=== PATIENT | female | born 1945 | race Caucasian/White ===

== ENCOUNTER 2020-06-30 13:54 | Outpatient (CLI) | payer MEDICARE, BC, SELFPAY | END 2020-06-30 13:55 | disposition home or self-care (01) | LOC: ANHCOVIDVC 13:54 | PROVIDERS: PCP Family Medicine Adolescent Medicine | DX: Z23 Encounter for immunization (principal) | CPT/HCPCS: 0001A; 91300 ==

== ENCOUNTER 2020-07-21 13:56 | Outpatient (CLI) | payer MEDICARE, BC, SELFPAY | END 2020-07-21 13:57 | disposition home or self-care (01) | LOC: ANHCOVIDVC 13:57 | PROVIDERS: PCP Family Medicine Adolescent Medicine | DX: Z23 Encounter for immunization (principal) | CPT/HCPCS: 0002A; 91300 ==

== ENCOUNTER 2022-06-28 19:21 | Emergency (ER) | payer MEDICARE, BC, SELFPAY ==
--- NOTE | ~2022-06-28 | XR_ITS ---
EXAM: XR shoulder LT min 2V DATE: 06/28/2022 20:10 HISTORY: Fall today. Left shoulder pain, ROM intact . COMPARISON: None available. FINDINGS: Severely decreased mineralization. Comminuted fracture of the lateral head and proximal hu meral shaft, with minimal displacement. No lytic or blastic lesion. Joint spaces are maintained. No e rosion or periosteal change. Soft tissues within normal limits. IMPRESSION: Comminuted nondisplaced fracture of the left humeral head and proximal shaft. Reviewed, dictated and finalized at location K. IMPRESSION: Comminuted nondisplaced fracture of the left humeral head and proxi mal shaft.
--- NOTE | ~2022-06-28 | CT_ITS ---
EXAMINATION: CT brain wo con DATE: 06/28/2022 19:56 INDICATION: fall . TECHNIQUE: Computed tomography (CT) of the head was performed without intravenous contrast. The mA wa s adjusted according to patient size. Iterative reconstruction technique was employed. The dose-lengt h product was 529.67 mGy-cm. COMPARISON: 03/03/2018. FINDINGS: No acute intracranial hemorrhage or extra-axial fluid collection. No hydrocephalus, mass, or herniation. No acute ischemic infarct. Unremarkable dural venous sinus attenuation. No acute osseous abnormality. The aerated spaces are clear. Moderate atrophy and chronic white matter change. Atherosclerotic intracranial calcification. 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 IMPRESSION: No acute intracranial process. Reviewed, dictated and finalized at location K.
--- NOTE | 2022-06-28 19:26 | ECG_ITS ---
Measurements Intervals [place] Rate: 110 P: 53 [place]: 210 QRS: -14 QRSD: 73 T: 24 QT: 295 QTc: 399 Interpretive Statements SINUS TACHYCARDIA WITH FIRST DEGREE AV BLOCK MODERATE VOLTAGE CRITERIA FOR LVH, CONSIDER NORMAL VARIANT [MEETS CRITERIA IN ONE OF: R(aVL), S(V1), R(V5), R(V5/V6)+S(V1)] POSSIBLE ANTEROSEPTAL MYOCARDIAL INFARCTION , PROBABLY OLD [30 ms Q WAVE IN V1-V4] NO PREVIOUS ECG AVAILABLE FOR COMPARISON Electronically Signed On 06-29-2022 17:59:37 CDT by Maico Lundy M.D.
[2022-06-28 19:30] VITALS: BP 150/84; PULSE 109; RESP 20; TEMP 36.3; O2SAT 94
--- NOTE | 2022-06-28 20:43 | ED.FALL ---
HPI - Fall General Chief Complaint: Fall Stated Complaint: fall Time Seen by Provider: 06/28/22 19:34 Source: patient Mode of arrival: wheelchair Limitations: no limitations History of Present Illness HPI Narrative: 77-year-old with a history of hypertension was brought in by family with complaints of fall. Patient states that she tripped and fell on her left shoulder she denies any head and neck injuries. No history of loss of consciousness. She denies any chest pain MD complaint: fall Onset (ago): hour(s) (1) Fall from: standing Fall witnessed: yes, by family Place fall occurred: home Loss of consciousness: none Symptoms prior to fall: none Context: tripped/slipped Location of injury - extremities: Left: shoulder Quality: aching Associated symptoms (after fall): denies Related Data Allergies Allergy/AdvReac Type Severity Reaction Status Date / Time Sulfa (Sulfonamide Allergy Mild Verified 03/03/18 19:09 Antibiotics) PCN Allergy Mild Uncoded 08/05/09 16:41 Review of Systems Review of Systems: All systems reviewed & are unremarkable except as noted in HPI and below Constitutional: Constitutional: Reports no additional constitutional complaints Eyes: Eyes: Reports no additional eye complaints ENT: Reports system reviewed and no additional complaints, except as documented Cardiovascular: Cardiovascular: Reports no additional cardiovascular complaints Respiratory: Respiratory: Reports no additional respiratory complaints Gastrointestinal: Gastrointestinal: Reports no additional gastrointestinal complaints Musculoskeletal: Musculoskeletal: Reports as per HPI Neurologic: Reports system reviewed and no additional complaints, except as documented [facility] Surgical History Surgical History (Updated 02/03/22 @ 06:40 by Maxime Jimenes MD) History of cholecystectomy (1988) Exam Narrative: GENERAL: Well-appearing, well-nourished, and in no acute distress. HEAD: Normocephalic, atraumatic. mild bruises on the left side of the face EYES: PERRLA and EOMI. NECK: Supple. CHEST: Clear to auscultation. No respiratory distress. HEART: Regular rate and rhythm. No murmur heard. Normal peripheral pulses. ABDOMEN: Soft, nontender, nondistended, normal active bowel sounds. EXTREMITIES: Tenderness in the left shoulder painful ROM SKIN: Warm, dry, no rash. NEURO: No focal deficits. Alert and oriented x3. PSYCH: Normal mood and affect. Course Course Emergency Course: Notified patient about her x-ray and CT findings. Discussed with Dr. Owen will follow-up in the office. Vital Signs Vital signs: Vital Signs Temperature 36.3 C L 06/28/22 19:30 Pulse Rate 109 H 06/28/22 19:30 Respiratory Rate 20 06/28/22 19:30 Blood Pressure 150/84 H 06/28/22 19:30 Pulse Oximetry 94 06/28/22 19:30 Oxygen Delivery Room Air 06/28/22 19:30 Temperature 36.3 C L 06/28/22 19:30 Pulse Rate 109 H 06/28/22 19:30 Respiratory Rate 20 06/28/22 19:30 Blood Pressure 150/84 H 06/28/22 19:30 Pulse Oximetry 94 06/28/22 19:30 Oxygen Delivery Room Air 06/28/22 19:30 MDM - Fall Imaging Data Radiologist's impression: ITS Impressions Head CT 06/28/22 20:02 IMPRESSION: No acute intracranial process. Shoulder X-Ray 06/28/22 20:29 IMPRESSION: Comminuted nondisplaced fracture of the left humeral head and proximal shaft. ECG Data EKG #1: ECG completion date: 06/28/22 ECG completion time: 19:32 EKG Interpretation: tachycardia (110), no ectopy, normal QRS, normal QT and NL axis Discharge Plan Discharge Clinical Impression: Humerus head fracture Qualifiers: Encounter type: initial encounter Fracture type: closed Laterality: left Qualified Code(s): S42.292A - Other displaced fracture of upper end of left humerus, initial encounter for closed fracture Minor head injury Qualifiers: Encounter type: initial encounter Qualified Code(s): S09.90XA -
[2022-06-28 21:00] VITALS: BP 141/90; PULSE 89; RESP 18; TEMP 36.6; O2SAT 99
== END 2022-06-28 21:01 | disposition home or self-care (01) ==
PROVIDERS: Emergency Provider Family Medicine; PCP Family Medicine Adolescent Medicine
DX: S42.295A Other nondisplaced fracture of upper end of left humerus, initial encounter for closed fracture (principal); S42.355A Nondisplaced comminuted fracture of shaft of humerus, left arm, initial encounter for closed fracture; S09.90XA Unspecified injury of head, initial encounter; W01.0XXA Fall on same level from slipping, tripping and stumbling without subsequent striking against object, initial encounter
CPT/HCPCS: 70450; 73030; 93005; 99284; A4565

== ENCOUNTER 2022-09-20 15:14 | Inpatient (IN) | payer MEDICARE, BC, SELFPAY ==
[2022-09-20] VITALS (10 sets, daily range): BP systolic 123–148; BP diastolic 58–101; PULSE 94–115; RESP 13–20; TEMP 36–36.7; O2SAT 93–100; BMI 36.1
--- NOTE | ~2022-09-20 | CT_ITS ---
EXAMINATION: CTA chest PE protocol DATE: 09/21/2022 20:29 INDICATION: Elevated d-dimer TECHNIQUE: Computed tomography angiography (CTA) of the chest was performed with 100 mL Omnipaque-350 intravenous contrast timed to evaluate the pulmonary arteries. Coronal maximum intensity projection 3D-reconstructions were created by the technologist. Automated exposure control and iterative reconst ruction technique were employed. Exam dose: 660.33 mGy-cm total exam DLP. COMPARISON: 08/05/2009 portable AP chest FINDINGS: The examination is limited by motion artifact and by streak artifact from contrast material particularly in the superior vena cava. No pulmonary embolism is evident. Thoracic aortic and great vessel atherosclerotic calcification. No thoracic aortic aneurysm or dissec tion is detected. Prominent tortuosity of the lower descending thoracic aorta. No hilar or mediastinal mass lesion or lymphadenopathy. Coronary artery calcifications. No pericardial or pleural effusion. There is discoid atelectasis or scarring in the dependent lingula. No pulmonary infiltrate or consol idation or apparent pulmonary mass lesion. Status post cholecystectomy. There is ossification along the anterior thoracic spinal column suggesting ankylosing spondylitis or other spondyloarthropathy. IMPRESSION: Limited examination due to motion; no apparent pulmonary embolus Reviewed, dictated and finalized at Location A. Reviewed, dictated and finalized at location A.
--- NOTE | ~2022-09-20 | US_ITS ---
EXAMINATION: US venous doppler [facility] DATE: 09/21/2022 12:42 INDICATION: Lower limb edema. TECHNIQUE: Grayscale ultrasound images without and with compression and Doppler ultrasound images of the bilateral lower extremity veins were obtained. COMPARISON: Ultrasound 08/12/2009 FINDINGS: The visualized portions of right common femoral vein, profunda (deep) femoral vein, femoral vein, pop liteal vein, posterior tibial veins, and greater saphenous vein outflow are patent. The visualized portions of left common femoral vein, profunda femoral vein, femoral vein, popliteal v ein, posterior tibial veins, and greater saphenous vein outflow are patent. IMPRESSION: 1. No deep venous thrombosis. Reviewed, dictated and finalized at location A.
[2022-09-20 15:49] LABS: Basophils Percent Auto 0.5 % (0.2-1.2); Eosinophils Absolute Auto 0.3 K/mm3 (0-0.3); Hematocrit 43.1 % (37.0-47.0); Hemoglobin 14.1 g/dL (12.0-15.0); Immature Granulocyte Absolute 0.02 K/mm3 (0.00-0.031); Immature Granulocyte Percent A 0.2 % (0-0.5); Lymphocytes Absolute Auto 0.79 K/mm3 (0.9-3.2); Lymphocytes Percent Auto 9.4 % (18.3-44.2); Mean Corpuscular HGB Conc 32.7 g/dl (32-36); Mean Corpuscular Hemoglobin 31.1 pg (26-34); Mean Corpuscular Volume 94.9 fl (80-100); Mean Platelet Volume 11.9 fl (7.4-10.4); Monocytes Absolute Auto 0.5 K/mm3 (0.1-0.6); Monocytes Percent Auto 5.4 % (2.6-8.5); Neutrophils Absolute Auto 6.8 K/mm3 (1.3-6.7); Neutrophils Percent Auto 81.5 % (45.5-73.1); Platelet Count Result 170 k/mm3 (150-375); Red Blood Count 4.54 M/mm3 (4.2-5.4); Red Cell Distribution Width 11.9 % (11.5-14.5); White Blood Count 8.4 K/mm3 (4.5-10.0)
[2022-09-20 15:58] LABS: Alanine Aminotransferase 20 U/L (6-35); Albumin Level 4.3 g/dL (3.5-5.1); Alkaline Phosphatase 82 U/L (38-126); Anion Gap 5 mmol/L (8-16); Aspartate Amino Transferase 32 U/L (14-36); Bilirubin,Total 0.6 mg/dL (0.2-1.3); Blood Urea Nitrogen 25 mg/dL (7-17); Calcium 8.2 mg/dL (8.4-10.2); Carbon Dioxide 37 mmol/L (22-30); Chloride 98 mmol/L (98-107); Estimated CRCL calculation 41 ml/min; Estimated Glomerular Filt Rate 53; Glucose 105 mg/dL (65-110); Potassium 3.4 mmol/L (3.4-5.0); Sodium 140 mmol/L (137-145)
[2022-09-20 16:07] LABS: NT Pro B Type Natriuretic Pept 306 pg/mL (19.9-100)
[2022-09-20] MEDS: MORPHINE SULFATE (*CRX) 2 MG/ML INJ IV PUSH (16:28)
[2022-09-20 16:35] LABS: Prothrombin Time 13.1 Seconds (11.1-14.7)
[2022-09-20 16:36] LABS: Partial Thromboplastin Time 30.7 SECONDS (22.3-36.8)
--- NOTE | 2022-09-20 16:37 | ED.LOWEXIN ---
HPI - Extremity Injury (Lower) General Chief Complaint: Extremity Injury, Lower Stated Complaint: LE pain Time Seen by Provider: 09/20/22 15:23 History of Present Illness HPI Narrative: Patient is a 77-year-old female who presents ER with bilateral lower extremity pain. Worsening over the last week but more so over the last 24 hours. She reports she takes Bumex 0.5 mg chronically and her doctor doubled it yesterday due to her swelling. No chest pain or chest pressure. No shortness of breath. She reports that her legs are more tender and pink and that they are weeping fluid. She denies any history of CHF and reports only history of hypertension. She has no known kidney disease. Related Data Allergies Allergy/AdvReac Type Severity Reaction Status Date / Time Penicillins Allergy Mild Unknown Verified 09/20/22 15:37 Sulfa (Sulfonamide Allergy Mild Unknown Verified 09/19/22 10:07 Antibiotics) Review of Systems Review of Systems: All systems reviewed & are unremarkable except as noted in HPI and below Constitutional: Constitutional: Denies chills, Denies fatigue and Denies fever(s) ENT: Denies nasal congestion and Denies sore throat Cardiovascular: Cardiovascular: Denies chest pain, Denies rapid heart rate and Denies radiating jaw, neck or arm pain Respiratory: Respiratory: Denies cough and Denies dyspnea Musculoskeletal: Musculoskeletal: Denies arthralgias and Denies joint swelling Comments: Bilateral lower extremity swelling. Integumentary/Breasts: Comments: + Leg weeping, leg redness PMFSH Past Medical History Medical History (Updated 09/20/22 @ 18:06 by Francois Restrepo MD) Fracture of humerus, proximal, left, closed (06/2022) Surgical History Surgical History History of cholecystectomy (1988) Social History Social History Smoking status: Never smoker Exam Narrative: GENERAL: Well-appearing, well-nourished, and in no acute distress. HEAD: Normocephalic, atraumatic. ENT: Mucous membranes moist. CHEST: Clear to auscultation. No respiratory distress. HEART: Regular rate and rhythm. Normal peripheral pulses. ABDOMEN: Soft, nontender, nondistended. EXTREMITIES: Normal range of motion. 2+ edema. Weeping edema right greater than left. Legs are erythematous beneath the knee and tender palpation and warm to touch. SKIN: Warm, dry, no rash. See above. NEURO: Alert and oriented x3. PSYCH: Normal mood and affect. Course Course Emergency Course: Patient resting comfortably. Informed results. Will admit to the hospitalist service to rule out DVT. Patient given therapeutic Lovenox x1. Vital Signs Vital signs: Vital Signs Temperature 98.1 F 09/20/22 15:14 Pulse Rate 97 09/20/22 15:14 Respiratory Rate 13 09/20/22 15:14 Pulse Oximetry 100 09/20/22 15:14 Oxygen Delivery Room Air 09/20/22 15:14 Temperature 97.6 F 09/20/22 15:39 Pulse Rate 94 09/20/22 16:47 Respiratory Rate 18 09/20/22 15:39 Blood Pressure 126/64 09/20/22 17:16 Pulse Oximetry 94 09/20/22 17:16 Oxygen Delivery Room Air 09/20/22 15:14 MDM - Extremity Injury (Lower) Lab Data 09/20/22 15:41 09/20/22 15:41 Labs: Lab Results 09/20/22 Range/Units 15:41 WBC 8.4 (4.5-10.0) K/mm3 RBC 4.54 (4.2-5.4) M/mm3 Hgb 14.1 (12.0-15.0) g/dL Hct 43.1 (37.0-47.0) % MCV 94.9 (80-100) fl MCH 31.1 (26-34) pg MCHC 32.7 (32-36) g/dl RDW 11.9 (11.5-14.5) % Plt Count 170 (150-375) k/mm3 MPV 11.9 H (7.4-10.4) fl Immature Gran % (Auto) 0.2 (0-0.5) % Neut % (Auto) 81.5 H (45.5-73.1) % Lymph % (Auto) 9.4 L (18.3-44.2) % [place] % (Auto) 5.4 (2.6-8.5) % Eos % (Auto) 3.0 (0-4.4) % Baso % (Auto) 0.5 (0.2-1.2) % Lymph # (Auto) 0.79 L (0.9-3.2) K/mm3 [place] # (Auto) 0.5 (0.1-0.6) K/mm3 Eos # (Auto)
[2022-09-20] MEDS: BUMETANIDE INJ 1 MG/4 ML VIAL IV PUSH (16:41)
[2022-09-20 16:54] LABS: D Dimer 2.81 ug/mL (<0.48)
[2022-09-20] MEDS: ENOXAPARIN 100 MG/ML SYRINGE 87 MG SUB-Q (17:00)
--- NOTE | 2022-09-20 18:37 | PM.IMHP ---
H&P: HPI History of Present Illness Date/Time: 09/20/22 18:15 Chief Complaint: Leg pain and swelling. Narrative: This is a pleasant 77-year-old female with hypertension who presented to the emergency department via EMS from home for evaluation of leg pain and swelling. The patient provides the following history. She has mild, chronic lower extremity edema and has been on bumetanide 0.5 mg daily. Over the past 7 to 10 days however she has noticed a marked increase in swelling in both of her legs and has noted some fluid leaking from blisters that have developed on the right lower leg. She saw Dr. Nolen in the office yesterday and her bumetanide dose was doubled and she is to see him in follow-up next week. She came to the ER today because her legs are so painful that she cannot even bear weight. She has no known history of congestive heart failure, kidney disease, venous thromboembolism, or blistering disorders. She denies she denies fever, chills, sweats, chest pain, pleuritic pain, shortness a breath, orthopnea, paroxysmal nocturnal dyspnea, nausea, vomiting, and numbness or weakness in the lower extremities. Her vital signs were stable on arrival to the emergency department. Labs were significant for a proBNP of 306 and a D-dimer of 2.81. She received a therapeutic dose of Lovenox for possible DVT (ultrasound not available on a holiday) and she is being admitted in this setting for further workup and monitoring. At the time my evaluation she is resting comfortably and does not have any specific complaints. Review of Systems Review of Systems: Twelve systems were reviewed and are negative except for as per HPI. [facility] Past Medical History Medical History (Updated 09/20/22 @ 22:31 by Janeth Hollis PA-C) Fracture of humerus, proximal, left, closed (06/2022) Hypertension Osteoarthritis Surgical History Surgical History (Updated 09/20/22 @ 22:24 by Janeth Hollis PA-C) History of cholecystectomy (1988) History of total replacement of right shoulder joint History of tubal ligation Family History Family History (Updated 09/20/22 @ 22:28 by Janeth Hollis PA-C) Other Family history unknown Social History Social History (Updated 09/20/22 @ 22:28 by Janeth Hollis PA-C) Social History: Surrogate medical decision maker: Quentin Perez, son. Code status: Full code. Smoking status: Never smoker Alcohol intake: never Substance use: never Lack of Transportation: No Lack of Food: Never True Current Housing: I Have Housing Concerned About Future Housing: No Difficulty Paying Gas/Electric Bills: No Difficulty Paying for Meds: No Currently Unemployed: No Education: High School Diploma/GED Difficulty w/ Childcare or Family Care: No Additional living arrangements comments: Lives in [place]. Spiritual care concerns: No Meds Home Medications and Allergies Home Medications Medication Instructions Recorded Confirmed Type bumetanide 1 mg tablet 1 mg PO DAILY #90 tabs 09/19/22 09/20/22 Rx lisinopril 40 mg tablet 40 mg PO DAILY #90 tabs 09/19/22 09/20/22 Rx Allergies Allergy/AdvReac Type Severity Reaction Status Date / Time Penicillins Allergy Mild Unknown Verified 09/20/22 15:37 Sulfa (Sulfonamide Allergy Mild Unknown Verified 09/19/22 10:07 Antibiotics) Vital Signs Vital Signs - 24 hr 09/20/22 15:14 09/20/22 15:39 09/20/22 16:02 Temperature 98.1 F 97.6 F Pulse Rate 97 95 95 Respiratory Rate 13 18 Blood Pressure 124/101 H 131/72 Pulse Oximetry 100 100 99 Oxygen Delivery Room Air 09/20/22 16:31 09/20/22 16:47 09/20/22 17:16 Temperature Pulse Rate 98 94 Respiratory Rate Blood Pressure 137/72 123/58 L 126/64 Pulse Oximetry 94 93 94 Oxygen Delivery 09/20/22 18:20 Temperature Pulse Rate 96 Respiratory Rate 20 Blood Pressure Pulse Oximetry 96 Oxygen Delivery Exam Narrative: General: A well-developed, non
[2022-09-20] MEDS: HYDROcodone/acetaminophen (*CRX) 5-325 MG TABLET 1 TAB PO (20:18)
--- NOTE | 2022-09-20 21:20 | ADMGEN ---
This patient, Leah Perez, was admitted to [facility] Surg Room 330-02. Patient/family oriented to hospital policies and general routines including ID bracelet, bed and alarms, visiting hours, pain management, procedures, bathroom and other care routines, personal items, smoking policy, room service/diet, and visiting hours. Information on how to activate the Rapid Response Team has been discussed. Patient/Family are encouraged to report perceived risks to care and to ask questions if they do not understand what they are told or what they should do.
[2022-09-21 04:27] LABS: Appearance Urine Slightly Cloudy (Clear); Bilirubin Urine 1+ (Negative); Blood Urine Negative (Negative); Color Urine Yellow (Yellow); Glucose Urine UA Negative (Negative); Ketones Urine Trace mg/dL (Negative); Leukocyte Esterase Ur Negative LEU/UL (Negative); Nitrate Urine Negative (Negative); Protein Urine Negative (Negative); Specific Grav Ur 1.015 (1.001-1.035); pH Urine 5.5 (5.0-9.0)
[2022-09-21 04:29] LABS: Bacteria Urine None Seen /hpf; RBC Urine 0-2 /hpf (0-2); Squamous Epithelial Cell Urine Few /hpf (Few); WBC Urine 0-5 /hpf
[2022-09-21 04:30] LABS: Add Urine Microscopic? YES
[2022-09-21 05:56] LABS: Hematocrit 40.5 % (37.0-47.0); Hemoglobin 13.4 g/dL (12.0-15.0); Mean Corpuscular HGB Conc 33.1 g/dl (32-36); Mean Corpuscular Hemoglobin 31.2 pg (26-34); Mean Corpuscular Volume 94.2 fl (80-100); Mean Platelet Volume 11.8 fl (7.4-10.4); Platelet Count Result 135 k/mm3 (150-375); Red Cell Distribution Width 11.9 % (11.5-14.5); White Blood Count 9.4 K/mm3 (4.5-10.0)
[2022-09-21 06:00] VITALS: BP 130/60; PULSE 97; RESP 20; TEMP 36.6; O2SAT 92
[2022-09-21 06:06] LABS: Anion Gap 5 mmol/L (8-16); Blood Urea Nitrogen 22 mg/dL (7-17); Calcium 7.6 mg/dL (8.4-10.2); Carbon Dioxide 33 mmol/L (22-30); Chloride 101 mmol/L (98-107); Estimated CRCL calculation 46 ml/min; Estimated Glomerular Filt Rate 60; Glucose 106 mg/dL (65-110); Potassium 3.3 mmol/L (3.4-5.0); Sodium 139 mmol/L (137-145)
[2022-09-21] MEDS: MAGNESIUM SULF 4 GM/WATER100ML 4 GM/100 ML BAG IVPB (06:41)
[2022-09-21 06:58] LABS: Thyroid Stimulating Hormone Reflex 0.606 uIU/mL (0.465-4.68)
--- NOTE | 2022-09-21 08:00 | ECHO_ITS ---
Patient Info Name: Leah Perez Age: 77 years : 1945 Gender: Female Ht: 62 in Wt: 197 lbs BSA: 2.02 m2 HR: 98 bpm BP: 131 / 66 mmHg Technical Quality: Fair Exam Date: 09/21/2022 11:31 AM Exam Location: [facility] Pulmonary Exam Room: 330 Patient Status: Inpatient Admit Date: 09/21/2022 Staff Ordering Physician: Janeth Hollis PA-C Dumpster Driver: Alena Chu RDCS Attending Provider: Uriel Iqbal MD Referring Physician: Telma YOUNGER; Exam Type: CA echo dop color flow w con Study Info Indications - hypertension edema Complete two-dimensional, color flow and Doppler transthoracic echocardiogram is performed with contrast to opacify the left ventricle and to improve the deliniation of the left ventricle endocardial borders. Contrast/Agitated Saline Contrast/Ag. Saline: Definity Amount: 2.00 ml Administered By: Alena Chu [facility] Existing IV Access: Yes Summary 1. Left ventricular chamber dimension is normal. 2. Definity contrast administered improved wall motion interpretation. 3. Left ventricular systolic function is normal, estimated at 65-70%. 4. The left ventricular diastolic function is grade I diastolic dysfunction. 5. E/e' 14 is mildly elevated. 6. There is mild aortic valve sclerosis. 7. The mitral valve has moderately calcified leaflets and moderately calcified annulus. 8. There is trace tricuspid valve regurgitation. 9. No pulmonary hypertension, estimated pulmonary arterial systolic pressure is 38 mmHg. Left Ventricle E/e' 14 is mildly elevated. Definity contrast administered improved wall motion interpretation. Left ventricular chamber dimension is normal. Left ventricular systolic function is normal, estimated at 65-70%. The left ventricular diastolic function is grade I diastolic dysfunction. Right Ventricle Right ventricular chamber dimension is normal. Right ventricular systolic function is normal. Left Atria Left atrial chamber dimension is normal. Right Atria Right atrial chamber dimension is normal. Aortic Valve The aortic valve is trileaflet. There is mild aortic valve sclerosis. There is no aortic valve stenosis. There is no aortic valve regurgitation. Pulmonic Valve There is no pulmonic regurgitation. Mitral Valve The mitral valve has moderately calcified leaflets and moderately calcified annulus. There is no mitral valve stenosis. There is no mitral valve regurgitation. Tricuspid Valve There is trace tricuspid valve regurgitation. No pulmonary hypertension, estimated pulmonary arterial systolic pressure is 38 mmHg. Pericardium/Pleural There is no pericardial effusion. Inferior Vena Cava Normal inferior vena cava with >50% collapse upon inspiration consistent with normal right atrial pressure, 5 mmHg. Aorta The aortic root size at the sinus of Valsalva is normal. Left Ventricular Outflow Tract Name Value Normal LVOT 2D LVOT Diameter 2.12 cm LVOT Doppler LVOT Peak Velocity 107.39 cm/s LVOT Peak Gradient 5 mmHg LVOT Mean Gradient 2 mmHg LVOT VTI 19.22 cm L
[2022-09-21] MEDS: POTASSIUM CHLORIDE 20 MEQ ER TABLET 40 MEQ PO ×2 (09:02→16:44)
[2022-09-21] MEDS: BUMETANIDE INJ 1 MG/4 ML VIAL IV PUSH (09:02)
[2022-09-21] MEDS: lisinopriL 20 MG TABLET 40 MG PO (09:02)
[2022-09-21] MEDS: ENOXAPARIN 100 MG/ML SYRINGE 90 MG SUB-Q (10:08)
[2022-09-21 10:52] VITALS: BMI 35.4
--- NOTE | 2022-09-21 11:41 | PC.NURSE ---
Ultrasound to call the floor when patient is sent for. Patient needs to be pre-medicated before venous dopplers due to pain.
[2022-09-21] MEDS: PERFLUTREN LIPID MICROSPHERES 1.5 ML VIAL DILUTED TO 10 ML TOTAL VOLUME IV PUSH (11:50)
[2022-09-21] MEDS: MORPHINE SULFATE (*CRX) 2 MG/ML INJ 1 MG IV PUSH (12:05)
[2022-09-21 12:51] LABS: Magnesium 2.2 mg/dL (1.6-2.3)
[2022-09-21 14:00] VITALS: BP 101/51; PULSE 87; RESP 18; TEMP 37; O2SAT 100
--- NOTE | 2022-09-21 14:33 | PM.IMPN ---
Progress Note: A&P Assessment and Plan (1) Lower extremity edema: Code(s): R60.0 - Localized edema Status: Acute Assessment and Plan: The patient presented to the ED for evaluation of increasing lower extremity edema, pain, redness and now with blisters and weeping of the right leg. Her D-dimer is elevated raising the possibility of DVT. Lower extremity venous Doppler ultrasounds negative for DVT. She received a therapeutic dose of Lovenox in the ED and this was continued until ultrasounds were negative. May be dependent edema, encouraged elevation of the legs. Continue Bumex 1 mg IV q.a.m. Echocardiogram EF of 65-70%, grade 1 diastolic dysfunction, mitral valve moderately calcified leaflets and annulus These do not look infected but and procalcitonin CRP was ordered. White count normal. Consider antibiotics if elevated CRP. (2) Elevated d-dimer: Code(s): R79.89 - Other specified abnormal findings of blood chemistry Status: Acute Assessment and Plan: Bilateral ultrasound of lower extremities negative for DVT CTA chest ordered to rule out PE (3) Hypertension: Code(s): I10 - Essential (primary) hypertension Status: Acute Assessment and Plan: Blood pressures were reviewed and they have been stable Plan Her home medications will be reviewed and resumed as appropriate. Subjective Date/time seen: 09/21/22 14:33 Interval history: Patient is in quite a bit of pain with manipulation of her right lower extremity and has some mild pain to palpation of the left lower extremity. Right lower extremity is red and has to open sores on the mid ornelas that are weeping. Patient states that those wounds opened approximately 1 week ago and the redness is fairly new. Most of her pain is in the right calf. She has 2+ pitting edema below the knee on the right and 1+ pitting edema below the knee on left. She denies any shortness of breath, cough or chest palpitations. Review of Systems Review of Systems: All systems reviewed & are unremarkable except as noted in HPI and below Exam Narrative: GENERAL: Uncomfortable, no acute distress HENMT: moist mucous membranes EYES: EOM intact b/l NECK: no lymphadenopathy RESPIRATORY: clear to auscultation CARDIO: RRR GI: soft, nontender, bowel sounds present SKIN: no rashes EXTREMITIES: Right lower extremity extreme tenderness to palpation and has some mild pain to palpation of the left lower extremity. Right lower extremity is red and has two open sores on the mid ornelas that are weeping. She has 2+ pitting edema below the knee on the right and 1+ pitting edema below the knee on left. Objective Data Vital Signs Vital Signs: Vital Signs - 24 hr 09/20/22 15:14 09/20/22 15:39 09/20/22 16:02 Temperature 98.1 F 97.6 F Pulse Rate 97 95 95 Respiratory Rate 13 18 Blood Pressure 124/101 H 131/72 Pulse Oximetry 100 100 99 Oxygen Delivery Room Air 09/20/22 16:31 09/20/22 16:47 09/20/22 17:16 Temperature Pulse Rate 98 94 Respiratory Rate Blood Pressure 137/72 123/58 L 126/64 Pulse Oximetry 94 93 94 Oxygen Delivery 09/20/22 18:20 09/20/22 18:39 09/20/22 21:56 Temperature 96.8 F L 97.7 F Pulse Rate 96 115 H 106 H Respiratory Rate 20 18 19 Blood Pressure 148/74 H 131/66 Pulse Oximetry 96 95 98 Oxygen Delivery 09/20/22 21:53 09/21/22 06:00 09/21/22 08:00 Temperature 97.8 F Pulse Rate 97 Respiratory Rate 20 Blood Pressure 130/60 Pulse Oximetry 98 92 Oxygen Delivery Room Air Room Air 09/21/22 14:00 Temperature 98.6 F Pulse Rate 87 Respiratory Rate 18 Blood Pressure 101/51 L Pulse Oximetry 100 Oxygen Delivery Intake/Output Intake/Output: Intake & Output 09/18/22 09/19/22 09/20/22 09/21/22 23:59 23:59 23:59 23:59 Intake Total 760 Output Total 100 1100 Balance -100 -340 Meds/Results Medications: Active Medications Generic Name D
--- NOTE | 2022-09-21 15:48 | PCOTNOTE ---
Attempted to see pt. for occupational therapy evaluation. Per nursing, pt. in significant LE pain, recommending delaying evaluation at this time.
[2022-09-21 15:52] LABS: CRP 2.6 mg/dL (<1.0)
[2022-09-21 16:42] LABS: Procalcitonin 0.5 ng/mL
[2022-09-21 21:05] VITALS: BP 130/50; PULSE 100; RESP 20; TEMP 37.1; O2SAT 95
[2022-09-22 06:00] VITALS: BP 128/54; PULSE 92; RESP 20; TEMP 36.3; O2SAT 90
[2022-09-22 06:12] LABS: Hematocrit 38.9 % (37.0-47.0); Hemoglobin 12.9 g/dL (12.0-15.0); Mean Corpuscular HGB Conc 33.2 g/dl (32-36); Mean Corpuscular Hemoglobin 31.2 pg (26-34); Mean Platelet Volume 12.4 fl (7.4-10.4); Platelet Count Result 128 k/mm3 (150-375); Red Blood Count 4.14 M/mm3 (4.2-5.4); Red Cell Distribution Width 11.7 % (11.5-14.5); White Blood Count 7.6 K/mm3 (4.5-10.0)
[2022-09-22 06:30] LABS: Anion Gap 3 mmol/L (8-16); Blood Urea Nitrogen 18 mg/dL (7-17); Carbon Dioxide 32 mmol/L (22-30); Chloride 98 mmol/L (98-107); Estimated CRCL calculation 46 ml/min; Estimated Glomerular Filt Rate 60; Glucose 98 mg/dL (65-110); Magnesium 1.9 mg/dL (1.6-2.3); Potassium 4.2 mmol/L (3.4-5.0); Sodium 133 mmol/L (137-145)
[2022-09-22] MEDS: BUMETANIDE INJ 1 MG/4 ML VIAL IV PUSH ×2 (09:13→16:05)
[2022-09-22] MEDS: ENOXAPARIN 40 MG/0.4 ML SYRINGE SUB-Q (09:13)
[2022-09-22] MEDS: lisinopriL 20 MG TABLET 40 MG PO (09:13)
--- NOTE | 2022-09-22 13:03 | PC.NURSE ---
Pt has been up with therapy today. Pt reported pain with ambulation, but denies pain at rest. Pt has visitor at bedside. Pt had loose bowel movement earlier today. Provider notified and order for stool sample to be placed. Wound consult order to be placed also. Pt has weeping R leg with blister and open areas where blisters were. Leg is warm to touch with redness around blister sites. Pt participated and contributed in plan of care. Will continue to monitor pt.
--- NOTE | 2022-09-22 13:27 | PCPTNOTE ---
On 09/22/22, the student, [Gely Garcia], provided care and completed [facility] documentation on this patient. I have reviewed the student's documentation and agree with the findings.
[2022-09-22 14:00] VITALS: BP 127/63; PULSE 110; RESP 22; TEMP 37.9; O2SAT 94
--- NOTE | 2022-09-22 14:48 | PM.IMPN ---
Progress Note: A&P Assessment and Plan (1) Lower extremity edema: Code(s): R60.0 - Localized edema Status: Acute Assessment and Plan: The patient presented to the ED for evaluation of increasing lower extremity edema, pain, redness and now with blisters and weeping of the right leg. D-dimer 2.8 Lower extremity venous Doppler ultrasounds negative for DVT. She received a therapeutic dose of Lovenox in the ED and this was continued until ultrasounds were negative. May be dependent edema, encouraged elevation of the legs. Bumex increased to 1 mg IV b.i.d. Echocardiogram EF of 65-70%, grade 1 diastolic dysfunction, mitral valve moderately calcified leaflets and annulus White count within normal range, normal procalcitonin and mildly elevated CRP of 2.6 Patient developed fever of 100.3? and dose of vancomycin given. Wound care consult and wound culture ordered (2) Elevated d-dimer: Code(s): R79.89 - Other specified abnormal findings of blood chemistry Status: Acute Assessment and Plan: Bilateral ultrasound of lower extremities negative for DVT CTA of the chest negative for PE (3) Hypertension: Code(s): I10 - Essential (primary) hypertension Status: Acute Assessment and Plan: Blood pressures were reviewed and they have been stable Plan Her home medications will be reviewed and resumed as appropriate. Subjective Date/time seen: 09/22/22 14:48 Interval history: Patient up to chair and continued to have right leg pain. None of patient's labs indicate infection but she does have a very red and swollen legs mimicking his cellulitis. I did discuss the case with attending physician and he believes that this could be stasis dermatitis. Further inspection she had 1 blister that appeared to be oozing pus. Will collect wound sample. Later in the day patient developed a fever of 100.3. Decided to give dose of vancomycin as well as diuresing her. Review of Systems Review of Systems: All systems reviewed & are unremarkable except as noted in HPI and below Exam Narrative: GENERAL: Uncomfortable, no acute distress HENMT: moist mucous membranes EYES: EOM intact b/l NECK: no lymphadenopathy RESPIRATORY: clear to auscultation CARDIO: RRR GI: soft, nontender, bowel sounds present SKIN: no rashes EXTREMITIES: Right lower extremity extreme tenderness to palpation and has some mild pain to palpation of the left lower extremity. Right lower extremity is red and has two open sores on the mid ornelas. One is oozing pus. She has 2+ pitting edema below the knee on the right and 1+ pitting edema below the knee on left. Objective Data Vital Signs Vital Signs: Vital Signs - 24 hr 09/21/22 20:00 09/21/22 21:05 09/22/22 06:00 Temperature 98.7 F 97.4 F L Pulse Rate 100 92 Respiratory Rate 20 20 Blood Pressure 130/50 L 128/54 L Pulse Oximetry 95 90 Oxygen Delivery Room Air 09/22/22 09:13 09/22/22 10:41 09/22/22 14:00 Temperature 100.3 F H Pulse Rate 110 H Respiratory Rate 22 H Blood Pressure 127/63 Pulse Oximetry 94 Oxygen Delivery Room Air Room Air Intake/Output Intake/Output: Intake & Output 09/19/22 09/20/22 09/21/22 09/22/22 23:59 23:59 23:59 23:59 Intake Total 1180 814 Output Total 100 1500 1300 Balance -100 320 486 Meds/Results Medications: Active Medications Generic Name Dose Route Start Last Admin Trade Name Freq PRN Reason Stop Dose Admin Acetaminophen 650 mg 09/20/22 22:33 Acetaminophen 325 Mg Tablet PO Q6H PRN Mild Pain (1-3) or Fever Hydrocodone Bitart/Acetaminophen 1 tab 09/20/22 17:32 09/20/22 20:18 Hydrocodone/Acetaminophen (*Crx) 5-325 Mg Tablet PO 1 tab Q4H PRN Administration Pain Rated 4-6 Bumetanide 1 mg 09/21/22 09:00 09/22/22 09:13 Bumetanide Inj 1 Mg/4 Ml Vial IV PUSH 1 mg QAM VALERIE Administration Enoxaparin Sodium 40 m
[2022-09-22] MEDS: ACETAMINOPHEN 325 MG TABLET 650 MG PO (15:02)
[2022-09-22 16:02] VITALS: TEMP 36.8
[2022-09-22] MEDS: SILVERGEL (ELTA) 45 ML 1 APPLIC TOPICAL (16:04)
[2022-09-22 20:00] VITALS: PULSE 110; RESP 22; O2SAT 94
[2022-09-22 21:24] VITALS: O2SAT 94
[2022-09-22 21:44] VITALS: BP 118/55; PULSE 87; RESP 20; TEMP 36.9; O2SAT 94
[2022-09-23 04:49] VITALS: BP 154/67; PULSE 96; RESP 22; TEMP 36.8; O2SAT 91
[2022-09-23 06:32] LABS: Basophils Percent Auto 0.3 % (0.2-1.2); Eosinophils Absolute Auto 0.3 K/mm3 (0-0.3); Hematocrit 37.1 % (37.0-47.0); Hemoglobin 12.1 g/dL (12.0-15.0); Immature Granulocyte Absolute 0.03 K/mm3 (0.00-0.031); Immature Granulocyte Percent A 0.4 % (0-0.5); Lymphocytes Absolute Auto 0.73 K/mm3 (0.9-3.2); Lymphocytes Percent Auto 10.4 % (18.3-44.2); Mean Corpuscular HGB Conc 32.6 g/dl (32-36); Mean Corpuscular Hemoglobin 30.9 pg (26-34); Mean Corpuscular Volume 94.9 fl (80-100); Monocytes Absolute Auto 0.7 K/mm3 (0.1-0.6); Neutrophils Absolute Auto 5.3 K/mm3 (1.3-6.7); Neutrophils Percent Auto 74.9 % (45.5-73.1); Platelet Count Result 121 k/mm3 (150-375); Red Blood Count 3.91 M/mm3 (4.2-5.4); Red Cell Distribution Width 11.6 % (11.5-14.5)
[2022-09-23 06:45] LABS: Alanine Aminotransferase 15 U/L (6-35); Albumin Level 3.2 g/dL (3.5-5.1); Alkaline Phosphatase 64 U/L (38-126); Anion Gap -3 mmol/L (8-16); Aspartate Amino Transferase 21 U/L (14-36); Bilirubin,Total 0.8 mg/dL (0.2-1.3); Blood Urea Nitrogen 16 mg/dL (7-17); CRP 2.7 mg/dL (<1.0); Calcium 8.1 mg/dL (8.4-10.2); Carbon Dioxide 39 mmol/L (22-30); Chloride 96 mmol/L (98-107); Estimated CRCL calculation 46 ml/min; Estimated Glomerular Filt Rate 60; Glucose 98 mg/dL (65-110); Potassium 3.9 mmol/L (3.4-5.0); Sodium 132 mmol/L (137-145)
[2022-09-23 08:51] VITALS: O2SAT 95
[2022-09-23 08:54] VITALS: O2SAT 95
[2022-09-23] MEDS: lisinopriL 20 MG TABLET 40 MG PO (08:54)
[2022-09-23] MEDS: TOLNAFTATE 1% POWDER 45 GM BTL 1 APPLIC TOPICAL ×2 (08:54→20:19)
[2022-09-23] MEDS: BUMETANIDE INJ 1 MG/4 ML VIAL IV PUSH ×2 (08:54→16:37)
[2022-09-23] MEDS: SILVERGEL (ELTA) 45 ML 1 APPLIC TOPICAL (08:55)
[2022-09-23] MEDS: ENOXAPARIN 40 MG/0.4 ML SYRINGE SUB-Q (08:55)
[2022-09-23] MEDS: HYDROcodone/acetaminophen (*CRX) 5-325 MG TABLET 1 TAB PO (10:42)
[2022-09-23 14:00] VITALS: BP 125/63; PULSE 93; RESP 18; TEMP 36.2; O2SAT 94
--- NOTE | 2022-09-23 15:42 | PM.IMPN ---
Progress Note: A&P Assessment and Plan (1) Lower extremity edema: Code(s): R60.0 - Localized edema Status: Acute Assessment and Plan: The patient presented to the ED for evaluation of increasing lower extremity edema, pain, redness and now with blisters and weeping of the right leg. D-dimer 2.8 Lower extremity venous Doppler ultrasounds negative for DVT. She received a therapeutic dose of Lovenox in the ED and this was continued until ultrasounds were negative. May be dependent edema, encouraged elevation of the legs. Bumex increased to 1 mg IV b.i.d. Echocardiogram EF of 65-70%, grade 1 diastolic dysfunction, mitral valve moderately calcified leaflets and annulus White count within normal range, normal procalcitonin and mildly elevated CRP of 2.6 Patient developed fever of 100.3? and vancomycin started Wound care consult and wound culture ordered (2) Elevated d-dimer: Code(s): R79.89 - Other specified abnormal findings of blood chemistry Status: Acute Assessment and Plan: Bilateral ultrasound of lower extremities negative for DVT CTA of the chest negative for PE (3) Hypertension: Code(s): I10 - Essential (primary) hypertension Status: Acute Assessment and Plan: Blood pressures were reviewed and they have been stable Plan Her home medications will be reviewed and resumed as appropriate. Subjective Date/time seen: 09/23/22 15:42 Interval history: Patient continuing to have pain with ambulation and palpation of her right lower extremity. Her swelling and erythema have improved in mid ornelas/mid calf area. She is still significantly edematous over her foot and ankles. Skin is still warm to touch. She denies any systemic symptoms such as body aches, chills, nausea, vomiting, headache and dizziness. Will continue antibiotic therapy at this time as well as retics. Watch sodium as it is continuing to drop. May have to hold diuretics tomorrow. Review of Systems Review of Systems: All systems reviewed & are unremarkable except as noted in HPI and below Exam Narrative: GENERAL: Uncomfortable, no acute distress HENMT: moist mucous membranes EYES: EOM intact b/l NECK: no lymphadenopathy RESPIRATORY: clear to auscultation CARDIO: RRR GI: soft, nontender, bowel sounds present SKIN: no rashes EXTREMITIES: Right lower extremity extreme tenderness to palpation and has some mild pain to palpation of the left lower extremity. Right lower extremity is red and has two open sores on the mid ornelas. One is oozing pus. She has 2+ pitting edema below the knee on the right and 1+ pitting edema below the knee on left. --erythema and swelling around the calf and ornelas have improved Objective Data Vital Signs Vital Signs: Vital Signs - 24 hr 09/22/22 16:02 09/22/22 20:00 09/22/22 21:44 Temperature 98.2 F 98.4 F Pulse Rate 110 H 87 Respiratory Rate 22 H 20 Blood Pressure 118/55 L Pulse Oximetry 94 94 Oxygen Delivery Room Air 09/22/22 21:24 09/23/22 04:49 09/23/22 08:51 Temperature 98.2 F Pulse Rate 96 Respiratory Rate 22 H Blood Pressure 154/67 H Pulse Oximetry 94 91 95 Oxygen Delivery Room Air Room Air 09/23/22 08:54 09/23/22 14:00 Temperature 97.2 F L Pulse Rate 93 Respiratory Rate 18 Blood Pressure 125/63 Pulse Oximetry 95 94 Oxygen Delivery Room Air Intake/Output Intake/Output: Intake & Output 09/20/22 09/21/22 09/22/22 09/23/22 23:59 23:59 23:59 23:59 Intake Total 1180 1536 500 Output Total 100 1500 1850 1100 Balance -100 -320 -314 -600 Meds/Results Medications: Active Medications Generic Name Dose Route Start Last Admin Trade Name Freq PRN Reason Stop Dose Admin Acetaminophen 650 mg 09/20/22 22:33 09/22/22 15:02 Acetaminophen 325 Mg Tablet PO 650 mg Q6H PRN Administration Mild Pain (1-3) or Fever Hydrocodone Bitart/Acetaminophen 1 tab 09/20/22
--- NOTE | 2022-09-23 16:20 | PC.NURSE ---
Pt has been up in the chair today. Pt has been in pain and was treated with pain medication. Pt wound care done, pt tolerated well. Pt does not report any pain with dressing change. Pt has friend at bedside. Will continue to monitor pt.
[2022-09-23 22:00] VITALS: BP 146/67; PULSE 86; RESP 16; TEMP 36.2; O2SAT 92
[2022-09-24 06:00] VITALS: BP 148/70; PULSE 89; RESP 16; TEMP 36.3; O2SAT 90
[2022-09-24 07:12] LABS: Basophils Percent Auto 0.4 % (0.2-1.2); Eosinophils Absolute Auto 0.4 K/mm3 (0-0.3); Eosinophils Percent Auto 6.2 % (0-4.4); Hematocrit 36.5 % (37.0-47.0); Immature Granulocyte Absolute 0.02 K/mm3 (0.00-0.031); Immature Granulocyte Percent A 0.4 % (0-0.5); Lymphocytes Percent Auto 12.3 % (18.3-44.2); Mean Corpuscular HGB Conc 32.9 g/dl (32-36); Mean Corpuscular Volume 94.3 fl (80-100); Mean Platelet Volume 11.7 fl (7.4-10.4); Monocytes Absolute Auto 0.7 K/mm3 (0.1-0.6); Neutrophils Absolute Auto 3.9 K/mm3 (1.3-6.7); Neutrophils Percent Auto 68.7 % (45.5-73.1); Platelet Count Result 162 k/mm3 (150-375); Red Blood Count 3.87 M/mm3 (4.2-5.4); Red Cell Distribution Width 11.6 % (11.5-14.5); White Blood Count 5.7 K/mm3 (4.5-10.0)
[2022-09-24 07:41] LABS: Alanine Aminotransferase 14 U/L (6-35); Albumin Level 3.2 g/dL (3.5-5.1); Alkaline Phosphatase 59 U/L (38-126); Anion Gap -1 mmol/L (8-16); Aspartate Amino Transferase 19 U/L (14-36); Bilirubin,Total 0.5 mg/dL (0.2-1.3); Blood Urea Nitrogen 17 mg/dL (7-17); Calcium 8.3 mg/dL (8.4-10.2); Carbon Dioxide 36 mmol/L (22-30); Chloride 96 mmol/L (98-107); Estimated CRCL calculation 41 ml/min; Estimated Glomerular Filt Rate 53; Glucose 95 mg/dL (65-110); Potassium 3.7 mmol/L (3.4-5.0); Sodium 131 mmol/L (137-145)
[2022-09-24] MEDS: ENOXAPARIN 40 MG/0.4 ML SYRINGE SUB-Q (08:19)
[2022-09-24] MEDS: BUMETANIDE INJ 1 MG/4 ML VIAL IV PUSH (08:20)
[2022-09-24] MEDS: lisinopriL 20 MG TABLET 40 MG PO (08:20)
[2022-09-24] MEDS: TOLNAFTATE 1% POWDER 45 GM BTL 1 APPLIC TOPICAL ×2 (08:32→20:43)
[2022-09-24] MEDS: SILVERGEL (ELTA) 45 ML 1 APPLIC TOPICAL (08:32)
--- NOTE | 2022-09-24 12:59 | PM.IMPN ---
Progress Note: A&P Assessment and Plan (1) Lower extremity edema: Code(s): R60.0 - Localized edema Status: Acute Assessment and Plan: The patient presented to the ED for evaluation of increasing lower extremity edema, pain, redness and now with blisters and weeping of the right leg. D-dimer 2.8 Lower extremity venous Doppler ultrasounds negative for DVT. She received a therapeutic dose of Lovenox in the ED and this was continued until ultrasounds were negative. May be dependent edema, encouraged elevation of the legs. Bumex 1 mg daily Echocardiogram EF of 65-70%, grade 1 diastolic dysfunction, mitral valve moderately calcified leaflets and annulus Wound care consult and wound culture ordered (2) Cellulitis: Code(s): L03.90 - Cellulitis, unspecified Status: Acute Assessment and Plan: Patient being treated for cellulitis of the right lower extremity. Initially put on vancomycin which seem to improve erythema, pain and edema. Blood cultures came back positive for Serratia marcescens and vancomycin was transition to cefepime Culture sensitivities pending. Wound care consulted Continue dressing changes and topicals per wound care Continue to monitor labs and vital signs and adjust therapy as indicated. (3) Elevated d-dimer: Code(s): R79.89 - Other specified abnormal findings of blood chemistry Status: Acute Assessment and Plan: Bilateral ultrasound of lower extremities negative for DVT CTA of the chest negative for PE (4) Hypertension: Code(s): I10 - Essential (primary) hypertension Status: Acute Assessment and Plan: Blood pressures were reviewed and they have been stable Plan Her home medications will be reviewed and resumed as appropriate. Subjective Date/time seen: 09/24/22 12:59 Interval history: Patient up to the chair doing well today. She has no new complaints at this time. Her wound appears to be improving. She continues to have pain in the right lower extremity although it has improved since admission. She is ambulating better each day. Review of Systems Review of Systems: All systems reviewed & are unremarkable except as noted in HPI and below Exam Narrative: GENERAL: Uncomfortable, no acute distress HENMT: moist mucous membranes EYES: EOM intact b/l NECK: no lymphadenopathy RESPIRATORY: clear to auscultation CARDIO: RRR GI: soft, nontender, bowel sounds present SKIN: no rashes EXTREMITIES: Right lower extremity extreme tenderness to palpation and has some mild pain to palpation of the left lower extremity. Right lower extremity is red and has two open sores on the mid ornelas. One is oozing pus. She has 2+ pitting edema below the knee on the right and 1+ pitting edema below the knee on left. --erythema and swelling around the calf and ornelas have improved Objective Data Vital Signs Vital Signs: Vital Signs - 24 hr 09/23/22 14:00 09/23/22 22:00 09/24/22 06:00 Temperature 97.2 F L 97.2 F L 97.3 F L Pulse Rate 93 86 89 Respiratory Rate 18 16 16 Blood Pressure 125/63 146/67 H 148/70 H Pulse Oximetry 94 92 90 Oxygen Delivery 09/24/22 08:20 Temperature Pulse Rate Respiratory Rate Blood Pressure Pulse Oximetry Oxygen Delivery Room Air Intake/Output Intake/Output: Intake & Output 09/21/22 09/22/22 09/23/22 09/24/22 23:59 23:59 23:59 23:59 Intake Total 1180 2036 500 790 Output Total 1500 1850 1675 120 Balance -320 186 -1175 670 Meds/Results Medications: Active Medications Generic Name Dose Route Start Last Admin Trade Name Freq PRN Reason Stop Dose Admin Acetaminophen 650 mg 09/20/22 22:33 09/22/22 15:02 Acetaminophen 325 Mg Tablet PO 650 mg Q6H PRN Administration Mild Pain (1-3) or Fever Hydrocodone Bitart/Acetaminophen 1 tab 09/20/22 17:32 09/23/22 10:42 Hydrocodone/Acetaminophen (*Crx) 5-325 Mg Tablet PO
[2022-09-24 14:00] VITALS: BP 126/54; PULSE 94; RESP 18; TEMP 36.7; O2SAT 94
[2022-09-24] MEDS: CEFEPIME 2 GM/NS 50 ML 2 GM/50 ML BAG IVPB ×2 (14:56→23:04)
[2022-09-24 21:45] VITALS: BP 123/55; PULSE 86; RESP 18; TEMP 36.6; O2SAT 92
[2022-09-25] MEDS: ACETAMINOPHEN 325 MG TABLET 650 MG PO (00:41)
[2022-09-25 06:00] VITALS: BP 139/115; PULSE 85; RESP 18; TEMP 36.1; O2SAT 87
[2022-09-25 06:22] LABS: Hematocrit 35.6 % (37.0-47.0); Hemoglobin 11.8 g/dL (12.0-15.0); Mean Corpuscular HGB Conc 33.1 g/dl (32-36); Mean Corpuscular Hemoglobin 31.7 pg (26-34); Mean Corpuscular Volume 95.7 fl (80-100); Mean Platelet Volume 11.8 fl (7.4-10.4); Platelet Count Result 171 k/mm3 (150-375); Red Blood Count 3.72 M/mm3 (4.2-5.4); Red Cell Distribution Width 11.5 % (11.5-14.5); White Blood Count 4.5 K/mm3 (4.5-10.0)
[2022-09-25 07:05] LABS: Anion Gap 1 mmol/L (8-16); Blood Urea Nitrogen 23 mg/dL (7-17); Calcium 8.2 mg/dL (8.4-10.2); Carbon Dioxide 36 mmol/L (22-30); Chloride 97 mmol/L (98-107); Estimated CRCL calculation 41 ml/min; Estimated Glomerular Filt Rate 53; Glucose 94 mg/dL (65-110); Potassium 3.8 mmol/L (3.4-5.0); Sodium 134 mmol/L (137-145)
[2022-09-25] MEDS: BUMETANIDE INJ 1 MG/4 ML VIAL IV PUSH (08:30)
[2022-09-25] MEDS: ENOXAPARIN 40 MG/0.4 ML SYRINGE SUB-Q (08:30)
[2022-09-25] MEDS: lisinopriL 20 MG TABLET 40 MG PO (08:31)
[2022-09-25] MEDS: CEFEPIME 2 GM/NS 50 ML 2 GM/50 ML BAG IVPB ×2 (08:31→20:54)
[2022-09-25] MEDS: SILVERGEL (ELTA) 45 ML 1 APPLIC TOPICAL (08:31)
[2022-09-25] MEDS: TOLNAFTATE 1% POWDER 45 GM BTL 1 APPLIC TOPICAL ×2 (08:31→20:55)
--- NOTE | 2022-09-25 12:05 | PM.IMPN ---
Progress Note: A&P Assessment and Plan (1) Lower extremity edema: Code(s): R60.0 - Localized edema Status: Acute Assessment and Plan: The patient presented to the ED for evaluation of increasing lower extremity edema, pain, redness and now with blisters and weeping of the right leg. D-dimer 2.8 Lower extremity venous Doppler ultrasounds negative for DVT. She received a therapeutic dose of Lovenox in the ED and this was continued until ultrasounds were negative. May be dependent edema, encouraged elevation of the legs. Bumex 1 mg daily Echocardiogram EF of 65-70%, grade 1 diastolic dysfunction, mitral valve moderately calcified leaflets and annulus Wound care consult and wound culture ordered (2) Cellulitis: Code(s): L03.90 - Cellulitis, unspecified Status: Acute Assessment and Plan: Patient being treated for cellulitis of the right lower extremity. Initially put on vancomycin which seem to improve erythema, pain and edema. Blood cultures came back positive for Serratia marcescens and vancomycin was transition to cefepime Wound culture positive for Serratia marcescens sensitive to cefepime. Plan to continue treatment with cefepime today and then transition to p.o. Levaquin tomorrow. Total antibiotic therapy for 10 days. Continue antibiotic therapy through 10/03/2022. Wound care consulted Continue dressing changes and topicals per wound care Continue to monitor labs and vital signs and adjust therapy as indicated. (3) Elevated d-dimer: Code(s): R79.89 - Other specified abnormal findings of blood chemistry Status: Acute Assessment and Plan: Bilateral ultrasound of lower extremities negative for DVT CTA of the chest negative for PE (4) Hypertension: Code(s): I10 - Essential (primary) hypertension Status: Acute Assessment and Plan: Blood pressures were reviewed and they have been stable Plan Her home medications will be reviewed and resumed as appropriate. Subjective Date/time seen: 09/25/22 12:05 Interval history: Patient doing well and up to the chair. She states that with ambulation her foot pain has much improved. Her swelling and redness has significantly decreased although still present. She denies any body aches, chills, fever, nausea vomiting. Wound care dressing wounds on the ornelas. Patient hopefully can be discharged tomorrow or Monday to rehab. Review of Systems Review of Systems: All systems reviewed & are unremarkable except as noted in HPI and below Exam Narrative: GENERAL: Uncomfortable, no acute distress HENMT: moist mucous membranes EYES: EOM intact b/l NECK: no lymphadenopathy RESPIRATORY: clear to auscultation CARDIO: RRR GI: soft, nontender, bowel sounds present SKIN: no rashes EXTREMITIES: Right lower tenderness to palpation. Right lower extremity is red and has two open sores on the mid ornelas. She has 2+ pitting edema below the knee on the right. Wounds covered with gauze. Erythema and swelling around the calf and ornelas have improved. Objective Data Vital Signs Vital Signs: Vital Signs - 24 hr 09/24/22 14:00 09/24/22 21:45 09/25/22 06:00 Temperature 98.0 F 97.8 F 97 F L Pulse Rate 94 86 85 Respiratory Rate 18 18 18 Blood Pressure 126/54 L 123/55 L 139/115 H Pulse Oximetry 94 92 87 L Oxygen Delivery 09/25/22 08:30 Temperature Pulse Rate Respiratory Rate Blood Pressure Pulse Oximetry Oxygen Delivery Room Air Intake/Output Intake/Output: Intake & Output 09/22/22 09/23/22 09/24/22 09/25/22 23:59 23:59 23:59 23:59 Intake Total 2036 500 840 458 Output Total 1850 1675 570 500 Balance 186 -6141 270 -42 Meds/Results Medications: Active Medications Generic Name Dose Route Start Last Admin Trade Name Nicolásq PRN Reason Stop Dose Admin Acetaminophen 650 mg 09/20/22 22:33 09/25/22 00:41 Acetaminophen 325 Mg Tablet PO
[2022-09-25 14:00] VITALS: BP 116/56; PULSE 93; RESP 18; TEMP 36.2; O2SAT 95
[2022-09-25 20:45] VITALS: BP 146/64; PULSE 89; RESP 18; TEMP 35.6; O2SAT 94
[2022-09-26 06:00] VITALS: BP 176/74; PULSE 88; RESP 18; TEMP 35.9; O2SAT 94
[2022-09-26 06:18] LABS: Hematocrit 38.9 % (37.0-47.0); Hemoglobin 12.6 g/dL (12.0-15.0); Mean Corpuscular HGB Conc 32.4 g/dl (32-36); Mean Corpuscular Hemoglobin 30.9 pg (26-34); Mean Corpuscular Volume 95.3 fl (80-100); Mean Platelet Volume 11.2 fl (7.4-10.4); Platelet Count Result 219 k/mm3 (150-375); Red Blood Count 4.08 M/mm3 (4.2-5.4); Red Cell Distribution Width 11.4 % (11.5-14.5); White Blood Count 5.5 K/mm3 (4.5-10.0)
[2022-09-26 06:25] LABS: Alanine Aminotransferase 15 U/L (6-35); Albumin Level 3.4 g/dL (3.5-5.1); Alkaline Phosphatase 65 U/L (38-126); Anion Gap -1 mmol/L (8-16); Aspartate Amino Transferase 25 U/L (14-36); Bilirubin,Total 0.4 mg/dL (0.2-1.3); Blood Urea Nitrogen 22 mg/dL (7-17); Calcium 8.6 mg/dL (8.4-10.2); Carbon Dioxide 37 mmol/L (22-30); Chloride 101 mmol/L (98-107); Estimated CRCL calculation 41 ml/min; Estimated Glomerular Filt Rate 53; Glucose 99 mg/dL (65-110); Sodium 137 mmol/L (137-145)
[2022-09-26] MEDS: CEFEPIME 2 GM/NS 50 ML 2 GM/50 ML BAG IVPB (08:34)
[2022-09-26] MEDS: ENOXAPARIN 40 MG/0.4 ML SYRINGE SUB-Q (08:34)
[2022-09-26] MEDS: BUMETANIDE INJ 1 MG/4 ML VIAL IV PUSH (08:34)
[2022-09-26] MEDS: lisinopriL 20 MG TABLET 40 MG PO (08:35)
[2022-09-26] MEDS: TOLNAFTATE 1% POWDER 45 GM BTL 1 APPLIC TOPICAL (08:35)
[2022-09-26] MEDS: SILVERGEL (ELTA) 45 ML 1 APPLIC TOPICAL (08:35)
[2022-09-26] MEDS: levoFLOXacin 750 MG TABLET PO (08:35)
--- NOTE | 2022-09-26 11:38 | PM.DS ---
DS: Admitting Diagnosis Discharge Date 09/26/22 Admitting Diagnosis Right lower extremity cellulitis DS: Discharge Diagnosis Discharge Diagnosis (1) Lower extremity edema: Code(s): R60.0 - Localized edema Status: Acute Assessment and Plan: The patient presented to the ED for evaluation of increasing lower extremity edema, pain, redness and now with blisters and weeping of the right leg. D-dimer 2.8 Lower extremity venous Doppler ultrasounds negative for DVT. She received a therapeutic dose of Lovenox in the ED and this was continued until ultrasounds were negative. May be dependent edema, encouraged elevation of the legs. Bumex 1 mg daily Echocardiogram EF of 65-70%, grade 1 diastolic dysfunction, mitral valve moderately calcified leaflets and annulus Wound care consult and wound culture ordered (2) Cellulitis: Code(s): L03.90 - Cellulitis, unspecified Status: Acute Assessment and Plan: Patient being treated for cellulitis of the right lower extremity. Initially put on vancomycin which seem to improve erythema, pain and edema. Blood cultures came back positive for Serratia marcescens and vancomycin was transition to cefepime Wound culture positive for Serratia marcescens sensitive to cefepime. Cefepime transition to p.o. Levaquin. total antibiotic therapy for 10 days. Continue antibiotic therapy through 10/03/2022. Wound care consulted Dressing changes and topicals per wound care Monitor labs and vital signs and adjust therapy as indicated. (3) Elevated d-dimer: Code(s): R79.89 - Other specified abnormal findings of blood chemistry Status: Acute Assessment and Plan: Bilateral ultrasound of lower extremities negative for DVT CTA of the chest negative for PE (4) Hypertension: Code(s): I10 - Essential (primary) hypertension Status: Acute Assessment and Plan: Blood pressures were reviewed and they have been stable Plan Her home medications will be reviewed and resumed as appropriate. DS: Summary Hospital Course Hospital Course: This is a 77-year-old female with a past medical history of hypertension and chronic lower extremity edema the presented to the ED on 09/20/2022 for evaluation of right lower extremity pain, swelling and redness. Prior to presentation patient had noticed increased swelling in her legs for approximately 1 week. She developed blisters on her right ornelas. Her Bumex had recently been increased from 0.5 mg to 1 mg. She is unable to bear weight on her legs. She has not no history of CHF, CKD, DVT, or blistering disorders. She denied any nausea, vomiting, dyspnea, chest pain, body aches and chills. Her BNP was 306 and D-dimer was 2.8. She was given dose of Lovenox until she was able to get bilateral ultrasound. Bilateral lower extremity ultrasound was negative for DVT. Patient was heavily diuresed. White count within normal range, normal procalcitonin and mildly elevated CRP of 2.6. She did develop a fever of 100.3 as well as right lower extremity wounds appeared to be infected and was using a yellow pus. She was started on vancomycin and wound care consult as well as wound culture were ordered. Will culture came back positive for Serratia marcescens that was sensitive to cefepime. Patient was transition to cefepime and she received 48 hours of treatment and her symptoms markedly improved. She was then transitioned to Levaquin that was renally dose to Q 48 hours. She received a total antibiotic therapy of 10 days. Advised to continue wound care. She will be discharged to SNF. Her labs and vital signs are stable and she is medically clear for discharge. Time Spent with Patient Time attestation: Total time spent providing and/or coordinating discharge services: Exam Narrative: GENERAL: Uncomfortable, no acute distress HENMT: moist mucous membranes EYES: EOM intact b/l
--- NOTE | 2022-09-26 11:46 | PCPTNOTE ---
On 09/26/22, the student, NACHO Mendoza, provided care and completed [facility] documentation on this patient. I have reviewed the student's documentation and agree with the findings.
[2022-09-26 12:02] LABS: SARS-CoV-2 RNA PCR Negative (Negative)
== END 2022-09-26 14:40 | DRG 603 ==
LOC: ANHED 16:21 → ANH3MEDSUR 17:49
PROVIDERS: Internal Medicine; Physician Assistant; Admitting Provider Chiropractor; Emergency Provider Emergency Medicine; PCP Family Medicine Adolescent Medicine; Visit Provider Internal Medicine Critical Care Medicine
DX: R60.0 Localized edema (principal); L03.115 Cellulitis of right lower limb; B96.89 Other specified bacterial agents as the cause of diseases classified elsewhere; R50.9 Fever, unspecified; R79.89 Other specified abnormal findings of blood chemistry; M19.90 Unspecified osteoarthritis, unspecified site; I10 Essential (primary) hypertension; Z96.611 Presence of right artificial shoulder joint; Z88.0 Allergy status to penicillin; Z90.49 Acquired absence of other specified parts of digestive tract; Z20.822 Contact with and (suspected) exposure to COVID-19
CPT/HCPCS: 36415; 71275; 80048; 80053; 81001; 83735; 83880; 84145; 84443; 85025; 85027; 85380; 85610; 85730; 86140; 87040; 87070; 87077; 87186; 87205; 87635; 93970; 96365; 96366; 96372; 96374; 96375; 96376; 97110; 97161; 97165; 97530; 97535; 99285; A9270; C8929; G0378; J0692; J1650; J2270; J3370; J3475; Q9957; Q9967

== ENCOUNTER 2022-10-12 00:34 | Inpatient (IN) | payer MEDICARE, BC, SELFPAY ==
[2022-10-12] VITALS (22 sets, daily range): BP systolic 93–147; BP diastolic 46–75; PULSE 66–97; RESP 15–25; TEMP 36.3–36.9; O2SAT 22–100; BMI 33.1; BMI 36.4
--- NOTE | ~2022-10-12 | CT_ITS ---
Clinical Indication: Hypotension CT Scan of the Chest, Abdomen, and Pelvis without Contrast: Technique: Contiguous sections were acquired throughout the chest, abdomen, and pelvis without IV con trast administration. Dose reduction technique was used on this scan by utilizing automated exposure control and iterative reconstruction technique. The dose-length product (DLP) was 2239.21 mGy-cm. COMPARISON: 09/21/2022 Findings: There is no evidence of any significant mediastinal, hilar or axillary lymphadenopathy. There are ath erosclerotic calcifications of the aorta and coronary arteries. There is no evidence of pleural or pericardial effusion. A 9 mm irregular nodule in the anterior right upper lobe (axial image 22). No other significant pulmo nary abnormality seen. There is a highly comminuted fracture of the surgical neck and head of the proximal left humerus, wit h significant displacement of the major fracture fragments. The liver, spleen, pancreas, adrenals and kidneys are within normal limits. Cholecystectomy clips are present. There are atherosclerotic calcifications of the aorta. No lymphadenopathy. Large amount of stool present the rectum, suggestive of fecal impaction. Suggestion of wall thickenin g of a focal loop of small bowel (coronal image 53), with probable mild upstream small bowel distenti on. Urinary bladder is unremarkable. No adnexal mass seen. No ascites. Impression: Findings suggestive of fecal impaction. Possible wall thickening of a focal loop of small bowel with mild upstream small bowel distention. Fi ndings could reflect infectious/inflammatory enteritis with partial small bowel obstruction. Small gina wel neoplastic lesion is an alternative potential consideration. Highly comminuted fracture of the surgical neck and head of the proximal left humerus with significan t displacement of the major fracture fragments. Correlate clinically with any history of trauma, inju ry, or fall. 9 mm irregular right upper lobe pulmonary nodule, indeterminate, though with appearance suggestive of focal scarring or atelectasis. According to Fleischner Society criteria, 3 month follow-up CT advise d. Reviewed, dictated and finalized at location [facility]. Impression: Findings suggestive of fecal impaction. Possible wall thickening of a focal loop of small bowel with mild upstream smal l bowel distention. Findings could reflect infectious/inflammatory enteritis wi th partial small bowel obstruction. Small bowel neoplastic lesion is an alterna tive potential consideration. Highly comminuted fracture of the surgical neck and head of the proximal left h umerus with significant displacement of the major fracture fragments. Correlate clinically with any history of trauma, injury, or fall. 9 mm irregular right upper lobe pulmonary nodule, indeterminate, though with ap pearance suggestive of focal scarring or atelectasis. According to Fleischner S ociety criteria, 3 month follow-up CT advised.
--- NOTE | ~2022-10-12 | XR_ITS ---
Portable chest x-ray Comparison: 08/05/2009 Clinical History: Hypotension Findings: Possible minimal interstitial edema versus other chronic interstitial disease or COPD. No focal consolidation or pleural effusion. Cardiomediastinal silhouette is stable. Orthopedic plate an d interlocking screws are present at the proximal right humerus. There is a displaced fracture of the left humeral head, age-indeterminate. Impression: Mild interstitial edema versus COPD or other chronic interstitial change. Fracture of the left humeral head, age-indeterminate. Reviewed, dictated and finalized at [facility]. Impression: Mild interstitial edema versus COPD or other chronic interstitial change. Fracture of the left humeral head, age-indeterminate.
--- NOTE | 2022-10-12 01:19 | ECG_ITS ---
Measurements Intervals [place] Rate: 82 P: 72 NV: 210 QRS: 5 QRSD: 76 T: 78 QT: 338 QTc: 396 Interpretive Statements SINUS RHYTHM WITH FIRST DEGREE AV BLOCK LOW QRS VOLTAGE IN PRECORDIAL LEADS BASELINE ARTIFACT- I, II, III, AVR, AVL, AVF, V1-V6 BORDERLINE ECG COMPARED TO ECG 06/28/2022 19:32:08 SINUS RHYTHM NOW PRESENT Electronically Signed On 10-12-2022 7:05:29 CDT by Jordan Lyons D.O.
--- NOTE | 2022-10-12 01:24 | ED.GENADULT ---
HPI - General Adult General Chief complaint: Unspecified Stated complaint: BOWEL OBSTRUCTION Time Seen by Provider: 10/12/22 01:19 History of Present Illness HPI narrative: 77 year old female detention resident brought in by EMS for concern of SBO. Per EMS, staff at detention called to have patient evaluated for SBO. Patient is currently without medical complaints. Reports last BM 2 days ago. Denied headache, chest pain, shortness of breath, abdominal pain, fevers, chills, nausea, vomiting, dysuria, diarrhea, sick contacts. Related Data Allergies Allergy/AdvReac Type Severity Reaction Status Date / Time Penicillins Allergy Mild Unknown Verified 09/20/22 15:37 Sulfa (Sulfonamide Allergy Mild Unknown Verified 09/19/22 10:07 Antibiotics) Review of Systems Review of Systems: See HPI [facility] Past Medical History Medical History Fracture of humerus, proximal, left, closed (06/2022) Hypertension Osteoarthritis Surgical History Surgical History History of cholecystectomy (1988) History of total replacement of right shoulder joint History of tubal ligation Family History Family History Other Family history unknown Social History Social History Social History: Surrogate medical decision maker: Quentin Perez, son. Code status: Full code. Smoking status: Never smoker Alcohol intake: never Substance use: never Lack of Transportation: No Lack of Food: Never True Current Housing: I Have Housing Concerned About Future Housing: No Difficulty Paying Gas/Electric Bills: No Difficulty Paying for Meds: No Currently Unemployed: No Education: High School Diploma/GED Difficulty w/ Childcare or Family Care: No Additional living arrangements comments: Lives in [place]. Spiritual care concerns: No Exam Narrative: General: Alert, calm and cooperative, no acute distress, phonating, sitting comfortably during visit HEENT: Pupils equal round and reactive to light, extra ocular movements intact, no conjunctival injection, head atraumatic, neck supple without meningismus Cardiovascular: Regular rate and rhythm, no visible jugular venous distension Respiratory: Lungs clear to auscultation bilaterally, no wheezing/rales/rhonchi Abdominal: soft, non-tender, non-distended, no guarding, no rebound/peritoneal signs, no costovertebral tenderness to palpation Back: no midline tenderness to palpation, no step offs Extremities: Bilateral 1+ pitting edema, erythema bilaterally, palpable peripheral pulses, warm, well perfused, no tenderness to bilateral calves Neurological: Alert, moving all extremities symmetrically Course Reevaluation(s) Reevaluation #1: Patient reassessed, continuing to have no medical complaints. Denies chest pain, shortness of breath, fevers/chills. Date: 10/12/22 Time: 03:33 Vital Signs Vital signs: Vital Signs Temperature 97.3 F L 10/12/22 00:35 Pulse Rate 90 10/12/22 00:35 Respiratory Rate 25 H 10/12/22 00:35 Oxygen Delivery Room Air 10/12/22 00:35 Temperature 97.3 F L 10/12/22 00:35 Pulse Rate 72 10/12/22 05:06 Respiratory Rate 15 10/12/22 05:06 Blood Pressure 117/49 L 10/12/22 05:06 Pulse Oximetry 100 10/12/22 05:06 Oxygen Delivery Nasal Cannula 10/12/22 01:49 Oxygen Flow Rate 3 10/12/22 01:49 Procedures Other Procedure Procedure 1: Other Procedure: Total critical care time: Approximately?35 minutes Due to a high probability of clinically significant, life threatening deterioration, the patient required my highest level of preparedness to intervene emergently and I personally spent this critical care time directly and personally managing the patient. This critical care time included obtaining a history; exami
[2022-10-12] MEDS: SODIUM CHLORIDE 0.9% IV 1,000 ML 999 ML IV CONT ×2 (01:29→01:47)
[2022-10-12 01:59] LABS: Basophils Absolute Auto 0.1 K/mm3 (0.0-0.1); Basophils Percent Auto 0.5 % (0.2-1.2); Eosinophils Absolute Auto 0.2 K/mm3 (0-0.3); Eosinophils Percent Auto 2.5 % (0-4.4); Hemoglobin 12.7 g/dL (12.0-15.0); Immature Granulocyte Absolute 0.04 K/mm3 (0.00-0.031); Immature Granulocyte Percent A 0.4 % (0-0.5); Lymphocytes Absolute Auto 1.22 K/mm3 (0.9-3.2); Lymphocytes Percent Auto 13.3 % (18.3-44.2); Mean Corpuscular HGB Conc 31.8 g/dl (32-36); Mean Corpuscular Volume 97.6 fl (80-100); Mean Platelet Volume 11.8 fl (7.4-10.4); Monocytes Absolute Auto 0.8 K/mm3 (0.1-0.6); Monocytes Percent Auto 8.5 % (2.6-8.5); Neutrophils Absolute Auto 6.8 K/mm3 (1.3-6.7); Neutrophils Percent Auto 74.8 % (45.5-73.1); Platelet Count Result 195 k/mm3 (150-375); Red Cell Distribution Width 12.2 % (11.5-14.5); White Blood Count 9.2 K/mm3 (4.5-10.0)
[2022-10-12 02:12] LABS: Alanine Aminotransferase 19 U/L (6-35); Alkaline Phosphatase 69 U/L (38-126); Anion Gap 8 mmol/L (8-16); Aspartate Amino Transferase 32 U/L (14-36); Bilirubin,Total 0.7 mg/dL (0.2-1.3); Blood Urea Nitrogen 71 mg/dL (7-17); Calcium 8.7 mg/dL (8.4-10.2); Carbon Dioxide 39 mmol/L (22-30); Chloride 88 mmol/L (98-107); Estimated CRCL calculation 18 ml/min; Estimated Glomerular Filt Rate 19; Glucose 87 mg/dL (65-110); Lipase 222 U/L (23-300); Potassium 4.7 mmol/L (3.4-5.0); Sodium 135 mmol/L (137-145)
[2022-10-12 02:14] LABS: Lactic Acid Reflex 1.2 mmol/L (0.7-2.0)
--- NOTE | 2022-10-12 02:22 | ECG_ITS ---
Measurements Intervals [place] Rate: 77 P: 68 [place]: 225 QRS: -9 QRSD: 63 T: 74 QT: 345 QTc: 391 Interpretive Statements SINUS RHYTHM WITH FIRST DEGREE AV BLOCK LOW QRS VOLTAGE IN PRECORDIAL LEADS BASELINE WANDER- II, III, AVF, V5-V6 BORDERLINE ECG COMPARED TO ECG 10/12/2022 01:44:30 NO SIGNIFICANT CHANGES Electronically Signed On 10-12-2022 7:06:05 CDT by Jordan Lyons D.O.
--- NOTE | 2022-10-12 02:34 | PC.NURSE ---
Patient unable to urinate on her own. Patient ok if nursing staff has to straight urinary catheter her to get a urine sample. Notified EDP Dr. Escobar who VRBO a straight urinary catheter for patient.
[2022-10-12 03:09] LABS: Troponin I 0.229 ng/mL (0.000-0.034)
[2022-10-12 03:12] LABS: Appearance Urine Clear (Clear); Bacteria Urine None Seen /hpf; Bilirubin Urine Negative (Negative); Blood Urine Negative (Negative); Color Urine Yellow (Yellow); Glucose Urine UA Negative (Negative); Hyaline Casts Urine Present /lpf; Ketones Urine Negative (Negative); Leukocyte Esterase Ur Negative LEU/UL (Negative); Mucus Urine Present /lpf; Nitrate Urine Negative (Negative); Non Pathogenic Casts >20; Protein Urine Trace mg/dL (Negative); RBC Urine 0-2 /hpf (0-2); Specific Grav Ur 1.017 (1.001-1.035); Squamous Epithelial Cell Urine None seen /hpf (Few); Urobilinogen Urine 0.2 mg/dL (<2.0); WBC Urine 0-5 /hpf
[2022-10-12 03:14] LABS: Add Urine Microscopic? YES
[2022-10-12 04:26] LABS: Troponin I 0.171 ng/mL (0.000-0.034)
[2022-10-12] MEDS: CLINDAMYCIN 450 MG in DEXTROSE 5% IN WATER 50 ML 106 MG IVPB (04:54)
--- NOTE | 2022-10-12 08:13 | PM.IMHP ---
H&P: HPI History of Present Illness Date/Time: 10/12/22 08:13 Chief Complaint: Constipation Narrative: 77-year-old female from nursing facility with past medical history significant for hypertension, osteoarthritis, chronic lymphedema among other comorbidities is presenting with nausea, vomiting, abdominal pain and complaint of constipation. Of note, she had a fracture of her humerus in June of 2022. No chest pain or shortness of breath. No fevers or chills. She states she has not had a BM in several days. Review of Systems Review of Systems: 12 point review of systems was assessed and was negative except as noted in the HPI [facility] Past Medical History Medical History Fracture of humerus, proximal, left, closed (06/2022) Hypertension Osteoarthritis Surgical History Surgical History History of cholecystectomy (1988) History of total replacement of right shoulder joint History of tubal ligation Family History Family History Other Family history unknown Social History Social History Social History: Surrogate medical decision maker: Quentin Perez, son. Code status: Full code. Smoking status: Never smoker Alcohol intake: never Substance use: never Substance use type: does not use Lack of Transportation: No Lack of Food: Never True Current Housing: I Have Housing Concerned About Future Housing: No Difficulty Paying Gas/Electric Bills: No Difficulty Paying for Meds: No Currently Unemployed: No Education: Grade School Difficulty w/ Childcare or Family Care: No Additional living arrangements comments: Lives in [place]. Spiritual care concerns: No Meds Home Medications and Allergies Home Medications Medication Instructions Recorded Confirmed Type bumetanide 1 mg tablet 1 mg PO DAILY #90 tabs 09/19/22 10/12/22 Rx lisinopril 40 mg tablet 40 mg PO DAILY #90 tabs 09/19/22 10/12/22 Rx Allergies Allergy/AdvReac Type Severity Reaction Status Date / Time Penicillins Allergy Mild Unknown Verified 09/20/22 15:37 Sulfa (Sulfonamide Allergy Mild Unknown Verified 09/19/22 10:07 Antibiotics) Vital Signs Vital Signs - 24 hr 10/12/22 00:35 10/12/22 00:41 10/12/22 00:46 Temperature 97.3 F L Pulse Rate 90 97 84 Respiratory Rate 25 H 23 H Blood Pressure Pulse Oximetry 95 Oxygen Delivery Room Air Oxygen Flow Rate 10/12/22 00:49 10/12/22 01:49 10/12/22 02:41 Temperature Pulse Rate 84 97 Respiratory Rate 21 H 25 H Blood Pressure 98/51 L 97/47 L Pulse Oximetry 22 L 97 99 Oxygen Delivery Nasal Cannula Oxygen Flow Rate 3 10/12/22 03:44 10/12/22 05:06 10/12/22 05:33 Temperature Pulse Rate 82 72 79 Respiratory Rate 17 15 19 Blood Pressure 105/57 L 117/49 L 99/67 L Pulse Oximetry 99 100 98 Oxygen Delivery Oxygen Flow Rate 10/12/22 06:12 10/12/22 06:39 Temperature 97.6 F 97.7 F Pulse Rate 81 80 Respiratory Rate 25 H 22 H Blood Pressure 100/59 L 147/55 H Pulse Oximetry 100 94 Oxygen Delivery Oxygen Flow Rate Exam Narrative: General: No acute distress, alert and oriented per baseline HEENT: Atraumatic, normocephalic, mucous membranes moist CV: Regular rate and rhythm, S1, S2 Lungs: Clear to auscultation bilaterally, no rales or crackles noted, no wheezes, good air entry Abdomen: Soft, nontender, nondistended Extremities: Normal to inspection Skin: No rashes noted, no lesions or wounds seen Psych: Euthymic, normal affect H&P: Results Labs Labs: Short CBC 10/12/22 Range/Units 01:32 WBC 9.2 (4.5-10.0) K/mm3 Hgb 12.7 (12.0-15.0) g/dL Hct 40.0 (37.0-47.0) % Plt Count 195 (150-375) k/mm3 [facility] 10/12/22 01:32 Sodium 135 L Potassium 4.7
[2022-10-12 09:27] LABS: CRP < 0.5 mg/dL (<1.0)
[2022-10-12] MEDS: polyethylene glycoL 3350 17 GM POWD.PACK PO (09:38)
[2022-10-12 09:41] LABS: Procalcitonin 0.2 ng/mL
--- NOTE | 2022-10-12 12:35 | WPDGICN ---
Assessment and Plan Assessment and plan (1) Fecal impaction in rectum: Code(s): K56.41 - Fecal impaction Status: Acute Assessment and Plan: Patient has a history consistent with constipation. Imaging suggests she has a fecal impaction. This appears to be the main reason for admission. Plan for laxatives and enemas as necessary to clear obstruction. Colonoscopy after this is accomplished may be prudent to exclude any predisposing factors. We may hope to do this Monday if she can be cleansed prior to that. (2) Fracture of humerus, proximal, left, closed: Onset Date: 06/2022 Qualifiers: Encounter type: subsequent encounter Fracture alignment: displaced Fracture healing: with routine healing Fracture morphology: other fracture Qualified Code(s): S42.292D - Other displaced fracture of upper end of left humerus, subsequent encounter for fracture with routine healing Code(s): S42.A - Unspecified fracture of upper end of left humerus, initial encounter for closed fracture Status: Acute Assessment and Plan: Fracture of humerus noted. Likely prompted her to be admitted to the hospital and ultimately the custodial. (3) Morbid obesity: Code(s): E66.01 - Morbid (severe) obesity due to excess calories Status: Acute Assessment and Plan: Patient with an obese abdomen but a soft flat with present bowel sounds no indication for a small-bowel obstruction by physical exam nor by imaging studies. (4) JAZZY (acute kidney injury): Code(s): N17.9 - Acute kidney failure, unspecified Status: Acute Assessment and Plan: Patient with significant azotemia. Likely she is dehydrated as she has had poor intake recently. Patient should be rehydrated at this point. Continue to monitor renal function. GI Consult Note Consult date/time: 10/12/22 12:35 Reason for consult: abnormal CT scan HPI: Leah Perez is a 77 year old female I am asked to see at the request of the hospitalist service. Patient recently hospitalized with lower edema stasis. She has poorly healing wound on her right ornelas. Currently a resident of a custodial. Patient is relatively poor historian but appears to have had poor appetite not eating well and no recent bowel movements. She was referred to the emergency room with possible small-bowel obstruction period in the ER a CT scan revealed no significant dilatation to the small bowel. She did have fecal impaction. Patient's abdomen is remains soft and flat. For this reason I have been consulted. Review of Systems Review of Systems: Review of systems noncontributory. [facility] Past Medical History Medical History (Updated 10/12/22 @ 08:50 by Angelica Griffith DO) Fracture of humerus, proximal, left, closed (06/2022) Hypertension Osteoarthritis Surgical History Surgical History History of cholecystectomy (1988) History of total replacement of right shoulder joint History of tubal ligation Family History Family History Other Family history unknown Social History Social History Social History: Surrogate medical decision maker: Quentin Perez, son. Code status: Full code. Smoking status: Never smoker Alcohol intake: never Substance use: never Substance use type: does not use Lack of Transportation: No Lack of Food: Never True Current Housing: I Have Housing Concerned About Future Housing: No Difficulty Paying Gas/Electric Bills: No Difficulty Paying for Meds: No Currently Unemployed: No Education: Grade School Difficulty w/ Childcare or Family Care: No Additional living arrangements comments: Lives in [place]. Spiritual care concerns: No Meds Home Medications and Allergies Home Medications Medication
[2022-10-13] VITALS (11 sets, daily range): BP systolic 119–148; BP diastolic 46–74; PULSE 69–92; RESP 20–24; TEMP 36.1–37.2; O2SAT 94–100
[2022-10-13 05:15] LABS: Basophils Absolute Auto 0.1 K/mm3 (0.0-0.1); Basophils Percent Auto 0.8 % (0.2-1.2); Eosinophils Absolute Auto 0.3 K/mm3 (0-0.3); Eosinophils Percent Auto 5.4 % (0-4.4); Hematocrit 35.1 % (37.0-47.0); Immature Granulocyte Absolute 0.02 K/mm3 (0.00-0.031); Immature Granulocyte Percent A 0.3 % (0-0.5); Lymphocytes Absolute Auto 0.76 K/mm3 (0.9-3.2); Lymphocytes Percent Auto 12.9 % (18.3-44.2); Mean Corpuscular HGB Conc 31.3 g/dl (32-36); Mean Corpuscular Hemoglobin 30.8 pg (26-34); Mean Corpuscular Volume 98.3 fl (80-100); Mean Platelet Volume 11.4 fl (7.4-10.4); Monocytes Absolute Auto 0.5 K/mm3 (0.1-0.6); Monocytes Percent Auto 8.7 % (2.6-8.5); Neutrophils Absolute Auto 4.2 K/mm3 (1.3-6.7); Neutrophils Percent Auto 71.9 % (45.5-73.1); Platelet Count Result 163 k/mm3 (150-375); Red Blood Count 3.57 M/mm3 (4.2-5.4); Red Cell Distribution Width 12.1 % (11.5-14.5); White Blood Count 5.9 K/mm3 (4.5-10.0)
[2022-10-13 05:29] LABS: Alanine Aminotransferase 15 U/L (6-35); Albumin Level 3.1 g/dL (3.5-5.1); Alkaline Phosphatase 55 U/L (38-126); Anion Gap 5 mmol/L (8-16); Aspartate Amino Transferase 25 U/L (14-36); Bilirubin,Total 0.6 mg/dL (0.2-1.3); Blood Urea Nitrogen 54 mg/dL (7-17); Calcium 8.3 mg/dL (8.4-10.2); Carbon Dioxide 34 mmol/L (22-30); Chloride 97 mmol/L (98-107); Estimated CRCL calculation 31 ml/min; Estimated Glomerular Filt Rate 36; Glucose 81 mg/dL (65-110); Potassium 4.5 mmol/L (3.4-5.0); Sodium 136 mmol/L (137-145)
[2022-10-13] MEDS: polyethylene glycoL 3350 17 GM POWD.PACK PO (10:41)
--- NOTE | 2022-10-13 10:51 | WPDGIPROGNO ---
Progress Note: A&P Assessment and Plan (1) Fecal impaction in rectum: Code(s): K56.41 - Fecal impaction Status: Acute Assessment and Plan: Patient admitted with fecal impaction. This appeared to be confirmed by imaging studies. Patient appears to have trouble with constipation. Plan to prepare for colonoscopy tomorrow. She appeared to have a good response to enemas. Anticipate long-term use of MiraLax once daily. Further recommendations will be given after colonoscopy tomorrow. Hopefully she can be discharged at this is unremarkable. (2) Fracture of humerus, proximal, left, closed: Onset Date: 06/2022 Qualifiers: Encounter type: subsequent encounter Fracture morphology: other fracture Fracture alignment: displaced Fracture healing: with routine healing Qualified Code(s): S42.292D - Other displaced fracture of upper end of left humerus, subsequent encounter for fracture with routine healing Code(s): S42.202A - Unspecified fracture of upper end of left humerus, initial encounter for closed fracture Status: Acute Assessment and Plan: Patient to follow-up with primary care service and ortho for humerus fracture. Subjective Date/time seen: 10/13/22 10:51 Interval history: Patient alert comfortable today. She is unaware of whether she had a bowel movement with enemas yesterday. Nursing staff reports large bowel movement with enemas and several additional ones throughout the day yesterday. No bleeding reported. Review of Systems Review of Systems: ROS unobtainable: Yes unobtainable due to mental status Exam Narrative: Physical exam reveals patient to be alert. Vital signs stable. HEENT exam is unremarkable. Patient is anicteric. Lungs are clear. Heart without murmur. Abdomen is obese bowel sounds are present soft nontender with no organomegaly. Objective Data Vital Signs Vital Signs: Vital Signs - 24 hr 10/12/22 11:36 10/12/22 12:00 10/12/22 12:00 Temperature 98.4 F Pulse Rate 93 78 Respiratory Rate 20 Blood Pressure 102/75 Pulse Oximetry 96 96 Oxygen Delivery Nasal Cannula Oxygen Flow Rate 3 10/12/22 14:00 10/12/22 16:00 10/12/22 16:00 Temperature Pulse Rate 72 70 Respiratory Rate Blood Pressure Pulse Oximetry 96 Oxygen Delivery Nasal Cannula Oxygen Flow Rate 3 10/12/22 16:00 10/12/22 18:00 10/12/22 20:00 Temperature 98.4 F 97.9 F Pulse Rate 80 81 82 Respiratory Rate 20 20 Blood Pressure 118/49 L 116/58 L Pulse Oximetry 100 100 Oxygen Delivery Oxygen Flow Rate 10/12/22 20:00 10/12/22 20:00 10/12/22 22:00 Temperature Pulse Rate 79 77 Respiratory Rate Blood Pressure Pulse Oximetry 100 Oxygen Delivery Nasal Cannula Oxygen Flow Rate 3 10/13/22 00:00 10/13/22 00:00 10/13/22 00:00 Temperature 97.7 F Pulse Rate 81 Respiratory Rate 20 Blood Pressure 125/56 L Pulse Oximetry 96 96 96 Oxygen Delivery Nasal Cannula Nasal Cannula Oxygen Flow Rate 3 3 10/13/22 00:00 10/13/22 02:00 10/13/22 04:00 Temperature 97.6 F Pulse Rate 76 69 86 Respiratory Rate 20 Blood Pressure 143/60 H Pulse Oximetry 98 Oxygen Delivery Oxygen Flow Rate 10/13/22 04:00 10/13/22 04:00 10/13/22 06:00 Temperature Pulse Rate 77 76 Respiratory Rate Blood Pressure Pulse Oximetry 98 Oxygen Delivery Nasal Cannula Oxygen Flow Rate 3 10/13/22 08:30 10/13/22 08:39 10/13/22 08:00 Temperature 98.5 F Pulse Rate 87 Respiratory Rate 24 H Blood Pressure 123/46 L Pulse Oximetry 96 95 94 Oxygen Delivery Nasal Cannula Nasal Cannula Oxygen Flow Rate 3 2 10/13/22 08:00 Temperature Pulse Rate Respiratory Rate Blood Pressure Pulse Oximetry 98 Oxygen Delivery Nasal Cannula Oxygen Flow Rate 3 Intake/Output Intake/Output: Intake & Output 10/10/22 10/11/22 10/12/22 10/13/22 23:59 23:59 23:59 23:59 Intake Total 6846
--- NOTE | 2022-10-13 15:11 | PC.NURSE ---
This patient, Leah Perez, was transferred to [3rd med/surg room 323 ] on 10/13/22 at 1515. Personal belongings sent with patient. Report given to [Susanne ]. Appropriate documentation sent with patient.
--- NOTE | 2022-10-13 15:15 | PC.NURSE ---
This patient, Leah Perez, was received from IMU on 10/13/22 at 1515. Patient/family oriented to unit policies and routines.
[2022-10-13] MEDS: PEG (High)/E-LYTE SOLN 4,000 ML BTL 4000 ML PO (15:30)
[2022-10-13 15:54] LABS: Troponin I 0.069 ng/mL (0.000-0.034)
--- NOTE | 2022-10-13 15:59 | PM.IMPN ---
Progress Note: A&P Assessment and Plan (1) SBO (small bowel obstruction): Code(s): K56.609 - Unspecified intestinal obstruction, unspecified as to partial versus complete obstruction Status: Acute Assessment and Plan: Consider surgery consult if does not improve with conservative management, likely 2/2 severe fecal impaction Improving, appreciate GI consult, colonoscopy planned for tomorrow (2) Fecal impaction in rectum: Code(s): K56.41 - Fecal impaction Status: Acute Assessment and Plan: GI consult pending, miralax BID + fleets x 1 See above (3) JAZZY (acute kidney injury): Code(s): N17.9 - Acute kidney failure, unspecified Status: Acute Assessment and Plan: creatinine up to 2.5, down to 1., monitor (4) Essential (primary) hypertension: Code(s): I10 - Essential (primary) hypertension Status: Acute Assessment and Plan: Blood pressures reviewed 10/13 (5) Diastolic dysfunction: Onset Date: 09/2022 Code(s): I51.89 - Other ill-defined heart diseases Status: Acute Assessment and Plan: Grade I dysfunction noted on echo 10/09 Appears euvolemic (6) Restless legs syndrome: Code(s): G25.81 - Restless legs syndrome Status: Acute (7) Pulmonary nodule: Code(s): R91.1 - Solitary pulmonary nodule Status: Acute Assessment and Plan: Follow up outpatient in 3 months (8) Fracture of humerus, proximal, left, closed: Onset Date: 06/2022 Qualifiers: Encounter type: subsequent encounter Fracture morphology: other fracture Fracture alignment: displaced Fracture healing: with routine healing Qualified Code(s): S42.292D - Other displaced fracture of upper end of left humerus, subsequent encounter for fracture with routine healing Code(s): S42.202A - Unspecified fracture of upper end of left humerus, initial encounter for closed fracture Status: Acute Assessment and Plan: Chronic, since June Plan Anxiety and nausea: Ativan as needed DVT prophylaxis with SCDs GI prophylaxis not indicated Code status full code Subjective Date/time seen: 10/13/22 15:59 Interval history: 77-year-old female from nursing facility with past medical history significant for hypertension, osteoarthritis, chronic lymphedema among other comorbidities is presenting with nausea, vomiting, abdominal pain and complaint of constipation and currently being treated for fecal impaction. No overnight events noted. No chest pain or shortness of breath. No fevers or chills. She is complaining of some nausea and diarrhea. However, she is doing a GoLYTELY cleanout for her colonoscopy tomorrow. Review of Systems Review of Systems: 12 point review of systems was assessed and was negative except as noted in the HPI Exam Narrative: General: No acute distress, alert and oriented per baseline HEENT: Atraumatic, normocephalic, mucous membranes moist CV: Regular rate and rhythm, S1, S2 Lungs: Clear to auscultation bilaterally, no rales or crackles noted, no wheezes, good air entry Abdomen: Soft, nontender, nondistended Extremities: Normal to inspection Skin: No rashes noted, no lesions or wounds seen Psych: Euthymic, normal affect Objective Data Vital Signs Vital Signs: Vital Signs - 24 hr 10/12/22 16:00 10/12/22 16:00 10/12/22 16:00 Temperature 98.4 F Pulse Rate 70 80 Respiratory Rate 20 Blood Pressure 118/49 L Pulse Oximetry 96 100 Oxygen Delivery Nasal Cannula Oxygen Flow Rate 3 10/12/22 18:00 10/12/22 20:00 10/12/22 20:00 Temperature 97.9 F Pulse Rate 81 82 Respiratory Rate 20 Blood Pressure 116/58 L Pulse Oximetry 100 100 Oxygen Delivery Nasal Cannula Oxygen Flow Rate 3 10/12/22 20:00 10/12/22 22:00 10/13/22 00:00 Temperature 97.7 F Pulse Rate 79 77 81 Respiratory Rate 20 Blood Pressure
--- NOTE | 2022-10-13 16:25 | PC.NURSE ---
Patient refused NG tube. Patient Alert and oriented x3. Patient will try and drink bowel prep.
[2022-10-14] VITALS (7 sets, daily range): BP systolic 131–157; BP diastolic 52–96; PULSE 87–110; RESP 16–20; TEMP 36.3–37; O2SAT 90–96
[2022-10-14] MEDS: MAG HYDROX/AL HYDROX/SIMETH 30 ML UDC PO (05:49)
[2022-10-14 06:42] LABS: Basophils Percent Auto 0.7 % (0.2-1.2); Eosinophils Absolute Auto 0.4 K/mm3 (0-0.3); Eosinophils Percent Auto 6.2 % (0-4.4); Hematocrit 34.9 % (37.0-47.0); Immature Granulocyte Absolute 0.03 K/mm3 (0.00-0.031); Immature Granulocyte Percent A 0.5 % (0-0.5); Lymphocytes Absolute Auto 0.66 K/mm3 (0.9-3.2); Lymphocytes Percent Auto 11.4 % (18.3-44.2); Mean Corpuscular HGB Conc 31.5 g/dl (32-36); Mean Corpuscular Hemoglobin 30.8 pg (26-34); Mean Corpuscular Volume 97.8 fl (80-100); Mean Platelet Volume 11.5 fl (7.4-10.4); Monocytes Absolute Auto 0.6 K/mm3 (0.1-0.6); Monocytes Percent Auto 9.5 % (2.6-8.5); Neutrophils Absolute Auto 4.1 K/mm3 (1.3-6.7); Neutrophils Percent Auto 71.7 % (45.5-73.1); Platelet Count Result 160 k/mm3 (150-375); Red Blood Count 3.57 M/mm3 (4.2-5.4); Red Cell Distribution Width 11.9 % (11.5-14.5); White Blood Count 5.8 K/mm3 (4.5-10.0)
[2022-10-14 07:09] LABS: Alanine Aminotransferase 17 U/L (6-35); Albumin Level 3.4 g/dL (3.5-5.1); Alkaline Phosphatase 57 U/L (38-126); Anion Gap 6 mmol/L (8-16); Aspartate Amino Transferase 31 U/L (14-36); Bilirubin,Total 0.7 mg/dL (0.2-1.3); Blood Urea Nitrogen 35 mg/dL (7-17); Calcium 8.6 mg/dL (8.4-10.2); Carbon Dioxide 35 mmol/L (22-30); Chloride 96 mmol/L (98-107); Estimated CRCL calculation 42 ml/min; Estimated Glomerular Filt Rate 53; Glucose 73 mg/dL (65-110); Potassium 4.4 mmol/L (3.4-5.0); Sodium 137 mmol/L (137-145)
--- NOTE | 2022-10-14 09:03 | WPDGIPROGNO ---
Progress Note: A&P Assessment and Plan (1) Fecal impaction in rectum: Code(s): K56.41 - Fecal impaction Status: Acute Assessment and Plan: Patient admitted with fecal impaction. She appears to have constipation. This appears resolved currently. patient refusing further investigation at present. Plan to continue MiraLax on a daily basis. Advance diet. Further disposition per primary care service. Should symptoms recur recommend Gastrografin lower GI be considered. (2) Fracture of humerus, proximal, left, closed: Onset Date: 06/2022 Qualifiers: Encounter type: subsequent encounter Fracture morphology: other fracture Fracture alignment: displaced Fracture healing: with routine healing Qualified Code(s): S42.292D - Other displaced fracture of upper end of left humerus, subsequent encounter for fracture with routine healing Code(s): S42.A - Unspecified fracture of upper end of left humerus, initial encounter for closed fracture Status: Acute (3) Morbid obesity: Code(s): E66.01 - Morbid (severe) obesity due to excess calories Status: Acute Subjective Date/time seen: 10/14/22 09:03 Interval history: Patient alert this morning. Refuses preparation for colonoscopy. Currently refuses colonoscopy. Patient still a poor historian. Unable to give any useful history. States her bowel habits are normal. Nursing staff states she had a good response to enemas and laxatives yesterday. No bleeding reported. Patient denies abdominal pain. Review of Systems Review of Systems: ROS unobtainable: Yes unobtainable due to mental status Exam Narrative: Physical exam reveals patient to be alert. Vital signs stable. HEENT exam is unremarkable. Patient anicteric. Lungs are clear. Heart without murmur. Abdomen benign. She is obese. Bowel sounds present soft nontender with no organomegaly. Objective Data Vital Signs Vital Signs: Vital Signs - 24 hr 10/13/22 10:00 10/13/22 12:24 10/13/22 11:20 Temperature 98.9 F Pulse Rate 80 92 Respiratory Rate 22 H Blood Pressure 148/74 H Pulse Oximetry 98 Oxygen Delivery Nasal Cannula Oxygen Flow Rate 2 10/13/22 13:25 10/13/22 15:27 10/13/22 21:05 Temperature 96.9 F L 97.9 F Pulse Rate 80 85 Respiratory Rate 22 H 20 Blood Pressure 131/69 119/54 L Pulse Oximetry 100 98 Oxygen Delivery Nasal Cannula Oxygen Flow Rate 3 10/14/22 05:56 10/14/22 06:39 10/14/22 08:49 Temperature 97.9 F Pulse Rate 87 Respiratory Rate 18 Blood Pressure 154/96 H Pulse Oximetry 94 96 96 Oxygen Delivery Nasal Cannula Oxygen Flow Rate 2 Intake/Output Intake/Output: Intake & Output 10/11/22 10/12/22 10/13/22 10/14/22 23:59 23:59 23:59 23:59 Intake Total 3073 1290 Output Total 900 300 Balance 2173 990 Meds/Results Medications: Active Medications Generic Name Dose Route Start Last Admin Trade Name Freq PRN Reason Stop Dose Admin Lorazepam 1 mg 10/13/22 15:33 Lorazepam Inj (*Crx) 2 Mg/Ml Vial IV PUSH Q4H PRN Anxiety Polyethylene Glycol 17 gm 10/13/22 09:00 10/14/22 08:00 Polyethylene Glycol 3350 17 Gm Powd.Pack PO Not Given QAM [facility] Radiology Results: ITS Impressions Chest X-Ray 10/12/22 05:42 Impression: Mild interstitial edema versus COPD or other chronic interstitial change. Fracture of the left humeral head, age-indeterminate. Chest/Abdomen/Pelvis CT 10/12/22 05:53 Impression: Findings suggestive of fecal impaction. Possible wall thickening of a focal loop of small bowel with mild upstream small bowel distention. Findings could reflect infectious/inflammatory enteritis with partial small bowel obstruction. Small bowel neoplastic lesion is an alternative potential consideration. Highly comminuted fracture of the surgical neck and head of the proximal left humerus with significant displacement of the carl
--- NOTE | 2022-10-14 15:12 | PM.IMPN ---
Progress Note: A&P Assessment and Plan (1) SBO (small bowel obstruction): Code(s): K56.609 - Unspecified intestinal obstruction, unspecified as to partial versus complete obstruction Status: Acute Assessment and Plan: Consider surgery consult if does not improve with conservative management, likely 2/2 severe fecal impaction Improving, appreciate GI consult, colonoscopy cancelled resolved, d/c on miralax daily (2) Fecal impaction in rectum: Code(s): K56.41 - Fecal impaction Status: Acute Assessment and Plan: GI consult pending, miralax BID + fleets x 1 See above (3) JAZZY (acute kidney injury): Code(s): N17.9 - Acute kidney failure, unspecified Status: Acute Assessment and Plan: creatinine up to 2.5, down to 1.47, monitor 10/14: resolved (4) Essential (primary) hypertension: Code(s): I10 - Essential (primary) hypertension Status: Acute Assessment and Plan: Blood pressures reviewed 10/14 (5) Diastolic dysfunction: Onset Date: 09/2022 Code(s): I51.89 - Other ill-defined heart diseases Status: Acute Assessment and Plan: Grade I dysfunction noted on echo 10/09 Appears euvolemic (6) Restless legs syndrome: Code(s): G25.81 - Restless legs syndrome Status: Acute (7) Pulmonary nodule: Code(s): R91.1 - Solitary pulmonary nodule Status: Acute Assessment and Plan: Follow up outpatient in 3 months (8) Fracture of humerus, proximal, left, closed: Onset Date: 06/2022 Qualifiers: Encounter type: subsequent encounter Fracture morphology: other fracture Fracture alignment: displaced Fracture healing: with routine healing Qualified Code(s): S42.292D - Other displaced fracture of upper end of left humerus, subsequent encounter for fracture with routine healing Code(s): S42.A - Unspecified fracture of upper end of left humerus, initial encounter for closed fracture Status: Acute Assessment and Plan: Chronic, since June Plan Anxiety and nausea: Ativan as needed DVT prophylaxis with SCDs GI prophylaxis not indicated Code status full code Subjective Date/time seen: 10/14/22 15:12 Interval history: 77-year-old female from nursing facility with past medical history significant for hypertension, osteoarthritis, chronic lymphedema among other comorbidities is presenting with nausea, vomiting, abdominal pain and complaint of constipation and currently being treated for fecal impaction. No overnight events noted. No chest pain or shortness of breath. No fevers or chills. Denies any complaints. Eager to go home. BM today. Review of Systems Review of Systems: 12 point review of systems was assessed and was negative except as noted in the HPI Exam Narrative: General: No acute distress, alert and oriented per baseline HEENT: Atraumatic, normocephalic, mucous membranes moist CV: Regular rate and rhythm, S1, S2 Lungs: Clear to auscultation bilaterally, no rales or crackles noted, no wheezes, good air entry Abdomen: Soft, nontender, nondistended Extremities: Normal to inspection Skin: No rashes noted, no lesions or wounds seen Psych: Euthymic, normal affect Objective Data Vital Signs Vital Signs: Vital Signs - 24 hr 10/13/22 15:27 10/13/22 21:05 10/14/22 05:56 Temperature 96.9 F L 97.9 F Pulse Rate 80 85 Respiratory Rate 22 H 20 Blood Pressure 131/69 119/54 L Pulse Oximetry 100 98 94 Oxygen Delivery Nasal Cannula Oxygen Flow Rate 2 10/14/22 06:39 10/14/22 08:49 10/14/22 08:00 Temperature 97.9 F Pulse Rate 87 Respiratory Rate 18 Blood Pressure 154/96 H Pulse Oximetry 96 96 95 Oxygen Delivery Room Air Oxygen Flow Rate 10/14/22 13:53 Temperature 98.6 F Pulse Rate 110 H Respiratory Rate 20 Blood Pressure 131/52 L Pulse Oximetry 90 Oxygen Delivery Oxygen Flow R
[2022-10-15 05:08] VITALS: BP 145/54; PULSE 82; RESP 18; TEMP 36.6; O2SAT 97
[2022-10-15 06:26] LABS: Basophils Percent Auto 0.8 % (0.2-1.2); Eosinophils Absolute Auto 0.4 K/mm3 (0-0.3); Eosinophils Percent Auto 8.1 % (0-4.4); Hematocrit 34.9 % (37.0-47.0); Immature Granulocyte Absolute 0.01 K/mm3 (0.00-0.031); Immature Granulocyte Percent A 0.2 % (0-0.5); Lymphocytes Absolute Auto 0.64 K/mm3 (0.9-3.2); Mean Corpuscular HGB Conc 31.5 g/dl (32-36); Mean Corpuscular Hemoglobin 30.6 pg (26-34); Mean Corpuscular Volume 96.9 fl (80-100); Mean Platelet Volume 10.6 fl (7.4-10.4); Monocytes Absolute Auto 0.5 K/mm3 (0.1-0.6); Monocytes Percent Auto 9.7 % (2.6-8.5); Neutrophils Absolute Auto 3.4 K/mm3 (1.3-6.7); Neutrophils Percent Auto 68.2 % (45.5-73.1); Platelet Count Result 140 k/mm3 (150-375); Red Cell Distribution Width 11.9 % (11.5-14.5); White Blood Count 4.9 K/mm3 (4.5-10.0)
[2022-10-15 06:49] LABS: Alanine Aminotransferase 17 U/L (6-35); Albumin Level 3.2 g/dL (3.5-5.1); Alkaline Phosphatase 50 U/L (38-126); Anion Gap 0 mmol/L (8-16); Aspartate Amino Transferase 30 U/L (14-36); Bilirubin,Total 0.6 mg/dL (0.2-1.3); Blood Urea Nitrogen 24 mg/dL (7-17); Calcium 8.5 mg/dL (8.4-10.2); Carbon Dioxide 36 mmol/L (22-30); Chloride 97 mmol/L (98-107); Estimated CRCL calculation 52 ml/min; Estimated Glomerular Filt Rate > 60; Glucose 81 mg/dL (65-110); Sodium 133 mmol/L (137-145)
[2022-10-15] MEDS: polyethylene glycoL 3350 17 GM POWD.PACK PO (08:23)
--- NOTE | 2022-10-15 11:18 | PM.DS ---
DS: Admitting Diagnosis Discharge Date 10/15/2022 Admitting Diagnosis Constipation DS: Discharge Diagnosis Discharge Diagnosis (1) SBO (small bowel obstruction): Code(s): K56.609 - Unspecified intestinal obstruction, unspecified as to partial versus complete obstruction Status: Acute Assessment and Plan: Consider surgery consult if does not improve with conservative management, likely 2/2 severe fecal impaction Improving, appreciate GI consult, colonoscopy cancelled resolved, d/c on miralax daily (2) Fecal impaction in rectum: Code(s): K56.41 - Fecal impaction Status: Acute Assessment and Plan: GI consult pending, miralax BID + fleets x 1 See above (3) JAZZY (acute kidney injury): Code(s): N17.9 - Acute kidney failure, unspecified Status: Acute Assessment and Plan: creatinine up to 2.5, down to 1., monitor 10/14: resolved (4) Essential (primary) hypertension: Code(s): I10 - Essential (primary) hypertension Status: Acute Assessment and Plan: Blood pressures reviewed 10/14 (5) Diastolic dysfunction: Onset Date: 09/2022 Code(s): I51.89 - Other ill-defined heart diseases Status: Acute Assessment and Plan: Grade I dysfunction noted on echo 10/09 Appears euvolemic (6) Restless legs syndrome: Code(s): G25.81 - Restless legs syndrome Status: Acute (7) Pulmonary nodule: Code(s): R91.1 - Solitary pulmonary nodule Status: Acute Assessment and Plan: Follow up outpatient in 3 months (8) Fracture of humerus, proximal, left, closed: Onset Date: 06/2022 Qualifiers: Encounter type: subsequent encounter Fracture morphology: other fracture Fracture alignment: displaced Fracture healing: with routine healing Qualified Code(s): S42.292D - Other displaced fracture of upper end of left humerus, subsequent encounter for fracture with routine healing Code(s): S42.A - Unspecified fracture of upper end of left humerus, initial encounter for closed fracture Status: Acute Assessment and Plan: Chronic, since June Plan Anxiety and nausea: Ativan as needed DVT prophylaxis with SCDs GI prophylaxis not indicated Code status full code DS: Summary Hospital Course Hospital Course: 77-year-old female from nursing facility with past medical history significant for hypertension, osteoarthritis, chronic lymphedema among other comorbidities is presenting with nausea, vomiting, abdominal pain and complaint of constipation.? Of note, she had a fracture of her humerus in June of 2022. GI was consulted and was planning to do a colonoscopy. Patient's symptoms improved with the prep for the colonoscopy in the procedure was canceled. Patient noted to have fecal impaction. This resolved and she was discharged on MiraLax daily. All symptoms resolved and patient was discharged in stable condition with close outpatient follow-up. Please see above and med rec for details. Time Spent with Patient Time attestation: Total time spent providing and/or coordinating discharge services: Exam Narrative: General: No acute distress, alert and oriented per baseline HEENT: Atraumatic, normocephalic, mucous membranes moist CV: Regular rate and rhythm, S1, S2 Lungs: Clear to auscultation bilaterally, no rales or crackles noted, no wheezes, good air entry Abdomen: Soft, nontender, nondistended Extremities: Normal to inspection Skin: No rashes noted, no lesions or wounds seen Psych: Euthymic, normal affect DS: Data Data Completed and Pending Labs on day of discharge: Labs from last 24 hours 10/15/22 06:13 WBC 4.9 RBC 3.60 L Hgb 11.0 L Hct 34.9 L MCV 96.9 MCH 30.6 MCHC 31.5 L RDW 11.9 Plt Count 140 L MPV 10.6 H Immature Gran % (Auto) 0.2 Neut % (Auto) 68.2 Lymph % (Auto) 13.0 L Hood % (Auto) 9.7 H Eos % (Auto
[2022-10-15 12:13] LABS: SARS-CoV-2 RNA PCR Negative (Negative)
[2022-10-15 14:55] VITALS: BP 119/67; PULSE 75; RESP 16; TEMP 36.4; O2SAT 99
[2022-10-15 16:39] VITALS: O2SAT 91
== END 2022-10-15 17:19 | DRG 389 ==
LOC: ANHED 05:32 → ANHIMU 05:56 → ANH3MEDSUR 10-14 10:40 → ANHIMU 10-17 14:31
PROVIDERS: Admitting Provider Internal Medicine; Emergency Provider Emergency Medicine; PCP Family Medicine Adolescent Medicine; Visit Provider Student in an Organized Health Care Education/Training Program
DX: K56.41 Fecal impaction (principal); N17.9 Acute kidney failure, unspecified; I10 Essential (primary) hypertension; I51.89 Other ill-defined heart diseases; G25.81 Restless legs syndrome; R91.1 Solitary pulmonary nodule; M19.90 Unspecified osteoarthritis, unspecified site; I89.0 Lymphedema, not elsewhere classified; E66.01 Morbid (severe) obesity due to excess calories; Z96.611 Presence of right artificial shoulder joint; F41.9 Anxiety disorder, unspecified; S42.292D Other displaced fracture of upper end of left humerus, subsequent encounter for fracture with routine healing; Z90.49 Acquired absence of other specified parts of digestive tract; Z68.33 Body mass index [BMI] 33.0-33.9, adult; Z20.822 Contact with and (suspected) exposure to COVID-19
CPT/HCPCS: 36415; 71045; 71250; 74176; 80048; 80053; 80076; 81001; 83605; 83690; 84145; 84484; 85025; 86140; 87040; 87635; 93005; 96361; 96365; 96366; 96367; 96375; 97110; 97116; 97161; 97165; 97530; 97535; 99285; A9270; G0378; J3370; J7030

== ENCOUNTER 2023-02-15 08:34 | Inpatient (IN) | payer MEDICARE, BC, SELFPAY ==
[2023-02-15] VITALS (31 sets, daily range): BP systolic 80–131; BP diastolic 40–76; PULSE 71–93; RESP 14–23; TEMP 36.3–36.6; O2SAT 89–100; BMI 24.2
--- NOTE | ~2023-02-15 | CT_ITS ---
EXAMINATION: CT abdomen pelvis wo con DATE: 02/15/2023 09:29 INDICATION: Low abdominal pain. TECHNIQUE: Computed tomography (CT) of the abdomen and pelvis was performed without intravenous contr ast. Automated exposure control and iterative reconstruction technique were employed. The dose-length product was 599.21 mGy-cm. COMPARISON: CT 10/12/2022 FINDINGS: The visualized portions of the lung bases demonstrate mild atelectasis. There is mild bronc hiectasis in right middle lobe and lingula. No pleural effusion. The heart size is normal. There are coronary artery calcifications. No pericardial effusion. The liver and spleen are normal. There are c hanges of cholecystectomy. The pancreas, adrenal glands, and kidneys are normal. There is no urolithi asis. There is diverticulosis of the colon without evidence of diverticulitis. The appendix is normal . There are no dilated loops of bowel. There is calcified atherosclerosis of the aorta and many of th e other arteries. There are no pathologically enlarged lymph nodes. There is no free intraperitoneal fluid. There are bridging endplate osteophytes at multiple levels in the spine, consistent with diffu se idiopathic skeletal hyperostosis (DISH). There is moderate lumbar spondylosis. IMPRESSION: 1. No specific etiology for the patient's symptoms. Reviewed, dictated and finalized at location A. T END DEVELOPER DESIGNER
[2023-02-15 08:53] LABS: Basophils Percent Auto 0.6 % (0.2-1.2); Eosinophils Absolute Auto 0.1 K/mm3 (0-0.3); Eosinophils Percent Auto 2.7 % (0-4.4); Hematocrit 41.9 % (37.0-47.0); Hemoglobin 13.9 g/dL (12.0-15.0); Immature Granulocyte Absolute 0.01 K/mm3 (0.00-0.031); Immature Granulocyte Percent A 0.2 % (0-0.5); Lymphocytes Absolute Auto 1.06 K/mm3 (0.9-3.2); Lymphocytes Percent Auto 20.7 % (18.3-44.2); Mean Corpuscular HGB Conc 33.2 g/dl (32-36); Mean Corpuscular Hemoglobin 30.4 pg (26-34); Mean Corpuscular Volume 91.7 fl (80-100); Mean Platelet Volume 12.5 fl (7.4-10.4); Monocytes Absolute Auto 0.5 K/mm3 (0.1-0.6); Neutrophils Absolute Auto 3.4 K/mm3 (1.3-6.7); Neutrophils Percent Auto 66.8 % (45.5-73.1); Platelet Count Result 121 k/mm3 (150-375); Red Blood Count 4.57 M/mm3 (4.2-5.4); Red Cell Distribution Width 13.3 % (11.5-14.5); White Blood Count 5.1 K/mm3 (4.5-10.0)
[2023-02-15 09:02] LABS: Alanine Aminotransferase 11 U/L (6-35); Albumin Level 4.2 g/dL (3.5-5.1); Alkaline Phosphatase 45 U/L (38-126); Anion Gap 11 mmol/L (8-16); Aspartate Amino Transferase 20 U/L (14-36); Bilirubin,Total 0.7 mg/dL (0.2-1.3); Blood Urea Nitrogen 112 mg/dL (7-17); Carbon Dioxide 18 mmol/L (22-30); Chloride 108 mmol/L (98-107); Estimated CRCL calculation 10 ml/min; Estimated Glomerular Filt Rate 11; Glucose 108 mg/dL (65-110); Lipase 810 U/L (23-300); Potassium 5.6 mmol/L (3.4-5.0); Sodium 137 mmol/L (137-145)
--- NOTE | 2023-02-15 09:24 | ECG_ITS ---
Measurements Intervals [place] Rate: 105 P: 57 VA: 221 QRS: -23 QRSD: 70 T: 55 QT: 315 QTc: 416 Interpretive Statements SINUS TACHYCARDIA WITH FIRST DEGREE AV BLOCK LOW QRS VOLTAGE IN PRECORDIAL LEADS CONSIDER INFERIOR INFARCT, AGE INDETERMINATE BASELINE ARTIFACT- I, II, III, AVR, AVL, AVF, V1-V6 ABNORMAL ECG COMPARED TO ECG 10/12/2022 02:43:14 SINUS TACHYCARDIA NOW PRESENT Electronically Signed On 02-15-2023 9:56:26 ACETALDEHYDE CONVERTER OPERATOR by Jordan Lyons D.O.
--- NOTE | 2023-02-15 09:24 | ED.ABDPAIN ---
HPI - Abdominal Pain General Chief Complaint: Abdominal Pain Stated Complaint: Abd Pain Time Seen by Provider: 02/15/23 08:41 History of Present Illness HPI narrative: 77-year-old female presents to the emergency department for evaluation of decreased p.o. intake over the last 2 days and abdominal pain that started last night. Upon arrival to the emergency department patient states she is still having some nausea but denies any current abdominal pain. Related Data Allergies Allergy/AdvReac Type Severity Reaction Status Date / Time Penicillins Allergy Mild Unknown Verified 02/15/23 08:47 Sulfa (Sulfonamide Allergy Mild Unknown Verified 02/15/23 08:47 Antibiotics) Review of Systems Review of Systems: All systems reviewed & are unremarkable except as noted in HPI and below PMFSH Past Medical History Medical History Fracture of humerus, proximal, left, closed (06/2022) Hypertension Osteoarthritis Surgical History Surgical History History of cholecystectomy (1988) History of total replacement of right shoulder joint History of tubal ligation Family History Family History Other Family history unknown Social History Social History Social History: Surrogate medical decision maker: Quentin Perez, son. Code status: Full code. Smoking status: Never smoker Alcohol intake: never Substance use: never Substance use type: does not use Lack of Transportation: No Lack of Food: Never True Current Housing: I Have Housing Concerned About Future Housing: No Difficulty Paying Gas/Electric Bills: No Difficulty Paying for Meds: No Currently Unemployed: No Education: Grade School Difficulty w/ Childcare or Family Care: No Additional living arrangements comments: Lives in [place]. Spiritual care concerns: No Exam Narrative: APPEARANCE: Well appearing, no pain, no distress, well-nourished. HEAD: normocephalic, atraumatic. EYES: PERRLA/EOMI, conjunctivae clear. NOSE: Normal no drainage EARS:TMS clear with good light reflex. THROAT: Pharynx clear, no exudate. NECK: Supple. No adenopathy, no masses. RESPIRATORY: Airway patent, respirations nonlabored. Clear to auscultation bilaterally, no rales, rhonchi, wheezing. CARDIOVASCULAR: Regular rate and rhythm without murmurs rubs or gallops. ABDOMINAL: Soft, nontender, nondistended, normal bowel sounds MUSCULOSKELETAL: Moves all extremities. Strength/ROM intact, No edema, No calf tenderness. NEURO: Alert. Cranial nerves II through XII intact. Grossly intact SKIN: Warm, dry. Normal Color Course Course Emergency Course: 77-year-old female presents emergency department for evaluation of decreased p.o. intake. Patient is afebrile with no leukocytosis and a stable hemoglobin. Patient does have a significant JAZZY with creatinine of 4.0 with a typical baseline around 1. CT scan showed no acute abnormalities to explain the patient's symptoms. Patient's UA was negative for infection. patient did have some hypotension upon arrival but her blood pressure did improve with IV fluids. I discussed the case with the hospitalist and patient was accepted for admission. Patient was updated on the plan for admission. All questions and concerns were addressed. Vital Signs Vital signs: Vital Signs Temperature 97.3 F L 02/15/23 08:37 Pulse Rate 91 02/15/23 08:37 Respiratory Rate 16 02/15/23 08:37 Blood Pressure 102/58 L 02/15/23 08:37 Pulse Oximetry 100 02/15/23 08:37 Oxygen Delivery Room Air 02/15/23 08:37 Temperature 97.3 F L 02/15/23 08:37 Pulse Rate 76 02/15/23 13:31 Respiratory Rate 21 H 02/15/23 13:31 Blood Pressure 114/51 L 02/15/23 13:31 Pulse Oximetry 98 02/15/23 13:31 Oxygen Delivery
[2023-02-15] MEDS: SODIUM CHLORIDE 0.9% IV 500 ML 999 ML IV CONT (09:49)
[2023-02-15] MEDS: SODIUM CHLORIDE 0.9% IV 1,000 ML 500 ML IV CONT (10:26)
--- NOTE | 2023-02-15 10:31 | PC.NURSE ---
MD made aware of pt BP.
[2023-02-15 12:16] LABS: Appearance Urine Cloudy (Clear); Bacteria Urine None Seen /hpf; Bilirubin Urine Negative (Negative); Blood Urine Negative (Negative); Color Urine Yellow (Yellow); Glucose Urine UA Negative (Negative); Ketones Urine Negative (Negative); Leukocyte Esterase Ur Negative LEU/UL (Negative); Need Manual Microscopic Reviewed; Nitrate Urine Negative (Negative); Protein Urine Negative (Negative); RBC Urine 0-2 /hpf (0-2); Specific Grav Ur 1.014 (1.001-1.035); Squamous Epithelial Cell Urine None seen /hpf (Few); Urobilinogen Urine 0.2 mg/dL (<2.0); WBC Urine 0-5 /hpf
[2023-02-15 12:19] LABS: Add Urine Microscopic? YES
[2023-02-15] MEDS: SODIUM CHLORIDE 0.9% IV 1,000 ML 100 ML IV CONT (13:59)
--- NOTE | 2023-02-15 18:50 | PC.NURSE ---
Patient arrived via stretcher from ED without issue. Vital signs done. Patient oriented to room.
--- NOTE | 2023-02-15 19:56 | ADMGEN ---
This patient, Leah Perez, was admitted to IMU Room 202-. Patient/family oriented to hospital policies and general routines including ID bracelet, bed and alarms, visiting hours, pain management, procedures, bathroom and other care routines, personal items, smoking policy, room service/diet, and visiting hours. Information on how to activate the Rapid Response Team has been discussed. Patient/Family are encouraged to report perceived risks to care and to ask questions if they do not understand what they are told or what they should do.
--- NOTE | 2023-02-15 20:50 | PM.IMHP ---
H&P: HPI History of Present Illness Date/Time: 02/15/23 20:50 Chief Complaint: Nausea and Vomiting Narrative: 77 y/o F presents here with N/V and upper abdominal pain with PMH of hypertension and osteoarthritis. Patient reports that she developed nausea, vomiting and upper abdominal pain over the last 2 days. Due to nausea, she reports she has had poor p.o. intake. Nonbilious and nonbloody emesis. No known sick contacts. No history of diabetes or alcohol use. Denies diarrhea, palpitations, CP, or SOB. Endorses mild fever and chills. History of cholecystectomy many years ago, unclear exact year. ED workup revealed mild hyperkalemia 5.6, lipase of 810, unremarkable UA, and a new JAZZY (0.8 -> 4.0). CT of abdomen pelvis showed no specific etiology for patient's symptoms. Review of Systems Review of Systems: All systems reviewed & are unremarkable except as noted in HPI and below PMFSH Past Medical History Medical History Fracture of humerus, proximal, left, closed (06/2022) Hypertension Osteoarthritis Surgical History Surgical History History of cholecystectomy (1988) History of total replacement of right shoulder joint History of tubal ligation Family History Family History Other Family history unknown Social History Social History Social History: Surrogate medical decision maker: Quentin Perez, son. Code status: Full code. Smoking status: Never smoker Alcohol intake: never Substance use: never Substance use type: does not use Lack of Transportation: No Lack of Food: Never True Current Housing: I Have Housing Concerned About Future Housing: No Difficulty Paying Gas/Electric Bills: No Difficulty Paying for Meds: No Currently Unemployed: No Education: Bachelor's Degree Difficulty w/ Childcare or Family Care: No Additional living arrangements comments: Lives in [place]. Spiritual care concerns: No Meds Home Medications and Allergies Home Medications Medication Instructions Recorded Confirmed Type bumetanide 1 mg tablet 1 mg PO DAILY #90 tabs 09/19/22 02/15/23 Rx lisinopril 40 mg tablet 40 mg PO DAILY #90 tabs 09/19/22 02/15/23 Rx Allergies Allergy/AdvReac Type Severity Reaction Status Date / Time Penicillins Allergy Mild Unknown Verified 02/15/23 08:47 Sulfa (Sulfonamide Allergy Mild Unknown Verified 02/15/23 08:47 Antibiotics) Vital Signs Vital Signs - 24 hr 02/15/23 08:37 02/15/23 08:46 02/15/23 08:46 Temperature 97.3 F L Pulse Rate 91 89 88 Respiratory Rate 16 16 18 Blood Pressure 102/58 L 100/56 L 100/56 L Pulse Oximetry 100 99 99 Oxygen Delivery Room Air 02/15/23 09:01 02/15/23 09:16 02/15/23 09:48 Temperature Pulse Rate 93 85 83 Respiratory Rate 23 H 17 15 Blood Pressure 116/63 98/49 L 90/51 L Pulse Oximetry 99 98 Oxygen Delivery 02/15/23 10:01 02/15/23 10:16 02/15/23 10:19 Temperature Pulse Rate 88 79 80 Respiratory Rate 18 17 18 Blood Pressure 96/63 L 82/53 L 83/55 L Pulse Oximetry 99 99 Oxygen Delivery 02/15/23 10:21 02/15/23 10:31 02/15/23 10:43 Temperature Pulse Rate 80 81 83 Respiratory Rate 14 17 18 Blood Pressure 88/52 L 89/44 L 102/54 L Pulse Oximetry 100 100 98 Oxygen Delivery 02/15/23 10:46 02/15/23 11:16 02/15/23 11:31 Temperature Pulse Rate 80 80 76 Respiratory Rate 18 17 14 Blood Pressure 99/45 L 90/45 L 80/44 L Pulse Oximetry 95 97 89 L Oxygen Delivery 02/15/23 12:16 02/15/23 12:45 02/15/23 12:46 Temperature Pulse Rate 71 78 79 Respiratory Rate 15 16 17 Blood Pressure 90/45 L 86/53 L Pulse Oximetry 100 100 94 Oxygen Delivery 02/15/23 13:01 02/15/23 13:31 02/15/23 14:46 Temperature Pulse Rate 75 76 77 Re
[2023-02-15] MEDS: ONDANSETRON INJ 4 MG/2 ML VIAL IV PUSH (22:40)
[2023-02-16] VITALS (15 sets, daily range): BP systolic 94–123; BP diastolic 46–57; PULSE 61–80; RESP 18–20; TEMP 36.4–36.7; O2SAT 96–100
[2023-02-16] MEDS: SODIUM CHLORIDE 0.9% IV 1,000 ML 100 ML IV CONT ×2 (00:40→11:09)
[2023-02-16 05:03] LABS: Basophils Percent Auto 0.7 % (0.2-1.2); Eosinophils Absolute Auto 0.2 K/mm3 (0-0.3); Eosinophils Percent Auto 4.5 % (0-4.4); Hematocrit 39.1 % (37.0-47.0); Hemoglobin 12.4 g/dL (12.0-15.0); Immature Granulocyte Absolute 0.02 K/mm3 (0.00-0.031); Immature Granulocyte Percent A 0.5 % (0-0.5); Immature Platelet Fraction Pct 11.5 % (0.9-11.2); Lymphocytes Absolute Auto 0.89 K/mm3 (0.9-3.2); Mean Corpuscular HGB Conc 31.7 g/dl (32-36); Mean Corpuscular Volume 94.7 fl (80-100); Mean Platelet Volume 13.2 fl (7.4-10.4); Monocytes Absolute Auto 0.3 K/mm3 (0.1-0.6); Monocytes Percent Auto 7.7 % (2.6-8.5); Neutrophils Percent Auto 66.6 % (45.5-73.1); Platelet Count Result 107 k/mm3 (150-375); Red Blood Count 4.13 M/mm3 (4.2-5.4); Red Cell Distribution Width 13.3 % (11.5-14.5); White Blood Count 4.4 K/mm3 (4.5-10.0)
[2023-02-16 05:29] LABS: Alanine Aminotransferase 10 U/L (6-35); Albumin Level 3.5 g/dL (3.5-5.1); Alkaline Phosphatase 46 U/L (38-126); Anion Gap 10 mmol/L (8-16); Aspartate Amino Transferase 20 U/L (14-36); Bilirubin,Total 0.7 mg/dL (0.2-1.3); Blood Urea Nitrogen 79 mg/dL (7-17); Calcium 8.4 mg/dL (8.4-10.2); Carbon Dioxide 16 mmol/L (22-30); Chloride 114 mmol/L (98-107); Creatine Kinase 21 U/L (30-135); Estimated CRCL calculation 16 ml/min; Estimated Glomerular Filt Rate 19; Glucose 81 mg/dL (65-110); Lipase 602 U/L (23-300); Magnesium 1.3 mg/dL (1.6-2.3); Potassium 5.4 mmol/L (3.4-5.0); Sodium 140 mmol/L (137-145)
[2023-02-16 07:30] LABS: Hepatitis B Core IgM Result Negative (Negative)
[2023-02-16 07:41] LABS: Hepatitis B Surface Antigen Negative (Negative)
[2023-02-16 07:45] LABS: Hepatitis C Virus Antibody Negative (Negative)
[2023-02-16] MEDS: ENOXAPARIN 30 MG/0.3 ML SYRINGE SUB-Q (09:31)
[2023-02-16] MEDS: MAGNESIUM SULF 2 GM/WATER 50ML 2 GM/50 ML BAG IVPB (11:09)
--- NOTE | 2023-02-16 12:41 | PM.IMPN ---
Progress Note: A&P Assessment and Plan (1) Elevated lipase: Code(s): R74.8 - Abnormal levels of other serum enzymes Status: Acute (2) Nausea & vomiting: Qualifiers: Vomiting type: unspecified Qualified Code(s): R11.2 - Nausea with vomiting, unspecified Code(s): R11.2 - Nausea with vomiting, unspecified Status: Acute (3) JAZZY (acute kidney injury): Code(s): N17.9 - Acute kidney failure, unspecified Status: Acute (4) Abdominal pain: Code(s): R10.9 - Unspecified abdominal pain Status: Acute (5) Pancreatitis: Code(s): K85.90 - Acute pancreatitis without necrosis or infection, unspecified Status: Acute Plan 77F w/ PMH HTN presented with nausea and abdominal pain, inabilty to eat for 3-4 days. admitted on 02/15 # nausea/abdominal pain - CT abv pelv unrevealing. gastroenteritis versus pancreatitis - improved, advancing diet. d'c IVF # acute renal failure - BUN 112 to 79. sCR 4 to 2.50 - nephrology consulted. continue to monitor FEN: saline lock IV, cardiac diet GI prophylaxis: not indicated DVT prophylaxis: lovenox Lines: PIV Code Status: Full Code Dispo: stable More than 35 minutes spent on chart review, patient interaction and assessment and plan. Subjective Date/time seen: 02/16/23 12:41 Interval history: NAOE. pt is requesting full diet. her nausea and stomach upset have subsided Review of Systems Review of Systems: All systems reviewed & are unremarkable except as noted in HPI and below Exam Const: General: comfortable and no acute distress Eyes: Pupils: Equal, round and reactive pupils present Neck: Neck: supple Resp: Effort & Inspection: normal respiratory effort Auscultation: diminished lung sounds Cardio: Rate: regular rate Rhythm: regular rhythm Heart sounds: no gallops, no murmurs and no rubs GI: GI Palp: Yes Soft to palpation and No Tenderness to palpation present (GI) Extrem: General: no edema Objective Data Vital Signs Vital Signs: Vital Signs - 24 hr 02/15/23 12:45 02/15/23 12:46 02/15/23 13:01 Temperature Pulse Rate 78 79 75 Respiratory Rate 16 17 16 Blood Pressure 86/53 L 100/50 L Pulse Oximetry 100 94 90 Oxygen Delivery 02/15/23 13:31 02/15/23 14:46 02/15/23 15:32 Temperature Pulse Rate 76 77 84 Respiratory Rate 21 H 18 20 Blood Pressure 114/51 L 105/52 L 129/60 Pulse Oximetry 98 100 99 Oxygen Delivery 02/15/23 15:48 02/15/23 16:16 02/15/23 16:31 Temperature Pulse Rate 79 73 72 Respiratory Rate 17 17 15 Blood Pressure 90/49 L 91/76 L 90/47 L Pulse Oximetry 100 98 Oxygen Delivery 02/15/23 16:46 02/15/23 17:31 02/15/23 18:01 Temperature Pulse Rate 75 74 75 Respiratory Rate 17 16 16 Blood Pressure 93/47 L 97/49 L 99/40 L Pulse Oximetry Oxygen Delivery 02/15/23 19:02 02/15/23 20:00 02/15/23 20:00 Temperature 97.3 F L 97.3 F L Pulse Rate 79 78 79 Respiratory Rate 14 16 Blood Pressure 131/56 L 90/58 L Pulse Oximetry 98 98 Oxygen Delivery 02/15/23 23:27 02/15/23 22:00 02/16/23 00:00 Temperature 98 F Pulse Rate 76 76 70 Respiratory Rate 18 Blood Pressure 105/51 L Pulse Oximetry 96 Oxygen Delivery 02/16/23 00:00 02/16/23 02:00 02/16/23 04:00 Temperature 98.1 F Pulse Rate 70 68 75 Respiratory Rate 18 18 Blood Pressure 108/57 L Pulse Oximetry 96 96 Oxygen Delivery Room Air 02/16/23 04:00 02/16/23 04:00 02/16/23 05:47 Temperature Pulse Rate 67 67 70 Respiratory Rate 18 Blood Pressure Pulse Oximetry 96 Oxygen Delivery Room Air 02/16/23 07:09 02/16/23 12:00 Temperature 98.0 F 97.5 F L Pulse Rate 77 73 Respiratory Rate 18 18 Blood Pressure 123/56 L 116/50 L Pulse Oximetry 98 100 Oxygen Delivery Intake/Output Intake/Output: Intake & Output 02/13/23 02/14/23 02/15/23 02/16/23 23:59 23:59 23:59 23:59 Intake Total 1600 2000 Output Total 400 550 Balance 1
[2023-02-16] MEDS: DEXTROSE 50% 25 GM/50 ML SYRINGE IV PUSH (13:44)
[2023-02-16] MEDS: INSULIN HUMAN REGULAR (*BKC) 100 UNITS/ML 10 UNITS IV PUSH (13:44)
[2023-02-16] MEDS: CALCIUM GLUC 1,000 MG/NS 50 ML 1,000 MG/50 ML BAG 100 MG IVPB (13:45)
[2023-02-16 13:53] LABS: Hepatitis B Surface Anti Res Negative
[2023-02-16 15:28] LABS: Anion Gap 11 mmol/L (8-16); Blood Urea Nitrogen 70 mg/dL (7-17); Calcium 8.3 mg/dL (8.4-10.2); Carbon Dioxide 16 mmol/L (22-30); Chloride 111 mmol/L (98-107); Estimated CRCL calculation 19 ml/min; Estimated Glomerular Filt Rate 24; Glucose 109 mg/dL (65-110); Magnesium 2.1 mg/dL (1.6-2.3); Potassium 5.5 mmol/L (3.4-5.0); Sodium 138 mmol/L (137-145)
[2023-02-16 15:42] LABS: Glucose Point of Care 115 mg/dl (65-105)
[2023-02-16 16:40] LABS: Glucose Point of Care 92 mg/dl (65-105)
[2023-02-16 19:35] LABS: Anion Gap 8 mmol/L (8-16); Blood Urea Nitrogen 65 mg/dL (7-17); Calcium 8.6 mg/dL (8.4-10.2); Carbon Dioxide 17 mmol/L (22-30); Chloride 112 mmol/L (98-107); Estimated CRCL calculation 20 ml/min; Estimated Glomerular Filt Rate 26; Glucose 77 mg/dL (65-110); Potassium 5.2 mmol/L (3.4-5.0); Sodium 137 mmol/L (137-145)
[2023-02-17] VITALS (14 sets, daily range): BP systolic 107–143; BP diastolic 43–64; PULSE 66–85; RESP 16–20; TEMP 36.2–36.4; O2SAT 95–100
[2023-02-17 05:26] LABS: Hematocrit 36.8 % (37.0-47.0); Hemoglobin 11.8 g/dL (12.0-15.0); Immature Platelet Fraction Pct 11.8 % (0.9-11.2); Mean Corpuscular HGB Conc 32.1 g/dl (32-36); Mean Corpuscular Hemoglobin 30.3 pg (26-34); Mean Corpuscular Volume 94.6 fl (80-100); Mean Platelet Volume 13.3 fl (7.4-10.4); Platelet Count Result 106 k/mm3 (150-375); Red Blood Count 3.89 M/mm3 (4.2-5.4); Red Cell Distribution Width 13.5 % (11.5-14.5); White Blood Count 4.3 K/mm3 (4.5-10.0)
[2023-02-17 05:43] LABS: Anion Gap 6 mmol/L (8-16); Blood Urea Nitrogen 55 mg/dL (7-17); Calcium 8.4 mg/dL (8.4-10.2); Carbon Dioxide 16 mmol/L (22-30); Chloride 115 mmol/L (98-107); Estimated CRCL calculation 22 ml/min; Estimated Glomerular Filt Rate 27; Glucose 79 mg/dL (65-110); Magnesium 1.8 mg/dL (1.6-2.3); Potassium 5.3 mmol/L (3.4-5.0); Sodium 137 mmol/L (137-145)
[2023-02-17] MEDS: ENOXAPARIN 30 MG/0.3 ML SYRINGE SUB-Q (08:35)
--- NOTE | 2023-02-17 09:55 | PM.IMPN ---
Progress Note: A&P Assessment and Plan (1) Elevated lipase: Code(s): R74.8 - Abnormal levels of other serum enzymes Status: Acute (2) Nausea & vomiting: Qualifiers: Vomiting type: unspecified Qualified Code(s): R11.2 - Nausea with vomiting, unspecified Code(s): R11.2 - Nausea with vomiting, unspecified Status: Acute (3) JAZZY (acute kidney injury): Code(s): N17.9 - Acute kidney failure, unspecified Status: Acute (4) Abdominal pain: Code(s): R10.9 - Unspecified abdominal pain Status: Acute (5) Pancreatitis: Code(s): K85.90 - Acute pancreatitis without necrosis or infection, unspecified Status: Acute Plan 77F w/ PMH HTN presented with nausea and abdominal pain, inabilty to eat for 3-4 days. admitted on 02/15 # nausea/abdominal pain - CT abv pelv unrevealing. gastroenteritis versus pancreatitis - improved, advancing diet. Patient is dehydrated, continue normal saline IV 100 mL/hour Add Reglan 10 mg po before each meal # acute renal failure - BUN 112 to 79. sCR 4 to 2.50 - nephrology consulted. continue to monitor Chronic is trending down, creatinine 1.8 today, baseline creatinine 0.8 October [id number] Continue normal saline 100 mL/hour FEN: saline lock IV, cardiac diet GI prophylaxis: not indicated DVT prophylaxis: lovenox Lines: PIV Code Status: Full Code Subjective Date/time seen: 02/17/23 09:55 Interval history: Patient has a general weakness, patient has nausea, poor appetite, denies abdomen pain, diarrhea, chest pain, shortness breast Exam Narrative: GENERAL: Pleasant, in no acute distress. Well-nourished. - EYES: EOMI. Anicteric. - HENT: Moist mucous membranes. - LUNGS: Clear to auscultation bilaterally, no wheezing, rhonchi, or rales. - CARDIOVASCULAR: Regular rate and rhythm. No murmur. No JVD. - ABDOMEN: Soft, non-tender and non-distended. No palpable masses. - EXTREMITIES: No edema. Peripheral pulses 2+. Non-tender. - NEUROLOGIC: No focal neurological deficits. CN II-XII grossly intact. - PSYCHIATRIC: Awake, Alert and oriented x 3. Appropriate mood and affect. - SKIN: No rashes or lesions. Warm. - LYMPH: No cervical lymphadenopathy. Objective Data Vital Signs Vital Signs: Vital Signs - 24 hr 02/16/23 12:00 02/16/23 16:00 02/16/23 10:00 Temperature 97.5 F L 97.6 F Pulse Rate 73 63 64 Respiratory Rate 18 20 Blood Pressure 116/50 L 94/46 L Pulse Oximetry 100 99 Oxygen Delivery 02/16/23 12:00 02/16/23 14:00 02/16/23 16:00 Temperature Pulse Rate 79 65 61 Respiratory Rate Blood Pressure Pulse Oximetry Oxygen Delivery 02/16/23 18:00 02/16/23 19:45 02/16/23 20:00 Temperature 97.7 F Pulse Rate 70 73 73 Respiratory Rate 20 20 Blood Pressure 117/51 L Pulse Oximetry 99 99 Oxygen Delivery Room Air 02/16/23 20:00 02/16/23 22:00 02/16/23 23:35 Temperature 97.8 F Pulse Rate 75 74 80 Respiratory Rate 18 Blood Pressure 108/47 L Pulse Oximetry 98 Oxygen Delivery 02/17/23 00:00 02/17/23 00:00 02/17/23 02:00 Temperature Pulse Rate 80 72 71 Respiratory Rate 18 Blood Pressure Pulse Oximetry 98 Oxygen Delivery Room Air 02/17/23 04:00 02/17/23 04:00 02/17/23 04:00 Temperature 97.6 F Pulse Rate 74 74 66 Respiratory Rate 16 16 Blood Pressure 107/48 L Pulse Oximetry 96 96 Oxygen Delivery Room Air 02/17/23 06:00 02/17/23 08:00 Temperature 97.3 F L Pulse Rate 69 80 Respiratory Rate 20 Blood Pressure 109/58 L Pulse Oximetry 97 Oxygen Delivery Intake/Output Intake/Output: Intake & Output 02/14/23 02/15/23 02/16/23 02/17/23 23:59 23:59 23:59 23:59 Intake Total 1600 2990 440 Output Total 400 550 200 Balance 1200 2440 240 Meds/Results Medications: Active Medications Generic Name Dose Route Start Last Admin Trade Name Freq PRN Reason Stop Dose Admin Acetaminophen 500 mg 02/15/23 23:32 Acetamin
[2023-02-17] MEDS: ONDANSETRON INJ 4 MG/2 ML VIAL IV PUSH (11:02)
[2023-02-17] MEDS: SODIUM CHLORIDE 0.9% IV 1,000 ML 100 ML IV CONT ×2 (11:03→20:29)
[2023-02-17] MEDS: METOCLOPRAMIDE HCL 10 MG/10 ML SOLN UDC PO ×2 (17:25→20:26)
[2023-02-18] VITALS (19 sets, daily range): BP systolic 103–128; BP diastolic 41–59; PULSE 68–97; RESP 16–22; TEMP 36.4–36.9; O2SAT 96–99
[2023-02-18] MEDS: ACETAMINOPHEN 500 MG TABLET PO (00:02)
[2023-02-18 05:17] LABS: Creatinine Urine 65.9 mg/dL
[2023-02-18] MEDS: METOCLOPRAMIDE HCL 10 MG/10 ML SOLN UDC PO ×4 (05:47→20:09)
[2023-02-18] MEDS: SODIUM CHLORIDE 0.9% IV 1,000 ML 100 ML IV CONT (05:48)
[2023-02-18] MEDS: ENOXAPARIN 30 MG/0.3 ML SYRINGE SUB-Q (08:58)
--- NOTE | 2023-02-18 10:20 | PM.IMPN ---
Progress Note: A&P Assessment and Plan (1) Elevated lipase: Code(s): R74.8 - Abnormal levels of other serum enzymes Status: Acute (2) Nausea & vomiting: Qualifiers: Vomiting type: unspecified Qualified Code(s): R11.2 - Nausea with vomiting, unspecified Code(s): R11.2 - Nausea with vomiting, unspecified Status: Acute (3) JAZZY (acute kidney injury): Code(s): N17.9 - Acute kidney failure, unspecified Status: Acute (4) Abdominal pain: Code(s): R10.9 - Unspecified abdominal pain Status: Acute (5) Pancreatitis: Code(s): K85.90 - Acute pancreatitis without necrosis or infection, unspecified Status: Acute Plan 77F w/ PMH HTN presented with nausea and abdominal pain, inabilty to eat for 3-4 days. admitted on 02/15 # nausea/abdominal pain - CT abv pelv unrevealing. gastroenteritis versus pancreatitis marginal high lipase - improved, advancing diet. Patient is dehydrated, continue normal saline IV 100 mL/hour Add Reglan 10 mg po before each meal Nausea is controlled, tolerate diet better # acute renal failure - BUN 112 to 79. sCR 4 to 2.50 - nephrology consulted. continue to monitor Chronic is trending down, creatinine 1.8 02/17, baseline creatinine 0.8 October 06 is 2022 on normal saline 100 mL/hour, cr 1.2 02/18. dc NS, s/w D51/2 NS 100ml/h Hyperkalemia Potassium 5.5 Start Lokelma 10 g once s/w D51/2 NS 100ml/h f/u BMP am FEN: saline lock IV, cardiac diet GI prophylaxis: not indicated DVT prophylaxis: lovenox Lines: PIV Code Status: Full Code Consult PT OT, senior care specialist for evaluation treatment, Patient can be discharged in 1-2 days Subjective Date/time seen: 02/18/23 10:20 Interval history: Patient has a general weakness, patient has nausea, poor appetite, denies abdomen pain, diarrhea, chest pain, shortness breast Exam Narrative: GENERAL: Pleasant, in no acute distress. Well-nourished. - EYES: EOMI. Anicteric. - HENT: Moist mucous membranes. - LUNGS: Clear to auscultation bilaterally, no wheezing, rhonchi, or rales. - CARDIOVASCULAR: Regular rate and rhythm. No murmur. No JVD. - ABDOMEN: Soft, non-tender and non-distended. No palpable masses. - EXTREMITIES: No edema. Peripheral pulses 2+. Non-tender. - NEUROLOGIC: No focal neurological deficits. CN II-XII grossly intact. - PSYCHIATRIC: Awake, Alert and oriented x 3. Appropriate mood and affect. - SKIN: No rashes or lesions. Warm. - LYMPH: No cervical lymphadenopathy. Const: General: comfortable and no acute distress Eyes: General: appearance normal, both eyes and all related structures Sclera: sclerae normal Pupils: Equal, round and reactive pupils present Neck: Neck: supple Resp: Effort & Inspection: normal respiratory effort Auscultation: clear to auscultation bilaterally and diminished lung sounds Cardio: Rate: regular rate Rhythm: regular rhythm Heart sounds: no gallops, no murmurs and no rubs Other: S1-S2 present without murmur, rub, ectopy GI: Auscultation: normal bowel sounds Other: Tender epigastric region and RUQ w/o guarding. Skin: General skin exam: normal color and no rashes or lesions noted Wounds: no wounds Neuro: Cranial nerves: Yes Equal, round and reactive pupils present Speech: normal speech Motor exam (neuro): 5/5 motor strength present throughout Sensory Exam: normal sensation Extrem: General: normal to inspection and no edema Psych: Mental Status: mental status grossly normal Affect: normal affect Other: Good insight and judgment. Objective Data Vital Signs Vital Signs: Vital Signs - 24 hr 02/17/23 11:14 02/17/23 12:00 02/17/23 12:00 Temperature 97.4 F L Pulse Rate 74 78 Respiratory Rate 18 Blood Pressure 143/64 H Pulse Oximetry 99 Oxygen Delivery Room Air 02/17/23 14:00 02/17/23 15:53 02/17/23 16:00 Temperature Pulse Rate 73 73 Respiratory Rate Blood Pressure Pul
[2023-02-18 11:44] LABS: Basophils Percent Auto 0.8 % (0.2-1.2); Eosinophils Absolute Auto 0.1 K/mm3 (0-0.3); Eosinophils Percent Auto 1.8 % (0-4.4); Hematocrit 37.8 % (37.0-47.0); Hemoglobin 12.1 g/dL (12.0-15.0); Immature Granulocyte Absolute 0.01 K/mm3 (0.00-0.031); Immature Granulocyte Percent A 0.2 % (0-0.5); Lymphocytes Absolute Auto 0.72 K/mm3 (0.9-3.2); Mean Corpuscular Hemoglobin 30.1 pg (26-34); Mean Platelet Volume 12.1 fl (7.4-10.4); Monocytes Absolute Auto 0.3 K/mm3 (0.1-0.6); Monocytes Percent Auto 6.4 % (2.6-8.5); Neutrophils Percent Auto 76.8 % (45.5-73.1); Platelet Count Result 118 k/mm3 (150-375); Red Blood Count 4.02 M/mm3 (4.2-5.4); Red Cell Distribution Width 13.5 % (11.5-14.5); White Blood Count 5.1 K/mm3 (4.5-10.0)
[2023-02-18 11:57] LABS: Anion Gap 6 mmol/L (8-16); Blood Urea Nitrogen 31 mg/dL (7-17); Calcium 8.3 mg/dL (8.4-10.2); Carbon Dioxide 16 mmol/L (22-30); Chloride 115 mmol/L (98-107); Estimated CRCL calculation 32 ml/min; Estimated Glomerular Filt Rate 43; Glucose 95 mg/dL (65-110); Potassium 5.5 mmol/L (3.4-5.0); Sodium 137 mmol/L (137-145)
[2023-02-18] MEDS: SODIUM ZIRCONIUM CYCLOSILICATE 10 GM POWD.PACK PO (15:53)
[2023-02-18] MEDS: DEXTROSE 5%/0.45% SOD CHL 1,000 ML 100 ML IV CONT (15:58)
[2023-02-19] VITALS (18 sets, daily range): BP systolic 119–146; BP diastolic 55–97; PULSE 70–89; RESP 16–20; TEMP 36–36.5; O2SAT 96–99
[2023-02-19] MEDS: DEXTROSE 5%/0.45% SOD CHL 1,000 ML 100 ML IV CONT ×2 (02:03→11:39)
[2023-02-19] MEDS: METOCLOPRAMIDE HCL 10 MG/10 ML SOLN UDC PO ×3 (06:09→17:11)
[2023-02-19] MEDS: ENOXAPARIN 30 MG/0.3 ML SYRINGE SUB-Q (09:12)
[2023-02-19 09:25] LABS: Basophils Percent Auto 0.6 % (0.2-1.2); Eosinophils Absolute Auto 0.2 K/mm3 (0-0.3); Eosinophils Percent Auto 3.4 % (0-4.4); Hematocrit 34.9 % (37.0-47.0); Immature Granulocyte Absolute 0.01 K/mm3 (0.00-0.031); Immature Granulocyte Percent A 0.2 % (0-0.5); Lymphocytes Absolute Auto 0.72 K/mm3 (0.9-3.2); Lymphocytes Percent Auto 15.2 % (18.3-44.2); Mean Corpuscular HGB Conc 34.4 g/dl (32-36); Mean Corpuscular Hemoglobin 31.3 pg (26-34); Mean Corpuscular Volume 90.9 fl (80-100); Mean Platelet Volume 12.9 fl (7.4-10.4); Monocytes Absolute Auto 0.4 K/mm3 (0.1-0.6); Monocytes Percent Auto 8.9 % (2.6-8.5); Neutrophils Absolute Auto 3.4 K/mm3 (1.3-6.7); Neutrophils Percent Auto 71.7 % (45.5-73.1); Platelet Count Result 127 k/mm3 (150-375); Red Blood Count 3.84 M/mm3 (4.2-5.4); Red Cell Distribution Width 13.4 % (11.5-14.5); White Blood Count 4.7 K/mm3 (4.5-10.0)
[2023-02-19 09:46] LABS: Anion Gap 5 mmol/L (8-16); Blood Urea Nitrogen 19 mg/dL (7-17); Calcium 7.8 mg/dL (8.4-10.2); Carbon Dioxide 17 mmol/L (22-30); Chloride 113 mmol/L (98-107); Estimated CRCL calculation 38 ml/min; Estimated Glomerular Filt Rate 53; Glucose 120 mg/dL (65-110); Potassium 4.4 mmol/L (3.4-5.0); Sodium 135 mmol/L (137-145)
[2023-02-19] MEDS: ACETAMINOPHEN 500 MG TABLET PO (17:10)
--- NOTE | 2023-02-19 18:33 | PM.IMPN ---
Progress Note: A&P Assessment and Plan (1) Nausea & vomiting: Qualifiers: Vomiting type: unspecified Qualified Code(s): R11.2 - Nausea with vomiting, unspecified Code(s): R11.2 - Nausea with vomiting, unspecified Status: Acute (2) JAZZY (acute kidney injury): Code(s): N17.9 - Acute kidney failure, unspecified Status: Acute (3) Debility: Code(s): R53.81 - Other malaise Status: Acute (4) Chronic diastolic (congestive) heart failure: Code(s): I50.32 - Chronic diastolic (congestive) heart failure Status: Acute (5) JAZZY (acute kidney injury): Code(s): N17.9 - Acute kidney failure, unspecified Status: Acute (6) Other abnormalities of gait and mobility: Code(s): R26.89 - Other abnormalities of gait and mobility Status: Acute (7) Chronic anemia: Code(s): D64.9 - Anemia, unspecified Status: Acute (8) Restless legs syndrome: Code(s): G25.81 - Restless legs syndrome Status: Acute (9) Hypertension: Qualifiers: Hypertension type: primary hypertension Qualified Code(s): I10 - Essential (primary) hypertension Code(s): I10 - Essential (primary) hypertension Status: Acute (10) Bilateral primary osteoarthritis of knee: Code(s): M17.0 - Bilateral primary osteoarthritis of knee Status: Acute (11) Essential (primary) hypertension: Code(s): I10 - Essential (primary) hypertension Status: Acute Plan 77F w/ PMH HTN presented with nausea and abdominal pain, inabilty to eat for 3-4 days. admitted on 02/15 # nausea/abdominal pain - CT abv pelv unrevealing. gastroenteritis versus pancreatitis marginal high lipase - improved, advancing diet. Patient is dehydrated, continue normal saline IV 100 mL/hour Add Reglan 10 mg po before each meal Nausea is controlled, tolerate diet better Patient had been started on heart healthy diet which she is tolerating well # acute renal failure - nephrology consulted. continue to monitor - BUN 112 to 38. sCR 4 to 1 today ... approaching baseline creatinine 0.8 October 06 2022 - DC IV fluids Hyperkalemia - resolved with aggressive management with IV fluids and local - monitor BMP closely FEN: saline lock IV, cardiac diet GI prophylaxis: not indicated DVT prophylaxis: lovenox Lines: PIV Code Status: Full Code Consult PT OT, hospice patient care secretary for evaluation treatment, Patient can be discharged tomorrow if she remains stable ? Patient seen and examined at bedside during my morning rounds ? Collaborated with patient's nurse at the bedside in detail and addressed all concerns ? Labs, electrolytes, radiology, investigations and test results reviewed ? Consult/Nursing/Ancilliary notes on the chart reviewed and appreciated ? Spoke with patient/family at the bedside and answered all the questions that they had Repeat labs in a.m. Electrolyte replacement as per protocol. Patient will be monitored very closely on the floor. Further recommendations as per the hospital course. Time Spent With Patient Time with patient: 25 - 35 minutes Subjective Date/time seen: 02/19/23 18:33 Interval history: Patient feeling better today. Currently on heart healthy diet. Feels a little weak and tired Review of Systems Review of Systems: 14 systems were reviewed with pertinent positives and negatives per HPI. Except as documented in the HPI/progress notes, all other systems were reviewed and are negative. All systems reviewed & are unremarkable except as noted in HPI and below Exam Narrative: GENERAL: Pleasant, in no acute distress. Well-nourished. - EYES: EOMI. Anicteric. - HENT: Moist mucous membranes. - LUNGS: Clear to auscultation bilaterally, no wheezing, rhonchi, or rales. - CARDIOVASCULAR: Regular rate and rhythm. No murmur. No JVD. - ABDOMEN: Soft, non-tender and non-distended. No palpable masses. - EXTREMITIES: No edema. Peripheral pu
[2023-02-19] MEDS: METOCLOPRAMIDE HCL 5 MG TABLET 10 MG PO (20:30)
[2023-02-20] VITALS (12 sets, daily range): BP systolic 111–142; BP diastolic 53–65; PULSE 73–100; RESP 16–21; TEMP 36.4–36.5; O2SAT 95–98
[2023-02-20] MEDS: ACETAMINOPHEN 500 MG TABLET PO (03:42)
[2023-02-20] MEDS: ONDANSETRON INJ 4 MG/2 ML VIAL IV PUSH ×2 (03:51→12:59)
[2023-02-20 05:41] LABS: Basophils Percent Auto 0.4 % (0.2-1.2); Eosinophils Absolute Auto 0.1 K/mm3 (0-0.3); Eosinophils Percent Auto 2.6 % (0-4.4); Hematocrit 37.5 % (37.0-47.0); Hemoglobin 12.3 g/dL (12.0-15.0); Immature Granulocyte Absolute 0.02 K/mm3 (0.00-0.031); Immature Granulocyte Percent A 0.4 % (0-0.5); Lymphocytes Absolute Auto 0.74 K/mm3 (0.9-3.2); Lymphocytes Percent Auto 13.5 % (18.3-44.2); Mean Corpuscular HGB Conc 32.8 g/dl (32-36); Mean Corpuscular Volume 91.5 fl (80-100); Mean Platelet Volume 12.9 fl (7.4-10.4); Monocytes Absolute Auto 0.4 K/mm3 (0.1-0.6); Monocytes Percent Auto 6.6 % (2.6-8.5); Neutrophils Absolute Auto 4.2 K/mm3 (1.3-6.7); Neutrophils Percent Auto 76.5 % (45.5-73.1); Platelet Count Result 115 k/mm3 (150-375); Red Cell Distribution Width 13.2 % (11.5-14.5); White Blood Count 5.5 K/mm3 (4.5-10.0)
[2023-02-20] MEDS: METOCLOPRAMIDE HCL 5 MG TABLET 10 MG PO ×3 (06:13→17:12)
[2023-02-20 06:19] LABS: Anion Gap 5 mmol/L (8-16); Blood Urea Nitrogen 14 mg/dL (7-17); Calcium 8.2 mg/dL (8.4-10.2); Carbon Dioxide 16 mmol/L (22-30); Chloride 112 mmol/L (98-107); Estimated CRCL calculation 42 ml/min; Estimated Glomerular Filt Rate 60; Glucose 100 mg/dL (65-110); Phosphorus 2.4 mg/dL (2.5-4.5); Potassium 4.6 mmol/L (3.4-5.0); Sodium 133 mmol/L (137-145)
--- NOTE | 2023-02-20 08:28 | PC.NURSE ---
0820-Called to room by tech, patients nose started bleeding when therapy was ambulating patient back to bed from the bathroom. Patient denied headache or picking her nose. Blood pressure 118/59 HR99.
--- NOTE | 2023-02-20 09:43 | PC.NURSE ---
0930-Patient's nose started bleeding again, stopped with slight pressure. Still denies any symptoms of H/A, Nausea, or Vomiting. Called Dr. Shaikh he was already on his way to the floor. Orders to discontinue lovenox given at bedside.
--- NOTE | 2023-02-20 15:52 | PC.NURSE ---
Report called to Nita MARX at [phone]
--- NOTE | 2023-02-20 16:19 | PM.DS ---
DS: Admitting Diagnosis Discharge Date 02/20/2023: Admitting Diagnosis Acute kidney injury Dehydration Nausea DS: Discharge Diagnosis Discharge Diagnosis (1) JAZZY (acute kidney injury): Code(s): N17.9 - Acute kidney failure, unspecified Status: Acute (2) Chronic diastolic (congestive) heart failure: Code(s): I50.32 - Chronic diastolic (congestive) heart failure Status: Acute (3) Restless legs syndrome: Code(s): G25.81 - Restless legs syndrome Status: Acute (4) Essential (primary) hypertension: Code(s): I10 - Essential (primary) hypertension Status: Acute (5) Bilateral primary osteoarthritis of knee: Code(s): M17.0 - Bilateral primary osteoarthritis of knee Status: Acute (6) Nausea & vomiting: Qualifiers: Vomiting type: unspecified Qualified Code(s): R11.2 - Nausea with vomiting, unspecified Code(s): R11.2 - Nausea with vomiting, unspecified Status: Acute (7) Debility: Code(s): R53.81 - Other malaise Status: Acute (8) Other abnormalities of gait and mobility: Code(s): R26.89 - Other abnormalities of gait and mobility Status: Acute (9) Chronic anemia: Code(s): D64.9 - Anemia, unspecified Status: Acute DS: Summary Hospital Course Reason for hospitalization: Patient admitted with constipation, impacted fecal stools and small-bowel obstruction Hospital Course: H&P: HPI History of Present Illness Date/Time: 02/15/23? 20:50 Chief Complaint: Nausea and Vomiting Narrative: 77 y/o F presents here with N/V and upper abdominal pain with PMH of hypertension and osteoarthritis. Patient reports that she developed nausea, vomiting and upper abdominal pain over the last 2 days.? Due to nausea, she reports she has had poor p.o. intake. Nonbilious and nonbloody emesis. No known sick contacts.? No history of diabetes or alcohol use. ? Denies diarrhea, palpitations, CP, or SOB.? Endorses mild fever and chills.? History of cholecystectomy many years ago, unclear exact year.? ED workup revealed mild hyperkalemia 5.6,? lipase of 810, unremarkable UA, and a new JAZZY (0.8 -> 4.0).? CT of abdomen pelvis showed no specific etiology for patient's symptoms. Hospital course ... 02/15/2023 to 02/20/2023: 77F w/ PMH HTN presented with nausea and abdominal pain, inabilty to eat for 3-4 days. admitted on 02/15 # nausea/abdominal pain - CT abv pelv unrevealing. gastroenteritis versus pancreatitis marginal high lipase - improved, advancing diet. Patient is dehydrated, continue normal saline IV 100 mL/hour Add Reglan 10 mg po before each meal Nausea is controlled, tolerate diet better Patient had been started on heart healthy diet which she is tolerating well # acute renal failure - nephrology consulted. continue to monitor - BUN 112 to 38. sCR 4 on admission, down to 0.9 today which is within normal range -? DC IV fluids - We will resume patient's Bumex and cut down on her dose from 1 mg p.o. daily to 0.5 mg p.o. daily to avoid JAZZY episodes # CHF - Continue with the Lisinopril - We will resume patient's Bumex and cut down on her dose from 1 mg p.o. daily to 0.5 mg p.o. daily to avoid JAZZY episodes # Hyperkalemia - resolved with aggressive management with IV fluids and local - monitor BMP closely # Nasal bleeding - Patient was on Lovenox for DVT prophylaxis when she blew her nose and started having some bleeding from her left nares - Her bleeding stopped with application of ice pack and local pressure - Strictly advised patient not to blow her nose for the next few days - May insert a rhino rocket in left nares if patient has a recurrent episode of nasal bleeding - DC Lovenox and hold off on any aspirin/ NSAIDs/anti coagulations # DC planning - Patient is a high fall risk with generalized weakness and impaired ambulation - PT OT recommendations appreciated who recommended shelter f
[2023-02-20 21:03] LABS: Osmolality, Urine 500 mOsm/kg (50-1200)
== END 2023-02-20 18:30 | DRG 683 ==
LOC: ANHED 12:55 → ANHIMU 13:34
PROVIDERS: Hospitalist; Student in an Organized Health Care Education/Training Program; Admitting Provider General Practice; Emergency Provider Emergency Medicine; PCP Family Medicine Adolescent Medicine; Visit Provider Family Medicine
DX: N17.9 Acute kidney failure, unspecified (principal); I50.32 Chronic diastolic (congestive) heart failure; K52.9 Noninfective gastroenteritis and colitis, unspecified; G25.81 Restless legs syndrome; I11.0 Hypertensive heart disease with heart failure; M17.0 Bilateral primary osteoarthritis of knee; R11.2 Nausea with vomiting, unspecified; D64.9 Anemia, unspecified; E87.5 Hyperkalemia; R04.0 Epistaxis; E86.0 Dehydration; R26.89 Other abnormalities of gait and mobility; E86.1 Hypovolemia; Z96.611 Presence of right artificial shoulder joint; Z90.49 Acquired absence of other specified parts of digestive tract; Z91.81 History of falling
CPT/HCPCS: 36415; 74176; 80048; 80053; 81001; 82248; 82550; 82570; 82948; 83690; 83735; 83930; 83935; 84100; 85025; 85027; 85055; 86705; 86706; 86803; 87340; 93005; 96360; 96361; 97161; 97165; 97530; 97535; 99285; A9270; G0378; J0612; J1650; J1815; J2405; J3475; J7030; J7040

== ENCOUNTER 2023-03-06 02:38 | Observation (INO) | payer MEDICARE, BC, SELFPAY ==
[2023-03-06] VITALS (12 sets, daily range): BP systolic 100–123; BP diastolic 52–91; PULSE 59–108; RESP 15–20; TEMP 36.1–37.2; O2SAT 93–99; BMI 26.8
--- NOTE | ~2023-03-06 | CT_ITS ---
CT of the Abdomen and Pelvis: Indication: Abdominal pain Technique: 2.5 mm axial scans were obtained through the abdomen and pelvis following intravenous adm inistration of 100 cc of Omnipaque 350. Dose reduction technique was used on this scan by utilizing a utomated exposure control and iterative reconstruction technique. The dose-length product (DLP) was 5 17.79 mGy-cm. COMPARISON: 02/15/2030 Findings: Scans through the lung bases there is a stable irregular right basilar pulmonary nodule me asuring 13 mm in diameter. The liver, spleen, pancreas, gallbladder, adrenals and kidneys are within normal limits. There are at herosclerotic calcifications of the aorta. No lymphadenopathy. There is probable wall thickening of the gastric antrum and duodenum. No free air or abscess evident. No bowel obstruction. Images through the pelvis were performed. Urinary bladder unremarkable. No pelvic mass seen. No ascit es. Impression: Wall thickening of the gastric antrum and duodenum. Correlate for gastritis/duodenitis and/or peptic ulcer disease. No evidence for perforation/abscess. Stable 13 mm irregular right basilar pulmonary nodule. Follow-up exam in 3 months recommended. Reviewed, dictated and finalized at location . [employer] Impression: Wall thickening of the gastric antrum and duodenum. Correlate for gastritis/duo denitis and/or peptic ulcer disease. No evidence for perforation/abscess. Stable 13 mm irregular right basilar pulmonary nodule. Follow-up exam in 3 romero hs recommended.
--- NOTE | 2023-03-06 02:50 | ECG_ITS ---
Measurements Intervals [place] Rate: 89 P: 61 NC: 227 QRS: -11 QRSD: 65 T: 55 QT: 329 QTc: 402 Interpretive Statements SINUS RHYTHM WITH FIRST DEGREE AV BLOCK BASELINE ARTIFACT LOW QRS VOLTAGE IN PRECORDIAL LEADS [QRS DEFLECTION < 1.0 mV IN CHEST LEADS] CANNOT RULE OUT INFERIOR MYOCARDIAL INFARCTION , PROBABLY OLD WITH POSTERIOR EXTENSION [35 ms Q WAVE IN II/aVFPROMINENT R WAVE IN V1/ ABNORMAL ECG COMPARED TO ECG 02/15/2023 09:42:24 SINUS RHYTHM NOW PRESENT Electronically Signed On 03-06-2023 17:11:21 [employer] by William Montoya M.D.
[2023-03-06] MEDS: MORPHINE SULFATE (*CRX) 4 MG/ML INJ IV PUSH (03:15)
[2023-03-06] MEDS: SODIUM CHLORIDE 0.9% IV 1,000 ML 999 ML IV CONT (03:15)
[2023-03-06] MEDS: ONDANSETRON INJ 4 MG/2 ML VIAL IV PUSH (03:15)
[2023-03-06 03:17] LABS: Basophils Absolute Auto 0.1 K/mm3 (0.0-0.1); Eosinophils Absolute Auto 0.2 K/mm3 (0-0.3); Eosinophils Percent Auto 3.1 % (0-4.4); Hematocrit 39.1 % (37.0-47.0); Hemoglobin 12.6 g/dL (12.0-15.0); Immature Granulocyte Absolute 0.02 K/mm3 (0.00-0.031); Immature Granulocyte Percent A 0.4 % (0-0.5); Lymphocytes Absolute Auto 0.89 K/mm3 (0.9-3.2); Lymphocytes Percent Auto 17.1 % (18.3-44.2); Mean Corpuscular HGB Conc 32.2 g/dl (32-36); Mean Corpuscular Hemoglobin 30.6 pg (26-34); Mean Corpuscular Volume 94.9 fl (80-100); Mean Platelet Volume 11.9 fl (7.4-10.4); Monocytes Absolute Auto 0.5 K/mm3 (0.1-0.6); Monocytes Percent Auto 9.6 % (2.6-8.5); Neutrophils Absolute Auto 3.6 K/mm3 (1.3-6.7); Neutrophils Percent Auto 68.8 % (45.5-73.1); Platelet Count Result 188 k/mm3 (150-375); Red Blood Count 4.12 M/mm3 (4.2-5.4); Red Cell Distribution Width 13.5 % (11.5-14.5); White Blood Count 5.2 K/mm3 (4.5-10.0)
--- NOTE | 2023-03-06 03:26 | PC.NURSE ---
Pt O2 found to be 74% after morphine administration. Placed on 4L/NC at this time.
--- NOTE | 2023-03-06 03:37 | ED.GENADULT ---
HPI - General Adult General Chief complaint: Abdominal Pain Stated complaint: abd pain Time Seen by Provider: 03/06/23 02:48 History of Present Illness HPI narrative: patient is a 77-year-old female who presents emergency department with chief complaint of epigastric pain. Patient reports that she has history of pancreatitis and reports that she was in the hospital and then in rehab afterwards the patient states that she started having pain in the epigastric region approximately 24 hours ago the patient reports it feels similar to when she had pancreatitis but denies vomiting reports that she has had a little bit of nausea with this Related Data Allergies Allergy/AdvReac Type Severity Reaction Status Date / Time Penicillins Allergy Mild Unknown Verified 02/15/23 08:47 Sulfa (Sulfonamide Allergy Mild Unknown Verified 02/15/23 08:47 Antibiotics) Review of Systems Review of Systems: A 10 system review of systems was completed on the patient and is negative except for what is stated in the HPI. Nursing and ancillary documentation was reviewed. PMFSH Past Medical History Medical History Fracture of humerus, proximal, left, closed (06/2022) Hypertension Osteoarthritis Surgical History Surgical History History of cholecystectomy (1988) History of total replacement of right shoulder joint History of tubal ligation Family History Family History Other Family history unknown Social History Social History Social History: Surrogate medical decision maker: Quentin Perez, son. Code status: Full code. Smoking status: Unknown if ever smoked Alcohol intake: never Substance use: never Substance use type: does not use Lack of Transportation: No Lack of Food: Never True Current Housing: I Have Housing Concerned About Future Housing: No Difficulty Paying Gas/Electric Bills: No Difficulty Paying for Meds: No Currently Unemployed: No Education: Bachelor's Degree Difficulty w/ Childcare or Family Care: No Additional living arrangements comments: Lives in [place]. Spiritual care concerns: No Exam Narrative: GENERAL: Well-appearing, well-nourished, and in no acute distress. HEAD: Normocephalic, atraumatic. EYES: PERRLA and EOMI. ENT: Nares clear, no rhinorrhea or epistaxis. Mucous membranes moist. NECK: Supple. CHEST: Clear to auscultation. No respiratory distress. HEART: Regular rate and rhythm. No murmur heard. Normal peripheral pulses. ABDOMEN: Soft, tenderness to palpation in the epigastric region, nondistended, normal active bowel sounds. EXTREMITIES: Normal range of motion. No edema. SKIN: Warm, dry, no rash. NEURO: No focal deficits. Alert and oriented x3. PSYCH: Normal mood and affect. Course Vital Signs Vital signs: Vital Signs Temperature 37.2 C 03/06/23 02:40 Pulse Rate 108 H 03/06/23 02:40 Respiratory Rate 15 03/06/23 02:40 Blood Pressure 113/89 03/06/23 02:40 Pulse Oximetry 99 03/06/23 02:40 Oxygen Delivery Room Air 03/06/23 02:40 Temperature 37.2 C 03/06/23 02:40 Pulse Rate 87 03/06/23 04:58 Respiratory Rate 15 03/06/23 04:58 Blood Pressure 111/91 H 03/06/23 04:58 Pulse Oximetry 97 03/06/23 04:58 Oxygen Delivery Nasal Cannula 03/06/23 03:26 Oxygen Flow Rate 4 03/06/23 03:26 Medical Decision Making MDM Narrative Medical decision making narrative: differential diagnosis includes pancreatitis, diverticulitis, colitis, gastritis laboratory studies were obtained which showed a elevated lipase at 958. Troponin was negative CT scan of the abdomen pelvis showed evidence of gastritis. Patient received IV fluids antiemetics and pain control in the emerge
[2023-03-06 04:38] LABS: Lactic Acid Reflex 1.2 mmol/L (0.7-2.0)
[2023-03-06 04:39] LABS: Alanine Aminotransferase 16 U/L (6-35); Albumin Level 3.5 g/dL (3.5-5.1); Alkaline Phosphatase 56 U/L (38-126); Anion Gap 4 mmol/L (8-16); Aspartate Amino Transferase 35 U/L (14-36); Bilirubin,Total 0.9 mg/dL (0.2-1.3); Blood Urea Nitrogen 14 mg/dL (7-17); Calcium 8.5 mg/dL (8.4-10.2); Carbon Dioxide 26 mmol/L (22-30); Chloride 104 mmol/L (98-107); Estimated CRCL calculation 32 ml/min; Estimated Glomerular Filt Rate 43; Glucose 89 mg/dL (65-110); Lipase 958 U/L (23-300); Magnesium 1.6 mg/dL (1.6-2.3); Potassium 4.1 mmol/L (3.4-5.0); Sodium 134 mmol/L (137-145)
[2023-03-06 04:43] LABS: Prothrombin Time 13.7 Seconds (11.1-14.7)
[2023-03-06 04:44] LABS: Partial Thromboplastin Time 31.5 SECONDS (22.3-36.8)
[2023-03-06 04:49] LABS: Troponin I < 0.012 ng/mL (0.000-0.034)
[2023-03-06] MEDS: PANTOPRAZOLE SODIUM IV 40 MG VIAL IV PUSH ×2 (07:08→08:51)
[2023-03-06 07:30] LABS: Appearance Urine Cloudy (Clear); Bacteria Urine 4+ /hpf; Bilirubin Urine Negative (Negative); Blood Urine Trace (Negative); Color Urine Yellow (Yellow); Glucose Urine UA Negative (Negative); Ketones Urine 1+ mg/dL (Negative); Leukocyte Esterase Ur 2+ LEU/UL (Negative); Need Manual Microscopic Reviewed; Nitrate Urine Positive (Negative); Protein Urine 1+ mg/dL (Negative); RBC Urine 0-2 /hpf (0-2); Specific Grav Ur 1.016 (1.001-1.035); Squamous Epithelial Cell Urine Occasional /hpf (Few); WBC Urine >100 /hpf; pH Urine 5.5 (5.0-9.0)
--- NOTE | 2023-03-06 07:45 | PM.IMHP ---
H&P: HPI History of Present Illness Date/Time: 03/06/23 07:45 Chief Complaint: Abdominal pain Nausea Narrative: This is a 77 year old female with a significant past medical history of pancreatitis, hypertension, osteoarthritis, hx of cholecystectomy who presents to the hospital with chief complaint of epigastric pain and nausea which started 24 hours prior to arrival to the hospital. Work up while in the ER included a CT of the abdomen/pelvis which revealed wall thickening of the gastric antrum and duodenum, normal pancreas, and a stable 13 mm irregular right basilar pulmonary nodule. EKG showing NSR with first degree AV Block, with a rate of 89. UA shown 1+ protein, 1+ ketones, positive nitrates, 2+ leukocytes, >100 urine WBC's, 4+ bacteria. Urine culture was obtained and is pending. Labs revealed WBC 5.2, RBC 4.12, Na+ 134, K+ 4.1, BUN 14, Creatinine 1.20, eGFR 43, creatinine clearance 32, Lactate 1.2, Magnesium 1.6, Troponin negative, Lipase 958, Liver enzymes were normal. Heart rate on arrival to the ER was noted to be 108 otherwise VSS, she is afebrile, and currently on room air. Patient was given 1L NS, 4mg of Morphine, and a dose of Zofran while in the ED. On examination today patient is alert and oriented x3, lying in the bed. She denies any nausea, vomiting, diarrhea, fever, chills, shortness of breath, or chest pain. She does report pain with urination. Plan to advance diet as tolerated to clears and to start Rocephin for UTI. Review of Systems Review of Systems: All systems reviewed & are unremarkable except as noted in HPI and below Constitutional: Constitutional: Reports as per HPI and Reports no additional constitutional complaints Eyes: Eyes: Reports as per HPI and Reports no additional eye complaints ENT: Reports system reviewed and no additional complaints, except as documented and Reports as per HPI Cardiovascular: Cardiovascular: Reports as per HPI and Reports no additional cardiovascular complaints Respiratory: Respiratory: Reports as per HPI and Reports no additional respiratory complaints Gastrointestinal: Gastrointestinal: Reports as per HPI and Reports no additional gastrointestinal complaints Genitourinary: Genitourinary: Reports no additional female genitourinary complaints and Reports as per HPI Musculoskeletal: Musculoskeletal: Reports no additional musculoskeletal complaints and Reports as per HPI Integumentary/Breasts: Skin/Breast: Reports system reviewed and no additional complaints, except as docu and Reports as per HPI Neurologic: Reports system reviewed and no additional complaints, except as documented and Reports as per HPI Psychiatric: Psychiatric: Reports no additional psychiatric complaints and Reports as per HPI [facility] Past Medical History Medical History Fracture of humerus, proximal, left, closed (06/2022) Hypertension Osteoarthritis Surgical History Surgical History History of cholecystectomy (1988) History of total replacement of right shoulder joint History of tubal ligation Family History Family History Other Family history unknown Social History Social History Social History: Surrogate medical decision maker: Quentin Perez, son. Code status: Full code. Smoking status: Never smoker Alcohol intake: never Substance use: never Substance use type: does not use Do You Feel Safe in your Home?: Yes Lack of Transportation: No Lack of Food: Never True Current Housing: I Have Housing Concerned About Future Housing: No Difficulty Paying Gas/Electric Bills: No Difficulty Paying for Meds: No Currently Unemployed: No Education: Don't Know Difficulty w/ Childcare or Family Care: No Additional living arrangements comments: Lives in [place]
--- NOTE | 2023-03-06 08:04 | ADMGEN ---
This patient, Leah Perez, was admitted to [facility] Surg Room 329-01. Patient/family oriented to hospital policies and general routines including ID bracelet, bed and alarms, visiting hours, pain management, procedures, bathroom and other care routines, personal items, smoking policy, room service/diet, and visiting hours. Information on how to activate the Rapid Response Team has been discussed. Patient/Family are encouraged to report perceived risks to care and to ask questions if they do not understand what they are told or what they should do.
[2023-03-06 08:21] LABS: Add Urine Microscopic? YES
[2023-03-06] MEDS: SODIUM CHLORIDE 0.9% IV 1,000 ML 125 ML IV CONT ×2 (08:45→17:39)
[2023-03-06] MEDS: DOCUSATE SODIUM 100 MG CAPSULE PO ×2 (08:50→17:42)
[2023-03-06] MEDS: ENOXAPARIN 40 MG/0.4 ML SYRINGE SUB-Q (08:51)
[2023-03-06 09:33] LABS: Procalcitonin 0.1 ng/mL
--- NOTE | 2023-03-06 14:03 | WPDGICN ---
Assessment and Plan Assessment and plan (1) Abnormal CT scan: Code(s): R93.89 - Abnormal findings on diagnostic imaging of other specified body structures Status: Acute Assessment and Plan: CT scan reveals thickening of the stomach and duodenum raising the question of gastritis and duodenitis. Likely this contributes to her epigastric discomfort. Plan to treat with pantoprazole for presumed gastritis or ulceration. An EGD will be performed. (2) Elevated lipase: Code(s): R74.8 - Abnormal levels of other serum enzymes Status: Acute Assessment and Plan: Patient's lipase is elevated. However CT scan imaging reveals no indication for pancreatitis. I suspect elevated lipases on the basis of decreased renal function. She has been recently admitted with renal insufficiency. Slowly this has been improving. Currently has urinary tract infection. (3) Urinary tract infection: Code(s): N39.0 - Urinary tract infection, site not specified Status: Acute Assessment and Plan: Patient found to have a UTI on urinalysis. Supportive care treatment under the direction primary care service. (4) JAZZY (acute kidney injury): Code(s): N17.9 - Acute kidney failure, unspecified Status: Acute GI Consult Note Consult date/time: 03/06/23 14:03 Reason for consult: Elevated lipase and epigastric pain. HPI: Leah Perez is a 77 year old female I am asked to see at the request of the hospitalist. Patient presented to the hospital with epigastric discomfort. I am seeing her this afternoon she denies any abdominal pain. She states the epigastric pain she had earlier lasted for brief time and is no longer present. She states she has not lost her appetite. She denies any nausea or vomiting. Patient underwent a CT scan because of this finding. Revealed thickening of the stomach and duodenum raising the question of gastritis and duodenitis. The pancreas appeared normal. Patient's lipase is 958 this morning. It has been elevated since the end of January. Patient also reports that she has underlying kidney issues. Patient hospitalized several weeks ago with kidney issues and congestive heart failure. She only recently was discharged from rehab several days ago. Her lipase is noted to be elevated for the last several weeks. Review of Systems Review of Systems: Review of systems noncontributory. [facility] Past Medical History Medical History Fracture of humerus, proximal, left, closed (06/2022) Hypertension Osteoarthritis Surgical History Surgical History History of cholecystectomy (1988) History of total replacement of right shoulder joint History of tubal ligation Family History Family History Other Family history unknown Social History Social History Social History: Surrogate medical decision maker: Quentin Perez, son. Code status: Full code. Smoking status: Never smoker Alcohol intake: never Substance use: never Substance use type: does not use Do You Feel Safe in your Home?: Yes Lack of Transportation: No Lack of Food: Never True Current Housing: I Have Housing Concerned About Future Housing: No Difficulty Paying Gas/Electric Bills: No Difficulty Paying for Meds: No Currently Unemployed: No Education: Don't Know Difficulty w/ Childcare or Family Care: No Additional living arrangements comments: Lives in [place]. Spiritual care concerns: No Meds Home Medications and Allergies Home Medications Medication Instructions Recorded Confirmed Type bumetanide 0.5 mg tablet 0.5 mg PO DAILY #30 tabs 02/28/23 03/06/23 Rx lisinopril 40 mg tablet 40 mg PO DAILY #90 tabs 02/28/23 03/06/23 Rx poly
[2023-03-07] VITALS: PULSE 63
[2023-03-07] MEDS: SODIUM CHLORIDE 0.9% IV 1,000 ML 125 ML IV CONT (03:30)
[2023-03-07 04:00] VITALS: PULSE 59
[2023-03-07 06:00] VITALS: BP 117/56; PULSE 70; RESP 16; TEMP 35.8; O2SAT 92
[2023-03-07 06:37] LABS: Basophils Percent Auto 0.9 % (0.2-1.2); Eosinophils Absolute Auto 0.2 K/mm3 (0-0.3); Eosinophils Percent Auto 4.7 % (0-4.4); Hematocrit 33.2 % (37.0-47.0); Hemoglobin 10.6 g/dL (12.0-15.0); Immature Granulocyte Absolute 0.01 K/mm3 (0.00-0.031); Immature Granulocyte Percent A 0.3 % (0-0.5); Lymphocytes Absolute Auto 0.76 K/mm3 (0.9-3.2); Mean Corpuscular HGB Conc 31.9 g/dl (32-36); Mean Corpuscular Hemoglobin 30.6 pg (26-34); Mean Platelet Volume 11.5 fl (7.4-10.4); Monocytes Absolute Auto 0.3 K/mm3 (0.1-0.6); Monocytes Percent Auto 8.2 % (2.6-8.5); Neutrophils Percent Auto 61.9 % (45.5-73.1); Platelet Count Result 150 k/mm3 (150-375); Red Blood Count 3.46 M/mm3 (4.2-5.4); Red Cell Distribution Width 13.7 % (11.5-14.5); White Blood Count 3.2 K/mm3 (4.5-10.0)
[2023-03-07 06:54] LABS: Alanine Aminotransferase 13 U/L (6-35); Albumin Level 2.9 g/dL (3.5-5.1); Alkaline Phosphatase 53 U/L (38-126); Anion Gap 3 mmol/L (8-16); Aspartate Amino Transferase 25 U/L (14-36); Bilirubin,Total 0.5 mg/dL (0.2-1.3); Blood Urea Nitrogen 11 mg/dL (7-17); Carbon Dioxide 26 mmol/L (22-30); Chloride 105 mmol/L (98-107); Estimated CRCL calculation 34 ml/min; Estimated Glomerular Filt Rate 48; Glucose 79 mg/dL (65-110); Potassium 4.1 mmol/L (3.4-5.0); Sodium 134 mmol/L (137-145)
[2023-03-07 07:22] LABS: Lipase 198 U/L (23-300)
--- NOTE | 2023-03-07 07:30 | WPDGIPROGNO ---
Progress Note: A&P Assessment and Plan (1) Abnormal CT scan: Code(s): R93.89 - Abnormal findings on diagnostic imaging of other specified body structures Status: Acute Assessment and Plan: CT scan suggested gastritis and duodenitis on imaging studies. Patient refuses EGD to confirm this. Plan to advance to a bland low-fat diet. Continue Protonix. Change to oral medications if diet tolerated. Patient currently pain free. Disposition per primary care service she can be discharged from our perspective. (2) Gastritis: Code(s): K29.70 - Gastritis, unspecified, without bleeding Status: Acute Assessment and Plan: Gastritis suggested by endoscopy. Will treat patient with Protonix. Avoid NSAIDs. Patient currently refusing endoscopy to confirm this finding. But this does correlate with her symptoms which have now improved. (3) Elevated lipase: Code(s): R74.8 - Abnormal levels of other serum enzymes Status: Acute Assessment and Plan: Elevated lipase identified. This is now returned to normal today. No evidence for pancreatitis on imaging studies this is a nonspecific finding. (4) Urinary tract infection: Code(s): N39.0 - Urinary tract infection, site not specified Status: Acute Assessment and Plan: Urinary tract infection identified may contribute to many of her symptoms. Plan for treatment according to primary care service. Subjective Date/time seen: 03/07/23 07:30 Interval history: Patient alert comfortable this morning. She denies any abdominal pain. No changes overnight. Refuses endoscopy. Review of Systems Review of Systems: Review of systems is noncontributory. Exam Narrative: Physical exam reveals patient be alert. Vital signs stable. HEENT exam unremarkable. Lungs are clear. Heart without murmur. Abdomen bowel sounds are present soft nontender with no organomegaly. Objective Data Vital Signs Vital Signs: Vital Signs - 24 hr 03/06/23 08:30 03/06/23 11:48 03/06/23 12:00 Temperature 97.9 F 97.7 F Pulse Rate 76 71 67 Respiratory Rate 20 20 Blood Pressure 104/55 L 123/60 Pulse Oximetry 96 96 03/06/23 16:00 03/06/23 14:00 03/06/23 16:00 Temperature 97.8 F 97.7 F Pulse Rate 66 65 71 Respiratory Rate 20 20 Blood Pressure 100/52 L 123/60 Pulse Oximetry 93 96 03/06/23 20:00 03/06/23 22:00 03/07/23 00:00 Temperature 96.9 F L Pulse Rate 59 L 73 63 Respiratory Rate 16 Blood Pressure 108/67 Pulse Oximetry 93 03/07/23 04:00 03/07/23 06:00 Temperature 96.5 F L Pulse Rate 59 L 70 Respiratory Rate 16 Blood Pressure 117/56 L Pulse Oximetry 92 Intake/Output Intake/Output: Intake & Output 03/04/23 03/05/23 03/06/23 03/07/23 23:59 23:59 23:59 23:59 Intake Total 2406 1000 Balance 2406 1000 Meds/Results Medications: Active Medications Generic Name Dose Route Start Last Admin Trade Name Freq PRN Reason Stop Dose Admin Acetaminophen 650 mg 03/06/23 08:01 Acetaminophen 325 Mg Tablet PO Q4H PRN Mild Pain (1-3) or Fever Bumetanide 0.5 mg 03/07/23 09:00 Bumetanide 0.5 Mg Tablet PO DAILY VALERIE Docusate Sodium 100 mg 03/06/23 09:00 03/06/23 17:42 Docusate Sodium 100 Mg Capsule PO 100 mg BID VALERIE Administration Enoxaparin Sodium 40 mg 03/06/23 09:00 03/06/23 08:51 Enoxaparin 40 Mg/0.4 Ml Syringe SUB-Q 40 mg DAILY VALERIE Administration Hydromorphone HCl 0.5 mg 03/06/23 06:30 Hydromorphone Hcl Inj (*Crx) 1 Mg/Ml Syr IV PUSH Q4H PRN Pain Rated 7-10 Sodium Chloride 1,000 mls @ 125 mls/hr 03/06/23 06:30 03/07/23 03:30 Normal Saline Iv IV CONT 125 mls/hr .Q8H VALERIE Administration Ceftriaxone Sodium 1 gm in 50 mls @ 100 mls/hr 03/06/23 09:00 03/06/23 17:07 Rocephin 1 Gm/Ns 50 Ml IVPB Infused Q24H VALERIE Infusion Lisinopril 40 mg 03/07/23 09:00 Lisinopril 20 Mg Tablet PO SALVADOR
[2023-03-07 08:00] VITALS: PULSE 65
[2023-03-07] MEDS: lisinopriL 20 MG TABLET 40 MG PO (09:08)
[2023-03-07] MEDS: DOCUSATE SODIUM 100 MG CAPSULE PO ×2 (09:08→17:05)
[2023-03-07] MEDS: PANTOPRAZOLE SODIUM IV 40 MG VIAL IV PUSH (09:09)
[2023-03-07] MEDS: ENOXAPARIN 40 MG/0.4 ML SYRINGE SUB-Q (09:09)
[2023-03-07] MEDS: BUMETANIDE 0.5 MG TABLET PO (09:10)
--- NOTE | 2023-03-07 09:47 | P.PNIM_ITS ---
Progress Note: A&P Assessment and Plan (1) Acute pancreatitis: Code(s): K85.90 - Acute pancreatitis without necrosis or infection, unspecified Status: Acute Assessment and Plan: 03/06/23: * Patient reporting epigastric pain and nausea x24 hours * Hx of pancreatitis in the past, states pain is similar * Lipase today was elevated at 958 * Liver enzymes are normal * WBC 5.2, lactate 1.2, troponin negative * She had a cholecystectomy * CT of the abdomen/pelvis revealed a normal appearing pancreas and wall thickening of the gastric antrum and duodenum * Patient received 1L NS while in the ED and placed on maintenance IVF. * Continue Zofran for nausea * Continue pain control with IV Dilaudid * Start clear liquid diet as tolerated * Continue to trend labs : * Lipase 198 today * GI consulted * EGD offered, patient refused * Continue to trend labs (2) Urinary tract infection: Code(s): N39.0 - Urinary tract infection, site not specified Status: Acute Assessment and Plan: 03/06/23: * UA revealing 1+ protein, 1+ ketones, positive nitrates, 2+ leukocytes, >100 urine WBC's, 4+ bacteria * UC was obtained and is pending * Patient reports dysuria * Creatinine slightly above baseline at 1.20 * Patient was started on Rocephin IV 03/07/23: * UC showing gram negative bacilli on preliminary * Continue Rocephin while awaiting final culture and sensitivities. * BUN 11, Creatinine 1.10 (3) Hypertension: Qualifiers: Hypertension type: primary hypertension Qualified Code(s): I10 - Essential (primary) hypertension Code(s): I10 - Essential (primary) hypertension Status: Chronic Assessment and Plan: 03/06/23: * B/P ranging 108/59-111/91 * Patient takes Lisinopril and Bumetanide, we will restart these 03/07/23: * No change to current treatment plan (4) Pulmonary nodule: Code(s): R91.1 - Solitary pulmonary nodule Status: Chronic Assessment and Plan: 03/06/23: * CT of the abdomen and pelvis showing stable 13mm, irregular right basilar pulmonary nodule * Will need outpatient CT scan in 3 months for re-evaluation Time Spent With Patient Time with patient: 25 - 35 minutes Subjective Date/time seen: 03/07/23 09:47 Interval history: 03/07/23: This is a 77 year old female with a significant past medical history of pancreatitis, hypertension, osteoarthritis, hx of cholecystectomy who presents to the hospital with chief complaint of epigastric pain and nausea which started 24 hours prior to arrival to the hospital. Work up while in the ER included a CT of the abdomen/pelvis which revealed wall thickening of the gastric antrum and duodenum, normal pancreas, and a stable 13 mm irregular right basilar pulmonary nodule. EKG showing NSR with first degree AV Block, with a rate of 89. UA shown 1+ protein, 1+ ketones, positive nitrates, 2+ leukocytes, >100 urine WBC's, 4+ bacteria. Urine culture was obtained and is pending. Labs revealed WBC 5.2, RBC 4.12, Na+ 134, K+ 4.1, BUN 14, Creatinine 1.20, eGFR 43, creatinine clearance 32, Lactate 1.2, Magnesium 1.6, Troponin negative, Lipase 958, Liver enzymes were normal. Heart rate on arrival to the ER was noted to be 108 otherwise VSS, she is afebrile, and currently on room air. Patient was given 1L NS, 4mg of Morphine, and a dose of Zofran while in the ED. On examination today patient is alert and oriented x3, lying in the bed. She denies any nausea, vomiting, diarrhea, fever, chills, shortness of breath, or chest pain. She does report pain with urination. Plan to
--- NOTE | 2023-03-07 09:47 | PM.IMPN ---
Progress Note: A&P Assessment and Plan (1) Acute pancreatitis: Code(s): K85.90 - Acute pancreatitis without necrosis or infection, unspecified Status: Acute Assessment and Plan: 03/06/23: Patient reporting epigastric pain and nausea x24 hours Hx of pancreatitis in the past, states pain is similar Lipase today was elevated at 958 Liver enzymes are normal WBC 5.2, lactate 1.2, troponin negative She had a cholecystectomy CT of the abdomen/pelvis revealed a normal appearing pancreas and wall thickening of the gastric antrum and duodenum Patient received 1L NS while in the ED and placed on maintenance IVF. Continue Zofran for nausea Continue pain control with IV Dilaudid Start clear liquid diet as tolerated Continue to trend labs : Lipase 198 today GI consulted EGD offered, patient refused Continue to trend labs (2) Urinary tract infection: Code(s): N39.0 - Urinary tract infection, site not specified Status: Acute Assessment and Plan: 03/06/23: UA revealing 1+ protein, 1+ ketones, positive nitrates, 2+ leukocytes, >100 urine WBC's, 4+ bacteria UC was obtained and is pending Patient reports dysuria Creatinine slightly above baseline at 1.20 Patient was started on Rocephin IV 03/07/23: UC showing gram negative bacilli on preliminary Continue Rocephin while awaiting final culture and sensitivities. BUN 11, Creatinine 1.10 (3) Hypertension: Qualifiers: Hypertension type: primary hypertension Qualified Code(s): I10 - Essential (primary) hypertension Code(s): I10 - Essential (primary) hypertension Status: Chronic Assessment and Plan: 03/06/23: B/P ranging 108/59-111/91 Patient takes Lisinopril and Bumetanide, we will restart these 03/07/23: No change to current treatment plan (4) Pulmonary nodule: Code(s): R91.1 - Solitary pulmonary nodule Status: Chronic Assessment and Plan: 03/06/23: CT of the abdomen and pelvis showing stable 13mm, irregular right basilar pulmonary nodule Will need outpatient CT scan in 3 months for re-evaluation Time Spent With Patient Time with patient: 25 - 35 minutes Subjective Date/time seen: 03/07/23 09:47 Interval history: 03/07/23: This is a 77 year old female with a significant past medical history of pancreatitis, hypertension, osteoarthritis, hx of cholecystectomy who presents to the hospital with chief complaint of epigastric pain and nausea which started 24 hours prior to arrival to the hospital. Work up while in the ER included a CT of the abdomen/pelvis which revealed wall thickening of the gastric antrum and duodenum, normal pancreas, and a stable 13 mm irregular right basilar pulmonary nodule. EKG showing NSR with first degree AV Block, with a rate of 89. UA shown 1+ protein, 1+ ketones, positive nitrates, 2+ leukocytes, >100 urine WBC's, 4+ bacteria. Urine culture was obtained and is pending. Labs revealed WBC 5.2, RBC 4.12, Na+ 134, K+ 4.1, BUN 14, Creatinine 1.20, eGFR 43, creatinine clearance 32, Lactate 1.2, Magnesium 1.6, Troponin negative, Lipase 958, Liver enzymes were normal. Heart rate on arrival to the ER was noted to be 108 otherwise VSS, she is afebrile, and currently on room air. Patient was given 1L NS, 4mg of Morphine, and a dose of Zofran while in the ED. On examination today patient is alert and oriented x3, lying in the bed. She denies any nausea, vomiting, diarrhea, fever, chills, shortness of breath, or chest pain. She does report pain with urination. Plan to advance diet as tolerated to clears and to start Rocephin for UTI. 03/08/23: On examination today patient is alert and oriented x3, lying in the bed. She denies any new complaints. Labs today reveal WBC 3.2, Hgb 10.6, Hct 33.2, Na+ 134, BUN 11, Creatinine 1.10, BG ranging 79-89, liver enzymes are normal. Urine culture showing gram negative bacilli. Patient continues on Rocephin while awaiting f
[2023-03-07 14:00] VITALS: BP 106/53; PULSE 73; RESP 18; TEMP 36.1; O2SAT 96
[2023-03-07 21:05] VITALS: BP 130/58; PULSE 68; RESP 20; TEMP 36.2; O2SAT 93
[2023-03-08] MEDS: SODIUM CHLORIDE 0.9% IV 1,000 ML 125 ML IV CONT ×2 (00:32→08:20)
[2023-03-08 05:00] VITALS: BP 156/74; PULSE 73; RESP 24; TEMP 36.3; O2SAT 100
[2023-03-08 05:50] LABS: Basophils Percent Auto 1.2 % (0.2-1.2); Eosinophils Absolute Auto 0.2 K/mm3 (0-0.3); Eosinophils Percent Auto 6.8 % (0-4.4); Hematocrit 33.4 % (37.0-47.0); Hemoglobin 10.6 g/dL (12.0-15.0); Immature Granulocyte Absolute 0.01 K/mm3 (0.00-0.031); Immature Granulocyte Percent A 0.3 % (0-0.5); Lymphocytes Absolute Auto 0.82 K/mm3 (0.9-3.2); Lymphocytes Percent Auto 24.1 % (18.3-44.2); Mean Corpuscular HGB Conc 31.7 g/dl (32-36); Mean Corpuscular Hemoglobin 30.5 pg (26-34); Mean Corpuscular Volume 96.3 fl (80-100); Mean Platelet Volume 11.5 fl (7.4-10.4); Monocytes Absolute Auto 0.3 K/mm3 (0.1-0.6); Monocytes Percent Auto 9.7 % (2.6-8.5); Neutrophils Percent Auto 57.9 % (45.5-73.1); Platelet Count Result 154 k/mm3 (150-375); Red Blood Count 3.47 M/mm3 (4.2-5.4); Red Cell Distribution Width 13.6 % (11.5-14.5); White Blood Count 3.4 K/mm3 (4.5-10.0)
[2023-03-08 06:05] LABS: Alanine Aminotransferase 11 U/L (6-35); Albumin Level 2.7 g/dL (3.5-5.1); Alkaline Phosphatase 48 U/L (38-126); Anion Gap 5 mmol/L (8-16); Aspartate Amino Transferase 22 U/L (14-36); Bilirubin,Total 0.4 mg/dL (0.2-1.3); Blood Urea Nitrogen 12 mg/dL (7-17); Calcium 7.7 mg/dL (8.4-10.2); Carbon Dioxide 24 mmol/L (22-30); Chloride 108 mmol/L (98-107); Estimated CRCL calculation 32 ml/min; Estimated Glomerular Filt Rate 43; Glucose 77 mg/dL (65-110); Potassium 3.6 mmol/L (3.4-5.0); Sodium 137 mmol/L (137-145)
--- NOTE | 2023-03-08 07:42 | WPDGIPROGNO ---
Progress Note: A&P Assessment and Plan (1) Abnormal CT scan: Code(s): R93.89 - Abnormal findings on diagnostic imaging of other specified body structures Status: Acute Assessment and Plan: CT scan imaging suggesting gastritis and duodenitis. Patient improving with implementation of Protonix. Patient refused EGD evaluation of this. Recommend avoiding NSAIDs. Advancing diet as tolerated. Continue pantoprazole after discharge. No need to pursue EGD at this time as she refuses. Likely this was the etiology for her pain. Pancreatitis unlikely. Pancreas appeared normal on imaging. (2) Urinary tract infection: Code(s): N39.0 - Urinary tract infection, site not specified Status: Acute Assessment and Plan: UTI on admission patient received antibiotics. Potentially this contributed to some of her admission symptoms. (3) Elevated lipase: Code(s): R74.8 - Abnormal levels of other serum enzymes Status: Acute Assessment and Plan: Lipase has been modestly elevated. Not to the degree we can call at pancreatitis. CT scan imaging failed identified pancreatitis. This was likely a spurious finding. Could be elevated because of renal function. Subjective Date/time seen: 03/08/23 07:42 Interval history: Patient alert comfortable this morning. Tolerating diet. Anxious to go home. Review of Systems Review of Systems: Review of systems noncontributory. Exam Narrative: Physical exam reveals patient be alert. She is afebrile and anicteric. Lungs are clear. Heart without murmur. Abdomen bowel sounds present soft nontender. Objective Data Vital Signs Vital Signs: Vital Signs - 24 hr 03/07/23 08:00 03/07/23 08:00 03/07/23 14:00 Temperature 97 F L Pulse Rate 65 73 Respiratory Rate 18 Blood Pressure 106/53 L Pulse Oximetry 96 Oxygen Delivery Room Air 03/07/23 21:05 03/08/23 05:00 Temperature 97.2 F L 97.3 F L Pulse Rate 68 73 Respiratory Rate 20 24 H Blood Pressure 130/58 L 156/74 H Pulse Oximetry 93 100 Oxygen Delivery Intake/Output Intake/Output: Intake & Output 03/05/23 03/06/23 03/07/23 03/08/23 23:59 23:59 23:59 23:59 Intake Total 2406 3010 50 Balance 2406 3010 50 Meds/Results Medications: Active Medications Generic Name Dose Route Start Last Admin Trade Name Freq PRN Reason Stop Dose Admin Acetaminophen 650 mg 03/06/23 08:01 Acetaminophen 325 Mg Tablet PO Q4H PRN Mild Pain (1-3) or Fever Bumetanide 0.5 mg 03/07/23 09:00 03/07/23 09:10 Bumetanide 0.5 Mg Tablet PO 0.5 mg DAILY VALERIE Administration Docusate Sodium 100 mg 03/06/23 09:00 03/07/23 17:05 Docusate Sodium 100 Mg Capsule PO 100 mg BID VALERIE Administration Enoxaparin Sodium 40 mg 03/06/23 09:00 03/07/23 09:09 Enoxaparin 40 Mg/0.4 Ml Syringe SUB-Q 40 mg DAILY VALERIE Administration Hydromorphone HCl 0.5 mg 03/06/23 06:30 Hydromorphone Hcl Inj (*Crx) 1 Mg/Ml Syr IV PUSH Q4H PRN Pain Rated 7-10 Sodium Chloride 1,000 mls @ 125 mls/hr 03/06/23 06:30 03/08/23 00:32 Normal Saline Iv IV CONT 125 mls/hr .Q8H VALERIE Administration Ceftriaxone Sodium 1 gm in 50 mls @ 100 mls/hr 03/06/23 09:00 03/07/23 17:06 Rocephin 1 Gm/Ns 50 Ml IVPB Infused Q24H VALERIE Infusion Lisinopril 40 mg 03/07/23 09:00 03/07/23 09:08 Lisinopril 20 Mg Tablet PO 40 mg DAILY VALERIE Administration Ondansetron HCl 4 mg 03/06/23 06:30 Ondansetron Inj 4 Mg/2 Ml Vial IV PUSH Q4H PRN Nausea Pantoprazole Sodium 40 mg 03/06/23 09:00 03/07/23 09:09 Pantoprazole Sodium Iv 40 Mg Vial IV PUSH 40 mg QAM VALERIE Administration Polyethylene Glycol 17 gm 03/06/23 13:22 Polyethylene Glycol 3350 17 Gm Powd.Pack PO QAM PRN constipation Senna/Docusate Sodium 1 tab 03/06/23 13:22 Senna/Docusate Sodium Tablet PO HS PRN constipation Radiology Result
[2023-03-08] MEDS: ENOXAPARIN 40 MG/0.4 ML SYRINGE SUB-Q (08:23)
[2023-03-08] MEDS: BUMETANIDE 0.5 MG TABLET PO (08:24)
[2023-03-08] MEDS: DOCUSATE SODIUM 100 MG CAPSULE PO ×2 (08:24→16:12)
[2023-03-08] MEDS: lisinopriL 20 MG TABLET 40 MG PO (08:25)
[2023-03-08] MEDS: PANTOPRAZOLE SODIUM IV 40 MG VIAL IV PUSH (08:26)
--- NOTE | 2023-03-08 13:48 | PM.DS ---
DS: Admitting Diagnosis Discharge Date 03/08/23 Admitting Diagnosis UTI DS: Discharge Diagnosis Discharge Diagnosis (1) Acute pancreatitis: Code(s): K85.90 - Acute pancreatitis without necrosis or infection, unspecified Status: Acute (2) Urinary tract infection: Code(s): N39.0 - Urinary tract infection, site not specified Status: Acute (3) Hypertension: Qualifiers: Hypertension type: primary hypertension Qualified Code(s): I10 - Essential (primary) hypertension Code(s): I10 - Essential (primary) hypertension Status: Chronic (4) Pulmonary nodule: Code(s): R91.1 - Solitary pulmonary nodule Status: Chronic DS: Summary Hospital Course Hospital Course: this is a 77-year-old female with past medical history of pancreatitis, hypertension, arthritis that presented to the ED on 03/06/2023 due to epigastric pain and nausea. CT abdomen pelvis showed wall thickening of gastric antrum and duodenum normal pancreas and stable 3 mm irregular right basilar pulmonary nodule. Urine suspicious for UTI and patient was started on Rocephin. Urine culture ordered Labs revealed BUN and creatinine of 14/1.2, lipase of 958, normal liver enzymes common negative troponin, normal white blood cell count. She was started on IV fluids. Urine culture came back positive for. Serratia marcescens and she was transition to p.o. antibiotics. GI consulted due to gastritis and duodenitis on imaging. Patient refused EGD. She was started on Protonix. Diet advanced as tolerated. Possible signs stable and she is medically clear for discharge at this time. Time Spent with Patient Time attestation: Total time spent providing and/or coordinating discharge services: Exam Narrative: GENERAL: Comfortable, no acute distress HENMT: moist mucous membranes EYES: EOM intact b/l NECK: no lymphadenopathy RESPIRATORY: clear to auscultation CARDIO: RRR GI: soft, nontender, bowel sounds present SKIN: no rashes EXTREMITIES: no edema, redness or tenderness DS: Data Data Completed and Pending Labs on day of discharge: Labs from last 24 hours 03/08/23 05:35 WBC 3.4 L RBC 3.47 L Hgb 10.6 L Hct 33.4 L MCV 96.3 MCH 30.5 MCHC 31.7 L RDW 13.6 Plt Count 154 MPV 11.5 H Immature Gran % (Auto) 0.3 Neut % (Auto) 57.9 Lymph % (Auto) 24.1 [place] % (Auto) 9.7 H Eos % (Auto) 6.8 H Baso % (Auto) 1.2 Lymph # (Auto) 0.82 L [place] # (Auto) 0.3 Eos # (Auto) 0.2 Baso # (Auto) 0.0 Abs Immat Gran (auto) 0.01 Absolute Neuts (auto) 2.0 Absolute Nucleated RBC 0.0 Nucleated RBC % 0.0 Sodium 137 Potassium 3.6 Chloride 108 H Carbon Dioxide 24 Anion Gap 5 L BUN 12 Creatinine 1.20 H Estim Creat Clear Calc 32 Estimated GFR 43 L Glucose 77 Calcium 7.7 L Total Bilirubin 0.4 AST 22 ALT 11 Alkaline Phosphatase 48 Total Protein 5.0 L Albumin 2.7 L Discharge Plan Discharge Attending physician on discharge: Peter Bush Consulting providers: Mason Cabrera Discharging Clinician: Savannah Valerio Patient Disposition: Home, Self-Care Activity: as tolerated Diet: regular Discharge Instructions: Medications: Levaquin 750 mg daily for 4 more days Take all medications as prescribed even if feeling better Eat well balanced meals and stay hydrated Keep active to remain strong Avoid use of diapers or pads Good shruthi Care every 2 hours Frequent toileting every 2 hours Trend urine output If you should experience any chest pain, shortness of breath, temps >100.4 or any other worrisome symptoms please follow up with your PCP come back to the hospital Follow up with your primary in 2-3 weeks It has been a pleasure taking care of you thank you for using our services Patient Instructions: Antibiotic Form Stand Alone Forms: General Discharge Information Follow-up/Referrals: Maxime Jimenes MD [Primary Care Provider] - Discharg
[2023-03-08 14:00] VITALS: BP 114/53; PULSE 81; RESP 20; TEMP 36.7; O2SAT 96
--- NOTE | 2023-03-08 14:11 | PC.NURSE ---
This nurse talked to Savannah in person about IV going bad around 0930 and she told this nurse to keep it out. Pt is discharging
== END 2023-03-08 18:50 | disposition home or self-care (01) ==
LOC: ANHED 06:34 → ANH3MEDSUR 07:24
PROVIDERS: Internal Medicine Gastroenterology; Nurse Practitioner Acute Care; Admitting Provider Internal Medicine; Emergency Provider Emergency Medicine; PCP Family Medicine Adolescent Medicine; Visit Provider Internal Medicine
DX: K85.90 Acute pancreatitis without necrosis or infection, unspecified (principal); N39.0 Urinary tract infection, site not specified; B96.89 Other specified bacterial agents as the cause of diseases classified elsewhere; I10 Essential (primary) hypertension; R91.1 Solitary pulmonary nodule; R74.8 Abnormal levels of other serum enzymes; K29.70 Gastritis, unspecified, without bleeding; Z90.49 Acquired absence of other specified parts of digestive tract; I44.0 Atrioventricular block, first degree; R94.31 Abnormal electrocardiogram [ECG] [EKG]; N17.9 Acute kidney failure, unspecified; K59.00 Constipation, unspecified; M19.90 Unspecified osteoarthritis, unspecified site; Z79.899 Other long term (current) drug therapy
CPT/HCPCS: 36415; 74177; 80053; 81001; 83605; 83690; 83735; 84145; 84484; 85025; 85610; 85730; 87077; 87086; 87186; 93005; 96361; 96365; 96366; 96372; 96375; 96376; 99285; A9270; C9113; G0378; J0696; J1650; J2270; J2405; J7030; Q9967

== ENCOUNTER 2023-11-25 21:14 | Inpatient (IN) | payer MEDICARE, BC, SELFPAY ==
--- NOTE | ~2023-11-25 | XR_ITS ---
XR hip LT 2V w AP pelvis DATE: 11/25/2023 21:47 INDICATION: Fall. Left hip deformity. TECHNIQUE: AP and crosstable lateral views of left hip COMPARISON: None FINDINGS: There is a minimally displaced intertrochanteric left hip fracture with mild varus deformit y. Diffuse osteopenia. Normal alignment at the pubic symphysis and sacroiliac joints. Hip joint spaces appear symmetric and relatively well preserved. IMPRESSION: Left intertrochanteric hip fracture Osteopenia Reviewed, dictated and finalized at location A.
--- NOTE | ~2023-11-25 | XR_ITS ---
EXAMINATION: XR surgery orthopedic DATE: 11/27/2023 11:27 INDICATION: Internal fixation of the left hip TECHNIQUE: 5 fluoroscopic images of the left hip and proximal femur were obtained during procedure pe rformed by Dr. Stanford. Radiologist was not present for the imaging or procedure. The amount of fl uoroscopy time used during this procedure was 0.9 minutes. COMPARISON: 11/25/2023 FINDINGS: Interval open reduction internal fixation of the previously seen intertrochanteric fracture of the pr oximal left femur which is now in near-anatomic alignment. The fracture is fixed with an antegrade in tramedullary ramón with femoral neck dynamic compression screw and distal interlocking screw. No new fr actures identified. Mild osteoarthritis at the left hip. IMPRESSION: 1. Near-anatomic alignment post internal fixation of an intratrochanteric fracture of the proximal le ft femur. See procedure note for further detail. Reviewed, dictated and finalized at location B. IMPRESSION: 1. Near-anatomic alignment post internal fixation of an intratrochanteric fract ure of the proximal left femur. See procedure note for further detail.
--- NOTE | ~2023-11-25 | XR_ITS ---
XR chest 1V portable DATE: 11/25/2023 21:47 INDICATION: Left hip fracture TECHNIQUE: Portable supine AP view COMPARISON: 10/12/2022 portable AP chest FINDINGS: Cardiomegaly. Aortic calcification, ectasia. No hilar or mediastinal enlargement. No pulmonary infiltrate or consolidation, pleural effusion or pulmonary vascular congestion or pneumo thorax. Old healed prominent fracture deformity of the left surgical humeral neck. Old healed right rib fractures. Osteopenia. Degenerative changes of the thoracic and lumbar spine. IMPRESSION: Cardiomegaly, aortic atherosclerosis No active pulmonary disease Old healed fracture deformity of the left humeral surgical neck interval healed right rib fractures Reviewed, dictated and finalized at location A.
[2023-11-25 21:15] VITALS: PULSE 104; RESP 15; TEMP 36.6; O2SAT 95
--- NOTE | 2023-11-25 22:54 | ED.FALL ---
HPI - Fall General Chief Complaint: Fall Stated Complaint: fall, hip pain Time Seen by Provider: 11/25/23 22:48 History of Present Illness HPI Narrative: 78-year-old female presenting with left hip pain. States that she tripped on her walker and fell to her left side. She did not strike her head or lose consciousness. Had immediate left hip pain. States that the pain is not bad if she does not try to move. No numbness or weakness. No further injuries or complaints. Related Data Home Medications Medication Instructions Recorded Confirmed omeprazole 40 mg capsule,delayed 40 mg PO DAILY PRN Acid Reflux 11/26/23 11/27/23 release sennosides 8.6 mg-docusate sodium 1 tab-cap PO HS constipation 11/26/23 11/27/23 50 mg tablet (Senokot-S) Allergies Allergy/AdvReac Type Severity Reaction Status Date / Time Penicillins Allergy Mild Unknown Verified 11/27/23 09:16 Sulfa (Sulfonamide Allergy Mild Unknown Verified 11/27/23 09:16 Antibiotics) Review of Systems Review of Systems: All systems reviewed & are unremarkable except as noted in HPI and below PMFSH Past Medical History Medical History (Updated 11/30/23 @ 18:37 by Iris Juárez MD) Acute pancreatitis (02/2023) JAZZY (acute kidney injury) (09/2022) Fracture of humerus, proximal, left, closed (06/2022) Osteoarthritis SBO (small bowel obstruction) (09/2022) Surgical History Surgical History (Updated 11/27/23 @ 12:32 by Maxime Jimenes MD) History of cholecystectomy (1988) History of hip surgery (11/2023) ORIF of left hip IT Fx History of total replacement of right shoulder joint History of tubal ligation Family History Family History Other Family history unknown Social History Social History Social History: Surrogate medical decision maker: Quentin Perez, son. Code status: Full code. Smoking status: Never smoker Alcohol intake: never Substance use: never Substance use type: does not use Do You Feel Safe in your Home?: Yes Lack of Transportation: No Lack of Food: Never True Current Housing: I Have Housing Concerned About Future Housing: No Difficulty Paying Gas/Electric Bills: No Difficulty Paying for Meds: No Currently Unemployed: No Education: Don't Know Difficulty w/ Childcare or Family Care: No Additional living arrangements comments: Lives in [place]. Spiritual care concerns: No Exam Narrative: GENERAL: Nontoxic, no acute distress, pleasant cooperative HEAD: Normocephalic, atraumatic. EYES: PERRLA and EOMI. ENT: Mucous membranes dry NECK: Supple. CHEST: Clear to auscultation. No respiratory distress. HEART: Regular rate and rhythm ABDOMEN: Soft, nontender, nondistended EXTREMITIES: left leg externally rotated and shortened; neurovascularly intact SKIN: Warm, dry, no rash. NEURO: Alert and oriented x3. PSYCH: Normal mood and affect. Course Vital Signs Vital signs: Vital Signs Temperature 97.9 F 11/25/23 21:15 Pulse Rate 104 H 11/25/23 21:15 Respiratory Rate 15 11/25/23 21:15 Pulse Oximetry 95 11/25/23 21:15 Oxygen Delivery Room Air 11/25/23 21:15 Temperature 97.4 F L 11/30/23 14:00 Pulse Rate 99 11/30/23 14:00 Respiratory Rate 14 11/30/23 14:00 Blood Pressure 123/69 11/30/23 14:00 Pulse Oximetry 93 11/30/23 14:00 Oxygen Delivery Room Air 11/30/23 09:23 Oxygen Flow Rate 8 11/27/23 11:50 Fraction of Inspired Oxygen 21 11/27/23 08:34 MDM - Fall MDM Narrative Medical decision making narrative: 78-year-old female presenting with left hip pain after a fall. Vitals are stable. Exam remarkable for the above. X-ray shows left intertrochanteric fracture. Preop labs have been ordered. Pain meds have been ordered. Spoke with orthopedic surgery was happy to see her in the morning. Spoke medicine is acce
--- NOTE | 2023-11-25 22:57 | ECG_ITS ---
Test Date: 2023-11-25 23:20:11 Measurements Intervals [place] Rate: 68 P: 62 [place]: 280 QRS: -22 QRSD: 76 T: 58 QT: 364 QTc: 388 Interpretive Statements SINUS RHYTHM WITH FIRST DEGREE AV BLOCK LOW QRS VOLTAGE IN PRECORDIAL LEADS CONSIDER INFERIOR INFARCT, AGE INDETERMINATE BASELINE ARTIFACT- I, II, AVR, V1, V3-V6 ABNORMAL ECG No previous ECG available for comparison Electronically Signed On 11-26-2023 08:40:25 CDT by Jordan Lyons D.O.
[2023-11-25 23:19] LABS: Basophils Absolute Auto 0.1 K/mm3 (0.0-0.1); Basophils Percent Auto 0.5 % (0.2-1.2); Eosinophils Absolute Auto 0.1 K/mm3 (0-0.3); Eosinophils Percent Auto 0.5 % (0-4.4); Hematocrit 36.9 % (37.0-47.0); Hemoglobin 12.1 g/dL (12.0-15.0); Immature Granulocyte Absolute 0.05 K/mm3 (0.00-0.031); Immature Granulocyte Percent A 0.5 % (0-0.5); Lymphocytes Absolute Auto 0.67 K/mm3 (0.9-3.2); Lymphocytes Percent Auto 6.1 % (18.3-44.2); Mean Corpuscular HGB Conc 32.8 g/dl (32-36); Mean Corpuscular Volume 94.6 fl (80-100); Mean Platelet Volume 11.4 fl (7.4-10.4); Monocytes Absolute Auto 0.4 K/mm3 (0.1-0.6); Monocytes Percent Auto 3.6 % (2.6-8.5); Neutrophils Absolute Auto 9.7 K/mm3 (1.3-6.7); Neutrophils Percent Auto 88.8 % (45.5-73.1); Platelet Count Result 179 k/mm3 (150-375); Red Cell Distribution Width 12.6 % (11.5-14.5); White Blood Count 10.9 K/mm3 (4.5-10.0)
--- NOTE | 2023-11-25 23:24 | PM.IMHP ---
H&P: HPI History of Present Illness Date/Time: 11/25/23 23:24 Chief Complaint: fall Narrative: This is an 78-year-old female with past medical history significant for hypertension, osteoarthritis. Patient uses a walker as a walking aid was brought to the emergency room after she fell while ambulating using her walker there was no loss of consciousness. Patient found to have left hip fracture. Admitted for further evaluation, management and treatment. XR hip LT 2V w AP pelvis DATE: 11/25/2023 21:47 INDICATION: Fall. Left hip deformity. TECHNIQUE: AP and crosstable lateral views of left hip COMPARISON: None FINDINGS: There is a minimally displaced intertrochanteric left hip fracture with mild varus deformity. Diffuse osteopenia. Normal alignment at the pubic symphysis and sacroiliac joints. Hip joint spaces appear symmetric and relatively well preserved. IMPRESSION: Left intertrochanteric hip fracture Osteopenia Review of Systems Review of Systems: fall, unable to bear weight on the left leg, limited range of motion of left hip, left hip pain PMFSH Past Medical History Medical History Acute pancreatitis (02/2023) JAZZY (acute kidney injury) (09/2022) Fracture of humerus, proximal, left, closed (06/2022) Osteoarthritis SBO (small bowel obstruction) (09/2022) Surgical History Surgical History History of cholecystectomy (1988) History of total replacement of right shoulder joint History of tubal ligation Family History Family History Other Family history unknown Social History Social History Social History: Surrogate medical decision maker: Quentin Perez, son. Code status: Full code. Smoking status: Never smoker Alcohol intake: never Substance use: never Substance use type: does not use Do You Feel Safe in your Home?: Yes Lack of Transportation: No Lack of Food: Never True Current Housing: I Have Housing Concerned About Future Housing: No Difficulty Paying Gas/Electric Bills: No Difficulty Paying for Meds: No Currently Unemployed: No Education: Don't Know Difficulty w/ Childcare or Family Care: No Additional living arrangements comments: Lives in [place]. Spiritual care concerns: No Meds Home Medications and Allergies Home Medications Medication Instructions Recorded Confirmed Type polyethylene glycol 3350 17 gram 17 g PO QAM PRN constipation #30 ea 02/28/23 11/26/23 Rx oral powder packet (Miralax) lisinopril 40 mg tablet 40 mg PO DAILY #90 tabs 07/27/23 11/26/23 Rx bumetanide 0.5 mg tablet 0.5 mg PO DAILY #30 tabs 10/24/23 11/26/23 Rx omeprazole 40 mg capsule,delayed 40 mg PO DAILY PRN Acid Reflux 11/26/23 11/26/23 History release sennosides 8.6 mg-docusate sodium 1 tab-cap PO HS constipation 11/26/23 11/26/23 History 50 mg tablet (Senokot-S) Allergies Allergy/AdvReac Type Severity Reaction Status Date / Time Penicillins Allergy Mild Unknown Verified 11/25/23 21:22 Sulfa (Sulfonamide Allergy Mild Unknown Verified 11/25/23 21:22 Antibiotics) Vital Signs Vital Signs - 24 hr 11/25/23 21:15 Temperature 97.9 F Pulse Rate 104 H Respiratory Rate 15 Pulse Oximetry 95 Oxygen Delivery Room Air H&P: Results Labs Labs: Short CBC 11/25/23 Range/Units 23:14 WBC 10.9 H (4.5-10.0) K/mm3 Hgb 12.1 (12.0-15.0) g/dL Hct 36.9 L (37.0-47.0) % Plt Count 179 (150-375) k/mm3 Assessment and Plan Assessment and plan (1) Closed left hip fracture: Code(s): S72.002A - Fracture of unspecified part of neck of left femur, initial encounter for closed fracture Status: Ruled-out Assessment and Plan: Admit to [facility] supportive care Ortho consult
[2023-11-25 23:30] LABS: Prothrombin Time 13.7 Seconds (11.1-14.7)
[2023-11-25 23:33] LABS: Sodium 135 mmol/L (137-145)
[2023-11-25 23:41] LABS: Alanine Aminotransferase 21 U/L (6-35); Albumin Level 3.8 g/dL (3.5-5.1); Alkaline Phosphatase 67 U/L (38-126); Anion Gap 7 mmol/L (4-12); Aspartate Amino Transferase 49 U/L (14-36); Bilirubin,Total 0.3 mg/dL (0.2-1.3); Blood Urea Nitrogen 42 mg/dL (7-17); Calcium 8.5 mg/dL (8.4-10.2); Carbon Dioxide 27 mmol/L (22-30); Chloride 101 mmol/L (98-107); Estimated CRCL calculation 27 ml/min; Estimated Glomerular Filt Rate 36; Glucose 191 mg/dL (65-110); Potassium 4.9 mmol/L (3.4-5.0)
[2023-11-26] MEDS: MORPHINE SULFATE (*CRX) 2 MG/ML INJ IV PUSH (00:37)
[2023-11-26 00:39] VITALS: BMI 25.3
[2023-11-26 00:41] VITALS: BP 163/74; PULSE 74; RESP 24; TEMP 36.5; O2SAT 97
[2023-11-26 00:43] VITALS: BP 163/74; PULSE 74; RESP 24; TEMP 36.5; O2SAT 97
[2023-11-26 06:00] VITALS: BP 127/64; PULSE 76; RESP 16; TEMP 37.1; O2SAT 96
--- NOTE | 2023-11-26 08:02 | PCPTNOTE ---
Patient has a hip fx and waiting on an ortho consult, will check on after being seen by ortho as time allows.
--- NOTE | 2023-11-26 08:04 | PM.CNOR ---
Assessment and Plan Assessment and plan (1) Closed intertrochanteric fracture of left hip: Qualifiers: Encounter type: initial encounter Fracture alignment: displaced Qualified Code(s): S72.142A - Displaced intertrochanteric fracture of left femur, initial encounter for closed fracture Code(s): S72.142A - Displaced intertrochanteric fracture of left femur, initial encounter for closed fracture Status: Acute Plan Displaced intertrochanteric hip fracture, left hip. Will benefit from ORIF with cephalomedullary nail. We discussed the risks, benefits, and alternatives to surgery. Proceed with ORIF left hip with cephalomedullary nail (gamma nail). May eat today. Surgery tomorrow late morning. History of Present Illness HPI Consult date: 11/26/23 Chief complaint: left hip fx Narrative: Patient complains of acute hip pain. Fell from standing height. Uses a walker. No previous hip pain. Denies loss of consciousness. Lives at home with her son. Review of Systems Review of Systems: Denies loss of consciousness. All systems reviewed & are unremarkable except as noted in HPI and below PMFSH Past Medical History Medical History Acute pancreatitis (02/2023) JAZZY (acute kidney injury) (09/2022) Fracture of humerus, proximal, left, closed (06/2022) Osteoarthritis SBO (small bowel obstruction) (09/2022) Surgical History Surgical History History of cholecystectomy (1988) History of total replacement of right shoulder joint History of tubal ligation Family History Family History Other Family history unknown Social History Social History Social History: Surrogate medical decision maker: Quentin Perez, ramonita. Code status: Full code. Smoking status: Never smoker Alcohol intake: never Substance use: never Substance use type: does not use Do You Feel Safe in your Home?: Yes Lack of Transportation: No Lack of Food: Never True Current Housing: I Have Housing Concerned About Future Housing: No Difficulty Paying Gas/Electric Bills: No Difficulty Paying for Meds: No Currently Unemployed: No Education: Don't Know Difficulty w/ Childcare or Family Care: No Additional living arrangements comments: Lives in [place]. Spiritual care concerns: No Meds Home Medications and Allergies Home Medications Medication Instructions Recorded Confirmed Type polyethylene glycol 3350 17 gram 17 g PO QAM PRN constipation #30 ea 02/28/23 11/26/23 Rx oral powder packet (Miralax) lisinopril 40 mg tablet 40 mg PO DAILY #90 tabs 07/27/23 11/26/23 Rx bumetanide 0.5 mg tablet 0.5 mg PO DAILY #30 tabs 10/24/23 11/26/23 Rx omeprazole 40 mg capsule,delayed 40 mg PO DAILY PRN Acid Reflux 11/26/23 11/26/23 History release sennosides 8.6 mg-docusate sodium 1 tab-cap PO HS constipation 11/26/23 11/26/23 History 50 mg tablet (Senokot-S) Allergies Allergy/AdvReac Type Severity Reaction Status Date / Time Penicillins Allergy Mild Unknown Verified 11/25/23 21:22 Sulfa (Sulfonamide Allergy Mild Unknown Verified 11/25/23 21:22 Antibiotics) Vital Signs Vital Signs - 24 hr 11/25/23 21:15 11/26/23 00:41 11/26/23 00:50 Temperature 36.6 C 36.5 C Pulse Rate 104 H 74 Respiratory Rate 15 24 H Blood Pressure 163/74 H Pulse Oximetry 95 97 Oxygen Delivery Room Air Room Air 11/26/23 06:00 11/26/23 00:43 Temperature 37.1 C 36.5 C Pulse Rate 76 74 Respiratory Rate 16 24 H Blood Pressure 127/64 163/74 H Pulse Oximetry 96 97 Oxygen Delivery Exam Narrative: Lower extremity shortened and externally rotated. Const: General: no acute distress Eyes: General: appearance normal, both eyes and all related structures R
[2023-11-26] MEDS: BUMETANIDE 0.5 MG TABLET PO (08:44)
[2023-11-26] MEDS: lisinopriL 20 MG TABLET 40 MG PO (08:44)
--- NOTE | 2023-11-26 08:57 | PM.IMPN ---
Progress Note: A&P Assessment and Plan (1) Closed intertrochanteric fracture of left hip: Qualifiers: Encounter type: initial encounter Fracture alignment: displaced Qualified Code(s): S72.142A - Displaced intertrochanteric fracture of left femur, initial encounter for closed fracture Code(s): S72.142A - Displaced intertrochanteric fracture of left femur, initial encounter for closed fracture Status: Acute Assessment and Plan: Patient had a ground level mechanical fall after tripping over her walker causing her to strike her left side. She denies head strike or LOC. Patient not on any anticoagulation. - Hip/pelvis XR: Left intertrochanteric hip fracture - Analgesics - DVT ppx with lovenox x1 today, post op dvt ppx per ortho Ortho consulted Proceed with ORIF left hip with cephalomedullary nail (gamma nail) with DR. Stanford May eat today. Surgery tomorrow late morning. NPO at midnight. (2) Fall: Code(s): W19.XXXA - Unspecified fall, initial encounter Status: Acute Assessment and Plan: Patient had a ground level mechanical fall after tripping over her walker causing her to strike her left side. She denies head strike or LOC. Patient not on any anticoagulation. - Hip/pelvis XR: Left intertrochanteric hip fracture Osteopenia - Chest XR: Cardiomegaly, aortic atherosclerosis No active pulmonary disease Old healed fracture deformity of the left humeral surgical neck interval healed right rib fractures - PT/OT to be ordered following surgery tomorrow per ortho (3) Essential (primary) hypertension: Code(s): I10 - Essential (primary) hypertension Status: Acute Assessment and Plan: Chronic, well controlled on home medications - Lisinopril 40 mg daily - Bumex 0.5 mg daily - Monitor Time Spent With Patient Time with patient: 25 - 35 minutes Subjective Date/time seen: 11/26/23 08:57 Interval history: 78 year old female with past medical history of hypertension and GERD presents to the hospital with left hip pain following a mechanical fall. Patient is pleasant lying comfortably in bed. She states that her pain is well controlled on the current regimen. She denies tingling, numbness and burning sensation to the left leg. She is still able to move her toes. She was evaluated by ortho and plan is for ORIF and gamma nail tomorrow. She denies chest pain, shortness of breath, nausea/vomiting and changes in bowel/bladder. Review of Systems Review of Systems: All systems reviewed & are unremarkable except as noted in HPI and below Exam Narrative: AF HR 76 RR 16 SpO2 96 BP 127/64 General: female in no acute respiratory distress who is nontoxic appearing, lying semi recumbent in bed. HEENT: Normocephalic. Atraumatic. Extraocular movement intact. Sclera clear and anicteric. No facial asymmetry. Chest: Lungs are clear to auscultation bilaterally. No wheezes or crackles. CV: Heart was regular rate and rhythm. S1-S2. No murmurs, gallops, or rubs. Abd: Abdomen was soft. Nontender. Nondistended. Positive bowel sounds. No organomegaly or masses. Ext: No clubbing, cyanosis, or edema. 2+ DP pulses bilaterally. Left leg externally rotated and shortened. Sensation and movement intact. Neuro: Patient is alert and oriented x4. Cranial nerves 2-12 are intact. Speech is clear. Objective Data Vital Signs Vital Signs: Vital Signs - 24 hr 11/25/23 21:15 11/26/23 00:41 11/26/23 00:50 Temperature 97.9 F 97.7 F Pulse Rate 104 H 74 Respiratory Rate 15 24 H Blood Pressure 163/74 H Pulse Oximetry 95 97 Oxygen Delivery Room Air Room Air 11/26/23 06:00 11/26/23 00:43 Temperature 98.7 F 97.7 F Pulse Rate 76 74 Respiratory Rate 16 24 H Blood Pressure 127/64 163/74 H Pulse Oximetry 96 97 Oxygen Delivery Intake/Output Intake/Output: Intake & Output 11/23/23 11/24/23 11/25/23 11/26/23 23:59 23:59 23:59 23:59 Output Total 200 [place]
[2023-11-26 09:26] LABS: Basophils Percent Auto 0.4 % (0.2-1.2); Eosinophils Percent Auto 0.4 % (0-4.4); Hematocrit 36.2 % (37.0-47.0); Hemoglobin 12.1 g/dL (12.0-15.0); Immature Granulocyte Absolute 0.03 K/mm3 (0.00-0.031); Immature Granulocyte Percent A 0.3 % (0-0.5); Lymphocytes Absolute Auto 0.91 K/mm3 (0.9-3.2); Lymphocytes Percent Auto 8.1 % (18.3-44.2); Mean Corpuscular HGB Conc 33.4 g/dl (32-36); Mean Corpuscular Hemoglobin 31.5 pg (26-34); Mean Corpuscular Volume 94.3 fl (80-100); Mean Platelet Volume 11.6 fl (7.4-10.4); Monocytes Absolute Auto 0.7 K/mm3 (0.1-0.6); Monocytes Percent Auto 6.3 % (2.6-8.5); Neutrophils Absolute Auto 9.5 K/mm3 (1.3-6.7); Neutrophils Percent Auto 84.5 % (45.5-73.1); Platelet Count Result 167 k/mm3 (150-375); Red Blood Count 3.84 M/mm3 (4.2-5.4); Red Cell Distribution Width 12.5 % (11.5-14.5); White Blood Count 11.2 K/mm3 (4.5-10.0)
[2023-11-26 09:36] LABS: Alanine Aminotransferase 110 U/L (6-35); Albumin Level 3.9 g/dL (3.5-5.1); Alkaline Phosphatase 82 U/L (38-126); Anion Gap 7 mmol/L (4-12); Aspartate Amino Transferase 140 U/L (14-36); Bilirubin,Total 0.4 mg/dL (0.2-1.3); Blood Urea Nitrogen 39 mg/dL (7-17); Calcium 8.5 mg/dL (8.4-10.2); Carbon Dioxide 26 mmol/L (22-30); Chloride 102 mmol/L (98-107); Estimated CRCL calculation 29 ml/min; Estimated Glomerular Filt Rate 39; Glucose 118 mg/dL (65-110); Potassium 4.8 mmol/L (3.4-5.0); Sodium 135 mmol/L (137-145)
--- NOTE | 2023-11-26 10:56 | PCOTNOTE ---
Pt. scheduled for ORIF of left hip tomorrow morning. Will evaluate for OT after surgery tomorrow.
[2023-11-26 14:00] VITALS: BP 127/74; PULSE 92; RESP 18; TEMP 36.5; O2SAT 94
[2023-11-26] MEDS: SENNA/DOCUSATE SODIUM TABLET 1 TAB PO (21:32)
[2023-11-26] MEDS: traMADol HCL (*CRX) 50 MG TABLET PO (21:32)
[2023-11-26 21:46] VITALS: BP 145/71; PULSE 95; RESP 14; TEMP 36.5; O2SAT 92
[2023-11-27] VITALS (13 sets, daily range): BP systolic 118–162; BP diastolic 57–85; PULSE 67–84; RESP 15–20; TEMP 35.7–37.1; O2SAT 90–100
--- NOTE | 2023-11-27 06:45 | PM.IMPN ---
Progress Note: A&P Assessment and Plan (1) Closed left hip fracture: Qualifiers: Encounter type: initial encounter Qualified Code(s): S72.002A - Fracture of unspecified part of neck of left femur, initial encounter for closed fracture Code(s): S72.002A - Fracture of unspecified part of neck of left femur, initial encounter for closed fracture Status: Ruled-out Assessment and Plan: Patient had a ground level mechanical fall after tripping over her walker causing her to strike her left side. She denies head strike or LOC. Patient not on any anticoagulation. - Hip/pelvis XR: Left intertrochanteric hip fracture - Analgesics - DVT ppx with lovenox x1 today, post op dvt ppx per ortho Ortho consulted s/p ORIF left femur intertrochanteric fracture with cephalomedullary nail on 11/[address] Stanford (2) Fall: Code(s): W19.XXXA - Unspecified fall, initial encounter Status: Acute Assessment and Plan: Patient had a ground level mechanical fall after tripping over her walker causing her to strike her left side. She denies head strike or LOC. Patient not on any anticoagulation. - Hip/pelvis XR: Left intertrochanteric hip fracture Osteopenia - Chest XR: Cardiomegaly, aortic atherosclerosis No active pulmonary disease Old healed fracture deformity of the left humeral surgical neck interval healed right rib fractures - Fall precautions - PT/OT to be ordered following surgery tomorrow per ortho (3) Chronic diastolic (congestive) heart failure: Code(s): I50.32 - Chronic diastolic (congestive) heart failure Status: Acute Assessment and Plan: Chronic, does not appear to be in acute exacerbation. Daily intake/output Monitor (4) Essential (primary) hypertension: Code(s): I10 - Essential (primary) hypertension Status: Acute Assessment and Plan: Chronic, well controlled on home medications - Lisinopril 40 mg daily - Bumex 0.5 mg daily - Monitor Time Spent With Patient Time with patient: 25 - 35 minutes Subjective Date/time seen: 11/27/23 06:45 Interval history: 78 year old female with past medical history of hypertension and GERD presents to the hospital with left hip pain following a mechanical fall. Patient is pleasant lying in bed. She is to undergo an ORIF left femur intertrochanteric fracture with cephalomedullary nail with Dr. Stanford today. She has no complaints at this time stating pain is currently well controlled on the regimen. She denies tingling, numbness or loss of movement to the left lower extremity. She denies chest pain, shortness of breath, nausea/vomiting and abdominal pain. Review of Systems Review of Systems: All systems reviewed & are unremarkable except as noted in HPI and below Exam Narrative: AF HR 80 RR 18 SPO2 93 BP 162/81 General: female in no acute respiratory distress who is nontoxic appearing, lying semi recumbent in bed. HEENT: Normocephalic. Atraumatic. Extraocular movement intact. Sclera clear and anicteric. No facial asymmetry. Chest: Lungs are clear to auscultation bilaterally. No wheezes or crackles. CV: Heart was regular rate and rhythm. S1-S2. No murmurs, gallops, or rubs. Abd: Abdomen was soft. Nontender. Nondistended. Positive bowel sounds. No organomegaly or masses. Ext: No clubbing, cyanosis, or edema. 2+ DP pulses bilaterally. Left leg externally rotated and shortened. Sensation and movement intact. Objective Data Vital Signs Vital Signs: Vital Signs - 24 hr 11/26/23 08:00 11/26/23 14:00 11/26/23 21:46 Temperature 97.7 F 97.7 F Pulse Rate 92 95 Respiratory Rate 18 14 Blood Pressure 127/74 145/71 H Pulse Oximetry 94 92 Oxygen Delivery Room Air 11/26/23 21:30 11/27/23 04:50 Temperature 98.1 F Pulse Rate 80 Respiratory Rate 18 Blood Pressure 162/81 H Pulse Oximetry 92 Oxygen Delivery Room Air Intake/Output Intake/Output: Intake & Output
[2023-11-27] MEDS: HYDROmorphone HCL INJ (*CRX) 1 MG/ML SYR 0.5 MG IV PUSH ×2 (07:31→13:30)
[2023-11-27 07:42] LABS: Basophils Absolute Auto 0.1 K/mm3 (0.0-0.1); Basophils Percent Auto 0.8 % (0.2-1.2); Eosinophils Absolute Auto 0.2 K/mm3 (0-0.3); Eosinophils Percent Auto 3.2 % (0-4.4); Hematocrit 37.2 % (37.0-47.0); Hemoglobin 12.1 g/dL (12.0-15.0); Immature Granulocyte Absolute 0.02 K/mm3 (0.00-0.031); Immature Granulocyte Percent A 0.3 % (0-0.5); Lymphocytes Absolute Auto 1.13 K/mm3 (0.9-3.2); Lymphocytes Percent Auto 17.4 % (18.3-44.2); Mean Corpuscular HGB Conc 32.5 g/dl (32-36); Mean Corpuscular Hemoglobin 30.8 pg (26-34); Mean Corpuscular Volume 94.7 fl (80-100); Mean Platelet Volume 11.6 fl (7.4-10.4); Monocytes Absolute Auto 0.6 K/mm3 (0.1-0.6); Monocytes Percent Auto 8.8 % (2.6-8.5); Neutrophils Absolute Auto 4.5 K/mm3 (1.3-6.7); Neutrophils Percent Auto 69.5 % (45.5-73.1); Platelet Count Result 162 k/mm3 (150-375); Red Blood Count 3.93 M/mm3 (4.2-5.4); Red Cell Distribution Width 12.5 % (11.5-14.5); White Blood Count 6.5 K/mm3 (4.5-10.0)
[2023-11-27 07:51] LABS: Alanine Aminotransferase 70 U/L (6-35); Albumin Level 3.6 g/dL (3.5-5.1); Alkaline Phosphatase 74 U/L (38-126); Anion Gap 8 mmol/L (4-12); Aspartate Amino Transferase 56 U/L (14-36); Bilirubin,Total 0.7 mg/dL (0.2-1.3); Blood Urea Nitrogen 36 mg/dL (7-17); Calcium 8.8 mg/dL (8.4-10.2); Carbon Dioxide 28 mmol/L (22-30); Chloride 102 mmol/L (98-107); Estimated CRCL calculation 27 ml/min; Estimated Glomerular Filt Rate 36; Glucose 103 mg/dL (65-110); Potassium 4.6 mmol/L (3.4-5.0); Sodium 138 mmol/L (137-145)
--- NOTE | 2023-11-27 08:05 | WPDHPUPDATE1 ---
History and Physical Update Update Date/Time: 11/27/23 08:05 History and Physical has been reviewed, including an updated exam of the patient. There are NO changes in the patient's condition. Risks, benefits, and alternatives have been discussed and questions answered. Patient agrees to proceed with procedure.
[2023-11-27] MEDS: TRANEXAMIC ACID 1,000MG/ISO100 1,000 MG/100 ML BAG 200 MG IVPB (09:00)
[2023-11-27] MEDS: LACTATED RINGERS 1,000 ML 30 ML IV CONT ×2 (09:00→11:50)
--- NOTE | 2023-11-27 10:06 | WPDANESEPPF ---
Anes - Initial Pre Proc Eval Procedure: Operation Date: 11/27/23 10:00 Proposed Procedures p Left Hip Gamma Nail - Remberto Stanford MD Date/Time: 11/27/23 10:06 Surgeon: Michelle Marsh PA-C Pre Op Diagnosis: left hip fx Patient Data Age: 78 Gender: F Height: 1.68 m Weight: 71.2 kg Last Vital Signs Temp 36.7 C 11/27/23 04:50 Pulse 80 11/27/23 04:50 Resp 18 11/27/23 04:50 BP 162/81 H 11/27/23 04:50 Pulse Ox 93 11/27/23 08:34 O2 Del Method Room Air 11/27/23 08:34 FiO2 21 11/27/23 08:34 Allergies Allergy/AdvReac Type Severity Reaction Status Date / Time Penicillins Allergy Mild Unknown Verified 11/27/23 09:16 Sulfa (Sulfonamide Allergy Mild Unknown Verified 11/27/23 09:16 Antibiotics) Home Medications Medication Instructions Recorded Confirmed Type polyethylene glycol 3350 17 gram 17 g PO QAM PRN constipation #30 ea 02/28/23 11/27/23 Rx oral powder packet (Miralax) lisinopril 40 mg tablet 40 mg PO DAILY #90 tabs 07/27/23 11/27/23 Rx bumetanide 0.5 mg tablet 0.5 mg PO DAILY #30 tabs 10/24/23 11/27/23 Rx omeprazole 40 mg capsule,delayed 40 mg PO DAILY PRN Acid Reflux 11/26/23 11/27/23 History release sennosides 8.6 mg-docusate sodium 1 tab-cap PO HS constipation 11/26/23 11/27/23 History 50 mg tablet (Senokot-S) Laboratory Tests 11/27/23 11/27/23 07:16 08:40 WBC 6.5 K/mm3 (4.5-10.0) RBC 3.93 L M/mm3 (4.2-5.4) Hgb 12.1 g/dL (12.0-15.0) Hct 37.2 % (37.0-47.0) MCV 94.7 fl (80-100) MCH 30.8 pg (26-34) MCHC 32.5 g/dl (32-36) RDW 12.5 % (11.5-14.5) Plt Count 162 k/mm3 (150-375) MPV 11.6 H fl (7.4-10.4) Immature Gran % (Auto) 0.3 % (0-0.5) Neut % (Auto) 69.5 % (45.5-73.1) Lymph % (Auto) 17.4 L % (18.3-44.2) [place] % (Auto) 8.8 H % (2.6-8.5) Eos % (Auto) 3.2 % (0-4.4) Baso % (Auto) 0.8 % (0.2-1.2) Lymph # (Auto) 1.13 K/mm3 (0.9-3.2) [place] # (Auto) 0.6 K/mm3 (0.1-0.6) Eos # (Auto) 0.2 K/mm3 (0-0.3) Baso # (Auto) 0.1 K/mm3 (0.0-0.1) Abs Immat Gran (auto) 0.02 K/mm3 (0.00-0.031) Absolute Neuts (auto) 4.5 K/mm3 (1.3-6.7) Absolute Nucleated RBC 0.000 K/mm3 (0.0-0.012) Nucleated RBC % 0.0 % (0.0-0.2) Sodium 138 mmol/L (137-145) Potassium 4.6 mmol/L (3.4-5.0) Chloride 102 mmol/L (98-107) Carbon Dioxide 28 mmol/L (22-30) Anion Gap 8 mmol/L (4-12) BUN 36 H mg/dL (7-17) Creatinine 1.40 H mg/dL (0.7-1.0) Estim Creat Clear Calc 27 ml/min Estimated GFR 36 L (59 - ) Glucose 103 mg/dL (65-110) Calcium 8.8 mg/dL (8.4-10.2) Total Bilirubin 0.7 mg/dL (0.2-1.3) AST 56 H U/L (14-36) ALT 70 H U/L (6-35) Alkaline Phosphatase 74 U/L (38-126) Total Protein 7.0 g/dL (6.3-8.2) Albumin 3.6 g/dL (3.5-5.1) Blood Type B Positive Antibody Screen Negative Patient hx anesthesia problems: none Family hx anesthesia problems: none Results Review: All pre-operative results and documents have been reviewed as part of the pre-operative evaluation. [facility] Past Medical History Medical History Acute pancreatitis (02/2023) JAZZY (acute kidney injury) (09/2022) Fracture of humerus, proximal, left, closed (06/2022) Osteoarthritis SBO (small bowel obstruction) (09/2022) Surgical History Surgical History History of cholecystectomy (1988) History of total replacement of right shoulder joint History of tubal ligation Family History Family History Other Family history unknown Social History Social History (Reviewed 11/27/23 @ 10:06
[2023-11-27] MEDS: ceFAZolin 2 GM/D5W 50 ML 2 GM/50 ML BAG IVPB ×2 (10:12→17:13)
--- NOTE | 2023-11-27 11:27 | P.OP_ITS ---
Procedure Note - Detailed Date of Procedure 11/27/23 Pre-op Diagnosis Left hip displaced intertrochanteric fracture. Post-op Diagnosis Same Procedure Performed ORIF left femur intertrochanteric fracture with cephalomedullary nail. Surgeon Remberto Stanford MD [employer] Ruth Ann Rockwell RN-FA Anesthesia General Findings Osteoporosis. Anatomic reduction. Description of Procedure The patient was given a general anesthetic, then carefully placed in fracture table. Sterile prep and drape performed in the usual fashion. Sterile curtain was used. Gentle traction was utilized to reduce the fracture. Fluoroscopy was used to confirm anatomic reduction and a proper placement of the implants. A longitudinal incision was created at the tip of the trochanter. The deep fascia was incised. The cannulated awl was used to open the proximal femur. The guidewire was placed across the fracture. The reamer was used to open the canal. The gamma nail was placed across the fracture site. A separate incision was made for placement of the cannulated guide sleeve. The guide pin was placed in the center of the femoral head. Appropriate measurement was taken. The pin was over reamed. The screw was placed with excellent purchase. The set screw was placed proximally and backed out a quater turn. The distal locking screw was placed through the jig. The wound was irrigated. The deep fascia was closed with #1 Vicryl suture followed by 2-0 Vicryl suture and nicole. Sterile dressing was applied. The patient was transferred to the recovery room in stable condition. There were no complications. Implants [place] gamma nail 4. 12 x 170 mm. 125?. 90 mm lag screw. 40 mm distal locking screw. Estimated Blood Loss 100 Drains No Packing No Pathology None sent Complications No immediate complications Condition Stable Disposition PACU [facility] Billing Surgery - Charge Forward: Surgery Billing
[2023-11-27] MEDS: ONDANSETRON INJ 4 MG/2 ML VIAL IV PUSH (13:31)
[2023-11-27] MEDS: SODIUM CHLORIDE 0.9% IV 1,000 ML 125 ML IV CONT (14:57)
--- NOTE | 2023-11-27 14:59 | PCOTNOTE ---
Received OT evaluation orders. Pt is currently very drowsy after receiving more meds and is also nauseous. Will continue to follow for OT evaluation.
[2023-11-27] MEDS: SENNA/DOCUSATE SODIUM TABLET 2 TAB PO (17:12)
[2023-11-27] MEDS: IBUPROFEN IV 800 MG/200 ML 800 MG/200 ML BAG 400 MG IVPB (17:13)
[2023-11-27] MEDS: ACETAMINOPHEN 325 MG TABLET 650 MG PO (17:13)
[2023-11-27] MEDS: oxyCODONE HCL (*CRX) 5 MG TAB IR PO ×2 (17:14→23:37)
[2023-11-28] MEDS: ceFAZolin 2 GM/D5W 50 ML 2 GM/50 ML BAG IVPB ×2 (01:42→09:26)
[2023-11-28 01:54] VITALS: BP 130/67; PULSE 77; RESP 18; TEMP 37.3; O2SAT 93
[2023-11-28 06:09] VITALS: BP 128/61; PULSE 84; RESP 16; TEMP 36.6; O2SAT 93
[2023-11-28 07:37] LABS: Basophils Percent Auto 0.5 % (0.2-1.2); Eosinophils Absolute Auto 0.1 K/mm3 (0-0.3); Eosinophils Percent Auto 2.2 % (0-4.4); Hematocrit 30.7 % (37.0-47.0); Hemoglobin 9.9 g/dL (12.0-15.0); Immature Granulocyte Absolute 0.03 K/mm3 (0.00-0.031); Immature Granulocyte Percent A 0.5 % (0-0.5); Lymphocytes Absolute Auto 1.06 K/mm3 (0.9-3.2); Lymphocytes Percent Auto 16.5 % (18.3-44.2); Mean Corpuscular HGB Conc 32.2 g/dl (32-36); Mean Corpuscular Hemoglobin 31.2 pg (26-34); Mean Corpuscular Volume 96.8 fl (80-100); Monocytes Absolute Auto 0.6 K/mm3 (0.1-0.6); Monocytes Percent Auto 9.8 % (2.6-8.5); Neutrophils Absolute Auto 4.5 K/mm3 (1.3-6.7); Neutrophils Percent Auto 70.5 % (45.5-73.1); Platelet Count Result 132 k/mm3 (150-375); Red Blood Count 3.17 M/mm3 (4.2-5.4); Red Cell Distribution Width 12.7 % (11.5-14.5); White Blood Count 6.4 K/mm3 (4.5-10.0)
[2023-11-28 08:01] LABS: Alanine Aminotransferase 39 U/L (6-35); Alkaline Phosphatase 69 U/L (38-126); Anion Gap 6 mmol/L (4-12); Aspartate Amino Transferase 46 U/L (14-36); Bilirubin,Total 0.4 mg/dL (0.2-1.3); Blood Urea Nitrogen 34 mg/dL (7-17); Calcium 8.1 mg/dL (8.4-10.2); Carbon Dioxide 26 mmol/L (22-30); Chloride 103 mmol/L (98-107); Estimated CRCL calculation 27 ml/min; Estimated Glomerular Filt Rate 36; Glucose 84 mg/dL (65-110); Potassium 4.7 mmol/L (3.4-5.0); Sodium 135 mmol/L (137-145)
--- NOTE | 2023-11-28 08:08 | PM.PNORT ---
Progress Note: A&P Assessment and Plan (1) Closed intertrochanteric fracture of left hip: Qualifiers: Encounter type: initial encounter Fracture alignment: displaced Qualified Code(s): S72.142A - Displaced intertrochanteric fracture of left femur, initial encounter for closed fracture Code(s): S72.142A - Displaced intertrochanteric fracture of left femur, initial encounter for closed fracture Status: Acute Assessment and Plan: Postop day 1: ORIF left femur intertrochanteric fracture with cephalomedullary nail. Pleasant elderly patient. Patient tolerated procedure well. No complications. Pain manageable. No numbness or tingling. Patient will need SNF/rehab at discharge. Okay for discharge from orthopedic standpoint to SNF/rehab. Ortho instructions: DOS 11/27/23 D/C to SNF/rehab Follow up in office in 4-6 weeks with xray. Please call [facility] at for appointment details. Wound Care: Remove nicole at 2 weeks post op. Daily dressing changes until healed. PT: Weight bearing as tolerated with a walker. DVT prophylaxis: continue Lovenox for 30 days total Pain medication: Tylenol. Subjective Subjective Date/Time Seen: 11/28/23 08:08 Interval history: Patient resting comfortably. Does not complain of pain. She was unaware that she had surgery yesterday. Patient tearful. No numbness or tingling. Review of Systems Review of Systems: All systems reviewed & are unremarkable except as noted in HPI and below Exam Narrative: Normal weight 78 y/o female. Resting comfortably in bed. Wearing compression socks bilaterally. Dressing dry and intact with no drainage. Mild swelling. No edema. No ecchymosis. No erythema. No hematoma. Range of motion limited due to pain. Calf nontender. Thigh nontender. No varicosities. Distal pulses palpable. Wiggles toes. Objective Data Vital Signs Vital Signs: Vital Signs - 24 hr 11/27/23 08:34 11/27/23 11:50 11/27/23 12:05 Temperature 97.3 F L Pulse Rate 77 84 Respiratory Rate 15 17 Blood Pressure 118/64 149/69 H Pulse Oximetry 93 100 92 Oxygen Delivery Room Air Simple Face Mask Room Air Oxygen Flow Rate 8 Fraction of Inspired Oxygen 21 11/27/23 12:20 11/27/23 12:35 11/27/23 12:50 Temperature Pulse Rate 81 75 71 Respiratory Rate 15 15 15 Blood Pressure 141/65 H 150/64 H 139/64 Pulse Oximetry 92 92 93 Oxygen Delivery Room Air Room Air Room Air Oxygen Flow Rate Fraction of Inspired Oxygen 11/27/23 13:06 11/27/23 13:35 11/27/23 13:50 Temperature 96.3 F L 96.2 F L Pulse Rate 73 67 68 Respiratory Rate 15 20 20 Blood Pressure 147/60 H 131/85 141/69 H Pulse Oximetry 96 92 Oxygen Delivery Room Air Oxygen Flow Rate Fraction of Inspired Oxygen 11/27/23 14:20 11/27/23 15:20 11/27/23 20:58 Temperature 96.9 F L 96.3 F L 98.7 F Pulse Rate 71 81 84 Respiratory Rate 16 18 20 Blood Pressure 138/68 140/68 135/57 L Pulse Oximetry 90 91 94 Oxygen Delivery Oxygen Flow Rate Fraction of Inspired Oxygen 11/27/23 20:00 11/28/23 01:54 11/28/23 06:09 Temperature 99.2 F 97.9 F Pulse Rate 77 84 Respiratory Rate 18 16 Blood Pressure 130/67 128/61 Pulse Oximetry 93 93 Oxygen Delivery Room Air Oxygen Flow Rate Fraction of Inspired Oxygen Intake/Output Intake/Output: Intake & Output 11/25/23 11/26/23 11/27/23 11/28/23 23:59 23:59 23:59 23:59 Intake Total 480 763.0 150 Output Total 750 200 450 Balance -270 563.0 -300 Meds/Results Medications: Active Medications Generic Name Dose Route Start Last Admin Trade Name Gianni PRN Reason Stop Dose Admin Acetaminophen 650 mg 11/27/23 18:00 11/28/23 05:06 Acetaminophen 325 Mg Tablet PO Not Given Q6HR VALERIE Bumetanide 0.5 mg 11/26/23 09:00 11/27/23 14:57 Bumetanide 0.5 Mg Tablet PO Not Given DAILY VALERIE Enoxaparin Sodium 40 mg 11/28/23 09:00 Enoxaparin 40 Mg/0.4 Ml Syringe SUB-
--- NOTE | 2023-11-28 08:49 | PM.IMPN ---
Progress Note: A&P Assessment and Plan (1) Closed left hip fracture: Qualifiers: Encounter type: initial encounter Qualified Code(s): S72.002A - Fracture of unspecified part of neck of left femur, initial encounter for closed fracture Code(s): S72.002A - Fracture of unspecified part of neck of left femur, initial encounter for closed fracture Status: Ruled-out Assessment and Plan: Patient had a ground level mechanical fall after tripping over her walker causing her to strike her left side. She denies head strike or LOC. Patient not on any anticoagulation. - Hip/pelvis XR: Left intertrochanteric hip fracture - Analgesics - DVT ppx with lovenox x1 today, post op dvt ppx per ortho. Currently on SCD. Ortho consulted s/p ORIF left femur intertrochanteric fracture with cephalomedullary nail on 11/[address] Stanford - PT/OT weight bearing as tolerated (2) Fall: Code(s): W19.XXXA - Unspecified fall, initial encounter Status: Acute Assessment and Plan: Patient had a ground level mechanical fall after tripping over her walker causing her to strike her left side. She denies head strike or LOC. Patient not on any anticoagulation. - Hip/pelvis XR: Left intertrochanteric hip fracture Osteopenia - Chest XR: Cardiomegaly, aortic atherosclerosis No active pulmonary disease Old healed fracture deformity of the left humeral surgical neck interval healed right rib fractures - Fall precautions - PT/OT weight bearing as tolerated (3) Acute blood loss as cause of postoperative anemia: Code(s): D62 - Acute posthemorrhagic anemia Status: Acute Assessment and Plan: H/H 9.9/30.7 on am labs, previously normal. Estimated blood loss 100 ml during operation. - Reassess H/H 10.6/33.1 - No signs of active bleeding, continue to monitor (4) Chronic diastolic (congestive) heart failure: Code(s): I50.32 - Chronic diastolic (congestive) heart failure Status: Acute Assessment and Plan: Chronic, does not appear to be in acute exacerbation. Daily intake/output Monitor (5) Essential (primary) hypertension: Code(s): I10 - Essential (primary) hypertension Status: Acute Assessment and Plan: Chronic, well controlled on home medications - Lisinopril 40 mg daily - Bumex 0.5 mg daily - Monitor Time Spent With Patient Time with patient: 25 - 35 minutes Subjective Date/time seen: 11/28/23 08:49 Interval history: 78 year old female with past medical history of hypertension and GERD presents to the hospital with left hip pain following a mechanical fall. Patient is pleasant lying comfortably in bed. She states pain is currently well controlled. She denies tingling, numbness or loss of mobility of the lower extremity. She was able to work with PT/OT today and states she did pretty well. Care coordination following for placement. She was noted to have worsening anemia on am labs. Reassessed H/H with improvement. No signs of active bleeding. Patient denies chest pain, shortness of breath, nausea/vomiting and abdominal pain. She has not had a bowel movement since surgery. Review of Systems Review of Systems: All systems reviewed & are unremarkable except as noted in HPI and below Exam Narrative: AF HR 71 RR 18 SpO2 93 BP 128/48 General: female in no acute respiratory distress who is nontoxic appearing, lying semi recumbent in bed. HEENT: Normocephalic. Atraumatic. Extraocular movement intact. Sclera clear and anicteric. No facial asymmetry. Chest: Lungs are clear to auscultation bilaterally. No wheezes or crackles. CV: Heart was regular rate and rhythm. S1-S2. No murmurs, gallops, or rubs. Abd: Abdomen was soft. Nontender. Nondistended. Positive bowel sounds. No organomegaly or masses. Ext: No clubbing, cyanosis, or edema. 2+ DP pulses bilaterally. Left leg without noted bruising or concern for hematoma. Dressing clean dry and in
--- NOTE | 2023-11-28 08:53 | WPDANESPN ---
Anes - Prog Note Post-Op Date/Time: 11/28/23 08:53 Cardiovascular status: normal Respiratory status: normal Airway patency: baseline Mental status: baseline Post-Op hydration status: normal Vital Signs: Last Vital Signs Temp 36.6 C 11/28/23 06:09 Pulse 84 11/28/23 06:09 Resp 16 11/28/23 06:09 BP 128/61 11/28/23 06:09 Pulse Ox 93 11/28/23 06:09 O2 Del Method Room Air 11/27/23 20:00 O2 Flow Rate 8 11/27/23 11:50 FiO2 21 11/27/23 08:34 Pain Score (VAS): 0 I/O: Intake & Output 11/27/23 11/28/23 11/28/23 23:59 07:59 15:59 Intake Total 513.0 150 Output Total 450 Balance 513.0 -300 Laboratory Tests 11/28/23 07:11 11/28/23 07:11 11/27/23 11/28/23 08:40 07:11 WBC 6.4 RBC 3.17 L Hgb 9.9 L Hct 30.7 L MCV 96.8 MCH 31.2 MCHC 32.2 RDW 12.7 Plt Count 132 L MPV 12.0 H Immature Gran % (Auto) 0.5 Neut % (Auto) 70.5 Lymph % (Auto) 16.5 L [place] % (Auto) 9.8 H Eos % (Auto) 2.2 Baso % (Auto) 0.5 Lymph # (Auto) 1.06 [place] # (Auto) 0.6 Eos # (Auto) 0.1 Baso # (Auto) 0.0 Abs Immat Gran (auto) 0.03 Absolute Neuts (auto) 4.5 Absolute Nucleated RBC 0.000 Nucleated RBC % 0.0 Sodium 135 L Potassium 4.7 Chloride 103 Carbon Dioxide 26 Anion Gap 6 BUN 34 H Creatinine 1.40 H Estim Creat Clear Calc 27 Estimated GFR 36 L Glucose 84 Calcium 8.1 L Total Bilirubin 0.4 AST 46 H ALT 39 H Alkaline Phosphatase 69 Total Protein 6.0 L Albumin 3.0 L Blood Type B Positive Antibody Screen Negative Post-procedural complaints: none Patient Feedback: Patient satisfied with anesthetic care.
[2023-11-28] MEDS: SENNA/DOCUSATE SODIUM TABLET 2 TAB PO ×2 (09:23→17:47)
[2023-11-28] MEDS: ENOXAPARIN 40 MG/0.4 ML SYRINGE SUB-Q (09:23)
[2023-11-28] MEDS: polyethylene glycoL 3350 17 GM POWD.PACK PO (09:23)
[2023-11-28] MEDS: traMADol HCL (*CRX) 50 MG TABLET PO (09:24)
[2023-11-28] MEDS: BUMETANIDE 0.5 MG TABLET PO (09:24)
[2023-11-28] MEDS: lisinopriL 20 MG TABLET 40 MG PO (09:25)
[2023-11-28 10:15] VITALS: BP 128/48; PULSE 71; RESP 18; TEMP 36.7; O2SAT 93
[2023-11-28] MEDS: oxyCODONE HCL (*CRX) 5 MG TAB IR PO ×2 (13:00→21:45)
[2023-11-28] MEDS: ACETAMINOPHEN 325 MG TABLET 650 MG PO ×3 (13:00→23:00)
[2023-11-28 13:09] LABS: Hematocrit 33.1 % (37.0-47.0); Hemoglobin 10.6 g/dL (12.0-15.0)
[2023-11-28 14:15] VITALS: BP 100/54; PULSE 74; RESP 16; TEMP 36.6; O2SAT 91
[2023-11-28 21:11] VITALS: BP 121/60; PULSE 82; RESP 16; TEMP 37.2; O2SAT 92
[2023-11-29] MEDS: oxyCODONE HCL (*CRX) 5 MG TAB IR PO ×3 (04:50→20:20)
[2023-11-29] MEDS: ACETAMINOPHEN 325 MG TABLET 650 MG PO ×4 (04:51→23:45)
[2023-11-29 05:49] VITALS: BP 123/51; PULSE 75; RESP 16; TEMP 36.4; O2SAT 92
[2023-11-29 06:34] LABS: Basophils Percent Auto 0.8 % (0.2-1.2); Eosinophils Absolute Auto 0.3 K/mm3 (0-0.3); Eosinophils Percent Auto 5.3 % (0-4.4); Hematocrit 28.7 % (37.0-47.0); Hemoglobin 9.3 g/dL (12.0-15.0); Immature Granulocyte Absolute 0.01 K/mm3 (0.00-0.031); Immature Granulocyte Percent A 0.2 % (0-0.5); Lymphocytes Absolute Auto 1.07 K/mm3 (0.9-3.2); Lymphocytes Percent Auto 21.7 % (18.3-44.2); Mean Corpuscular HGB Conc 32.4 g/dl (32-36); Mean Corpuscular Hemoglobin 31.3 pg (26-34); Mean Corpuscular Volume 96.6 fl (80-100); Mean Platelet Volume 11.9 fl (7.4-10.4); Monocytes Absolute Auto 0.5 K/mm3 (0.1-0.6); Monocytes Percent Auto 9.3 % (2.6-8.5); Neutrophils Absolute Auto 3.1 K/mm3 (1.3-6.7); Neutrophils Percent Auto 62.7 % (45.5-73.1); Platelet Count Result 127 k/mm3 (150-375); Red Blood Count 2.97 M/mm3 (4.2-5.4); Red Cell Distribution Width 12.7 % (11.5-14.5); White Blood Count 4.9 K/mm3 (4.5-10.0)
[2023-11-29 06:51] LABS: Alanine Aminotransferase 13 U/L (6-35); Albumin Level 2.9 g/dL (3.5-5.1); Alkaline Phosphatase 60 U/L (38-126); Anion Gap 7 mmol/L (4-12); Aspartate Amino Transferase 31 U/L (14-36); Bilirubin,Total 0.3 mg/dL (0.2-1.3); Blood Urea Nitrogen 38 mg/dL (7-17); Carbon Dioxide 25 mmol/L (22-30); Chloride 102 mmol/L (98-107); Estimated CRCL calculation 24 ml/min; Estimated Glomerular Filt Rate 31; Glucose 90 mg/dL (65-110); Potassium 4.2 mmol/L (3.4-5.0); Sodium 134 mmol/L (137-145)
[2023-11-29] MEDS: SENNA/DOCUSATE SODIUM TABLET 2 TAB PO ×2 (08:09→17:19)
[2023-11-29] MEDS: lisinopriL 20 MG TABLET 40 MG PO (08:09)
[2023-11-29] MEDS: BUMETANIDE 0.5 MG TABLET PO (08:09)
[2023-11-29] MEDS: polyethylene glycoL 3350 17 GM POWD.PACK PO (08:10)
[2023-11-29] MEDS: ENOXAPARIN 30 MG/0.3 ML SYRINGE SUB-Q (08:12)
--- NOTE | 2023-11-29 08:35 | PM.PNORT ---
Progress Note: A&P Assessment and Plan (1) Closed intertrochanteric fracture of left hip: Qualifiers: Encounter type: initial encounter Fracture alignment: displaced Qualified Code(s): S72.142A - Displaced intertrochanteric fracture of left femur, initial encounter for closed fracture Code(s): S72.142A - Displaced intertrochanteric fracture of left femur, initial encounter for closed fracture Status: Acute Assessment and Plan: Postop day 2: ORIF left femur intertrochanteric fracture with cephalomedullary nail. No changes in care plan. Patient progressing well. Pleasant elderly patient. Patient tolerated procedure well. No complications. Pain manageable. No numbness or tingling. Patient will need SNF/rehab at discharge. Okay for discharge from orthopedic standpoint to SNF/rehab. Ortho instructions: DOS 11/27/23 D/C to SNF/rehab Follow up in office in 4-6 weeks with xray. Please call [facility] at for appointment details. Wound Care: Remove nicole at 2 weeks post op. Daily dressing changes until healed. PT: Weight bearing as tolerated with a walker. DVT prophylaxis: continue Lovenox for 30 days total Pain medication: Tylenol. Subjective Subjective Date/Time Seen: 11/29/23 08:35 Interval history: Patient resting comfortably. No pain in the operative leg. No numbness or tingling. She states she does not remember having surgery but she is eager to go to rehab. Review of Systems Review of Systems: Denies loss of consciousness. All systems reviewed & are unremarkable except as noted in HPI and below Exam Narrative: Normal weight 78 y/o female. Resting comfortably in bed. Wearing compression socks bilaterally. Dressing dry and intact with no drainage. Mild swelling. No edema. No ecchymosis. No erythema. No hematoma. Range of motion limited due to pain. Calf nontender. Thigh nontender. No varicosities. Distal pulses palpable. Wiggles toes. Objective Data Vital Signs Vital Signs: Vital Signs - 24 hr 11/28/23 10:00 11/28/23 09:24 11/28/23 10:15 Temperature 98.0 F Pulse Rate 71 Respiratory Rate 18 Blood Pressure 128/48 L Pulse Oximetry 93 Oxygen Delivery Room Air Room Air 11/28/23 10:56 11/28/23 14:15 11/28/23 21:11 Temperature 97.9 F 99.0 F Pulse Rate 74 82 Respiratory Rate 16 16 Blood Pressure 100/54 L 121/60 Pulse Oximetry 91 92 Oxygen Delivery Room Air 11/28/23 20:00 11/29/23 05:49 Temperature 97.6 F Pulse Rate 75 Respiratory Rate 16 Blood Pressure 123/51 L Pulse Oximetry 92 Oxygen Delivery Room Air Intake/Output Intake/Output: Intake & Output 11/26/23 11/27/23 11/28/23 11/29/23 23:59 23:59 23:59 23:59 Intake Total 480 763.0 556 150 Output Total 306 991 5858 100 Balance -270 563.0 -694 50 Meds/Results Medications: Active Medications Generic Name Dose Route Start Last Admin Trade Name Freq PRN Reason Stop Dose Admin Acetaminophen 650 mg 11/27/23 18:00 11/29/23 04:51 Acetaminophen 325 Mg Tablet PO 650 mg Q6HR VALERIE Administration Bumetanide 0.5 mg 11/26/23 09:00 11/29/23 08:09 Bumetanide 0.5 Mg Tablet PO 0.5 mg DAILY VALERIE Administration Enoxaparin Sodium 30 mg 11/29/23 09:00 11/29/23 08:12 Enoxaparin 30 Mg/0.3 Ml Syringe SUB-Q 30 mg DAILY VALERIE Administration Hydromorphone HCl 0.5 mg 11/26/23 00:53 11/27/23 13:30 Hydromorphone Hcl Inj (*Crx) 1 Mg/Ml Syr IV PUSH 0.5 mg Q3H PRN Administration Pain Rated 7-10 Hydroxyzine Pamoate 50 mg 11/27/23 12:30 Hydroxyzine Pamoate 25 Mg Capsule PO Q4H PRN Itching Ibuprofen 800 mg in 200 mls @ 400 mls/hr 11/27/23 12:30 11/27/23 17:13 Caldolor 800 Mg/200 Ml IVPB 400 mls/hr Q6H PRN Administration Breakthrough Pain Rated 1-3 or NPO Lisinopril 40 mg 11/26/23 09:00 11/29/23 08:09 Lisinopril 20 Mg Tablet PO 40 mg DAILY VALERIE Administration Naloxone HCl
--- NOTE | 2023-11-29 08:44 | PM.IMPN ---
Progress Note: A&P Assessment and Plan (1) Acute blood loss as cause of postoperative anemia: Code(s): D62 - Acute posthemorrhagic anemia Status: Acute (2) Closed intertrochanteric fracture of left hip: Qualifiers: Encounter type: initial encounter Fracture alignment: displaced Qualified Code(s): S72.142A - Displaced intertrochanteric fracture of left femur, initial encounter for closed fracture Code(s): S72.142A - Displaced intertrochanteric fracture of left femur, initial encounter for closed fracture Status: Acute (3) Fall: Code(s): W19.XXXA - Unspecified fall, initial encounter Status: Acute (4) Abnormal CT scan: Code(s): R93.89 - Abnormal findings on diagnostic imaging of other specified body structures Status: Acute (5) Abdominal pain: Code(s): R10.9 - Unspecified abdominal pain Status: Acute (6) Gastritis: Code(s): K29.70 - Gastritis, unspecified, without bleeding Status: Acute Plan (1) Closed left hip fracture: Qualifiers: Encounter type: initial encounter Qualified Code(s): S72.002A - Fracture of unspecified part of neck of left femur, initial encounter for closed fracture Code(s): S72.002A - Fracture of unspecified part of neck of left femur, initial encounter for closed fracture Status: Ruled-out Assessment and Plan: Patient had a ground level mechanical fall after tripping over her walker causing her to strike her left side. She denies head strike or LOC. Patient not on any anticoagulation. X-ray showed Left intertrochanteric hip fracture s/p ORIF left femur intertrochanteric fracture with cephalomedullary nail on 11/[address] Stanford Patient on PT OT weight bearing as tolerated (2) Fall: Code(s): W19.XXXA - Unspecified fall, initial encounter Status: Acute Assessment and Plan: Patient had a ground level mechanical fall after tripping over her walker causing her to strike her left side. She denies head strike or LOC. Patient not on any anticoagulation. Fall precaution Sustained left hip fracture Consult PT OT lawn care specialist for evaluation and assisting placement (3) Acute blood loss as cause of postoperative anemia: Code(s): D62 - Acute posthemorrhagic anemia Status: Acute Assessment and Plan: H/H 9.9/30.7 on am labs, previously normal. Estimated blood loss 100 ml during operation. Now hemoglobin is stable, blood pressure stable, hemoglobin 9.3 today (4) Chronic diastolic (congestive) heart failure: Code(s): I50.32 - Chronic diastolic (congestive) heart failure Status: Acute Assessment and Plan: Compensated (5) Essential (primary) hypertension: Code(s): I10 - Essential (primary) hypertension Status: Acute Assessment and Plan: Chronic, well controlled on home medications - Lisinopril 40 mg daily - Monitor CKD stage 3 Creatinine is trending up slowly creatinine 1.6 today Hold Bumex Gentle IV fluid Stop ibuprofen Patient may benefit from rehab placement Subjective Date/time seen: 11/29/23 08:44 Interval history: Patient was sitting in a chair, still has severe pain when patient was walking,, patient denies chest pain, abdomen pain, nausea vomiting diarrhea. Patient afebrile, blood pressure stable, Exam Narrative: GENERAL: Pleasant, in no acute distress. Well-nourished. - EYES: EOMI. Anicteric. - HENT: Moist mucous membranes. - LUNGS: Clear to auscultation bilaterally, no wheezing, rhonchi, or rales. - CARDIOVASCULAR: Regular rate and rhythm. No murmur. No JVD. - ABDOMEN: Soft, non-tender and non-distended. No palpable masses. - EXTREMITIES: No edema. Peripheral pulses 2+. Non-tender. Left hip surgical wound is dry and clean - NEUROLOGIC: No focal neurological deficits. CN II-XII grossly intact. - PSYCHIATRIC: Awake, Alert and oriented x 3. Appropriate mood and affect.
[2023-11-29] MEDS: SODIUM CHLORIDE 0.9% IV 1,000 ML 75 ML IV CONT ×2 (13:20→20:20)
[2023-11-29 14:00] VITALS: BP 115/49; PULSE 90; RESP 16; TEMP 36.8; O2SAT 93
[2023-11-29 20:45] VITALS: BP 137/62; PULSE 89; RESP 18; TEMP 37; O2SAT 94
[2023-11-30 04:25] VITALS: BP 174/76; PULSE 83; RESP 20; TEMP 37.3; O2SAT 93
[2023-11-30] MEDS: ACETAMINOPHEN 325 MG TABLET 650 MG PO ×4 (05:26→23:46)
[2023-11-30 06:28] LABS: Basophils Percent Auto 0.7 % (0.2-1.2); Eosinophils Absolute Auto 0.3 K/mm3 (0-0.3); Eosinophils Percent Auto 5.6 % (0-4.4); Hematocrit 30.4 % (37.0-47.0); Hemoglobin 10.1 g/dL (12.0-15.0); Immature Granulocyte Absolute 0.02 K/mm3 (0.00-0.031); Immature Granulocyte Percent A 0.4 % (0-0.5); Lymphocytes Absolute Auto 1.18 K/mm3 (0.9-3.2); Lymphocytes Percent Auto 21.2 % (18.3-44.2); Mean Corpuscular HGB Conc 33.2 g/dl (32-36); Mean Corpuscular Hemoglobin 31.8 pg (26-34); Mean Corpuscular Volume 95.6 fl (80-100); Mean Platelet Volume 11.4 fl (7.4-10.4); Monocytes Absolute Auto 0.4 K/mm3 (0.1-0.6); Monocytes Percent Auto 7.9 % (2.6-8.5); Neutrophils Absolute Auto 3.6 K/mm3 (1.3-6.7); Neutrophils Percent Auto 64.2 % (45.5-73.1); Platelet Count Result 160 k/mm3 (150-375); Red Blood Count 3.18 M/mm3 (4.2-5.4); Red Cell Distribution Width 12.8 % (11.5-14.5); White Blood Count 5.6 K/mm3 (4.5-10.0)
[2023-11-30 06:36] LABS: Alanine Aminotransferase 9 U/L (6-35); Albumin Level 3.1 g/dL (3.5-5.1); Alkaline Phosphatase 61 U/L (38-126); Anion Gap 5 mmol/L (4-12); Aspartate Amino Transferase 29 U/L (14-36); Bilirubin,Total 0.4 mg/dL (0.2-1.3); Blood Urea Nitrogen 30 mg/dL (7-17); Calcium 8.4 mg/dL (8.4-10.2); Carbon Dioxide 26 mmol/L (22-30); Chloride 105 mmol/L (98-107); Estimated CRCL calculation 29 ml/min; Estimated Glomerular Filt Rate 39; Glucose 94 mg/dL (65-110); Potassium 4.1 mmol/L (3.4-5.0); Sodium 136 mmol/L (137-145)
[2023-11-30] MEDS: lisinopriL 20 MG TABLET 40 MG PO (09:22)
[2023-11-30] MEDS: SODIUM CHLORIDE 0.9% IV 1,000 ML 75 ML IV CONT (09:22)
[2023-11-30 09:23] VITALS: RESP 20; O2SAT 93
[2023-11-30] MEDS: polyethylene glycoL 3350 17 GM POWD.PACK PO (09:23)
[2023-11-30] MEDS: ENOXAPARIN 30 MG/0.3 ML SYRINGE SUB-Q (09:23)
[2023-11-30] MEDS: SENNA/DOCUSATE SODIUM TABLET 2 TAB PO ×2 (09:23→16:51)
--- NOTE | 2023-11-30 09:27 | PM.IMPN ---
Progress Note: A&P Assessment and Plan (1) Acute blood loss as cause of postoperative anemia: Code(s): D62 - Acute posthemorrhagic anemia Status: Acute (2) Closed intertrochanteric fracture of left hip: Qualifiers: Encounter type: initial encounter Fracture alignment: displaced Qualified Code(s): S72.142A - Displaced intertrochanteric fracture of left femur, initial encounter for closed fracture Code(s): S72.142A - Displaced intertrochanteric fracture of left femur, initial encounter for closed fracture Status: Acute (3) Fall: Code(s): W19.XXXA - Unspecified fall, initial encounter Status: Acute (4) Abnormal CT scan: Code(s): R93.89 - Abnormal findings on diagnostic imaging of other specified body structures Status: Acute (5) Abdominal pain: Code(s): R10.9 - Unspecified abdominal pain Status: Acute (6) Gastritis: Code(s): K29.70 - Gastritis, unspecified, without bleeding Status: Acute Plan # Closed left hip fracture: Qualifiers: Patient had a ground level mechanical fall after tripping over her walker causing her to strike her left side. She denies head strike or LOC. Patient not on any anticoagulation. X-ray showed Left intertrochanteric hip fracture s/p ORIF left femur intertrochanteric fracture with cephalomedullary nail on 11/[address] Stanford Patient on PT OT weight bearing as tolerated # Fall: Patient had a ground level mechanical fall after tripping over her walker causing her to strike her left side. She denies head strike or LOC. Patient not on any anticoagulation. Fall precaution Sustained left hip fracture Consult PT OT primary care provider for evaluation and assisting placement # Acute blood loss as cause of postoperative anemia: H/H 9.9/30.7 on am labs, previously normal. Estimated blood loss 100 ml during operation. Now hemoglobin is stable, blood pressure stable, now # Chronic diastolic (congestive) heart failure: Compensated # Essential (primary) hypertension: Chronic, well controlled on home medications - Lisinopril 40 mg daily - Monitor CKD stage 3 stat creatinine now stable. Bumex on hold. Will stop IV fluid today Disposition: Patient may benefit from rehab placement. Awaiting SNF authorization # DVT prophylaxis Lovenox 30 days Subjective Date/time seen: 11/30/23 09:27 Interval history: No overnight events. Denies any new complaint. Patient is a poor historian. Discussed with the nursing staff. Review of Systems Review of Systems: All systems reviewed & are unremarkable except as noted in HPI and below Exam Narrative: GENERAL: Pleasant, in no acute distress. Well-nourished. - EYES: EOMI. Anicteric. - HENT: Moist mucous membranes. - LUNGS: Clear to auscultation bilaterally, no wheezing, rhonchi, or rales. - CARDIOVASCULAR: Regular rate and rhythm. No murmur. No JVD. - ABDOMEN: Soft, non-tender and non-distended. No palpable masses. - EXTREMITIES: No edema. Peripheral pulses 2+. Non-tender. Left hip surgical wound is dry and clean - NEUROLOGIC: No focal neurological deficits. CN II-XII grossly intact. - PSYCHIATRIC: Awake, Alert and oriented x 3. Appropriate mood and affect. - SKIN: No rashes or lesions. Warm. - LYMPH: No cervical lymphadenopathy. Objective Data Vital Signs Vital Signs: Vital Signs - 24 hr 11/29/23 14:00 11/29/23 20:45 11/30/23 04:25 Temperature 98.3 F 98.6 F 99.2 F Pulse Rate 90 89 83 Respiratory Rate 16 18 20 Blood Pressure 115/49 L 137/62 174/76 H Pulse Oximetry 93 94 93 Intake/Output Intake/Output: Intake & Output 11/27/23 11/28/23 11/29/23 11/30/23 23:59 23:59 23:59 23:59 Intake Total 763.0 556 1149 1377.5 Output Total 200 1250 100 50 Balance 563.0 -694 1049 1327.5 Meds/Results Medications: Active Medications Generic Name Dose Route Start Last Admin Trade Name Freq PRN Reason Stop Dose Admin Acetaminophen 6
--- NOTE | 2023-11-30 09:36 | PM.DS ---
DS: Admitting Diagnosis Discharge Date 11/30/2023 Admitting Diagnosis Fall and hip fracture DS: Discharge Diagnosis Discharge Diagnosis (1) Acute blood loss as cause of postoperative anemia: Code(s): D62 - Acute posthemorrhagic anemia Status: Acute (2) Closed intertrochanteric fracture of left hip: Qualifiers: Encounter type: initial encounter Fracture alignment: displaced Qualified Code(s): S72.142A - Displaced intertrochanteric fracture of left femur, initial encounter for closed fracture Code(s): S72.142A - Displaced intertrochanteric fracture of left femur, initial encounter for closed fracture Status: Acute (3) Fall: Code(s): W19.XXXA - Unspecified fall, initial encounter Status: Acute (4) Abnormal CT scan: Code(s): R93.89 - Abnormal findings on diagnostic imaging of other specified body structures Status: Acute (5) Abdominal pain: Code(s): R10.9 - Unspecified abdominal pain Status: Acute (6) Gastritis: Code(s): K29.70 - Gastritis, unspecified, without bleeding Status: Acute DS: Summary Hospital Course Hospital Course: # Closed left hip fracture: Qualifiers: Patient had a ground level mechanical fall after tripping over her walker causing her to strike her left side. She denies head strike or LOC. Patient not on any anticoagulation. X-ray showed Left intertrochanteric hip fracture s/p ORIF left femur intertrochanteric fracture with cephalomedullary nail on 11/[address] Stanford Patient on PT OT weight bearing as tolerated # Fall: Patient had a ground level mechanical fall after tripping over her walker causing her to strike her left side. She denies head strike or LOC. Patient not on any anticoagulation. Fall precaution Sustained left hip fracture Consult PT OT manager progressive care for evaluation and assisting placement # Acute blood loss as cause of postoperative anemia: H/H 9.9/30.7 on am labs, previously normal. Estimated blood loss 100 ml during operation. Now hemoglobin is stable, blood pressure stable, now # Chronic diastolic (congestive) heart failure: Compensated # Essential (primary) hypertension: Chronic, well controlled on home medications - Lisinopril 40 mg daily - Monitor CKD stage 3 stat creatinine now stable. Bumex on hold. Will stop IV fluid today Disposition: Patient may benefit from rehab placement. Awaiting SNF authorization # DVT prophylaxis Lovenox 30 days Time Spent with Patient Time attestation: Total time spent providing and/or coordinating discharge services: 35 minute Exam Narrative: GENERAL: Pleasant, in no acute distress. Well-nourished. - EYES: EOMI. Anicteric. - HENT: Moist mucous membranes. - LUNGS: Clear to auscultation bilaterally, no wheezing, rhonchi, or rales. - CARDIOVASCULAR: Regular rate and rhythm. No murmur. No JVD. - ABDOMEN: Soft, non-tender and non-distended. No palpable masses. - EXTREMITIES: No edema. Peripheral pulses 2+. Non-tender. Left hip surgical wound is dry and clean - NEUROLOGIC: No focal neurological deficits. CN II-XII grossly intact. - PSYCHIATRIC: Awake, Alert and oriented x 3. Appropriate mood and affect. - SKIN: No rashes or lesions. Warm. - LYMPH: No cervical lymphadenopathy. DS: Data Data Completed and Pending Labs on day of discharge: Labs from last 24 hours 11/30/23 11/30/23 06:06 06:05 WBC 5.6 RBC 3.18 L Hgb 10.1 L Hct 30.4 L MCV 95.6 MCH 31.8 MCHC 33.2 RDW 12.8 Plt Count 160 MPV 11.4 H Immature Gran % (Auto) 0.4 Neut % (Auto) 64.2 Lymph % (Auto) 21.2 Pierce % (Auto) 7.9 Eos % (Auto) 5.6 H Baso % (Auto) 0.7 Lymph # (Auto) 1.18 Pierce # (Auto) 0.4 Eos # (Auto) 0.3 Baso # (Auto) 0.0 Abs Immat Gran (auto) 0.02 Absolute Neuts (auto) 3.6 Absolute Nucleated RBC 0.000 Nucleated RBC % 0.0 Sodium 136 L Potassium 4.1 Chloride 105 Carbon Dioxide 26
--- NOTE | 2023-11-30 10:46 | PM.PNORT ---
Progress Note: A&P Assessment and Plan (1) Closed intertrochanteric fracture of left hip: Qualifiers: Encounter type: initial encounter Fracture alignment: displaced Qualified Code(s): S72.142A - Displaced intertrochanteric fracture of left femur, initial encounter for closed fracture Code(s): S72.142A - Displaced intertrochanteric fracture of left femur, initial encounter for closed fracture Status: Acute Assessment and Plan: Postop day 3: ORIF left femur intertrochanteric fracture with cephalomedullary nail. No changes in care plan. Patient progressing well. Pleasant elderly patient. Patient tolerated procedure well. No complications. Pain manageable. No numbness or tingling. Patient will need SNF discharge. Okay for discharge from orthopedic standpoint. Ortho instructions: DOS 11/27/23 D/C to SNF Follow up in office in 4-6 weeks with xray. Please call [facility] at for appointment details. Wound Care: Remove nicole at 2 weeks post op. Daily dressing changes until healed. PT: Weight bearing as tolerated with a walker. DVT prophylaxis: continue Lovenox for 30 days total Pain medication: Tylenol. Subjective Subjective Date/Time Seen: 11/30/23 10:46 Interval history: Patient resting comfortably. Review of Systems Review of Systems: All systems reviewed & are unremarkable except as noted in HPI and below Exam Narrative: Normal weight 78 y/o female. Resting comfortably in bed. Wearing compression socks bilaterally. Dressing dry and intact with no drainage. Mild swelling. No edema. No ecchymosis. No erythema. No hematoma. Range of motion limited due to pain. Calf nontender. Thigh nontender. No varicosities. Distal pulses palpable. Wiggles toes. Objective Data Vital Signs Vital Signs: Vital Signs - 24 hr 11/29/23 14:00 11/29/23 20:45 11/30/23 04:25 Temperature 98.3 F 98.6 F 99.2 F Pulse Rate 90 89 83 Respiratory Rate 16 18 20 Blood Pressure 115/49 L 137/62 174/76 H Pulse Oximetry 93 94 93 Oxygen Delivery 11/30/23 09:23 Temperature Pulse Rate Respiratory Rate 20 Blood Pressure Pulse Oximetry 93 Oxygen Delivery Room Air Intake/Output Intake/Output: Intake & Output 11/27/23 11/28/23 11/29/23 11/30/23 23:59 23:59 23:59 23:59 Intake Total 763.0 556 1149 1627.5 Output Total 200 1250 100 50 Balance 563.0 -694 1049 1577.5 Meds/Results Medications: Active Medications Generic Name Dose Route Start Last Admin Trade Name Freq PRN Reason Stop Dose Admin Acetaminophen 650 mg 11/27/23 18:00 11/30/23 05:26 Acetaminophen 325 Mg Tablet PO 650 mg Q6HR VALERIE Administration Enoxaparin Sodium 30 mg 11/29/23 09:00 11/30/23 09:23 Enoxaparin 30 Mg/0.3 Ml Syringe SUB-Q 30 mg DAILY VALERIE Administration Hydromorphone HCl 0.5 mg 11/26/23 00:53 11/27/23 13:30 Hydromorphone Hcl Inj (*Crx) 1 Mg/Ml Syr IV PUSH 0.5 mg Q3H PRN Administration Pain Rated 7-10 Hydroxyzine Pamoate 50 mg 11/27/23 12:30 Hydroxyzine Pamoate 25 Mg Capsule PO Q4H PRN Itching Lisinopril 40 mg 11/26/23 09:00 11/30/23 09:22 Lisinopril 20 Mg Tablet PO 40 mg DAILY VALERIE Administration Naloxone HCl 0.1 mg 11/27/23 12:30 Naloxone Hcl 0.4 Mg/Ml Vial IV PUSH Q2M PRN Opiate Reversal Ondansetron HCl 4 mg 11/27/23 10:08 Ondansetron Inj 4 Mg/2 Ml Vial IV PUSH ONCE PRN Nausea Ondansetron HCl 4 mg 11/27/23 12:30 11/27/23 13:31 Ondansetron Inj 4 Mg/2 Ml Vial IV PUSH 4 mg Q4H PRN Administration Nausea And Vomiting Oxycodone HCl 2.5 mg 11/27/23 12:30 Oxycodone Hcl (*Crx) 2.5 Mg Tab Ir PO Q4H PRN Pain Rated 4-6 Oxycodone HCl 5 mg 11/27/23 12:30 11/29/23 20:20 Oxycodone Hcl (*Crx) 5 Mg Tab Ir PO 5 mg Q4H PRN Administration Pain Rated 7-10 Pantoprazole Sodium 40 mg 11/26/23 05:43 Pantoprazole 40 Mg Tablet PO DAILY PRN
[2023-11-30 14:00] VITALS: BP 123/69; PULSE 99; RESP 14; TEMP 36.3; O2SAT 93
[2023-11-30] MEDS: oxyCODONE HCL (*CRX) 2.5 MG TAB IR PO (20:50)
[2023-11-30 20:51] VITALS: BP 146/64; PULSE 86; RESP 20; TEMP 36.9; O2SAT 94
[2023-12-01 05:48] VITALS: BP 162/65; PULSE 77; RESP 22; TEMP 36.7; O2SAT 92
[2023-12-01] MEDS: ACETAMINOPHEN 325 MG TABLET 650 MG PO ×2 (05:51→12:02)
[2023-12-01 07:25] LABS: Basophils Percent Auto 0.7 % (0.2-1.2); Eosinophils Absolute Auto 0.4 K/mm3 (0-0.3); Eosinophils Percent Auto 7.1 % (0-4.4); Hemoglobin 9.9 g/dL (12.0-15.0); Immature Granulocyte Absolute 0.02 K/mm3 (0.00-0.031); Immature Granulocyte Percent A 0.3 % (0-0.5); Lymphocytes Absolute Auto 1.12 K/mm3 (0.9-3.2); Lymphocytes Percent Auto 18.5 % (18.3-44.2); Mean Corpuscular HGB Conc 31.9 g/dl (32-36); Mean Corpuscular Hemoglobin 30.8 pg (26-34); Mean Corpuscular Volume 96.6 fl (80-100); Mean Platelet Volume 11.1 fl (7.4-10.4); Monocytes Absolute Auto 0.5 K/mm3 (0.1-0.6); Monocytes Percent Auto 7.9 % (2.6-8.5); Neutrophils Percent Auto 65.5 % (45.5-73.1); Platelet Count Result 176 k/mm3 (150-375); Red Blood Count 3.21 M/mm3 (4.2-5.4); Red Cell Distribution Width 12.8 % (11.5-14.5); White Blood Count 6.1 K/mm3 (4.5-10.0)
[2023-12-01 07:41] LABS: Alanine Aminotransferase 9 U/L (6-35); Albumin Level 3.1 g/dL (3.5-5.1); Alkaline Phosphatase 58 U/L (38-126); Anion Gap 8 mmol/L (4-12); Aspartate Amino Transferase 29 U/L (14-36); Bilirubin,Total 0.6 mg/dL (0.2-1.3); Blood Urea Nitrogen 26 mg/dL (7-17); Calcium 8.5 mg/dL (8.4-10.2); Carbon Dioxide 22 mmol/L (22-30); Chloride 107 mmol/L (98-107); Estimated CRCL calculation 34 ml/min; Estimated Glomerular Filt Rate 48; Glucose 94 mg/dL (65-110); Sodium 137 mmol/L (137-145)
[2023-12-01] MEDS: polyethylene glycoL 3350 17 GM POWD.PACK PO (08:04)
[2023-12-01] MEDS: SENNA/DOCUSATE SODIUM TABLET 2 TAB PO (08:04)
[2023-12-01] MEDS: lisinopriL 20 MG TABLET 40 MG PO (08:04)
[2023-12-01] MEDS: ENOXAPARIN 30 MG/0.3 ML SYRINGE SUB-Q (08:04)
[2023-12-01] MEDS: oxyCODONE HCL (*CRX) 5 MG TAB IR PO (08:07)
--- NOTE | 2023-12-01 08:50 | PM.PNORT ---
Progress Note: A&P Assessment and Plan (1) Closed intertrochanteric fracture of left hip: Qualifiers: Encounter type: initial encounter Fracture alignment: displaced Qualified Code(s): S72.142A - Displaced intertrochanteric fracture of left femur, initial encounter for closed fracture Code(s): S72.142A - Displaced intertrochanteric fracture of left femur, initial encounter for closed fracture Status: Acute Assessment and Plan: Postop day 4: ORIF left femur intertrochanteric fracture with cephalomedullary nail. No changes in care plan. Patient progressing well. Pleasant elderly patient. Pleasantly confused. Patient tolerated procedure well. No complications. Pain manageable. No numbness or tingling. Okay for discharge from orthopedic standpoint. Patient is leaving today for SNF. Ortho instructions: DOS 11/27/23 D/C to SNF Follow up in office in 4-6 weeks with xray. Please call [facility] at for appointment details. Wound Care: Remove nicole at 2 weeks post op. Daily dressing changes until healed. PT: Weight bearing as tolerated with a walker. DVT prophylaxis: continue Lovenox for 30 days total Pain medication: Tylenol. Subjective Subjective Date/Time Seen: 12/01/23 08:50 Interval history: Resting comfortably at the time of my visit. She states she is not having any pain or other issues. She is pleasantly confused. Review of Systems Review of Systems: All systems reviewed & are unremarkable except as noted in HPI and below Exam Narrative: Normal weight 78 y/o female. Resting comfortably in bed. Wearing compression socks bilaterally. Dressing dry and intact with no drainage. Mild swelling. No edema. No ecchymosis. No erythema. No hematoma. Range of motion limited due to pain. Calf nontender. Thigh nontender. No varicosities. Distal pulses palpable. Wiggles toes. Objective Data Vital Signs Vital Signs: Vital Signs - 24 hr 11/30/23 09:23 11/30/23 14:00 11/30/23 20:51 Temperature 97.4 F L 98.4 F Pulse Rate 99 86 Respiratory Rate 20 14 20 Blood Pressure 123/69 146/64 H Pulse Oximetry 93 93 94 Oxygen Delivery Room Air 12/01/23 05:48 Temperature 98.1 F Pulse Rate 77 Respiratory Rate 22 H Blood Pressure 162/65 H Pulse Oximetry 92 Oxygen Delivery Intake/Output Intake/Output: Intake & Output 11/28/23 11/29/23 11/30/23 12/01/23 23:59 23:59 23:59 23:59 Intake Total 556 1149 2987.5 290 Output Total 1250 100 750 200 Balance -694 1049 2237.5 90 Meds/Results Medications: Active Medications Generic Name Dose Route Start Last Admin Trade Name Freq PRN Reason Stop Dose Admin Acetaminophen 650 mg 11/27/23 18:00 12/01/23 05:51 Acetaminophen 325 Mg Tablet PO 650 mg Q6HR VALERIE Administration Enoxaparin Sodium 30 mg 11/29/23 09:00 12/01/23 08:04 Enoxaparin 30 Mg/0.3 Ml Syringe SUB-Q 30 mg DAILY VALERIE Administration Hydromorphone HCl 0.5 mg 11/26/23 00:53 11/27/23 13:30 Hydromorphone Hcl Inj (*Crx) 1 Mg/Ml Syr IV PUSH 0.5 mg Q3H PRN Administration Pain Rated 7-10 Hydroxyzine Pamoate 50 mg 11/27/23 12:30 Hydroxyzine Pamoate 25 Mg Capsule PO Q4H PRN Itching Lisinopril 40 mg 11/26/23 09:00 12/01/23 08:04 Lisinopril 20 Mg Tablet PO 40 mg DAILY VALERIE Administration Naloxone HCl 0.1 mg 11/27/23 12:30 Naloxone Hcl 0.4 Mg/Ml Vial IV PUSH Q2M PRN Opiate Reversal Ondansetron HCl 4 mg 11/27/23 10:08 Ondansetron Inj 4 Mg/2 Ml Vial IV PUSH ONCE PRN Nausea Ondansetron HCl 4 mg 11/27/23 12:30 11/27/23 13:31 Ondansetron Inj 4 Mg/2 Ml Vial IV PUSH 4 mg Q4H PRN Administration Nausea And Vomiting Oxycodone HCl 2.5 mg 11/27/23 12:30 11/30/23 20:50 Oxycodone Hcl (*Crx) 2.5 Mg Tab Ir PO 2.5 mg Q4H PRN Administration Pain Rated 4-6 Oxycodone HCl 5 mg 11/27/23 12:30 12/01/23 08:07 Oxycodone Hcl (*Crx) 5 Mg Tab
--- NOTE | 2023-12-01 08:51 | PM.IMPN ---
Progress Note: A&P Assessment and Plan (1) Acute blood loss as cause of postoperative anemia: Code(s): D62 - Acute posthemorrhagic anemia Status: Acute (2) Closed intertrochanteric fracture of left hip: Qualifiers: Encounter type: initial encounter Fracture alignment: displaced Qualified Code(s): S72.142A - Displaced intertrochanteric fracture of left femur, initial encounter for closed fracture Code(s): S72.142A - Displaced intertrochanteric fracture of left femur, initial encounter for closed fracture Status: Acute (3) Fall: Code(s): W19.XXXA - Unspecified fall, initial encounter Status: Acute (4) Abnormal CT scan: Code(s): R93.89 - Abnormal findings on diagnostic imaging of other specified body structures Status: Acute (5) Abdominal pain: Code(s): R10.9 - Unspecified abdominal pain Status: Acute (6) Gastritis: Code(s): K29.70 - Gastritis, unspecified, without bleeding Status: Acute Plan Closed left hip fracture: Qualifiers: Patient had a ground level mechanical fall after tripping over her walker causing her to strike her left side. She denies head strike or LOC. Patient not on any anticoagulation. X-ray showed Left intertrochanteric hip fracture s/p ORIF left femur intertrochanteric fracture with cephalomedullary nail on 11/[address] Stanford Patient on PT OT weight bearing as tolerated Fall: Patient had a ground level mechanical fall after tripping over her walker causing her to strike her left side. She denies head strike or LOC. Patient not on any anticoagulation. Fall precaution Sustained left hip fracture Consult PT OT rn critical care for evaluation and assisting placement Acute blood loss as cause of postoperative anemia: H/H 9.9/30.7 on am labs, previously normal. Estimated blood loss 100 ml during operation. Now hemoglobin is stable, blood pressure stable, now Chronic diastolic (congestive) heart failure: Compensated Essential (primary) hypertension: Chronic, well controlled on home medications - Lisinopril 40 mg daily - Monitor CKD stage 3 stat creatinine now stable. Bumex on hold. received IV fluid Disposition: Patient may benefit from rehab placement. Awaiting SNF authorization DVT prophylaxis Lovenox 30 days Subjective Date/time seen: 12/01/23 08:51 Interval history: I saw examined patient today. Patient feels comfortable in bed, hip pain is tolerable. Patient denies chest pain, shortness breast, headache, focal weakness, abdomen pain, nausea vomiting diarrhea. Patient afebrile, blood pressure stable, no blood O2 desaturation on room air Exam Narrative: GENERAL: Pleasant, in no acute distress. Well-nourished. - EYES: EOMI. Anicteric. - HENT: Moist mucous membranes. - LUNGS: Clear to auscultation bilaterally, no wheezing, rhonchi, or rales. - CARDIOVASCULAR: Regular rate and rhythm. No murmur. No JVD. - ABDOMEN: Soft, non-tender and non-distended. No palpable masses. - EXTREMITIES: No edema. Peripheral pulses 2+. Non-tender. Left hip surgical wound is dry and clean - NEUROLOGIC: No focal neurological deficits. CN II-XII grossly intact. - PSYCHIATRIC: Awake, Alert and oriented x 3. Appropriate mood and affect. - SKIN: No rashes or lesions. Warm. - LYMPH: No cervical lymphadenopathy. Objective Data Vital Signs Vital Signs: Vital Signs - 24 hr 11/30/23 09:23 11/30/23 14:00 11/30/23 20:51 Temperature 97.4 F L 98.4 F Pulse Rate 99 86 Respiratory Rate 20 14 20 Blood Pressure 123/69 146/64 H Pulse Oximetry 93 93 94 Oxygen Delivery Room Air 12/01/23 05:48 Temperature 98.1 F Pulse Rate 77 Respiratory Rate 22 H Blood Pressure 162/65 H Pulse Oximetry 92 Oxygen Delivery Intake/Output Intake/Output: Intake & Output 11/28/23 11/29/23 11/30/23 12/01/23 23:59 23:59 23:59 23:59 Intake Total 556 1149 2987.5 290 Output Total 1250 100 750 200 Lyric
--- NOTE | 2023-12-01 08:55 | PM.DS ---
DS: Admitting Diagnosis Discharge Date 12/01/23 Admitting Diagnosis (1) Acute blood loss as cause of postoperative anemia: Code(s): D62 - Acute posthemorrhagic anemia Status: Acute (2) Closed intertrochanteric fracture of left hip: Qualifiers: Encounter type: initial encounter Fracture alignment: displaced Qualified Code(s): S72.142A - Displaced intertrochanteric fracture of left femur, initial encounter for closed fracture Code(s): S72.142A - Displaced intertrochanteric fracture of left femur, initial encounter for closed fracture Status: Acute (3) Fall: Code(s): W19.XXXA - Unspecified fall, initial encounter Status: Acute (4) Abnormal CT scan: Code(s): R93.89 - Abnormal findings on diagnostic imaging of other specified body structures Status: Acute (5) Abdominal pain: Code(s): R10.9 - Unspecified abdominal pain Status: Acute (6) Gastritis: Code(s): K29.70 - Gastritis, unspecified, without bleeding Status: Acute DS: Discharge Diagnosis Discharge Diagnosis (1) Acute blood loss as cause of postoperative anemia: Code(s): D62 - Acute posthemorrhagic anemia Status: Acute (2) Closed intertrochanteric fracture of left hip: Qualifiers: Encounter type: initial encounter Fracture alignment: displaced Qualified Code(s): S72.142A - Displaced intertrochanteric fracture of left femur, initial encounter for closed fracture Code(s): S72.142A - Displaced intertrochanteric fracture of left femur, initial encounter for closed fracture Status: Acute (3) Fall: Code(s): W19.XXXA - Unspecified fall, initial encounter Status: Acute (4) Abnormal CT scan: Code(s): R93.89 - Abnormal findings on diagnostic imaging of other specified body structures Status: Acute (5) Abdominal pain: Code(s): R10.9 - Unspecified abdominal pain Status: Acute (6) Gastritis: Code(s): K29.70 - Gastritis, unspecified, without bleeding Status: Acute DS: Summary Hospital Course Hospital Course: per H&P,,This is an 78-year-old female with past medical history significant for hypertension, osteoarthritis. Patient uses a walker as a walking aid was brought to the emergency room after she fell while ambulating using her walker there was no loss of consciousness. Patient found to have left hip fracture. Admitted for further evaluation, management and treatment. the following med issues have been addressed during hospitalization Closed left hip fracture: Qualifiers: Patient had a ground level mechanical fall after tripping over her walker causing her to strike her left side. She denies head strike or LOC. Patient not on any anticoagulation. X-ray showed Left intertrochanteric hip fracture s/p ORIF left femur intertrochanteric fracture with cephalomedullary nail on 11/[address] Stanford Patient on PT OT weight bearing as tolerated Fall: Patient had a ground level mechanical fall after tripping over her walker causing her to strike her left side. She denies head strike or LOC. Patient not on any anticoagulation. Fall precaution Sustained left hip fracture Consult PT OT lead caregiver for evaluation and assisting placement Acute blood loss as cause of postoperative anemia: H/H 9.9/30.7 on am labs, previously normal. Estimated blood loss 100 ml during operation. Now hemoglobin is stable, blood pressure stable, now Chronic diastolic (congestive) heart failure: Compensated Essential (primary) hypertension: Chronic, well controlled on home medications - Lisinopril 40 mg daily - Monitor CKD stage 3 stat creatinine now stable. Bumex on hold. received IV fluid Disposition: Patient may benefit from rehab placement. Awaiting SNF authorization DVT prophylaxis Lovenox 30 days Time Spent with Patient Time attestation: Total time spent providing and/or coordinatin
[2023-12-01 11:06] LABS: SARS-CoV-2 RNA PCR Negative (Negative)
== END 2023-12-01 13:55 | DRG 481 ==
LOC: ANHED 23:05 → ANH3MEDSUR 11-26 00:09
PROVIDERS: Orthopaedic Surgery; Physician Assistant Surgical; Student in an Organized Health Care Education/Training Program; Admitting Provider Internal Medicine; Emergency Provider Emergency Medicine; PCP Family Medicine Adolescent Medicine; Visit Provider Hospitalist
PROC: 0QS736Z Reposition Left Upper Femur with Intramedullary Internal Fixation Device, Percutaneous Approach (ICD-10-PCS; CPT 27245; principal; 2023-11-27 10:00)
DX: S72.142A Displaced intertrochanteric fracture of left femur, initial encounter for closed fracture (principal); D62 Acute posthemorrhagic anemia; I13.0 Hypertensive heart and chronic kidney disease with heart failure and stage 1 through stage 4 chronic kidney disease, or unspecified chronic kidney disease; I50.32 Chronic diastolic (congestive) heart failure; N18.30 Chronic kidney disease, stage 3 unspecified; K29.70 Gastritis, unspecified, without bleeding; M19.90 Unspecified osteoarthritis, unspecified site; G25.81 Restless legs syndrome; W18.09XA Striking against other object with subsequent fall, initial encounter; Z96.611 Presence of right artificial shoulder joint; Z90.49 Acquired absence of other specified parts of digestive tract
CPT/HCPCS: 36415; 71045; 73502; 80053; 83735; 85014; 85018; 85025; 85610; 85730; 86850; 86900; 86901; 87635; 93005; 96374; 97110; 97116; 97161; 97165; 97530; 97535; 99199; 99285; A9270; C1769; G0378; J0690; J1100; J1170; J1596; J1650; J1741; J2270; J2371; J2405; J2704; J3010; J7030; J7120

== ENCOUNTER 2024-01-10 08:46 | Outpatient (CLI) | payer MEDICARE, SELFPAY ==
--- NOTE | ~2024-01-10 | XR_ITS ---
XR hip LT 2V w AP pelvis Ordering provider: JOHNATHAN Emerson History: . S72.002A - Fracture of unspecified part of neck of left f... . Comparison: November 25, 2023 FINDINGS: BONES: Status post fixation involving the left femoral neck and proximal shaft with rods and screws. HIP JOINT SPACES: Bilateral moderately narrowed. SACROILIAC JOINT SPACES/LUMBAR SPINE: The sacroiliac joint spaces are normal. Mild degenerative zhou es of the visualized lower lumbar spine. PUBIC SYMPHYSIS: Normal. SOFT TISSUES: Normal. IMPRESSION: Status post fixation of left intertrochanteric fracture By ramón and screws. Reviewed, dictated and finalized at location A.
== END 2024-01-10 08:47 | disposition home or self-care (01) ==
PROVIDERS: PCP Family Medicine; Visit Provider Physician Assistant Surgical
DX: S72.002A Fracture of unspecified part of neck of left femur, initial encounter for closed fracture (principal); Z96.7 Presence of other bone and tendon implants
CPT/HCPCS: 73502

== ENCOUNTER 2024-05-03 23:29 | Emergency (ER) | payer MEDICARE, SELFPAY ==
--- NOTE | ~2024-05-03 | CT_ITS ---
EXAMINATION: CTA chest PE protocol DATE: 05/04/2024 00:41 INDICATION: Shortness of breath. Right-sided chest pain. TECHNIQUE: Computed tomography (CT) pulmonary angiogram of the chest was performed with 100 mL Omnipa que-350 intravenous contrast. Additional 3D reconstructions utilizing coronal maximum intensity proje ction (MIP) were performed. Automated exposure control and iterative reconstruction technique were em ployed. The dose-length product was 534.23 mGy-cm. COMPARISON: None FINDINGS: Moderate respiratory motion most prominent at the bilateral upper and lower lung zones decreasing sen sitivity in the pulmonary arteries in the upper lung zone and rendering assessment in the segmental a nd subsegmental pulmonary arteries in the bilateral lower lungs essentially nondiagnostic. This also limits evaluation of fine pulmonary parenchymal detail. No definitive pulmonary emboli. Unchanged yasmeen ear band of discoid atelectasis/scarring in the lingula. There are additional new peripheral opacitie s in the right middle and lower lobe which appear predominantly linear and favor atelectasis over pne umonia. No pulmonary edema or pleural effusion. Heart size is normal. Atherosclerotic coronary artery calcifications. No pericardial effusion. Thoracic aorta is normal in caliber with no dissection. No pathologically enlarged thoracic lymphadenopathy. Internal fixation of an old healed right humeral ne ck fracture. Malunited fracture deformity at the left humeral neck. Thoracic kyphosis with bridging o steophytes at multiple levels consistent with diffuse idiopathic skeletal hyperostosis (DISH). IMPRESSION: 1. No definitive pulmonary embolism although sensitivity is decreased in the subsegmental pulmonary a rteries in the upper lung zones and essentially nondiagnostic in the segmental and subsegmental pulmo nary arteries at the lung bases due to respiratory motion artifact. 2. Mild opacities in the right middle and lower lobes and favor atelectasis over pneumonia. Reviewed, dictated and finalized at location A. ICAL ANTHROPOLOGIST IMPRESSION: 1. No definitive pulmonary embolism although sensitivity is decreased in the taveras bsegmental pulmonary arteries in the upper lung zones and essentially nondiagno stic in the segmental and subsegmental pulmonary arteries at the lung bases due to respiratory motion artifact. 2. Mild opacities in the right middle and lower lobes and favor atelectasis ove r pneumonia.
--- NOTE | ~2024-05-03 | XR_ITS ---
EXAMINATION: XR chest 2V DATE: 05/04/2024 00:13 INDICATION: Shortness of breath TECHNIQUE: frontal and lateral views of the chest were obtained. COMPARISON: Chest radiograph dated 11/25/[address] dated 10/12/2022 FINDINGS: Linear discoid atelectasis/scarring at the lingula. No other airspace opacities, pulmonary edema, ple ural effusion or pneumothorax. Cardiomegaly. Thoracic kyphosis with bridging osteophytes at multiple levels consistent with diffuse idiopathic skeletal hyperostosis (DISH). Old healed fractures of the r ight humeral neck with plate and screw fixation. Chronic nonunited fracture without fixation at the l eft surgical neck. Old right rib fractures. IMPRESSION: 1. Linear discoid atelectasis/scarring at the lingula. No other acute cardiopulmonary disease. 2. Cardiomegaly. Reviewed, dictated and finalized at location A. ONCOLOGY CLINICAL IMPRESSION: 1. Linear discoid atelectasis/scarring at the lingula. No other acute cardiopul monary disease. 2. Cardiomegaly.
[2024-05-03 23:28] VITALS: BP 189/74; PULSE 79; RESP 27; TEMP 36.7; O2SAT 96
--- NOTE | 2024-05-03 23:38 | ECG_ITS ---
Test Date: 2024-05-03 23:53:17 Measurements Intervals Bogart Rate: 76 P: 47 MI: 230 QRS: -11 QRSD: 92 T: 56 QT: 349 QTc: 394 Interpretive Statements SINUS RHYTHM WITH FIRST DEGREE AV BLOCK LOW QRS VOLTAGE IN PRECORDIAL LEADS CONSIDER INFERIOR INFARCT, AGE INDETERMINATE BASELINE ARTIFACT- I, II, III, AVR, AVL, AVF, V1-V6 ABNORMAL ECG Compared to ECG 11/25/2023 23:20:11 NO SIGNIFICANT CHANGE Electronically Signed On 05-04-2024 07:45:43 [employer] by Jordan Lyons D.O.
[2024-05-03 23:55] LABS: Basophils Percent Auto 0.6 % (0.2-1.2); Eosinophils Absolute Auto 0.4 K/mm3 (0-0.3); Eosinophils Percent Auto 5.6 % (0-4.4); Hematocrit 41.6 % (37.0-47.0); Hemoglobin 13.3 g/dL (12.0-15.0); Immature Granulocyte Absolute 0.02 K/mm3 (0.00-0.031); Immature Granulocyte Percent A 0.3 % (0-0.5); Lymphocytes Absolute Auto 1.27 K/mm3 (0.9-3.2); Lymphocytes Percent Auto 17.6 % (18.3-44.2); Mean Corpuscular Hemoglobin 30.7 pg (26-34); Mean Corpuscular Volume 96.1 fl (80-100); Mean Platelet Volume 11.3 fl (7.4-10.4); Monocytes Absolute Auto 0.5 K/mm3 (0.1-0.6); Monocytes Percent Auto 7.4 % (2.6-8.5); Neutrophils Absolute Auto 4.9 K/mm3 (1.3-6.7); Neutrophils Percent Auto 68.5 % (45.5-73.1); Platelet Count Result 177 k/mm3 (150-375); Red Blood Count 4.33 M/mm3 (4.2-5.4); Red Cell Distribution Width 12.8 % (11.5-14.5); White Blood Count 7.2 K/mm3 (4.5-10.0)
[2024-05-04] VITALS (7 sets, daily range): BP systolic 128–201; BP diastolic 58–85; PULSE 71–82; RESP 16–22; O2SAT 95–100
--- NOTE | 2024-05-04 | ED.CHESTPAIN ---
HPI - Chest Pain General Chief Complaint: Chest Pain <JANET Castelan Last Filed: 05/04/24 02:37> Stated Complaint: RT CHEST PAIN, SOB, COUGH, Hx CHF <Bernadette Che PA-C - Last Filed: 05/04/24 02:37> Time Seen by Provider: 05/04/24 02:29 <Bernadette Che PA-C - Last Filed: 05/04/24 02:37> Source: patient <JANET Castelan Last Filed: 05/04/24 02:37> Mode of arrival: EMS <JANET Castelan Last Filed: 05/04/24 02:37> Limitations: no limitations <JANET Castelan Last Filed: 05/04/24 02:37> History of Present Illness HPI narrative: Patient is an 78 y/o female, with PMH of CHF, HTN, peripheral vascular disease, who presents to the ED via EMS with report of CP. Patient sustained a L hip fx last year and is currently residing at [facility] for rehab. Patient reports she has had a cough for the past 1 week. Has been occasionally productive. Denies fevers. States other residents have been sick as well. Began feeling increasingly short of breath today with R sided CP. EMS was called. EMS states patient's oxygen was ranging around 92%. She was placed on 2 L nasal cannula for comfort. No previous oxygen requirement. Patient does report swelling in her lower extremities. Unclear if patient is on any blood thinners. Does not appear to be on any diuretics. <Bernadette Che PA-C - Last Filed: 05/04/24 02:37> Related Data Home Medications: Home Medications ?Medication ?Instructions ?Recorded ?Confirmed ?Last Taken ?Type bisacodyl 10 mg/30 mL enema (Fleet 5 mg RECTAL DAILY PRN 01/10/24 Unknown History Bisacodyl) esomeprazole magnesium 40 mg 40 mg PO DAILY 01/10/24 Unknown History capsule,delayed release magnesium hydroxide 400 mg/5 mL 5 ml PO DAILY PRN 01/10/24 Unknown History oral suspension (Milk of Magnesia) polyethylene glycol 3350 17 17 g PO DAILY 01/10/24 Unknown History gram/dose oral powder <Bernadette Che PA-C - Last Filed: 05/04/24 02:37> Allergies/Adverse Reactions: Allergies Allergy/AdvReac Type Severity Reaction Status Date / Time Penicillins Allergy Mild Unknown Verified 01/10/24 09:35 Sulfa (Sulfonamide Allergy Mild Unknown Verified 01/10/24 09:35 Antibiotics) <Bernadette Che PA-C - Last Filed: 05/04/24 02:37> Review of Systems Review of Systems: All systems reviewed & are unremarkable except as noted in HPI. <Bernadette Che PA-C - Last Filed: 05/04/24 02:37> All systems reviewed & are unremarkable except as noted in HPI and below <Bernadette Che PA-C - Last Filed: 05/04/24 02:37> [facility] Past Medical History Medical History: Medical History Acute pancreatitis (01/2023) SBO (small bowel obstruction) (09/2022) JAZZY (acute kidney injury) (09/2022) Fracture of humerus, proximal, left, closed (06/2022) <Bernadette Che PA-C - Last Filed: 05/04/24 02:37> Surgical History Surgical History: Surgical History History of hip surgery (11/2023) ORIF of left hip IT Fx History of total replacement of right shoulder joint History of tubal ligation History of cholecystectomy (1988) <Bernadette Che PA-C - Last Filed: 05/04/24 02:37> Family History Family History: Family History Other Family history unknown <Bernadette Che PA-C - Last Filed: 05/04/24 02:37> Social History Social History: Social History Social History: Surrogate medical decision maker: Quentin Perez, ramonita. Code status: Full code. Smoking status: Never smoker Alcohol intake: never Substance use: never Substance use type: does not use Do You Feel Safe in your Home?: Yes Lack of Transportation: No Lack of Food: Never True Current Housing: I Have Housing Concerned About Future Housing: No Difficulty Paying Gas/Electric Bills: No Difficulty Paying for Meds: No Currently Unemployed: No Education: High School Diploma/GED Difficulty w/ Childcare or Family Care: No Additional living arrangements comments: Lives in [place]. Spiritual care concerns: No <Bernadette Che PA-C - Last Filed: 05/04/24 02:37> Exam Narrative: GENERAL: Elderly but well appearing, well-nourished, non-toxic, in no acute distress. HEAD: Normocephalic, atraumatic. RESPIRATORY: Airway patent, respirations mildly tachypneic. Rhonchi throughout bases lino, worse on R, no wheezing. CARDIOVASCULAR: Regular rate and rhythm without murmurs, rubs, or gallops. MUSCULOSKELETAL: Moves all extremities. No gross deformities. Diffuse pitting edema in BLE and feet, appears symmetric. Some venous stasis changes. Peripheral pulses are intact. SKIN: Warm, dry, normal color. NEURO: A&O X2-3, was somewhat confused on year but corrected herself, stated she lives in [place], had to ask several times to confirm she lives in facility. Speech clear. Cranial nerves II-XII grossly intact. No ataxic movements. PSYCHIATRIC: Appropriate mood and affect. Normal interaction. <Bernadette Che PA-C - Last Filed: 05/04/24 02:37> Course ALUMNI RELATIONS MANAGER/PA Physician Supervision I agree with midlevel documentation; I performed the medical decision making component of this evaluation. Patient presenting with right-sided chest pain, has benign workup, including 2- troponins and negative CTA. At time discharge she is in no distress, lying comfortably, blood pressure 139/73 with heart rate of 75, oxygenation 100%. Given strict return precautions and follow-up instructions to PCP <Susanne Ball MD - Last Filed: 05/04/24 03:35> Vital Signs Vital signs: Vital Signs Temperature 98.1 F 05/03/24 23:28 Pulse Rate 79 05/03/24 23:28 Respiratory Rate 27 H 05/03/24 23:28 Blood Pressure 189/74 H 05/03/24 23:28 Pulse Oximetry 96 05/03/24 23:28 Oxygen Delivery Room Air 05/03/24 23:28 Temperature 98.1 F 05/03/24 23:28 Pulse Rate 82 05/04/24 02:47 Respiratory Rate 22 H 05/04/24 02:47 Blood Pressure 201/85 H 05/04/24 02:49 Pulse Oximetry 100 05/04/24 02:50 Oxygen Delivery Nasal Cannula 05/04/24 02:50 Oxygen Flow Rate 3 05/04/24 02:50 <Bernadette Che PA-C - Last Filed: 05/04/24 02:37> Vital Signs Temperature 98.1 F 05/03/24 23:28 Pulse Rate 79 05/03/24 23:28 Respiratory Rate 27 H 05/03/24 23:28 Blood Pressure 189/74 H 05/03/24 23:28 Pulse Oximetry 96 05/03/24 23:28 Oxygen Delivery Room Air 05/03/24 23:28 Temperature 98.1 F 05/03/24 23:28 Pulse Rate 82 05/04/24 02:47 Respiratory Rate 22 H 05/04/24 02:47 Blood Pressure 201/85 H 05/04/24 02:49 Pulse Oximetry 100 05/04/24 02:50 Oxygen Delivery Nasal Cannula 05/04/24 02:50 Oxygen Flow Rate 3 05/04/24 02:50 <Susanne Ball MD - Last Filed: 05/04/24 03:35> MDM - Chest Pain MDM Narrative Medical decision making narrative: Patient presented to ED from local nursing facility with report of cough, shortness chest, chest pain. Patient mildly hypertensive upon arrival. In no acute distress. Oxygen is stable on room air. She is afebrile here. EKG was sinus rhythm, no significant concerning ischemic changes. No STEMI. CBC without leukocytosis or anemia. CMP is unremarkable. Stable electrolytes. Stable kidney function. Consistent with previous records. Baseline troponin undetectable. BNP WNL D-dimer elevated to 2.67 Viral swabs negative Chest x-ray with emphysema, small pleural effusions. No focal consolidation. Chest CTA study obtained and w/o evidence of PE or focal consolidation. Overall workup is nonrevealing, reassuring. Will obtain 3 hour troponin. Otherwise feel patient is safe for discharge back to [facility]. <Bernadette Che PA-C - Last Filed: 05/04/24 02:37> Medical Records Data Attestation: I reviewed the patient's medical records. <Bernadette Che PA-C - Last Filed: 05/04/24 02:37> Lab Data Attestation: I reviewed the patient's lab results. <Bernadette Che PA-C - Last Filed: 05/04/24 02:37> Result diagrams: 05/03/24 23:46 05/03/24 23:46 <Bernadette Che PA-C - Last Filed: 05/04/24 02:37> Labs: Lab Results 05/03/24 05/03/24 05/03/24 Range/Units 23:46 23:46 23:46 WBC 7.2 (4.5-10.0) K/mm3 RBC 4.33 (4.2-5.4) M/mm3 Hgb 13.3 D (12.0-15.0) g/dL Hct 41.6 (37.0-47.0) % MCV 96.1 (80-100) fl MCH 30.7 (26-34) pg MCHC 32.0 (32-36) g/dl RDW 12.8 (11.5-14.5) % Plt Count 177 (150-375) k/mm3 MPV 11.3 H (7.4-10.4) fl Immature Gran % (Auto) 0.3 (0-0.5) % Neut % (Auto) 68.5 (45.5-73.1) % Lymph % (Auto) 17.6 L (18.3-44.2) % Guthrie % (Auto) 7.4 (2.6-8.5) % Eos % (Auto) 5.6 H (0-4.4) % Baso % (Auto) 0.6 (0.2-1.2) % Lymph # (Auto) 1.27 (0.9-3.2) K/mm3 Guthrie # (Auto) 0.5 (0.1-0.6) K/mm3 Eos # (Auto) 0.4 H (0-0.3) K/mm3 Baso # (Auto) 0.0 (0.0-0.1) K/mm3 Abs Immat Gran (auto) 0.02 (0.00-0.031) K/mm3 Absolute Neuts (auto) 4.9 (1.3-6.7) K/mm3 Absolute Nucleated RBC 0.000 (0.0-0.012) K/mm3 Nucleated RBC % 0.0 (0.0-0.2) % PT Cancelled 12.8 INR Cancelled 0.9 APTT Cancelled D-Dimer (<0.48) ug/mL Sodium (137-145) mmol/L Potassium (3.4-5.0) mmol/L Chloride (98-107) mmol/L Carbon Dioxide (22-30) mmol/L Anion Gap (4-12) mmol/L BUN (7-17) mg/dL Creatinine (0.7-1.0) mg/dL Estim Creat Clear Calc ml/min Estimated GFR (59 - ) Glucose (65-110) mg/dL Calcium (8.4-10.2) mg/dL Total Bilirubin (0.2-1.3) mg/dL AST (14-36) U/L ALT (6-35) U/L Alkaline Phosphatase (38-126) U/L Troponin I (0.000-0.034) ng/mL NT-Pro-B Natriuret Pep (19.9-100) pg/mL Total Protein (6.3-8.2) g/dL Albumin (3.5-5.1) g/dL Influenza A (RT-PCR) (Negative) Influenza B (RT-PCR) (Negative) RSV (RT-PCR) (Negative) SARS-CoV-2 RNA (RT-PCR) (Negative) 05/03/24 05/04/24 Range/Units 23:46 02:41 WBC (4.5-10.0) K/mm3 RBC (4.2-5.4) M/mm3 Hgb (12.0-15.0) g/dL Hct (37.0-47.0) % MCV (80-100) fl MCH (26-34) pg MCHC (32-36) g/dl RDW (11.5-14.5) % Plt Count (150-375) k/mm3 MPV (7.4-10.4) fl Immature Gran % (Auto) (0-0.5) % Neut % (Auto) (45.5-73.1) % Lymph % (Auto) (18.3-44.2) % Guthrie % (Auto) (2.6-8.5) % Eos % (Auto) (0-4.4) % Baso % (Auto) (0.2-1.2) % Lymph # (Auto) (0.9-3.2) K/mm3 Guthrie # (Auto) (0.1-0.6) K/mm3 Eos # (Auto) (0-0.3) K/mm3 Baso # (Auto) (0.0-0.1) K/mm3 Abs Immat Gran (auto) (0.00-0.031) K/mm3 Absolute Neuts (auto) (1.3-6.7) K/mm3 Absolute Nucleated RBC (0.0-0.012) K/mm3 Nucleated RBC % (0.0-0.2) % PT INR APTT 28.1 D-Dimer 2.67 H (<0.48) ug/mL Sodium 141 (137-145) mmol/L Potassium 4.9 (3.4-5.0) mmol/L Chloride 103 (98-107) mmol/L Carbon Dioxide 32 H (22-30) mmol/L Anion Gap 6 (4-12) mmol/L BUN 30 H (7-17) mg/dL Creatinine 0.98 (0.7-1.0) mg/dL Estim Creat Clear Calc 40 ml/min Estimated GFR 55 L (59 - ) Glucose 99 (65-110) mg/dL Calcium 9.0 (8.4-10.2) mg/dL Total Bilirubin 0.5 (0.2-1.3) mg/dL AST 29 (14-36) U/L ALT 17 (6-35) U/L Alkaline Phosphatase 72 (38-126) U/L Troponin I < 0.012 < 0.012 (0.000-0.034) ng/mL NT-Pro-B Natriuret Pep 277 H (19.9-100) pg/mL Total Protein 7.0 (6.3-8.2) g/dL Albumin 4.0 (3.5-5.1) g/dL Influenza A (RT-PCR) Negative (Negative) Influenza B (RT-PCR) Negative (Negative) RSV (RT-PCR) Negative (Negative) SARS-CoV-2 RNA (RT-PCR) Negative (Negative) <Bernadette Che PA-C - Last Filed: 05/04/24 02:37> Lab Results 05/03/24 05/03/24 05/03/24 Range/Units 23:46 23:46 23:46 WBC 7.2 (4.5-10.0) K/mm3 RBC 4.33 (4.2-5.4) M/mm3 Hgb 13.3 D (12.0-15.0) g/dL Hct 41.6 (37.0-47.0) % MCV 96.1 (80-100) fl MCH 30.7 (26-34) pg MCHC 32.0 (32-36) g/dl RDW 12.8 (11.5-14.5) % Plt Count 177 (150-375) k/mm3 MPV 11.3 H (7.4-10.4) fl Immature Gran % (Auto) 0.3 (0-0.5) % Neut % (Auto) 68.5 (45.5-73.1) % Lymph % (Auto) 17.6 L (18.3-44.2) % Guthrie % (Auto) 7.4 (2.6-8.5) % Eos % (Auto) 5.6 H (0-4.4) % Baso % (Auto) 0.6 (0.2-1.2) % Lymph # (Auto) 1.27 (0.9-3.2) K/mm3 Guthrie # (Auto) 0.5 (0.1-0.6) K/mm3 Eos # (Auto) 0.4 H (0-0.3) K/mm3 Baso # (Auto) 0.0 (0.0-0.1) K/mm3 Abs Immat Gran (auto) 0.02 (0.00-0.031) K/mm3 Absolute Neuts (auto) 4.9 (1.3-6.7) K/mm3 Absolute Nucleated RBC 0.000 (0.0-0.012) K/mm3 Nucleated RBC % 0.0 (0.0-0.2) % PT Cancelled 12.8 INR Cancelled 0.9 APTT Cancelled D-Dimer (<0.48) ug/mL Sodium (137-145) mmol/L Potassium (3.4-5.0) mmol/L Chloride (98-107) mmol/L Carbon Dioxide (22-30) mmol/L Anion Gap (4-12) mmol/L BUN (7-17) mg/dL Creatinine (0.7-1.0) mg/dL Estim Creat Clear Calc ml/min Estimated GFR (59 - ) Glucose (65-110) mg/dL Calcium (8.4-10.2) mg/dL Total Bilirubin (0.2-1.3) mg/dL AST (14-36) U/L ALT (6-35) U/L Alkaline Phosphatase (38-126) U/L Troponin I (0.000-0.034) ng/mL NT-Pro-B Natriuret Pep (19.9-100) pg/mL Total Protein (6.3-8.2) g/dL Albumin (3.5-5.1) g/dL Influenza A (RT-PCR) (Negative) Influenza B (RT-PCR) (Negative) RSV (RT-PCR) (Negative) SARS-CoV-2 RNA (RT-PCR) (Negative) 05/03/24 05/04/24 Range/Units 23:46 02:41 WBC (4.5-10.0) K/mm3 RBC (4.2-5.4) M/mm3 Hgb (12.0-15.0) g/dL Hct (37.0-47.0) % MCV (80-100) fl MCH (26-34) pg MCHC (32-36) g/dl RDW (11.5-14.5) % Plt Count (150-375) k/mm3 MPV (7.4-10.4) fl Immature Gran % (Auto) (0-0.5) % Neut % (Auto) (45.5-73.1) % Lymph % (Auto) (18.3-44.2) % Guthrie % (Auto) (2.6-8.5) % Eos % (Auto) (0-4.4) % Baso % (Auto) (0.2-1.2) % Lymph # (Auto) (0.9-3.2) K/mm3 Guthrie # (Auto) (0.1-0.6) K/mm3 Eos # (Auto) (0-0.3) K/mm3 Baso # (Auto) (0.0-0.1) K/mm3 Abs Immat Gran (auto) (0.00-0.031) K/mm3 Absolute Neuts (auto) (1.3-6.7) K/mm3 Absolute Nucleated RBC (0.0-0.012) K/mm3 Nucleated RBC % (0.0-0.2) % PT INR APTT 28.1 D-Dimer 2.67 H (<0.48) ug/mL Sodium 141 (137-145) mmol/L Potassium 4.9 (3.4-5.0) mmol/L Chloride 103 (98-107) mmol/L Carbon Dioxide 32 H (22-30) mmol/L Anion Gap 6 (4-12) mmol/L BUN 30 H (7-17) mg/dL Creatinine 0.98 (0.7-1.0) mg/dL Estim Creat Clear Calc 40 ml/min Estimated GFR 55 L (59 - ) Glucose 99 (65-110) mg/dL Calcium 9.0 (8.4-10.2) mg/dL Total Bilirubin 0.5 (0.2-1.3) mg/dL AST 29 (14-36) U/L ALT 17 (6-35) U/L Alkaline Phosphatase 72 (38-126) U/L Troponin I < 0.012 < 0.012 (0.000-0.034) ng/mL NT-Pro-B Natriuret Pep 277 H (19.9-100) pg/mL Total Protein 7.0 (6.3-8.2) g/dL Albumin 4.0 (3.5-5.1) g/dL Influenza A (RT-PCR) Negative (Negative) Influenza B (RT-PCR) Negative (Negative) RSV (RT-PCR) Negative (Negative) SARS-CoV-2 RNA (RT-PCR) Negative (Negative) <Susanne Ball MD - Last Filed: 05/04/24 03:35> Imaging Data Attestation: I personally reviewed and interpreted this imaging study as follows: <Bernadette Che PA-C - Last Filed: 05/04/24 02:37> Radiologist's impression: STAT RAD CXR: Impression: Emphysema. Blunting of the bilateral costophrenic angles could represent pleural scarring or small pleural effusions. No consolidation or pneumothorax. The cardiac silhouette is within normal limits. No fracture. No incidental findings. STAT RAD CTA chest: Impression: Significant patient motion limits evaluation. No evidence of pulmonary embolism. No aortic aneurysm or dissection. The lungs are clear. Heart size is normal. No pathologically enlarged lymph nodes. No fracture. No incidental findings. <Bernadette Che PA-C - Last Filed: 05/04/24 02:37> ECG Data EKG #1: Attestation: I personally reviewed and interpreted this ECG as follows: <Bernadette Che PA-C - Last Filed: 05/04/24 02:37> ECG completion date: 05/03/24 <Bernadette Che PA-C - Last Filed: 05/04/24 02:37> ECG completion time: 23:53 <Bernadette Che PA-C - Last Filed: 05/04/24 02:37> EKG Interpretation: normal rate, sinus rhythm (first degree AV block), non-specific ST changes and other (baseline artifact) <Bernadette Che PA-C - Last Filed: 05/04/24 02:37> Discharge Plan Discharge Clinical Impression: Shortness of breath, Atypical chest pain <Bernadette Che PA-C - Last Filed: 05/04/24 02:37> Patient Disposition: [facility] <Bernadette Che PA-C - Last Filed: 05/04/24 02:37> Condition: Stable <JANET Castelan Last Filed: 05/04/24 02:37> Instructions: Antibiotic Form, Chest Pain (ED), Shortness of Breath (ED) <ANNY CastelanC - Last Filed: 05/04/24 02:37> Additional Instructions: Your workup here was reassuring. Utilize inhaler as needed for shortness of breath. You may utilize Tylenol as needed for pain. Utilize tessalon perles as needed for cough. You may also use mucinex, delsym as needed for cold symptoms. Follow-up with primary care doctor for further evaluation. Return to the ED if you experience worsening or severe symptoms, severe chest pain, difficulty breathing, persistent fevers, unable to keep down food or drink, severe pain or swelling in legs, or any other symptoms of concern. <Bernadette Che PA-C - Last Filed: 05/04/24 02:37> Patient Language: [place] <JANET Castelan Last Filed: 05/04/24 02:37> Prescriptions: New albuterol sulfate 90 mcg/actuation HFA aerosol inhaler 2 puff inhalation QID PRN (Reason: shortness of breath or wheezing) Qty: 6.7 0RF benzonatate 200 mg capsule 200 mg PO TID PRN (Reason: cough) Qty: 15 0RF No Action Fleet Bisacodyl 10 mg/30 mL enema 5 mg RECTAL DAILY PRN magnesium hydroxide [Milk of Magnesia] 400 mg/5 mL suspension 5 ml PO DAILY PRN esomeprazole magnesium 40 mg capsule,delayed release(DR/EC) 40 mg PO DAILY polyethylene glycol 3350 17 gram/dose powder 17 g PO DAILY acetaminophen 325 mg Tablet 650 mg PO Q6HR Qty: 30 0RF polyethylene glycol 3350 [Miralax] 17 gram Powder In Packet 17 g PO QAM Qty: 30 0RF sennosides-docusate sodium [Senokot-S] 8.6-50 mg Tablet 2 tab PO BID Qty: 30 0RF oxycodone 5 mg Tablet 5 mg PO Q4H PRN (Reason: Pain Rated 7-10) Qty: 30 0RF enoxaparin 40 mg/0.4 mL Syringe 40 mg SUBCUT Q24H 28 Days Qty: 11.2 0RF lisinopril 40 mg tablet 40 mg PO DAILY Qty: 90 0RF <JANET Castelan Last Filed: 05/04/24 02:37> Follow-up/Referrals: Stan Morel MD [Primary Care Provider] - <Bernadette Che PA-C - Last Filed: 05/04/24 02:37> Quality HEART score for chest pain patients History: slightly suspicious <Bernadette Che PA-C - Last Filed: 05/04/24 02:37> ECG: normal <Bernadette Che PA-C - Last Filed: 05/04/24 02:37> Age: > or = to 65 years <Bernadette Che PA-C - Last Filed: 05/04/24 02:37> Risk factors: 1 or 2 risk factors <Bernadette Che PA-C - Last Filed: 05/04/24 02:37> Troponin: < or = to 1x normal limit <Bernadette Che PA-C - Last Filed: 05/04/24 02:37> Heart score: 3 <Bernadette Che PA-C - Last Filed: 05/04/24 02:37> 3 <Susanne Ball MD - Last Filed: 05/04/24 03:35>
[2024-05-04 00:04] LABS: INR 0.9; Prothrombin Time 12.8 Seconds (11.1-14.7)
[2024-05-04 00:05] LABS: Partial Thromboplastin Time 28.1 Seconds (22.3-36.8)
[2024-05-04 00:14] LABS: D Dimer 2.67 ug/mL (<0.48)
[2024-05-04 00:20] LABS: Alanine Aminotransferase 17 U/L (6-35); Alkaline Phosphatase 72 U/L (38-126); Anion Gap 6 mmol/L (4-12); Aspartate Amino Transferase 29 U/L (14-36); Bilirubin,Total 0.5 mg/dL (0.2-1.3); Blood Urea Nitrogen 30 mg/dL (7-17); Carbon Dioxide 32 mmol/L (22-30); Chloride 103 mmol/L (98-107); Estimated CRCL calculation 40 ml/min; Estimated Glomerular Filt Rate 55; Glucose 99 mg/dL (65-110); Potassium 4.9 mmol/L (3.4-5.0); Sodium 141 mmol/L (137-145)
[2024-05-04 00:31] LABS: Influenza A QL RT-PCR Negative (Negative); Influenza B QL RT-PCR Negative (Negative); NT Pro B Type Natriuretic Pept 277 pg/mL (19.9-100); RSV RNA, RT-PCR Negative (Negative); SARS-CoV-2 RNA PCR Negative (Negative); Troponin I < 0.012 ng/mL (0.000-0.034)
--- NOTE | 2024-05-04 02:17 | ECG_ITS ---
Test Date: 2024-05-04 02:48:41 Measurements Intervals [place] Rate: 90 P: 33 FL: 230 QRS: -9 QRSD: 70 T: 41 QT: 314 QTc: 385 Interpretive Statements SINUS RHYTHM WITH FIRST DEGREE AV BLOCK LOW QRS VOLTAGE IN PRECORDIAL LEADS CONSIDER ANTERIOR INFARCT, AGE INDETERMINATE CONSIDER INFERIOR INFARCT, AGE INDETERMINATE BASELINE ARTIFACT- I, II, III, AVR, AVL, AVF, V1-V6 ABNORMAL ECG Compared to ECG 05/03/2024 23:53:17 NO SIGNIFICANT CHANGE Electronically Signed On 05-04-2024 07:46:50 MACHINE FEED OPERATOR by Jordan Lyons D.O.
[2024-05-04] MEDS: IPRATROPIUM 0.5 MG/ALBUTEROL SULFATE 2.5 MG AMPUL.NEB 3 ML INHALATION (02:46)
[2024-05-04] MEDS: ACETAMINOPHEN 500 MG TABLET 1000 MG PO (02:46)
[2024-05-04 03:33] LABS: Troponin I < 0.012 ng/mL (0.000-0.034)
--- NOTE | 2024-05-04 03:36 | PC.NURSE ---
patient family member refuses need for an ambulance. pt family member verbalized driving patient to [facility] and to remain NPO at this time.
== END 2024-05-04 09:45 ==
PROVIDERS: Physician Assistant; Emergency Provider Emergency Medicine; PCP Family Medicine
DX: R07.89 Other chest pain (principal); R06.02 Shortness of breath; Z20.822 Contact with and (suspected) exposure to COVID-19; I11.0 Hypertensive heart disease with heart failure; I50.9 Heart failure, unspecified; I73.9 Peripheral vascular disease, unspecified; Z96.611 Presence of right artificial shoulder joint; Z90.49 Acquired absence of other specified parts of digestive tract; I51.7 Cardiomegaly; I44.0 Atrioventricular block, first degree; R94.31 Abnormal electrocardiogram [ECG] [EKG]
CPT/HCPCS: 36415; 71046; 71275; 80053; 83880; 84484; 85025; 85380; 85610; 85730; 87637; 93005; 94640; 99284; A9270; Q9967

== ENCOUNTER 2025-02-13 03:17 | Inpatient (IN) | payer MEDICARE, MEDICAID, SELFPAY ==
[2025-02-13] VITALS (20 sets, daily range): BP systolic 100–135; BP diastolic 41–70; PULSE 70–111; RESP 12–29; TEMP 36.4–36.8; O2SAT 97–100; BMI 30.9
--- NOTE | ~2025-02-13 | XR_ITS ---
Examination: XR chest 1V portable Clinical History: reassess chf Comparison: 02/13/2025 Technique: Portable AP Findings: Heart size normal. Minimal interstitial markings. Small right basilar nodule not excluded, overlying posterior rib 8. No acute bony abnormality. IMPRESSION: 1. Recommend CT chest to exclude right basilar nodule. 2. Minimal if any interstitial pulmonary edema. Reviewed, dictated and finalized at location R. E ALIGNER
--- NOTE | ~2025-02-13 | US_ITS ---
EXAMINATION: US venous doppler [facility], 02/14/2025 8:16 [employer] HISTORY: BLE edema with pain COMPARISON: None Technique: Chavez-scale and color Doppler images were attempted of the lower saphenofemoral junction, common femoral vein,superficial femoral vein, proximal deep femoral vein, proximal deep femoral vein, popliteal vein and posterior tibial veins. Findings: Deep Venous System:There is thrombus within the right popliteal vein with diminished flow, the remaining visualized deep venous system is unremarkable. Superficial Venous SystemNo superficial thrombophlebitis. Soft tissues: Soft tissues are unremarkable. Impression: 1. Limited study. Right-sided DVT Reviewed, dictated and finalized at location P. [employer]PER[employer] Impression: 1. Limited study. Right-sided DVT
--- NOTE | ~2025-02-13 | CT_ITS ---
EXAMINATION: CT abdomen pelvis wo con DATE: 02/16/2025 10:32 INDICATION: Lower extremity edema. TECHNIQUE: Computed tomography (CT) of the abdomen and pelvis was performed without intravenous contrast. Automated exposure control and iterative reconstruction technique were employed. The dose-length product was 1111.50 mGy-cm. COMPARISON: CT abdomen and pelvis 03/06/2023 FINDINGS: The visualized portions of the lung bases demonstrate mild atelectasis. There are tree-in-bud opacities in right lower lobe. No pleural effusion. The heart size is normal. There are coronary artery calcifications. No pericardial effusion. The liver and spleen are normal. There are changes of cholecystectomy. The pancreas and adrenal glands are normal. There is cortical thinning of the kidneys. There is no urolithiasis. There are no dilated loops of bowel. The appendix is normal. There are no pathologically enlarged lymph nodes. There is no free intraperitoneal fluid. There is an old healed fracture of proximal left femur with internal fixation. There is moderate lumbar spondylosis. There are bridging endplate osteophytes at multiple levels in the spine, consistent with diffuse idiopathic skeletal hyperostosis (DISH). IMPRESSION: 1. Tree-in-bud opacities in right lung lower lobe, consistent with mild inflammation/infection. Reviewed, dictated and finalized at location E. D INSTALLER IMPRESSION: 1. Tree-in-bud opacities in right lung lower lobe, consistent with mild inflamm ation/infection.
--- NOTE | ~2025-02-13 | US_ITS ---
EXAMINATION: US renal BI, 02/14/2025 10:00 SENIOR JAVA DATA ARCHITECT HISTORY: JAZZY Comparison: None Technique: Chavez-scale and color Doppler images were obtained. Findings: KIDNEYS: Renal cortices intact, no solid masses, cysts or calculi, no hydronephrosis. Right Kidney: Right kidney 8.4 x 4.3 x 3.5 cm, normal. Left Kidney: Left kidney 8.8 x 4.8 x 4.6 cm, normal. Bladder: The bladder is unremarkable. . Impression: No acute abnormality. Reviewed, dictated and finalized at location P. OR JAVA DATA ARCHITECT Impression: No acute abnormality.
--- NOTE | ~2025-02-13 | XR_ITS ---
Examination: XR chest 1V portable Clinical History: SOB Comparison: 05/04/2024 Technique: Portable AP Findings: Heart size normal. Lungs clear. Mild hyperinflation. No acute bony abnormality. IMPRESSION: 1. No acute cardiopulmonary findings given portable technique. Reviewed, dictated and finalized at location R. FARM ATTENDANT
--- NOTE | 2025-02-13 03:29 | ED_ITS ---
HPI - SOB/Dyspnea General Chief Complaint: Shortness of Breath/Dyspnea Stated Complaint: SOB, PEDAL EDEMA Time Seen by Provider: 02/13/25 03:19 History of Present Illness HPI Narrative: 79-year-old female with history of congestive heart failure with diastolic dysfunction and baseline 2 L nasal cannula oxygen requirement. She also has a history of hypertension. Patient presents from her detention facility for worsening shortness of breath and leg edema. Shortness of breath was acutely worsening over last few hours but patient states her leg swelling has significantly worsened over last few days. She has been short of breath for weeks but no increased oxygen requirements. States that she has not been able to lie flat has been sleeping in a recliner. Denies any productive cough. No chest pain or chest pressure. No nausea, vomiting, back pain. Ambulance was called as patient was having 1-2 word dyspnea and worsening extremity edema concerning for exacerbation of her underlying CHF. Patient denies any other recent illnesses. No recent hospitalizations. No recent antibiotic use. She is on Lasix daily and her doctor increased her to 80 mg oral Lasix in the morning but this has not been helping. Related Data Home Medications ?Medication ?Instructions ?Recorded ?Confirmed ?Last Taken ?Type bisacodyl 10 mg/30 mL enema (Fleet 5 mg RECTAL DAILY P RN 01/10/24 Unknown History Bisacodyl) esomeprazole magnesium 40 mg 40 mg PO DAILY 01/10/24 Unknown History capsule,delayed release magnesium hydroxide 400 mg/5 mL 5 ml PO DAILY PRN 12/19 06/10 Unknown History oral suspension (Milk of Magnesia) polyethylene glycol 3350 17 17 g PO DAILY 01/10/24 Un known History gram/dose oral powder Allergies Allergy/AdvReac Type Severity Reaction Status Date / Time Penicillins Allergy Mild Unknown Verified 02/13/25 03:31 Sulfa (Sulfonamide Allergy Mild Unknown Verified 02/13/25 03:31 Antibiotics) Review of Systems 2 Review of Systems: As reviewed above in HPI [facility] Past Medical History Medical History Acute pancreatitis (01/2023) SBO (small bowel obstruction) (09/2022) JAZZY (acute kidney injury) (09/2022) Fracture of humerus, proximal, left, closed (06/2022) Surgical History Surgical History History of hip surgery (11/2023) ORIF of left hip IT Fx History of total replacement of right shoulder joint History of tubal ligation History of cholecystectomy (1988) Family History Family History Other Family history unknown Social History Social History Social History: Surrogate medical decision maker: Quentin Perez, ramonita. Code status: Full code. Smoking status: Never smoker Alcohol intake: never Substance use: never Substance use type: does not use Lack of Transportation: No Lack of Food: Never True Current Housing: I Have Housing Concerned About Future Housing: No Difficulty Paying Gas/Electric Bills: No Difficulty Paying for Meds: No Currently Unemployed: No Education: High School Diploma/GED Difficulty w/ Childcare or Family Care: No Additional living arrangements comments: Lives in [place]. Spiritual care concerns: No Exam 2 Narrative: GENERAL: Ill-appearing and tachypneic, 2 word dyspnea. HEAD: Normocephalic and atraumatic EYES: [PERRLA and EOMI.] ENT: Nares clear, no rhinorrhea or epistaxis. Mucous membranes moist. NECK: Supple. CHEST: Bilateral rales on auscultation. No wheezing or decreased air entry. Mild tachypnea. HEART: [Regular rate and rhythm]. No murmur heard. [Normal peripheral pulses.] ABDOMEN: [Soft, nondistended], [nontender], [No rigidity or guarding] EXTREMITIES: Normal range of motion. 3+ pitting edema from the knees down. No weeping fluid or signs of infection SKIN: Warm, dry, no rash. NEURO: [No focal deficits]. Alert and oriented [x3.] PSYCH: [Normal mood and affect.] Course Vital Signs Vital signs: Vital Signs Pulse Rate 77 02/13/25 03:20 Respiratory Rate 24 H 02/13/25 03:20 Blood Pressure 116/48 L 02/13/25 03:20 Pulse Oximetry 100 02/13/25 03:20 Pulse Rate 86 02/13/25 05:10 Respiratory Rate 16 02/13/25 05:10 Blood Pressure 135/70 02/13/25 05:10 Pulse Oximetry 99 02/13/25 05:10 Oxygen Delivery Nasal Cannula 02/13/25 03:28 Oxygen Flow Rate 2 02/13/25 03:28 MDM - SOB/Dyspnea MDM Narrative Medical decision making narrative: 79-year-old female with history of congestive heart failure with diastolic dysfunction and baseline 2 L nasal cannula oxygen requirement. She also has a history of hypertension. Patient presents from her detention facility for worsening shortness of breath and leg edema. Shortness of breath was acutely worsening over last few hours but patient states her leg swelling has significantly worsened over last few days. She has been short of breath for weeks but no increased oxygen requirements. States that she has not been able to lie flat has been sleeping in a recliner. Denies any productive cough. No chest pain or chest pressure. No nausea, vomiting, back pain. Ambulance was called as patient was having 1-2 word dyspnea and worsening extremity edema concerning for exacerbation of her underlying CHF. Patient denies any other recent illnesses. No recent hospitalizations. No recent antibiotic use. She is on Lasix daily and her doctor increased her to 80 mg oral Lasix in the morning but this has not been helping. Patient has rales in both lung joshi, tachypneic and has 3+ pitting edema bilaterally, orthopnea and increasing volume overload signs. Symptoms consistent with a CHF exacerbation. Heart rate mildly elevated 107, regular rhythm. 100% on her baseline 2 L nasal cannula. Blood pressure 116/48. Low suspicion other underlying process such as ACS, valvular anomaly, infection or pneumonia. Laboratory studies, chest x-ray, EKG obtained. She was given 80 mg of IV Lasix and external catheter applied given her inability to lie flat for a fall at this time. Patient placed on security monitor and re-evaluated frequently. EKG shows sinus rhythm without any obvious ST segment derangements. Laboratory studies show acute kidney injury, negative troponin, low BNP, no leukocytosis or significant anemia worse than her baseline. Normal platelet count. Electrolytes are unremarkable. LFTs largely unremarkable. Lipase mildly elevated but she has no abdominal discomfort and been elevated in the past. Suspect her kidney injury is from congestion given her volume overloaded exam findings and suspect CHF. Possible cardiorenal syndrome. Low suspicion volume depletion as her vital signs and tachypnea and dyspnea improved after Lasix and she is no longer tachypneic and her blood pressure improved with rising diastolics. Spoke to the hospitalist and patient was admitted to a telemetry monitored bed for further evaluation and treatment. Medical Records Attestation: I reviewed the patient's medical records. Lab Data Attestation: I reviewed the patient's lab results. 02/13/25 03:56 02/13/25 03:56 Labs: Lab Results 02/13/25 Range/Units 03:56 WBC 6.9 (4.5-10.0) K/mm3 RBC 3.75 L (4.2-5.4) M/mm3 Hgb 11.6 L (12.0-15.0) g/dL Hct 36.5 L (37.0-47.0) % MCV 97.3 (80-100) fl MCH 30.9 (26-34) pg MCHC 31.8 L (32-36) g/dl RDW 12.1 (11.5-14.5) % Plt Count 203 (150-375) k/mm3 MPV 11.9 H (7.4-10.4) fl Immature Gran % (Auto) 0.3 (0-0.5) % Neut % (Auto) 66.4 (45.5-73.1) % Lymph % (Auto) 17.7 L (18.3-44.2) % [place] % (Auto) 8.9 H (2.6-8.5) % Eos % (Auto) 6.1 H (0-4.4) % Baso % (Auto) 0.6 (0.2-1.2) % Lymph # (Auto) 1.23 (0.9-3.2) K/mm3 [place] # (Auto) 0.6 (0.1-0.6) K/mm3 Eos # (Auto) 0.4 H (0-0.3) K/mm3 Baso # (Auto) 0.0 (0.0-0.1) K/mm3 Abs Immat Gran (auto) 0.02 (0.00-0.031) K/mm3 Absolute Neuts (auto) 4.6 (1.3-6.7) K/mm3 Absolute Nucleated RBC 0.000 (0.0-0.012) K/mm3 Nucleated RBC % 0.0 (0.0-0.2) % PT 12.9 (11.1-14.7) Seconds INR 1.0 APTT 31.6 (22.3-36.8) Seconds Sodium 136 L (137-145) mmol/L Potassium 4.6 (3.4-5.0) mmol/L Chloride 101 (98-107) mmol/L Carbon Dioxide 28 (22-30) mmol/L Anion Gap 7 (4-12) mmol/L BUN 98 H D (7-17) mg/dL Creatinine 1.90 H (0.7-1.0) mg/dL Estim Creat Clear Calc 22 ml/min Estimated GFR 25 L (59 - ) Glucose 91 (65-110) mg/dL Calcium 9.0 (8.4-10.2) mg/dL Total Bilirubin 0.4 (0.2-1.3) mg/dL AST 28 (14-36) U/L ALT 19 (6-35) U/L Alkaline Phosphatase 66 (38-126) U/L Troponin I < 0.012 (0.000-0.034) ng/mL NT-Pro-B Natriuret Pep 140 H (19.9-100) pg/mL Total Protein 7.4 (6.3-8.2) g/dL Albumin 4.3 (3.5-5.1) g/dL Lipase 2490 H (23-300) U/L Imaging Data Attestation: I personally reviewed and interpreted this imaging study as follows: My impression: Interstitial edema, no pleural effusions Critical Care Time Critical Care Time Critical Care Time: Yes Total Critical Care Time: 35 Discharge Plan Discharge Clinical Impression: Acute exacerbation of CHF (congestive heart failure), Diastolic dysfunction, Lower extremity edema, Acute kidney injury Patient Disposition: Still a Patient Condition: Stable
[2025-02-13] MEDS: FUROSEMIDE INJ 100 MG/10 ML VIAL 80 MG IV PUSH (03:39)
[2025-02-13 04:11] LABS: Hematocrit 36.5 % (37.0-47.0); Hemoglobin 11.6 g/dL (12.0-15.0); Immature Granulocyte Percent A 0.3 % (0-0.5); Lymphocytes Absolute Auto 1.23 K/mm3 (0.9-3.2); Mean Corpuscular HGB Conc 31.8 g/dl (32-36); Mean Corpuscular Hemoglobin 30.9 pg (26-34); Mean Corpuscular Volume 97.3 fl (80-100); Nucleated Red Blood Cells Absolute Auto 0.000 K/mm3 (0.0-0.012); Nucleated Red Blood Cells Perc 0.0 % (0.0-0.2); Platelet Count Result 203 k/mm3 (150-375); Red Blood Count 3.75 M/mm3 (4.2-5.4); White Blood Count 6.9 K/mm3 (4.5-10.0)
[2025-02-13 04:20] LABS: Alanine Aminotransferase 19 U/L (6-35); Albumin Level 4.3 g/dL (3.5-5.1); Alkaline Phosphatase 66 U/L (38-126); Anion Gap 7 mmol/L (4-12); Aspartate Amino Transferase 28 U/L (14-36); Bilirubin,Total 0.4 mg/dL (0.2-1.3); Blood Urea Nitrogen 98 mg/dL (7-17); Calcium 9.0 mg/dL (8.4-10.2); Carbon Dioxide 28 mmol/L (22-30); Chloride 101 mmol/L (98-107); Estimated CRCL calculation 22 ml/min; Estimated Glomerular Filt Rate 25; Glucose 91 mg/dL (65-110); Potassium 4.6 mmol/L (3.4-5.0); Sodium 136 mmol/L (137-145); Total Protein 7.4 g/dL (6.3-8.2)
[2025-02-13 04:23] LABS: INR 1.0; Prothrombin Time 12.9 Seconds (11.1-14.7)
[2025-02-13 04:24] LABS: Partial Thromboplastin Time 31.6 Seconds (22.3-36.8)
[2025-02-13 04:33] LABS: NT Pro B Type Natriuretic Pept 140 pg/mL (19.9-100); Troponin I < 0.012 ng/mL (0.000-0.034)
[2025-02-13 05:11] LABS: Lipase 2490 U/L (23-300)
--- NOTE | 2025-02-13 05:41 | WPCEDHO ---
ED Hand Off Checklist All vitals saved:Y IV Site documented:Y All med administrations documented:Y Triage Note Triage Note patient arrives via em[place] 02/13/25 03:20 [facility] with senior accounting specialist increased shortness of breath x 2 hours. patient reports being on a water pill, unsure if she has been taking it. on 2L NC at baseline, 100% on 2L on arrival. +3 pedal/ BLE edema. alert and oriented x 3 . dyspnea at rest. states unable to tolerate laying flat x few weeks. Allergies Penicillins Allergy (Mild, Verified 02/13/25 03:31) Unknown Sulfa (Sulfonamide Antibiotics) Allergy (Mild, Verified 02/13/25 03:31) Unknown unknown Family History (Last Reviewed 02/13/25 @ 03:30 by Yared Li MD) Other Family history unknown Administered/Completed Medications Discontinued Medications Aspirin (Aspirin 81 Mg Chewable Tablet) 324 mg PO ONCE STA Stop: 02/13/25 03:21 Last Admin: 02/13/25 03:39 Dose: Not Given Documented By: SAK Non-Admin Reason: Order Discontinued Furosemide (Furosemide Inj 100 Mg/10 Ml Vial) 80 mg IV PUSH ONCE STA Stop: 02/13/25 03:26 Last Admin: 02/13/25 03:39 Dose: 80 mg Documented By: TBR Interventions/Assessments IV / Saline Lock, Insert Start: 02/13/25 03:20 Freq: STAT Status: Active Protocol: Document 02/13/25 03:29 TBR (Rec: 02/13/25 03:30 TBR [id number]) IV Assessment Peripheral Access Left Antecubital IV Catheter Access Initiated IV Insertion Date 02/13/25 IV Insertion Time 03:29 Catheter Gauge 20 IV Insertion 1 Attempts Ultrasound Used for No Placement IV Site Assessment WNL IV Care and WNL Maintenance PA: Cardiovascular Assessment Start: 02/13/25 03:19 Freq: Status: Active Protocol: Document 02/13/25 03:28 TBR (Rec: 02/13/25 03:29 TBR [id number]) Cardiovascular Assessment Cardiovascular Dyspnea Symptoms Skin Description Dry,Warm PA: Respiratory Assessment Start: 02/13/25 03:19 Freq: Status: Active Protocol: Document 02/13/25 03:28 TBR (Rec: 02/13/25 03:29 TBR [id number]) Respiratory Assessment Cough Description Productive Cough Frequency Intermittent Oxygen Delivery Oxygen Delivery Nasal Cannula Oxygen Flow Rate 2 Pulse Oximetry (90- 100 100) Last Vital Signs Pulse Rate 86 02/13/25 05:10 Respiratory Rate 16 02/13/25 05:10 Pulse Oximetry 99 02/13/25 05:10 Blood Pressure 135/70 02/13/25 05:10 Blood Pressure Mean 91 02/13/25 05:10 Blood Pressure Position Sitting 02/13/25 05:10 Oxygen Delivery Nasal Cannula 02/13/25 03:28 Oxygen Flow Rate 2 02/13/25 03:28 Weight 81.1 kg 02/13/25 03:20 Last Result - Abnormals Only RBC 3.75 M/mm3 (4.2-5.4) L 02/13/25 03:56 Hgb 11.6 g/dL (12.0-15.0) L 02/13/25 03:56 Hct 36.5 % (37.0-47.0) L 02/13/25 03:56 MCHC 31.8 g/dl (32-36) L 02/13/25 03:56 MPV 11.9 fl (7.4-10.4) H 02/13/25 03:56 Lymph % (Auto) 17.7 % (18.3-44.2) L 02/13/25 03:56 [place] % (Auto) 8.9 % (2.6-8.5) H 02/13/25 03:56 Eos % (Auto) 6.1 % (0-4.4) H 02/13/25 03:56 Eos # (Auto) 0.4 K/mm3 (0-0.3) H 02/13/25 03:56 Sodium 136 mmol/L (137-145) L 02/13/25 03:56 BUN 98 mg/dL (7-17) H D 02/13/25 03:56 Creatinine 1.90 mg/dL (0.7-1.0) H 02/13/25 03:56 Estimated GFR 25 (59-) L 02/13/25 03:56 NT-Pro-B Natriuret Pep 140 pg/mL (19.9-100) H 02/13/25 03:56 Lipase 2490 U/L (23-300) H 02/13/25 03:56 Most Recent Suicide Severity Rating Suicide Severity Rating NO RISK INDICATED 02/13/25 03:20
--- NOTE | 2025-02-13 06:34 | ADMGEN ---
This patient, Leah Perez, was admitted to 2 Medical Room 249-01. Patient/family oriented to hospital policies and general routines including ID bracelet, bed and alarms, visiting hours, pain management, procedures, bathroom and other care routines, personal items, smoking policy, room service/diet, and visiting hours. Information on how to activate the Rapid Response Team has been discussed. Patient/Family are encouraged to report perceived risks to care and to ask questions if they do not understand what they are told or what they should do.
--- NOTE | 2025-02-13 07:00 | PM.IMHP ---
H&P: HPI History of Present Illness Date/Time: 02/13/25 07:00 Chief Complaint: shortness of breath and lower extremity edema Narrative: 79 year old female with past medical history of hypertension and congestive heart failure and baseline 2 L nasal cannula oxygen requirement who presents from retirement facility to the hospital for shortness of breath and lower extremity edema. Patient states that shortness of breath has been ongoing for several weeks, denies associated cough, fever or being around sick contacts. She states she has been unable lie flat for several days due to increased shortness of breath and has been having worsening shortness of breath with any exertion. She has not had to adjust her oxygen supplementation. She then started to develop worsening lower extremity swelling the last few days with associated pain to the bilateral calves. She denies any recent injury or trauma. She states she has still been able to ambulate without assistive devices at her facility. She reports a history of heart failure but is unsure who her attendant arcade is. She states that her doctor was called and they had increased her lasix dosage to 80 mg PO in the morning however she had not received this medication prior to coming to the hospital. Patient otherwise has no complaints denying chest pain, palpitations, nausea/vomiting and abdominal pain. Discussed code status with patient and she wishes to remain full code at this time. ED workup: CBC with WBC 6.9, H/H 11.6/36.5, and PLT 203. CMP with Na 136, K 4.6, BUN/Cr 98/1.9 with GFR 25. Troponin negative. BNP 140. Lipase 2490. Chest XR: no acute cardiopulmonary finding Review of Systems Review of Systems: All systems reviewed & are unremarkable except as noted in HPI and below [facility] Past Medical History Medical History (Updated 02/13/25 @ 11:11 by Michelle Marsh PA-C) Hypertension Congestive heart failure (CHF) Acute pancreatitis (01/2023) SBO (small bowel obstruction) (09/2022) JAZZY (acute kidney injury) (09/2022) Fracture of humerus, proximal, left, closed (06/2022) Surgical History Surgical History History of hip surgery (11/2023) ORIF of left hip IT Fx History of total replacement of right shoulder joint History of tubal ligation History of cholecystectomy (1988) Family History Family History Father Heart disease Grandparent Diabetes mellitus Other Family history unknown Social History Social History Social History: Surrogate medical decision maker: Quentin Perez, son. Code status: Full code. Smoking status: Never smoker Alcohol intake: never Substance use: never Substance use type: does not use Lack of Transportation: No Lack of Food: Never True Current Housing: I Have Housing Concerned About Future Housing: No Difficulty Paying Gas/Electric Bills: No Difficulty Paying for Meds: No Currently Unemployed: No Education: Grade School Difficulty w/ Childcare or Family Care: No Additional living arrangements comments: Lives in [place]. Spiritual care concerns: No Meds Home Medications and Allergies Home Medications ?Medication ?Instructions ?Recorded ?Confirmed ?Type lisinopril 40 mg tablet 40 mg PO DAILY #90 tabs 07/27/23 02/13/25 Rx acetaminophen 325 mg tablet 650 mg (2 x 325 mg) PO Q6HR #30 11/30/23 02/13/25 Rx tabs sennosides 8.6 mg-docusate sodium 2 tab PO BID #30 tabs 11/30/23 02/13/25 Rx 50 mg tablet (Senokot-S) esomeprazole magnesium 40 mg 40 mg PO DAILY 01/10/24 02/13/25 History capsule,delayed release polyethylene glycol 3350 17 17 g PO DAILY 01/10/24 02/13/25 History gram/dose oral powder benzonatate 200 mg capsule 200 mg PO TID PRN cough #15 caps 05/04/24 02/13/25 Rx amlodipine 10 mg tablet 5 mg PO DAILY 02/13/25 02/13/25 History atorvastatin 10 mg tablet 10 mg PO QPM 02/13/25 02/13/25 History cyanocobalamin (vitamin B-12) 1,000 mcg PO DAILY 02/13/25 02/13/25 History 1,000 mcg capsule ergocalciferol (vitamin D2) 50,000 50,000 unit PO DAILY 02/13/25 02/13/25 History unit tablet furosemide 80 mg tablet 80 mg PO DAILY 02/13/25 02/13/25 History ipratropium 0.5 mg-albuterol 3 mg 3 ml inhalation Q6H PRN shortness 02/13/25 02/13/25 History (2.5 mg base)/3 mL nebulization of breath soln Allergies Allergy/AdvReac Type Severity Reaction Status Date / Time Penicillins Allergy Mild rash Verified 02/13/25 06:36 Sulfa (Sulfonamide Allergy Mild rash Verified 02/13/25 06:36 Antibiotics) Vital Signs Vital Signs - 24 hr 02/13/25 03:20 02/13/25 03:22 02/13/25 03:26 Temperature Pulse Rate 77 78 82 Respiratory Rate 24 H 19 29 H Blood Pressure 116/48 L 116/48 L Pulse Oximetry 100 100 100 Oxygen Delivery Oxygen Flow Rate 02/13/25 03:28 02/13/25 03:30 02/13/25 03:31 Temperature Pulse Rate 75 74 Respiratory Rate 20 22 H Blood Pressure 100/41 L Pulse Oximetry 100 100 100 Oxygen Delivery Nasal Cannula Oxygen Flow Rate 2 02/13/25 03:45 02/13/25 04:00 02/13/25 04:02 Temperature Pulse Rate 80 79 80 Respiratory Rate 19 18 18 Blood Pressure Pulse Oximetry 100 100 97 Oxygen Delivery Oxygen Flow Rate 02/13/25 04:03 02/13/25 05:10 02/13/25 06:46 Temperature 97.6 F Pulse Rate 80 86 90 Respiratory Rate 20 16 18 Blood Pressure 119/46 L 135/70 102/45 L Pulse Oximetry 100 99 100 Oxygen Delivery Oxygen Flow Rate Exam Narrative: AF HR 90 RR 18 SPO2 100 BP 102/45 General: well nourished, well-developed female in no acute respiratory distress who is nontoxic appearing, sitting up in bed. HEENT: Normocephalic. Atraumatic. Extraocular movement intact. Sclera clear and anicteric. No facial asymmetry. Neck: Neck was supple. No dominant adenopathy, thyromegaly or masses. Chest: Lungs are coarse with rhonchi to auscultation bilaterally. No wheezes. CV: Heart was regular rate and rhythm. S1-S2. No murmurs, gallops, or rubs. Abd: Abdomen was soft. Nontender. Nondistended. Positive bowel sounds. Ext: No clubbing, cyanosis. 3+ pitting edema extending to the knee with pain on palpation bilaterally. DP pulses bilaterally. Neuro: Patient is alert and oriented x4. Strength is 5/5 in both upper and lower extremities. Cranial nerves 2-12 are intact. Speech is clear. H&P: Results Labs Labs: Short CBC 02/13/25 Range/Units 03:56 WBC 6.9 (4.5-10.0) K/mm3 Hgb 11.6 L (12.0-15.0) g/dL Hct 36.5 L (37.0-47.0) % Plt Count 203 (150-375) k/mm3 BMP 02/13/25 03:56 Sodium 136 L Potassium 4.6 Chloride 101 Carbon Dioxide 28 BUN 98 H D Creatinine 1.90 H Glucose 91 Calcium 9.0 Cardiac Enzymes 02/13/25 Range/Units 03:56 Troponin I < 0.012 (0.000-0.034) ng/mL Liver Function 02/13/25 Range/Units 03:56 Total Bilirubin 0.4 (0.2-1.3) mg/dL AST 28 (14-36) U/L ALT 19 (6-35) U/L Alkaline Phosphatase 66 (38-126) U/L Albumin 4.3 (3.5-5.1) g/dL Assessment and Plan Assessment and plan (1) Acute exacerbation of CHF (congestive heart failure): Code(s): I50.9 - Heart failure, unspecified Status: Acute Assessment and Plan: Shortness of breath worsening over last few weeks with dyspnea on exertion and orthopnea as well as leg swelling significantly worsening over last few days. No increased oxygen requirements. Denies any other recent illnesses. She is on Lasix daily and reports her doctor increased her to 80 mg oral Lasix in the morning but this has not yet been started. Unsure who primary attendant arcade is. - Current medications: lasix 80 mg daily currently on IV, lisinopril 40 mg daily - BNP unremarkable at 140 - Chest XR: No acute cardiopulmonary findings however noted coarseness and rhonchi on exam - Echo ordered prior echo from 09/21/22 showed lvef 65-70% with grade I diastolic dysfunction - Dopplers ordered to rule out DVT as noted swelling with pain on palpation - Monitor vital signs, I&Os, BUN/creatinine, daily weights, neuro status and patient is a fall risk - Monitor serum electrolytes, Keep serum Potassium>4 and serum Magnesium>2 and CBC (2) Acute kidney injury: Code(s): N17.9 - Acute kidney failure, unspecified Status: Acute Assessment and Plan: BUN/Cr 98/1.9 with GFR 25 on admission, baseline appears 1.1-1.6 Suspect kidney injury is secondary to congestion given her volume overloaded exam findings and suspect CHF. Possible cardiorenal syndrome. Avoid nephrotoxic medications Renally dose medications Monitor I/O (3) Essential (primary) hypertension: Code(s): I10 - Essential (primary) hypertension Status: Acute Assessment and Plan: Chronic, currently holding amlodipine 5 mg daily and lisinopril 40 mg daily due to low blood pressures Resume as tolerated (4) Elevated lipase: Code(s): R74.8 - Abnormal levels of other serum enzymes Status: Resolved Assessment and Plan: Lipase mildly elevated at 2490 on admission with unremarkable LFTs Lipase has been elevated in the past Denies nausea/vomiting and abdominal discomfort, tolerating diet. Quality VTE Prophylaxis VTE prophylaxis: pharmacologic ordered (lovenox) Hospitalist MIPS Advance Care Plan I have confirmed that the patient's Advanced Care Plan is present, code status is documented, or surrogate decision maker is listed in patient medical record.: Yes Medication Reconciliation I have utilized all available resources to obtain, update and review the patients current medications (includes all prescriptions, OTC, herbals, cannabis, and nutritional supplements).: Yes
[2025-02-13 07:28] LABS: Troponin I < 0.012 ng/mL (0.000-0.034)
[2025-02-13] MEDS: ACETAMINOPHEN 325 MG TABLET 650 MG PO (09:21)
[2025-02-13] MEDS: CYANOCOBALAMIN 1,000 MCG TABLET 1000 MCG PO (09:22)
[2025-02-13] MEDS: ENOXAPARIN 30 MG/0.3 ML SYRINGE SUB-Q (12:59)
[2025-02-13] MEDS: LIDOCAINE 5% PATCH 1 PATCH TRANSDERM (12:59)
[2025-02-13] MEDS: DICLOFENAC SODIUM 1% 100 GM GEL (*BKC) 1 APPLIC TOPICAL ×3 (13:01→20:22)
[2025-02-13] MEDS: ATORVASTATIN 10 MG TABLET PO (17:42)
[2025-02-14] VITALS (12 sets, daily range): BP systolic 121–129; BP diastolic 43–49; PULSE 69–88; RESP 16–17; TEMP 36.2–36.7; O2SAT 95–100
--- NOTE | 2025-02-14 | ECHO_ITS ---
Patient Info Name: Leah Perez Age: 79 years : 1945 Gender: Female Ht: 65 in Wt: 178 lbs BSA: 1.95 m2 HR: 67 bpm BP: 129 / 49 mmHg Technical Quality: Good Exam Date: 02/14/2025 11:15 AM Patient Status: I Admit Date: 02/14/2025 Exam Type: CA echo dop color flow w con Complete two-dimensional, color flow and Doppler transthoracic echocardiogram is performed with contrast to opacify the left ventricle and to improve the deliniation of the left ventricle endocardial borders. Staff Referring Physician: Tera Taylor Corporate Strategy Intern: Kimmy Falcon Attending Provider: Myrna Angela DO Contrast/Agitated Saline Contrast/Ag. Saline: Definity Amount: 2.00 ml Summary 1. Technically suboptimal study due to poor sonographic images. 2. Left ventricular chamber dimension is normal. 3. Left ventricular systolic function is normal, estimated at 60-65. 4. The left ventricular diastolic function is grade I diastolic dysfunction. 5. E/e' 19 is elevated. 6. The aortic valve is not well visualized. Cannot determine number of aortic valve leaflets. 7. There is moderate aortic valve sclerosis. 8. There is trace aortic valve regurgitation. Left Ventricle E/e' 19 is elevated. Left ventricular chamber dimension is normal. Left ventricular systolic function is normal, estimated at 60-65. The left ventricular diastolic function is grade I diastolic dysfunction. Technically suboptimal study due to poor sonographic images. Right Ventricle Right ventricular chamber dimension is normal. Right ventricular systolic function is normal and with normal TAPSE 1.9 cm. Left Atria Left atrial chamber dimension is normal. Right Atria Right atrial chamber dimension is normal. Aortic Valve The aortic valve is not well visualized. Cannot determine number of aortic valve leaflets. There is moderate aortic valve sclerosis. There is no aortic valve stenosis. There is trace aortic valve regurgitation. Pulmonic Valve There is no pulmonic regurgitation. Mitral Valve There is no mitral valve stenosis. There is no mitral valve regurgitation. Tricuspid Valve There is no tricuspid valve regurgitation. Pericardium/Pleural There is no pericardial effusion. Inferior Vena Cava Normal inferior vena cava with >50% collapse upon inspiration consistent with normal right atrial pressure, 5 mmHg. Aorta The aortic root size at the sinus of Valsalva is normal. Left Ventricular Outflow Tract Name Value Normal LVOT 2D LVOT Diameter 2.0 cm LVOT Doppler LVOT Peak Velocity 133 cm/s LVOT Peak Gradient 7 mmHg LVOT Mean Gradient 4 mmHg LVOT VTI 28 cm LVOT VTI/AV VTI Ratio 0.8 LVOT Stroke Volume 86 ml LVOT CO 5.8 l/min LVOT CI 3.0 l/min/m2 Pulmonic Valve Name Value Normal RVOT Doppler RVOT Peak Velocity 88 cm/s RVOT Peak Gradient 3 mmHg PV Doppler PV Peak Velocity 109 cm/s PV Peak Gradient 5 mmHg Mitral Valve Name Value Normal MV Diastolic Function MV E Peak Velocity 86 cm/s MV A Peak Velocity 121 cm/s MV E/A 0.7 MV Decel Time (PW) 306 ms MV Annular TDI MV E/e' (Septal) 18.1 MV E/e' (Lateral) 21.1 MV E/e' (Average) 19.6 Tricuspid Valve Name Value Normal Estimated PAP/RSVP RA Pressure 5 mmHg <=5 Aortic Valve Name Value Normal AV Doppler AV Peak Velocity 178 cm/s AV Peak Gradient 13 mmHg AV Mean Gradient 6 mmHg AV VTI 36 cm AV Area (Cont Eq VTI) 2.4 cm2 >=3.0 AV Area (Cont Eq Lucian) 2.3 cm2 AV DI (Lucian) 0.75 AV Regurgitation 2D LVOT Area 3.1 cm2 Ventricles Name Value Normal LV Dimensions 2D/MM IVS Diastolic Thickness (2D) 0.6 cm 0.6-1.0 LVID Diastole (2D) 4.5 cm 3.8-5.2 LVIW Diastolic Thickness (2D) 0.9 cm 0.6-0.9 LVID Systole (2D) 2.8 cm 2.2-3.5 LVOT Diameter 2.0 cm LV Mass (2D Cubed) 101.44 g 67.00-162.00 LV Mass Index (2D Cubed) 52 g/m2 43-95 Relative Wall Thickness (2D) 0.39 <=0.42 LV Fractional Shortening/Ejection Fraction 2D/MM LV Fractional Shortening (2D) 37 % 27-45 LV EF (2D Teichholz) 67 % LV Diastolic Volume (4C MOD) 89 ml LV EF (4C MOD) 67 % LV Diastolic Volume (2C MOD) 87 ml LV EF (2C MOD) 65 % LV Diastolic Volume (BP MOD) 90 ml 46-106 LV Diastolic Volume Index (BP MOD) 46 ml/m2 29-61 LV Systolic Volume (BP MOD) 30 ml 14-42 LV Systolic Volume Index (BP MOD) 16 ml/m2 8-24 LV EF (BP MOD) 66 % 54-74 LV Diastolic Length (4C) 7.8 cm LV Systolic Length (4C) 6.2 cm LV Stroke Volume (4C MOD) 60 ml Atria Name Value Normal LA Dimensions LA Volume (4C A-L) 23 ml LA Volume (BP A-L) 24 ml RA Dimensions RA Systolic Major [place] Length (4C) 4.5 cm 2.2-2.8 RA Area (4C) 11.0 cm2 <=18.0 Report Signatures
[2025-02-14] MEDS: ACETAMINOPHEN 325 MG TABLET 650 MG PO ×2 (01:40→08:51)
[2025-02-14 05:07] LABS: Hematocrit 36.3 % (37.0-47.0); Hemoglobin 11.5 g/dL (12.0-15.0); Mean Corpuscular HGB Conc 31.7 g/dl (32-36); Mean Corpuscular Hemoglobin 30.7 pg (26-34); Mean Corpuscular Volume 96.8 fl (80-100); Platelet Count Result 199 k/mm3 (150-375); Red Blood Count 3.75 M/mm3 (4.2-5.4); White Blood Count 5.0 K/mm3 (4.5-10.0)
[2025-02-14 05:19] LABS: Alanine Aminotransferase 18 U/L (6-35); Albumin Level 4.2 g/dL (3.5-5.1); Alkaline Phosphatase 59 U/L (38-126); Anion Gap 6 mmol/L (4-12); Aspartate Amino Transferase 28 U/L (14-36); Bilirubin,Total 0.4 mg/dL (0.2-1.3); Blood Urea Nitrogen 100 mg/dL (7-17); Calcium 9.3 mg/dL (8.4-10.2); Carbon Dioxide 29 mmol/L (22-30); Chloride 101 mmol/L (98-107); Estimated CRCL calculation 23 ml/min; Estimated Glomerular Filt Rate 26; Glucose 92 mg/dL (65-110); Potassium 4.9 mmol/L (3.4-5.0); Sodium 136 mmol/L (137-145); Total Protein 7.2 g/dL (6.3-8.2)
--- NOTE | 2025-02-14 06:42 | PM.IMPN ---
Progress Note: A&P Assessment and Plan (1) Acute exacerbation of CHF (congestive heart failure): Code(s): I50.9 - Heart failure, unspecified Status: Acute Assessment and Plan: Shortness of breath worsening over last few weeks with dyspnea on exertion and orthopnea as well as leg swelling significantly worsening over last few days. No increased oxygen requirements. Denies any other recent illnesses. She is on Lasix daily and reports her doctor increased her to 80 mg oral Lasix in the morning but this has not yet been started. Unsure who primary smoking pipe repairer is. - Current medications: lasix 40 mg bid IV, lisinopril 40 mg daily (on hold for JAZZY and hypotension) - BNP unremarkable at 140 - Chest XR: No acute cardiopulmonary findings however noted coarseness and rhonchi on exam - Echo ordered prior echo from 09/21/22 showed lvef 65-70% with grade I diastolic dysfunction - Dopplers ordered to rule out DVT as noted swelling with pain on palpation - Monitor vital signs, I&Os, BUN/creatinine, daily weights, neuro status and patient is a fall risk - Monitor serum electrolytes, Keep serum Potassium>4 and serum Magnesium>2 and CBC States shortness of breath has returned to baseline. Remains on her baseline oxygen supplementation 2 L nasal cannula. Continue Lasix 40 mg b.i.d. IV. Echo ordered. (2) Deep venous thrombosis: Code(s): I82.409 - Acute embolism and thrombosis of unspecified deep veins of unspecified lower extremity Status: Acute Assessment and Plan: Denies a history of DVT/PE Venous doppler: thrombus within the right popliteal vein with diminished flow Remains on telemetry to rule out arrhythmia as cause, Endorses more stationary life style Started on eliquis 10 mg daily x7 days, then transition to 5 mg daily. Discussed the risk and benefits of eliquis with the patient and she states understanding and wishes to proceed with treatment. (3) Acute kidney injury: Code(s): N17.9 - Acute kidney failure, unspecified Status: Acute Assessment and Plan: BUN/Cr 98/1.9 with GFR 25 on admission, baseline appears 1.1-1.6 Suspect kidney injury is secondary to congestion given her volume overloaded exam findings and suspect CHF. Possible cardiorenal syndrome. Avoid nephrotoxic medications Renally dose medications Monitor I/O BUN/Cr 100/1.88 on am labs Renal US: No acute abnormality Nephrology consulted for uptrending BUN and Cr requiring diuresis (4) Essential (primary) hypertension: Code(s): I10 - Essential (primary) hypertension Status: Acute Assessment and Plan: Chronic Amlodipien 5 mg daily resumed as blood pressure has improved Lisinopril 40 mg daily remains on hold given JAZZY, resume as tolerated. (5) Elevated lipase: Code(s): R74.8 - Abnormal levels of other serum enzymes Status: Resolved Assessment and Plan: Lipase mildly elevated at 2490 on admission with unremarkable LFTs Lipase has been elevated in the past Denies nausea/vomiting and abdominal discomfort, tolerating diet. Abdominal exam benign. Time Spent With Patient Time with patient: 25 - 35 minutes Subjective Date/time seen: 02/14/25 06:42 Interval history: 79 year old female with past medical history of hypertension and congestive heart failure and baseline 2 L nasal cannula oxygen requirement who [facility] from [facility] to the hospital for shortness of breath and lower extremity edema. Patient is pleasant sitting up comfortably in her chair. She states she feels as though she is back to her baseline shortness of breath and again denies any associated cough. She continues to endorse pain and bilateral lower extremities though primarily to the right knee. She has no other complaints denying chest pain, palpitations, nausea/vomiting, abdominal pain. Attempted to call patient's nursing facility to obtain more past medical information however there was no answer. Review of Systems Review of Systems: All systems reviewed & are unremarkable except as noted in HPI and below Exam Narrative: AF HR 75 RR 16 Spo2 99 BP 129/49 General: well nourished, well-developed female in no acute respiratory distress who is nontoxic appearing, sitting up in chair HEENT: Normocephalic. Atraumatic. Extraocular movement intact. Sclera clear and anicteric. No facial asymmetry. Chest: Lungs are coarse with rhonchi to auscultation bilaterally. No wheezes. CV: Heart was regular rate and rhythm. S1-S2. No murmurs, gallops, or rubs. Abd: Abdomen was soft. Nontender. Nondistended. Positive bowel sounds. Ext: No clubbing, cyanosis. 3+ pitting edema extending to the knee with pain on palpation bilaterally. DP pulses bilaterally. Neuro: Patient is alert and oriented x3. Speech is clear. Objective Data Vital Signs Vital Signs: Vital Signs - 24 hr 02/13/25 06:46 02/13/25 07:00 02/13/25 08:00 Temperature 97.6 F Pulse Rate 90 Respiratory Rate 18 Blood Pressure 102/45 L Pulse Oximetry 100 100 100 Oxygen Delivery Nasal Cannula Nasal Cannula Oxygen Flow Rate 2 2 02/13/25 08:00 02/13/25 12:00 02/13/25 13:29 Temperature 97.6 F Pulse Rate 111 H 93 82 Respiratory Rate 12 Blood Pressure 100/50 L Pulse Oximetry 97 Oxygen Delivery Oxygen Flow Rate 02/13/25 14:00 02/13/25 16:00 02/13/25 20:00 Temperature 98.2 F Pulse Rate 82 77 Respiratory Rate 17 Blood Pressure 104/58 L Pulse Oximetry 100 99 Oxygen Delivery Nasal Cannula Oxygen Flow Rate 2 02/13/25 20:00 02/13/25 21:42 02/14/25 00:00 Temperature 98.3 F Pulse Rate 72 70 72 Respiratory Rate 14 Blood Pressure 111/48 L Pulse Oximetry 99 Oxygen Delivery Oxygen Flow Rate 02/14/25 04:00 02/14/25 05:50 Temperature 97.7 F Pulse Rate 75 75 Respiratory Rate 16 Blood Pressure 129/49 L Pulse Oximetry 99 Oxygen Delivery Oxygen Flow Rate Intake/Output Intake/Output: Intake & Output 02/11/25 02/12/25 02/13/25 02/14/25 23:59 23:59 23:59 23:59 Intake Total 480 250 Balance 480 250 Meds/Results Medications: Active Medications Generic Name Dose Route Start Last Admin Trade Name Nicolásq PRN Reason Stop Dose Admin Acetaminophen 650 mg 02/13/25 05:14 02/14/25 01:40 Acetaminophen 325 Mg Tablet PO 650 mg Q4H PRN Administration Mild Pain (1-3) or Fever Albuterol/Ipratropium 3 ml 02/13/25 07:15 Ipratropium 0.5 Mg/Albuterol Sulfate 2.5 Mg (Base) Ampul.Neb 3 Ml INHALATION Q6HRT PRN Shortness Of Breath Atorvastatin Calcium 10 mg 02/13/25 18:00 02/13/25 17:42 Atorvastatin 10 Mg Tablet PO 10 mg QPM VALERIE Administration Cyanocobalamin 1,000 mcg 02/13/25 09:00 02/13/25 09:22 Cyanocobalamin 1,000 Mcg Tablet PO 1,000 mcg DAILY VALERIE Administration Diclofenac Sodium 1 applic 02/13/25 13:00 02/13/25 20:22 Diclofenac Sodium 1% 100 Gm Gel (*Bkc) TOPICAL 1 applic QID VALERIE Administration Enoxaparin Sodium 30 mg 02/13/25 11:25 02/13/25 12:59 Enoxaparin 30 Mg/0.3 Ml Syringe SUB-Q 30 mg DAILY VALERIE Administration Furosemide 40 mg 02/14/25 09:00 Furosemide Inj 40 Mg/4 Ml Vial IV PUSH BID VALERIE Lidocaine 1 patch 02/13/25 12:20 02/13/25 12:59 Lidocaine 5% Patch TRANSDERM 1 patch DAILY VALERIE Administration Ondansetron HCl 4 mg 02/13/25 05:14 Ondansetron Inj 4 Mg/2 Ml Vial IV PUSH Q4H PRN Nausea Perflutren Lipid Microsphere 0 ml 02/13/25 05:14 Perflutren Lipid Microspheres 1.5 Ml Vial Diluted To 10 Ml Total Volume IV PUSH 02/16/25 05:15 ONCE PRN adequate visualization Protocol Radiology Results: ITS Impressions Chest X-Ray 02/13/25 07:17 IMPRESSION: 1. No acute cardiopulmonary findings given portable technique. Labs Labs: Laboratory Results - last 24 hr 02/13/25 02/13/25 02/14/25 06:57 16:59 04:50 WBC 5.0 RBC 3.75 L Hgb 11.5 L Hct 36.3 L MCV 96.8 MCH 30.7 MCHC 31.7 L RDW 12.2 Plt Count 199 MPV 11.9 H Sodium 136 L Potassium 4.9 Chloride 101 Carbon Dioxide 29 Anion Gap 6 BUN 100 H Creatinine 1.88 H Estim Creat Clear Calc 23 Estimated GFR 26 L Glucose 92 POC Capillary Glucose 116 H Calcium 9.3 Total Bilirubin 0.4 AST 28 ALT 18 Alkaline Phosphatase 59 Troponin I < 0.012 Total Protein 7.2 Albumin 4.2 Quality VTE Prophylaxis VTE prophylaxis: pharmacologic ordered (eliquis)
[2025-02-14] MEDS: CYANOCOBALAMIN 1,000 MCG TABLET 1000 MCG PO (08:51)
[2025-02-14] MEDS: FUROSEMIDE INJ 40 MG/4 ML VIAL IV PUSH ×2 (08:52→17:22)
[2025-02-14] MEDS: ENOXAPARIN 30 MG/0.3 ML SYRINGE SUB-Q (08:52)
[2025-02-14] MEDS: LIDOCAINE 5% PATCH 1 PATCH TRANSDERM (08:59)
[2025-02-14] MEDS: DICLOFENAC SODIUM 1% 100 GM GEL (*BKC) 1 APPLIC TOPICAL ×4 (09:32→21:04)
--- NOTE | 2025-02-14 10:24 | ECG_ITS ---
Test Date: 2025-02-14 11:08:32 Measurements Intervals [place] Rate: 71 P: 52 NV: 251 QRS: -20 QRSD: 74 T: 29 QT: 345 QTc: 377 Interpretive Statements SINUS RHYTHM WITH FIRST DEGREE AV BLOCK LOW-VOLTAGE CANNOT RULE OUT PREVIOUS INFERIOR INFARCTION ABNORMAL ECG Compared to ECG 05/04/2024 02:48:41 NO DIFFERENCE Electronically Signed On 02-14-2025 13:26:56 INDUSTRY OPERATIONS INVESTIGATOR by Uriel Laura M.D.
[2025-02-14 11:17] LABS: Add Urine Microscopic? YES; Appearance Urine Clear (Clear); Glucose Urine UA Negative (Negative); Leukocyte Esterase Ur Trace LEU/UL (Negative); Nitrate Urine Negative (Negative); Non Pathogenic Casts 0-2; Specific Grav Ur 1.009 (1.001-1.035)
[2025-02-14 11:22] LABS: Urea Random Urine 377 MG/DL
[2025-02-14 11:24] LABS: Total Protein Urine Random 8 mg/dL; Ur Ttl Prot Creatinine Ratio 0.29 mg/mg (0-0.20)
[2025-02-14 11:49] LABS: Urine Eos QC 2nd Tech Confirmed
[2025-02-14] MEDS: PERFLUTREN LIPID MICROSPHERES 1.5 ML VIAL DILUTED TO 10 ML TOTAL VOLUME IV PUSH (11:57)
--- NOTE | 2025-02-14 11:57 | IVDEFINITY ---
Prior to administration of IV Definity the patient was educated on the risks and benefits of the imaging enhancing agent including potential adverse side effects. The patient verbalized understanding. Allergies were verified. No exclusion criteria were identified and at least one of the following inclusion criteria were met: 1) physician request, 2) patient technically difficult to image (per the [place] [employer] guidelines of two or more segments not discernable within the apical view), or 3) questionable left ventricular function. ?
--- NOTE | 2025-02-14 12:24 | P.CONNP_ITS ---
Assessment and Plan Assessment and plan (1) Acute kidney injury: Code(s): N17.9 - Acute kidney failure, unspecified Status: Acute Assessment and Plan: * suspected based on admission creatinine * only previous labs available are from April 2024 -- creatinine was 0.98mg/dl at that time * prior to that, her creatinine seemed to fluctuate around 1.1 - 1.2mg/dl * request records from her nursing facility regarding recent labs pertaining to renal function * renal ultrasound unremarkable * check urine studies and CPK * follow trend of repeat labs and UOP (2) Stage 3 chronic kidney disease: Code(s): N18.30 - Chronic kidney disease, stage 3 unspecified Status: Chronic Assessment and Plan: * baseline creatinine seems to run around 0.9 - 1.2mg/dl * presumably due to hypertension, CHF + diuretics, and age-related change (3) Acute exacerbation of CHF (congestive heart failure): Code(s): I50.9 - Heart failure, unspecified Status: Acute Assessment and Plan: * suspected based on admission symptoms * shortness of breath * increase in LE edema * orthoptnea * dyspnea on exertion * however: * CXR clear * BNP only mildly elevated * check Echo * on IV diuretics * follow I/Os, dialy weights, and respiratory status (4) Deep venous thrombosis: Code(s): I82.409 - Acute embolism and thrombosis of unspecified deep veins of unspecified lower extremity Status: Acute Assessment and Plan: * BLE dopplers noted thrombus within the right popliteal vein with diminished flow * started on Eliquis * is PE a possibility with regard to her shortness of breath (?) (5) Essential (primary) hypertension: Code(s): I10 - Essential (primary) hypertension Status: Chronic Assessment and Plan: * reasonable control * follow trend of hemodynamics (6) Lower extremity edema: Code(s): R60.0 - Localized edema Status: Acute Assessment and Plan: * noted on exam * BLE dopplers noted * related to CHF versus venous insufficiency or other (?) * on diuretics I will continue to follow the patient with you while he remains hospitalized and make further recommendations as deemed necessary. Thank you for allowing me to participate in the care of this patient. L History of Present Illness Reason for Consult Consult date: 02/14/25 Reason for consult: acute renal failure (on chronic kidney disease) Chief Complaint Chief complaint: Shortness of breath, CHF exacerbation History of Present Illness Narrative: The patient is a 79 year old female with past medical history who presented to the ER with complaints of shortness of breath and bilateral lower extremity edema. according to patient she reports that shortness of seems to have been progressively worsening last several weeks if longer. She denies any associated fevers chills productive cough or sick contacts in that time frame. In association with her shortness of breath she has noticed increasing lower extremity swelling / edema as well as orthopnea. Furthermore, she reports that initially her shortness of breath was more with exertional activity now it is present even rest she is on baseline supplemental oxygen but her oxygen requirements have not increased. She started noticing worsening lower extremity edema in the past few days in association with pain. She apparently has a known history of congestive heart failure but specifics are not clear and she is unclear she follows up with regard to this issue. Apparently, due to these symptoms, her nursing facility physician increased her diuretic therapy but apparently has not received this higher dose of diuretics has had yet. Given these constellation of symptoms as mentioned, her nursing facility transferred her to the emergency room for further assessment Workup and evaluation emergency room demonstrated the patient to be hemodynamically stable and in no acute distress. Her CBC noted a WBC 6.9, H/H 11.6/36.5, and PLT 203 and her CMP showed a Na 136, K 4.6, BUN 98 and a creatinine of 1.9 Her troponins were negative but her BNP was 140 and her lipase was 2490. Her chest x-ray demonstrated no acute cardiopulmonary findings. In spite of these findings, it was still suspected that she was having a CHF exacerbation. She was started on IV diuretic therapy and subsequently admitted to the hospital for further evaluation and therapy. Since her admission, she reports that her breathing/shortness of breath appears to have stabilized if not back to baseline although she still has evidence of lower extremity swelling / edema. The her renal function remains about the same since admission. Renal consultation was requested due to her presumed acute kidney injury/ acute renal failure on top of her baseline chronic kidney disease. The only previous labs I have available to April 2024 where her creatinine was 0.98 mg/dL. Prior to that, labs about year ago show her creatinine waiting fluctuated from 0.9-1.2 mg/dL. Is difficult to say if she really has an acute insult on her kidneys or does she have some underlying renal insufficiency that we are unaware of. Records from her nursing facility are being requested have not yet been available for review. In spite of her diuretic therapy, it is difficult to say if she is very itchy much diuresis and more importantly, her chest x-ray findings does not show evidence of overt pulmonary vascular congestion or pulmonary edema Hence I question her for shortness of breath was even related to a true CHFexacerbation. An echocardiogram has been ordered to further assess her heart function. Currently, at the time my evaluation she appears to be in no acute distress. Review of Systems 2 Review of Systems: As per HPI. [facility] Past Medical History Medical History (Updated 02/15/25 @ 08:11 by Tera Taylor MD) Hypertension Congestive heart failure (CHF) Acute pancreatitis (01/2023) SBO (small bowel obstruction) (09/2022) JAZZY (acute kidney injury) (09/2022) Fracture of humerus, proximal, left, closed (06/2022) Surgical History Surgical History History of hip surgery (11/2023) ORIF of left hip IT Fx History of total replacement of right shoulder joint History of tubal ligation History of cholecystectomy (1988) Family History Family History Father Heart disease Grandparent Diabetes mellitus Other Family history unknown Social History Social History Social History: Surrogate medical decision maker: Quentin Perez, ramonita. Code status: Full code. Smoking status: Never smoker Alcohol intake: never Substance use: never Substance use type: does not use Lack of Transportation: No Lack of Food: Never True Current Housing: I Have Housing Concerned About Future Housing: No Difficulty Paying Gas/Electric Bills: No Difficulty Paying for Meds: No Currently Unemployed: No Education: Grade School Difficulty w/ Childcare or Family Care: No Additional living arrangements comments: Lives in [place]. Spiritual care concerns: No Meds Home Medications and Allergies Home Medications ?Medication ?Instructions ?Recorded ?Confirmed ?Type lisinopril 40 mg tablet 40 mg PO DAILY #90 tabs 05/0 12/1102/13/25 Rx acetaminophen 325 mg tablet 650 mg (2 x 325 mg) PO Q6H R #30 11/30/23 02/13/25 Rx tabs sennosides 8.6 mg-docusate sodium 2 tab PO BID #30 tab s 11/30/23 02/13/25 Rx 50 mg tablet (Senokot-S) esomeprazole magnesium 40 mg 40 mg PO DAILY 01/10/24 1 04/15/24 History capsule,delayed release polyethylene glycol 3350 17 17 g PO DAILY 01/10/24 History gram/dose oral powder benzonatate 200 mg capsule 200 mg PO TID PRN cough #15 caps 05/04/24 02/13/25 Rx amlodipine 10 mg tablet 5 mg PO DAILY 02/13/2502/13 History atorvastatin 10 mg tablet 10 mg PO QPM 02/13/25 History cyanocobalamin (vitamin B-12) 1,000 mcg PO DAILY 02/1302/13/25 History 1,000 mcg capsule ergocalciferol (vitamin D2) 50,000 50,000 unit PO MARBELLA Y 02/13/25 02/13/25 History unit tablet furosemide 80 mg tablet 80 mg PO DAILY 02/13/2501/19 History ipratropium 0.5 mg-albuterol 3 mg 3 ml inhalation Q6H PRN shortness 02/13/25 02/13/25 History (2.5 mg base)/3 mL nebulization of breath soln Allergies Allergy/AdvReac Type Severity Reaction Status Date / Time Penicillins Allergy Mild rash Verified 02/13/25 06:36 Sulfa (Sulfonamide Allergy Mild rash Verified 02/13/25 06:36 Antibiotics) Vital Signs Vital Signs Temp Pulse Resp BP Pulse Ox O2 Del Method O2 Flow Rate 02/14/25 12:00 97.1 F L 86 16 126/43 L 100 02/14/25 11:40 96 Nasal Cannula 2 02/14/25 09:00 96 Nasal Cannula 2 02/14/25 08:00 88 02/14/25 05:50 97.7 F 75 16 129/49 L 99 02/14/25 04:00 75 02/14/25 00:00 72 02/13/25 21:42 98.3 F 70 14 111/48 L 99 02/13/25 20:00 72 02/13/25 20:00 99 Nasal Cannula 2 Exam 2 Narrative: GENERAL APPEARANCE: elderly but well developed well nourished female in no acute distress HEENT: normocephalic, atraumatic, normal conjunctiva and sclera, nares patient NECK: no lymphadenopathy, thyromegaly, or JVD MOUTH: normal lips, teeth, and gums CARDIOVASCULAR: RRR, normal S1 and S2, no rub RESPIRATORY: coarse breath sounds ABDOMEN: soft, nontender, nondistended, positive bowel sounds present EXTREMITIES: no evidence of cyanosis, clubbing, 2+ edema NEUROLOGICAL: alert and oriented x 3; CN II - XII intact bilaterally; no focal deficits noted Results Lab Results 02/15/25 05:22 02/15/25 05:22 Lab results: Most recent lab results Calcium 9.3 mg/dL (8.4-10.2) 02/14/25 04:50 Urine Creatinine 27.9 mg/dL 02/14/25 11:03
--- NOTE | 2025-02-14 14:19 | PCOTNOTE ---
Pt with new DVT. Not on anticoagulation yet. Will hold until anticoagulation started.
--- NOTE | 2025-02-14 15:13 | PCPTNOTE ---
Pt with new DVT. Not on anticoagulation yet. Will assess pt when medically safe to participate in OOB activity. Will follow.
[2025-02-14] MEDS: ATORVASTATIN 10 MG TABLET PO (17:22)
[2025-02-14] MEDS: APIXABAN 5 MG TABLET 10 MG PO (21:05)
[2025-02-15] VITALS (11 sets, daily range): BP systolic 92–111; BP diastolic 49–57; PULSE 69–92; RESP 16–22; TEMP 36.6–36.8; O2SAT 93–98
[2025-02-15 05:45] LABS: Hematocrit 36.3 % (37.0-47.0); Hemoglobin 11.8 g/dL (12.0-15.0); Mean Corpuscular HGB Conc 32.5 g/dl (32-36); Mean Corpuscular Hemoglobin 31.3 pg (26-34); Mean Corpuscular Volume 96.3 fl (80-100); Platelet Count Result 206 k/mm3 (150-375); Red Blood Count 3.77 M/mm3 (4.2-5.4); White Blood Count 5.5 K/mm3 (4.5-10.0)
[2025-02-15 06:03] LABS: Alanine Aminotransferase 18 U/L (6-35); Albumin Level 4.2 g/dL (3.5-5.1); Alkaline Phosphatase 59 U/L (38-126); Anion Gap 5 mmol/L (4-12); Aspartate Amino Transferase 29 U/L (14-36); Bilirubin,Total 0.4 mg/dL (0.2-1.3); Blood Urea Nitrogen 97 mg/dL (7-17); Calcium 9.4 mg/dL (8.4-10.2); Carbon Dioxide 31 mmol/L (22-30); Chloride 101 mmol/L (98-107); Estimated CRCL calculation 23 ml/min; Estimated Glomerular Filt Rate 26; Glucose 95 mg/dL (65-110); Potassium 5.0 mmol/L (3.4-5.0); Sodium 137 mmol/L (137-145); Total Protein 7.3 g/dL (6.3-8.2)
--- NOTE | 2025-02-15 07:37 | P.PNIM_ITS ---
Progress Note: A&P Assessment and Plan (1) Acute exacerbation of CHF (congestive heart failure): Code(s): I50.9 - Heart failure, unspecified Status: Acute Assessment and Plan: Shortness of breath worsening over last few weeks with dyspnea on exertion and orthopnea as well as leg swelling significantly worsening over last few days. No increased oxygen requirements. Denies any other recent illnesses. She is on Lasix daily and reports her doctor increased her to 80 mg oral Lasix in the morning but this has not yet been started. Unsure who primary fermenter helper is. - Current medications: lasix 40 mg bid IV, lisinopril 40 mg daily (on hold for JAZZY and hypotension) - BNP unremarkable at 140 - Chest XR: No acute cardiopulmonary findings however noted coarseness and rhonchi on exam - Echo with LVEF 60-65% with grade I diastolic dysfunction prior echo from 09/21/22 showed lvef 65-70% with grade I diastolic dysfunction - Monitor vital signs, I&Os, BUN/creatinine, daily weights, neuro status and pat ient is a fall risk - Monitor serum electrolytes, Keep serum Potassium>4 and serum Magnesium>2 and CBC States shortness of breath has returned to baseline. Remains on her baseline oxygen supplementation 2 L nasal cannula. Repeat chest x-ray showed minimal pulmonary edema and a right basilar nodule. Known nodule, previously seen in 2022. Transitioned back to home lasix of 80 mg daily. (2) Deep venous thrombosis: Code(s): I82.409 - Acute embolism and thrombosis of unspecified deep veins of unspecified lower extremity Status: Acute Assessment and Plan: Denies a history of DVT/PE Venous doppler: thrombus within the right popliteal vein with diminished flow Remains on telemetry to rule out arrhythmia as cause, Endorses more stationary life style tele reviewed and no acute arrhtyhtmia noted Started on eliquis 10 mg daily x7 days on 02/14, then transition to 5 mg daily. Discussed the risk and benefits of eliquis with the patient and she states understanding and wishes to proceed with treatment. PT/OT consulted, recommending SNF placement. Care coordination continues to follow. (3) Acute kidney injury: Code(s): N17.9 - Acute kidney failure, unspecified Status: Acute Assessment and Plan: BUN/Cr 98/1.9 with GFR 25 on admission, baseline creatinine seems to run around 0.9 - 1.2mg/dl Suspect kidney injury is secondary to congestion given her volume overloaded exam findings and suspect CHF. Possible cardiorenal syndrome. Avoid nephrotoxic medications Renally dose medications Monitor I/O BUN/Cr 97/1.83 on am labs Urinalysis is unremarkable. Renal US: No acute abnormality Nephrology consulted for uptrending BUN and Cr requiring diuresis * await outpatient records from the [facility]. * Her creatinine seems to be fairly stable, maybe a slight improvement. * She still has a lot of swelling. * As long as it does not get worse I suppose we can continue the furosemide but would maintain a low threshold for stopping because of her clear chest x- ray and no need for supplemental oxygen. (4) Essential (primary) hypertension: Code(s): I10 - Essential (primary) hypertension Status: Chronic Assessment and Plan: Chronic Amlodipien 5 mg daily resumed as blood pressure has improved Lisinopril 40 mg daily remains on hold given JAZZY, resume as tolerated. Blood pressure reviewed remains stable, continue to monitor (5) Elevated lipase: Code(s): R74.8 - Abnormal levels of other serum enzymes Status: Resolved Assessment and Plan: Lipase mildly elevated at 2490 on admission with unremarkable LFTs Lipase has been elevated in the past Denies nausea/vomiting and abdominal discomfort, tolerating diet. Abdominal exam benign. Time Spent With Patient Time with patient: 25 - 35 minutes Subjective Date/time seen: 02/15/25 07:37 Interval history: 79 year old female with past medical history of hypertension and congestive heart failure and baseline 2 L nasal cannula oxygen requirement who presents from nursing home facility to the hospital for shortness of breath and lower extremity edema. Patient is pleasant sitting up comfortably in her chair. She states that her shortness of breath is back to her baseline but is endorsing increased congestion. She states this is not uncommon during this time of year with phlegm production being clear. She continues to endorse lower extremity swelling but states that this is improving since admission. She has no other complaints denies chest pain, palpitations, nausea/vomiting, and abdominal pain. Again attempted to call patients assisted living for further clarification on past medical history however no answer. Review of Systems Review of Systems: All systems reviewed & are unremarkable except as noted in HPI and below Exam Narrative: AF HR 80 RR 18 SPO2 98 2L NC (baseline) BP 111/54 General: female in no acute respiratory distress who is nontoxic appearing, sitting up in chair HEENT: Normocephalic. Atraumatic. Extraocular movement intact. Sclera clear and anicteric. No facial asymmetry. Chest: Lungs are diminished to auscultation bilaterally. No wheezes. CV: Heart was regular rate and rhythm. S1-S2. No murmurs, gallops, or rubs. Abd: Abdomen was soft. Nontender. Nondistended. Positive bowel sounds. Ext: No clubbing, cyanosis. 3+ pitting edema extending to the knee with pain on palpation bilaterally. DP pulses bilaterally. Neuro: Patient is alert and oriented x3. Speech is clear. Objective Data Vital Signs Vital Signs: Vital Signs - 24 hr 02/14/25 08:00 02/14/25 09:00 02/14/25 11:40 Temperature Pulse Rate 88 Respiratory Rate Blood Pressure Pulse Oximetry 96 96 Oxygen Delivery Nasal Cannula Nasal Cannula Oxygen Flow Rate 2 2 02/14/25 12:00 02/14/25 14:34 02/14/25 19:21 Temperature 97.1 F L 98.0 F Pulse Rate 69 86 81 Respiratory Rate 16 17 Blood Pressure 126/43 L 121/45 L Pulse Oximetry 100 97 Oxygen Delivery Oxygen Flow Rate 02/14/25 20:00 02/14/25 20:00 02/14/25 21:47 Temperature Pulse Rate 84 Respiratory Rate Blood Pressure Pulse Oximetry 95 96 Oxygen Delivery Room Air Nasal Cannula Oxygen Flow Rate 2 02/15/25 00:00 02/15/25 04:00 02/15/25 04:44 Temperature 97.9 F Pulse Rate 81 73 80 Respiratory Rate 18 Blood Pressure 111/54 L Pulse Oximetry 98 Oxygen Delivery Oxygen Flow Rate Intake/Output Intake/Output: Intake & Output 02/12/25 02/13/25 02/14/25 02/15/25 23:59 23:59 23:59 23:59 Intake Total 480 1500 150 Output Total 300 400 Balance 480 1200 -250 Meds/Results Medications: Active Medications Generic Name Dose Route Start Last Admin Trade Name Freq PRN Reason Stop Dose Admin Acetaminophen 650 mg 02/13/25 05:14 02/14/25 08:51 Acetaminophen 325 Mg Tablet PO 650 mg Q4H PRN Administration Mild Pain (1-3) or Fever Albuterol/Ipratropium 3 ml 02/13/25 07:15 Ipratropium 0.5 Mg/Albuterol Sulfate 2.5 Mg (Base) Ampul.Neb 3 Ml INHALATION Q6HRT PRN Shortness Of Breath Amlodipine Besylate 5 mg 02/15/25 09:00 Amlodipine Besylate 5 Mg Tablet PO DAILY [facility] Apixaban 10 mg 02/14/25 21:00 02/14/25 21:05 Apixaban 5 Mg Tablet PO 02/21/25 09:01 10 mg Q12HR VALERIE Administration Apixaban 5 mg 02/21/25 21:00 Apixaban 5 Mg Tablet PO Q12HR VALERIE Atorvastatin Calcium 10 mg 02/13/25 18:00 02/14/25 17:22 Atorvastatin 10 Mg Tablet PO 10 mg QPM VALERIE Administration Cyanocobalamin 1,000 mcg 02/13/25 09:00 02/14/25 08:51 Cyanocobalamin 1,000 Mcg Tablet PO 1,000 mcg DAILY VALERIE Administration Diclofenac Sodium 1 applic 02/13/25 13:00 02/14/25 21:04 Diclofenac Sodium 1% 100 Gm Gel (*Bkc) TOPICAL 1 applic QID [facility] Administration Furosemide 40 mg 02/14/25 09:00 02/14/25 17:22 Furosemide Inj 40 Mg/4 Ml Vial IV PUSH 40 mg BID [facility] Administration Lidocaine 1 patch 02/13/25 12:20 02/14/25 08:59 Lidocaine 5% Patch TRANSDERM 1 patch DAILY [facility] Administration Ondansetron HCl 4 mg 02/13/25 05:14 Ondansetron Inj 4 Mg/2 Ml Vial IV PUSH Q4H PRN Nausea Pantoprazole Sodium 40 mg 02/15/25 09:00 Pantoprazole 40 Mg Tablet PO QAM [facility] Polyethylene Glycol 17 gm 02/15/25 09:00 Polyethylene Glycol 3350 17 Gm Powd.Pack PO DAILY [facility] Radiology Results: ITS Impressions Chest X-Ray 02/13/25 07:17 IMPRESSION: 1. No acute cardiopulmonary findings given portable technique. Venous Doppler Study 02/14/25 09:45 Impression: 1. Limited study. Right-sided DVT Renal Ultrasound 02/14/25 10:34 Impression: No acute abnormality. Labs Labs: Laboratory Results - last 24 hr 02/14/25 02/15/25 11:03 05:22 WBC 5.5 RBC 3.77 L Hgb 11.8 L Hct 36.3 L MCV 96.3 MCH 31.3 MCHC 32.5 RDW 12.0 Plt Count 206 MPV 12.0 H Sodium 137 Potassium 5.0 Chloride 101 Carbon Dioxide 31 H Anion Gap 5 BUN 97 H Creatinine 1.83 H Estim Creat Clear Calc 23 Estimated GFR 26 L Glucose 95 Calcium 9.4 Total Bilirubin 0.4 AST 29 ALT 18 Alkaline Phosphatase 59 Total Protein 7.3 Albumin 4.2 Urine Color Yellow Urine Appearance Clear Urine pH 5.0 Ur Specific [place] 1.009 Urine Protein Negative Urine Glucose (UA) Negative Urine Ketones Negative Ur Blood (Man) Negative Urine Nitrate Negative Urine Bilirubin Negative Urine Urobilinogen 0.2 Leukocyte Esterase Rfl Trace H Urine RBC 0-2 Urine WBC 0-5 Ur Squamous Epith Cells None seen Urine Bacteria None seen Urine Casts 0-2 Urine Eosinophils None seen U Random Total Protein 8 Ur Random Sodium 108 Ur Random Urea 377 Urine Creatinine 27.9 Protein/Creat Ratio 2 0.29 H Quality VTE Prophylaxis VTE prophylaxis: pharmacologic ordered (eliquis)
[2025-02-15] MEDS: APIXABAN 5 MG TABLET 10 MG PO ×2 (08:59→20:27)
[2025-02-15] MEDS: PANTOPRAZOLE 40 MG TABLET PO (08:59)
[2025-02-15] MEDS: CYANOCOBALAMIN 1,000 MCG TABLET 1000 MCG PO (08:59)
[2025-02-15] MEDS: DICLOFENAC SODIUM 1% 100 GM GEL (*BKC) 1 APPLIC TOPICAL ×3 (09:00→20:27)
[2025-02-15] MEDS: FUROSEMIDE INJ 40 MG/4 ML VIAL IV PUSH (09:00)
[2025-02-15] MEDS: LIDOCAINE 5% PATCH 1 PATCH TRANSDERM (09:00)
--- NOTE | 2025-02-15 11:25 | P.PNNP_ITS ---
Progress Note: A&P Assessment and Plan (1) Acute kidney injury: Code(s): N17.9 - Acute kidney failure, unspecified Status: Acute Assessment and Plan: * suspected based on admission creatinine * only previous labs available are from April 2024 -- creatinine was 0.98mg/dl at that time * prior to that, her creatinine seemed to fluctuate around 1.1 - 1.2mg/dl * await outpatient records from the assisted. * renal ultrasound unremarkable * Urinalysis is unremarkable. * Urine sodium is not pre renal however, fractional excretion of urea reflects a pre renal state * patient is not on oxygen and her breathing is currently better than it was on admission. * Her creatinine seems to be fairly stable, maybe a slight improvement. * She still has a lot of swelling. * As long as it does not get worse I suppose we can continue the furosemide but would maintain a low threshold for stopping because of her clear chest x- ray and no need for supplemental oxygen. (2) Stage 3 chronic kidney disease: Code(s): N18.30 - Chronic kidney disease, stage 3 unspecified Status: Chronic Assessment and Plan: * baseline creatinine seems to run around 0.9 - 1.2mg/dl * presumably due to hypertension, CHF + diuretics, and age-related change (3) Acute exacerbation of CHF (congestive heart failure): Code(s): I50.9 - Heart failure, unspecified Status: Acute Assessment and Plan: * suspected based on admission symptoms * shortness of breath * increase in LE edema * orthoptnea * dyspnea on exertion * however: * CXR clear * BNP only mildly elevated * check Echo * on IV diuretics * intake/ output is positive. * Not on any oxygen (4) Deep venous thrombosis: Code(s): I82.409 - Acute embolism and thrombosis of unspecified deep veins of unspecified lower extremity Status: Acute Assessment and Plan: * BLE dopplers noted thrombus within the right popliteal vein with diminished flow * started on Eliquis * is PE a possibility with regard to her shortness of breath (?) (5) Essential (primary) hypertension: Code(s): I10 - Essential (primary) hypertension Status: Chronic Assessment and Plan: * systolic 100-130 * follow trend of hemodynamics (6) Lower extremity edema: Code(s): R60.0 - Localized edema Status: Acute Assessment and Plan: * noted on exam * BLE dopplers noted * related to CHF versus venous insufficiency or other (?) * on diuretics Subjective Date/time seen: 02/15/25 11:25 Interval history: Leah is a pleasant lady who is resting in bed. She denies any shortness of breath right now. She has lots of swelling. Review of Systems Cardiovascular: Cardiovascular: Reports no additional cardiovascular compl aints Respiratory: Respiratory: Reports no additional respiratory complaints Gastrointestinal: Gastrointestinal: Reports no additional gastrointestinal complaints Genitourinary: Genitourinary: Reports no additional female genitourinary co mplaints Exam Narrative: WDWN in NAD skin no rash head ncat lungs coarse breath sounds at bases cor reg no rub abd BS+ nontender and soft ext 2+ bilateral edema. Objective Data Vital Signs Vital Signs: Vital Signs - 24 hr 02/14/25 11:40 02/14/25 12:00 02/14/25 14:34 Temperature 97.1 F L Pulse Rate 69 86 Respiratory Rate 16 Blood Pressure 126/43 L Pulse Oximetry 96 100 Oxygen Delivery Nasal Cannula Oxygen Flow Rate 2 02/14/25 16:00 02/14/25 19:21 02/14/25 20:00 Temperature 98.0 F Pulse Rate 78 81 Respiratory Rate 17 Blood Pressure 121/45 L Pulse Oximetry 97 95 Oxygen Delivery Room Air Oxygen Flow Rate 02/14/25 20:00 02/14/25 21:47 02/15/25 00:00 Temperature Pulse Rate 84 81 Respiratory Rate Blood Pressure Pulse Oximetry 96 Oxygen Delivery Nasal Cannula Oxygen Flow Rate 2 02/15/25 04:00 02/15/25 04:44 02/15/25 08:00 Temperature 97.9 F Pulse Rate 73 80 92 Respiratory Rate 18 Blood Pressure 111/54 L Pulse Oximetry 98 Oxygen Delivery Oxygen Flow Rate Intake/Output Intake/Output: Intake & Output 02/12/25 02/13/25 02/14/25 02/15/25 23:59 23:59 23:59 23:59 Intake Total 480 1500 630 Output Total 300 400 Balance 480 1200 230 Meds/Results Medications: Active Medications Generic Name Dose Route Start Last Admin Trade Name Freq PRN Reason Stop Dose Admin Acetaminophen 650 mg 02/13/25 05:14 02/14/25 08:51 Acetaminophen 325 Mg Tablet PO 650 mg Q4H PRN Administration Mild Pain (1-3) or Fever Albuterol/Ipratropium 3 ml 02/13/25 07:15 Ipratropium 0.5 Mg/Albuterol Sulfate 2.5 Mg (Base) Ampul.Neb 3 Ml INHALATION Q6HRT PRN Shortness Of Breath Amlodipine Besylate 5 mg 02/15/25 09:00 02/15/25 08:59 Amlodipine Besylate 5 Mg Tablet PO 5 mg DAILY VALERIE Administration Apixaban 10 mg 02/14/25 21:00 02/15/25 08:59 Apixaban 5 Mg Tablet PO 02/21/25 09:01 10 mg Q12HR VALERIE Administration Apixaban 5 mg 02/21/25 21:00 Apixaban 5 Mg Tablet PO Q12HR VALERIE Atorvastatin Calcium 10 mg 02/13/25 18:00 02/14/25 17:22 Atorvastatin 10 Mg Tablet PO 10 mg QPM VALERIE Administration Cyanocobalamin 1,000 mcg 02/13/25 09:00 02/15/25 08:59 Cyanocobalamin 1,000 Mcg Tablet PO 1,000 mcg DAILY VALERIE Administration Diclofenac Sodium 1 applic 02/13/25 13:00 02/15/25 09:00 Diclofenac Sodium 1% 100 Gm Gel (*Bkc) TOPICAL 1 applic QID VALERIE Administration Furosemide 40 mg 02/14/25 09:00 02/15/25 09:00 Furosemide Inj 40 Mg/4 Ml Vial IV PUSH 40 mg BID VALERIE Administration Lidocaine 1 patch 02/13/25 12:20 02/15/25 09:00 Lidocaine 5% Patch TRANSDERM 1 patch DAILY VALERIE Administration Ondansetron HCl 4 mg 02/13/25 05:14 Ondansetron Inj 4 Mg/2 Ml Vial IV PUSH Q4H PRN Nausea Pantoprazole Sodium 40 mg 02/15/25 09:00 02/15/25 08:59 Pantoprazole 40 Mg Tablet PO 40 mg QAM VALERIE Administration Polyethylene Glycol 17 gm 02/15/25 09:00 02/15/25 08:59 Polyethylene Glycol 3350 17 Gm Powd.Pack PO 17 gm DAILY VALERIE Administration Radiology Results: ITS Impressions Venous Doppler Study 02/14/25 09:45 Impression: 1. Limited study. Right-sided DVT Renal Ultrasound 02/14/25 10:34 Impression: No acute abnormality. Chest X-Ray 02/15/25 10:57 IMPRESSION: 1. Recommend CT chest to exclude right basilar nodule. 2. Minimal if any interstitial pulmonary edema. Labs Labs: Laboratory Results - last 24 hr 02/14/25 02/15/25 11:03 05:22 WBC 5.5 RBC 3.77 L Hgb 11.8 L Hct 36.3 L MCV 96.3 MCH 31.3 MCHC 32.5 RDW 12.0 Plt Count 206 MPV 12.0 H Sodium 137 Potassium 5.0 Chloride 101 Carbon Dioxide 31 H Anion Gap 5 BUN 97 H Creatinine 1.83 H Estim Creat Clear Calc 23 Estimated GFR 26 L Glucose 95 Calcium 9.4 Total Bilirubin 0.4 AST 29 ALT 18 Alkaline Phosphatase 59 Total Protein 7.3 Albumin 4.2 Urine Eosinophils None seen Ur Random Sodium 108
[2025-02-15] MEDS: guaiFENesin 600 MG/DEXTROMETHORPHAN 30 MG SR TAB 12 HR 1 TAB PO ×2 (16:33→20:27)
[2025-02-15] MEDS: ATORVASTATIN 10 MG TABLET PO (17:03)
[2025-02-16] VITALS (11 sets, daily range): BP systolic 107–114; BP diastolic 45–56; PULSE 69–90; RESP 12–20; TEMP 35.8–36.5; O2SAT 91–98
[2025-02-16 05:40] LABS: Hematocrit 34.9 % (37.0-47.0); Hemoglobin 11.4 g/dL (12.0-15.0); Mean Corpuscular HGB Conc 32.7 g/dl (32-36); Mean Corpuscular Hemoglobin 31.4 pg (26-34); Mean Corpuscular Volume 96.1 fl (80-100); Platelet Count Result 202 k/mm3 (150-375); Red Blood Count 3.63 M/mm3 (4.2-5.4); White Blood Count 6.2 K/mm3 (4.5-10.0)
[2025-02-16 06:02] LABS: Alanine Aminotransferase 19 U/L (6-35); Albumin Level 4.2 g/dL (3.5-5.1); Alkaline Phosphatase 62 U/L (38-126); Anion Gap 6 mmol/L (4-12); Aspartate Amino Transferase 29 U/L (14-36); Bilirubin,Total 0.5 mg/dL (0.2-1.3); Blood Urea Nitrogen 98 mg/dL (7-17); Calcium 9.5 mg/dL (8.4-10.2); Carbon Dioxide 30 mmol/L (22-30); Chloride 100 mmol/L (98-107); Estimated CRCL calculation 22 ml/min; Estimated Glomerular Filt Rate 24; Glucose 102 mg/dL (65-110); Potassium 5.9 mmol/L (3.4-5.0); Sodium 136 mmol/L (137-145); Total Protein 7.3 g/dL (6.3-8.2)
--- NOTE | 2025-02-16 06:57 | PM.IMPN ---
Progress Note: A&P Assessment and Plan (1) Acute exacerbation of CHF (congestive heart failure): Code(s): I50.9 - Heart failure, unspecified Status: Acute Assessment and Plan: Shortness of breath worsening over last few weeks with dyspnea on exertion and orthopnea as well as leg swelling significantly worsening over last few days. No increased oxygen requirements. Denies any other recent illnesses. She is on Lasix daily and reports her doctor increased her to 80 mg oral Lasix in the morning but this has not yet been started. Unsure who primary personal care attendant is. - Current medications: lasix 40 mg bid IV, lisinopril 40 mg daily (on hold for JAZZY and hypotension) - BNP unremarkable at 140 - Chest XR: No acute cardiopulmonary findings however noted coarseness and rhonchi on exam - Echo with LVEF 60-65% with grade I diastolic dysfunction prior echo from 09/21/22 showed lvef 65-70% with grade I diastolic dysfunction - Monitor vital signs, I&Os, BUN/creatinine, daily weights, neuro status and patient is a fall risk - Monitor serum electrolytes, Keep serum Potassium>4 and serum Magnesium>2 and CBC States shortness of breath has returned to baseline. Remains on her baseline oxygen supplementation 2 L nasal cannula. Repeat chest x-ray showed minimal pulmonary edema and a right basilar nodule. Known nodule, previously seen in 2022. Transitioned back to home lasix of 80 mg daily. (2) Deep venous thrombosis: Code(s): I82.409 - Acute embolism and thrombosis of unspecified deep veins of unspecified lower extremity Status: Acute Assessment and Plan: Denies a history of DVT/PE Venous doppler: thrombus within the right popliteal vein with diminished flow Remains on telemetry to rule out arrhythmia as cause, Endorses more stationary life style tele reviewed and no acute arrhtyhtmia noted Started on eliquis 10 mg daily x7 days on 02/14, then transition to 5 mg daily. Discussed the risk and benefits of eliquis with the patient and she states understanding and wishes to proceed with treatment. PT/OT consulted, recommending SNF placement. Care coordination continues to follow. -continue fall/bleeding precautions remains on eliquis sob is better- VS stable, will consider screening for PE if sob persists and/or something changes (3) Acute kidney injury: Code(s): N17.9 - Acute kidney failure, unspecified Status: Acute Assessment and Plan: BUN/Cr 98/1.9 with GFR 25 on admission, baseline creatinine seems to run around 0.9 - 1.2mg/dl Suspect kidney injury is secondary to congestion given her volume overloaded exam findings and suspect CHF. Possible cardiorenal syndrome. Avoid nephrotoxic medications Renally dose medications Monitor I/O BUN/Cr 97/1.83 on am labs Urinalysis is unremarkable. Renal US: No acute abnormality Nephrology consulted for uptrending BUN and Cr requiring diuresis await outpatient records from the shelter. Her creatinine seems to be fairly stable, maybe a slight improvement. She still has a lot of swelling. As long as it does not get worse I suppose we can continue the furosemide but would maintain a low threshold for stopping because of her clear chest x-ray and no need for supplemental oxygen. (4) Essential (primary) hypertension: Code(s): I10 - Essential (primary) hypertension Status: Chronic Assessment and Plan: Chronic Amlodipien 5 mg daily resumed as blood pressure has improved Lisinopril 40 mg daily remains on hold given JAZZY, resume as tolerated. Blood pressure reviewed remains stable, continue to monitor (5) Elevated lipase: Code(s): R74.8 - Abnormal levels of other serum enzymes Status: Resolved Assessment and Plan: Lipase mildly elevated at 2490 on admission with unremarkable LFTs Lipase has been elevated in the past Denies nausea/vomiting and abdominal discomfort, tolerating diet. Abdominal exam benign. -no acute changes- monitor (6) Hyperkalemia: Code(s): E87.5 - Hyperkalemia Status: Acute Assessment and Plan: noted elevated K this am lisinopril on hold pt is on lasix 80 mg this am -pt is stable otherwise, K can be lowered slowly, will monitor on tele and order repeated K later this am. savannahkelma is ordered per nephrology Time Spent With Patient Time with patient: Greater than 35 minutes Subjective Date/time seen: 02/16/25 06:57 Interval history: 79 year old female with past medical history of hypertension and congestive heart failure and baseline 2 L nasal cannula oxygen requirement who [facility] for shortness of breath and lower extremity edema. Assuming care. Pt is seen and examined. Patient is pleasant, resting in bed. Her shortness of breath is back to her baseline but she is still c/o of congestion. She continues to c/o lower extremity swelling but states that this is improving since admission. She has no other complaints denies chest pain, palpitations, nausea/vomiting, and abdominal pain. Review of Systems Review of Systems: All systems reviewed & are unremarkable except as noted in HPI and below Exam Narrative: AF HR 80 RR 18 SPO2 98 2L NC (baseline) BP 111/54 General: female in no acute respiratory distress who is nontoxic appearing, sitting up in chair HEENT: Normocephalic. Atraumatic. Extraocular movement intact. Sclera clear and anicteric. No facial asymmetry. Chest: Lungs are diminished to auscultation bilaterally. No wheezes. CV: Heart was regular rate and rhythm. S1-S2. No murmurs, gallops, or rubs. Abd: Abdomen was soft. Nontender. Nondistended. Positive bowel sounds. Ext: No clubbing, cyanosis. 3+ pitting edema extending to the knee with pain on palpation bilaterally. DP pulses bilaterally. Neuro: Patient is alert and oriented x3. Speech is clear. Objective Data Vital Signs Vital Signs: Vital Signs - 24 hr 02/15/25 08:00 02/15/25 09:00 02/15/25 11:32 Temperature Pulse Rate 92 Respiratory Rate Blood Pressure Pulse Oximetry 98 Oxygen Delivery Nasal Cannula Nasal Cannula Oxygen Flow Rate 2 2 02/15/25 11:41 02/15/25 12:00 02/15/25 14:00 Temperature 98.2 F Pulse Rate 84 85 Respiratory Rate 22 H Blood Pressure 92/57 L Pulse Oximetry 95 Oxygen Delivery Nasal Cannula Oxygen Flow Rate 2 02/15/25 14:28 02/15/25 16:00 02/15/25 20:00 Temperature Pulse Rate 69 Respiratory Rate Blood Pressure Pulse Oximetry 93 93 Oxygen Delivery Nasal Cannula Nasal Cannula Oxygen Flow Rate 1.5 2 02/15/25 20:00 02/15/25 22:11 02/16/25 00:00 Temperature 98.3 F Pulse Rate 69 76 77 Respiratory Rate 16 Blood Pressure 103/49 L Pulse Oximetry 94 Oxygen Delivery Oxygen Flow Rate 02/16/25 04:00 02/16/25 06:37 Temperature 97.7 F Pulse Rate 72 81 Respiratory Rate 16 Blood Pressure 114/45 L Pulse Oximetry 91 Oxygen Delivery Oxygen Flow Rate Intake/Output Intake/Output: Intake & Output 02/13/25 02/14/25 02/15/25 02/16/25 23:59 23:59 23:59 23:59 Intake Total 480 1500 2690 300 Output Total 300 400 Balance 480 1200 2290 300 Meds/Results Medications: Active Medications Generic Name Dose Route Start Last Admin Trade Name Freq PRN Reason Stop Dose Admin Acetaminophen 650 mg 02/13/25 05:14 02/14/25 08:51 Acetaminophen 325 Mg Tablet PO 650 mg Q4H PRN Administration Mild Pain (1-3) or Fever Albuterol/Ipratropium 3 ml 02/13/25 07:15 Ipratropium 0.5 Mg/Albuterol Sulfate 2.5 Mg (Base) Ampul.Neb 3 Ml INHALATION Q6HRT PRN Shortness Of Breath Amlodipine Besylate 5 mg 02/15/25 09:00 02/15/25 08:59 Amlodipine Besylate 5 Mg Tablet PO 5 mg DAILY VALERIE Administration Apixaban 10 mg 02/14/25 21:00 02/15/25 20:27 Apixaban 5 Mg Tablet PO 02/21/25 09:01 10 mg Q12HR VALERIE Administration Apixaban 5 mg 02/21/25 21:00 Apixaban 5 Mg Tablet PO Q12HR VALERIE Atorvastatin Calcium 10 mg 02/13/25 18:00 02/15/25 17:03 Atorvastatin 10 Mg Tablet PO 10 mg QPM VALERIE Administration Cyanocobalamin 1,000 mcg 02/13/25 09:00 02/15/25 08:59 Cyanocobalamin 1,000 Mcg Tablet PO 1,000 mcg DAILY VALERIE Administration Diclofenac Sodium 1 applic 02/13/25 13:00 02/15/25 20:27 Diclofenac Sodium 1% 100 Gm Gel (*Bkc) TOPICAL 1 applic QID VALERIE Administration Furosemide 80 mg 02/16/25 09:00 Furosemide 80 Mg Tablet PO DAILY [facility] Guaifenesin/Dextromethorphan 1 tab 02/15/25 13:15 02/15/25 20:27 Guaifenesin 600 Mg/Dextromethorphan 30 Mg Sr Tab 12 Hr PO 1 tab Q12HR VALERIE Administration Lidocaine 1 patch 02/13/25 12:20 02/15/25 09:00 Lidocaine 5% Patch TRANSDERM 1 patch DAILY VALERIE Administration Ondansetron HCl 4 mg 02/13/25 05:14 Ondansetron Inj 4 Mg/2 Ml Vial IV PUSH Q4H PRN Nausea Pantoprazole Sodium 40 mg 02/15/25 09:00 02/15/25 08:59 Pantoprazole 40 Mg Tablet PO 40 mg QAM VALERIE Administration Polyethylene Glycol 17 gm 02/15/25 09:00 02/15/25 08:59 Polyethylene Glycol 3350 17 Gm Powd.Pack PO 17 gm DAILY VALERIE Administration Radiology Results: ITS Impressions Venous Doppler Study 02/14/25 09:45 Impression: 1. Limited study. Right-sided DVT Renal Ultrasound 02/14/25 10:34 Impression: No acute abnormality. Chest X-Ray 02/15/25 10:57 IMPRESSION: 1. Recommend CT chest to exclude right basilar nodule. 2. Minimal if any interstitial pulmonary edema. Labs Labs: Laboratory Results - last 24 hr 02/16/25 04:50 WBC 6.2 RBC 3.63 L Hgb 11.4 L Hct 34.9 L MCV 96.1 MCH 31.4 MCHC 32.7 RDW 12.0 Plt Count 202 MPV 12.6 H Sodium 136 L Potassium 5.9 H Chloride 100 Carbon Dioxide 30 Anion Gap 6 BUN 98 H Creatinine 1.97 H Estim Creat Clear Calc 22 Estimated GFR 24 L Glucose 102 Calcium 9.5 Phosphorus 3.5 Total Bilirubin 0.5 AST 29 ALT 19 Alkaline Phosphatase 62 Total Protein 7.3 Albumin 4.2 Quality VTE Prophylaxis VTE prophylaxis: pharmacologic ordered (eliquis)
[2025-02-16] MEDS: SODIUM ZIRCONIUM CYCLOSILICATE 10 GM POWD.PACK PO (08:45)
[2025-02-16] MEDS: DICLOFENAC SODIUM 1% 100 GM GEL (*BKC) 1 APPLIC TOPICAL ×3 (08:45→20:39)
[2025-02-16] MEDS: LIDOCAINE 5% PATCH 1 PATCH TRANSDERM (08:46)
--- NOTE | 2025-02-16 09:59 | P.PNNP_ITS ---
Progress Note: A&P Assessment and Plan (1) Acute kidney injury: Code(s): N17.9 - Acute kidney failure, unspecified Status: Acute Assessment and Plan: * suspected based on admission creatinine * only previous labs available are from April 2024 -- creatinine was 0.98mg/dl at that time * prior to that, her creatinine seemed to fluctuate around 1.1 - 1.2mg/dl * [facility] from the [facility]. * renal ultrasound unremarkable * Urinalysis is unremarkable. * Urine sodium is not pre renal however, fractional excretion of urea reflects a pre renal state * patient is not on oxygen and her breathing is currently better than it was on admission. * Her creatinine seems to be ranging between 1.83 and today's value of 1.97. * She still has a lot of swelling. * Etiology of the swelling is not clear. The edema Has been going on for about a year as it was present in April but not in December of last year. Albumin level is okay. Echo was not too bad. She does not have much proteinuria. Liver enzymes are okay. Venous Dopplers showed a popliteal DVT on the right nothing to explain the bilateral diffuse edema. Will check a CT scan of the abdomen pelvis without contrast to check for retroperitoneal process and see how the liver is. * As long as it does not get worse I suppose we can continue the furosemide but would maintain a low threshold for stopping because of her clear chest x-ray and no need for supplemental oxygen. (2) Stage 3 chronic kidney disease: Code(s): N18.30 - Chronic kidney disease, stage 3 unspecified Status: Chronic Assessment and Plan: * baseline creatinine seems to run around 0.9 - 1.2mg/dl * presumably due to hypertension, CHF + diuretics, and age-related change (3) Acute exacerbation of CHF (congestive heart failure): Code(s): I50.9 - Heart failure, unspecified Status: Acute Assessment and Plan: * suspected based on admission symptoms * shortness of breath * increase in LE edema * orthoptnea * dyspnea on exertion * however: * CXR clear * BNP only mildly elevated * Echo shows normal LV systolic function, grade 1 diastolic dysfunction, and normal right side. * Patient was changed from IV to p.o. diuretics. * intake/ output is positive. * Not on any oxygen (4) Deep venous thrombosis: Code(s): I82.409 - Acute embolism and thrombosis of unspecified deep veins of unspecified lower extremity Status: Acute Assessment and Plan: * BLE dopplers noted thrombus within the right popliteal vein with diminished flow * started on Eliquis * is PE a possibility with regard to her shortness of breath (?) (5) Essential (primary) hypertension: Code(s): I10 - Essential (primary) hypertension Status: Chronic Assessment and Plan: * systolic 100-130 * continue same management (6) Lower extremity edema: Code(s): R60.0 - Localized edema Status: Acute Assessment and Plan: * noted on exam * BLE dopplers noted * related to CHF versus venous insufficiency or other (?) * on diuretics Subjective Date/time seen: 02/16/25 09:59 Interval history: Patient is sitting in chair. She says she ate breakfast but can not remember what she ate. No shortness of breath. Not on oxygen. Exam Narrative: WDWN in NAD skin no rash head ncat lungs coarse breath sounds at bases cor reg no rub abd BS+ nontender and soft ext 2+ bilateral edema. Objective Data Vital Signs Vital Signs: Vital Signs - 24 hr 02/15/25 11:32 02/15/25 11:41 02/15/25 12:00 Temperature Pulse Rate 84 Respiratory Rate Blood Pressure Pulse Oximetry Oxygen Delivery Nasal Cannula Nasal Cannula Oxygen Flow Rate 2 2 Fraction of Inspired Oxygen 02/15/25 14:00 02/15/25 14:28 02/15/25 16:00 Temperature 98.2 F Pulse Rate 85 69 Respiratory Rate 22 H Blood Pressure 92/57 L Pulse Oximetry 95 93 Oxygen Delivery Nasal Cannula Oxygen Flow Rate 1.5 Fraction of Inspired Oxygen 02/15/25 20:00 02/15/25 20:00 02/15/25 22:11 Temperature 98.3 F Pulse Rate 69 76 Respiratory Rate 16 Blood Pressure 103/49 L Pulse Oximetry 93 94 Oxygen Delivery Nasal Cannula Oxygen Flow Rate 2 Fraction of Inspired Oxygen 02/16/25 00:00 02/16/25 04:00 02/16/25 06:37 Temperature 97.7 F Pulse Rate 77 72 81 Respiratory Rate 16 Blood Pressure 114/45 L Pulse Oximetry 91 Oxygen Delivery Oxygen Flow Rate Fraction of Inspired Oxygen 02/16/25 07:50 02/16/25 08:35 Temperature Pulse Rate 88 90 Respiratory Rate 20 20 Blood Pressure Pulse Oximetry 95 91 Oxygen Delivery Nasal Cannula Room Air Oxygen Flow Rate 2 Fraction of Inspired Oxygen 28 21 Intake/Output Intake/Output: Intake & Output 02/13/25 02/14/25 02/15/25 02/16/25 23:59 23:59 23:59 23:59 Intake Total 480 1500 2690 420 Output Total 300 400 Balance 480 1200 2290 420 Meds/Results Medications: Active Medications Generic Name Dose Route Start Last Admin Trade Name Freq PRN Reason Stop Dose Admin Acetaminophen 650 mg 02/13/25 05:14 02/14/25 08:51 Acetaminophen 325 Mg Tablet PO 650 mg Q4H PRN Administration Mild Pain (1-3) or Fever Albuterol/Ipratropium 3 ml 02/13/25 07:15 Ipratropium 0.5 Mg/Albuterol Sulfate 2.5 Mg (Base) Ampul.Neb 3 Ml INHALATION Q6HRT PRN Shortness Of Breath Amlodipine Besylate 5 mg 02/15/25 09:00 02/15/25 08:59 Amlodipine Besylate 5 Mg Tablet PO 5 mg DAILY VALERIE Administration Apixaban 10 mg 02/14/25 21:00 02/15/25 20:27 Apixaban 5 Mg Tablet PO 02/21/25 09:01 10 mg Q12HR VALERIE Administration Apixaban 5 mg 02/21/25 21:00 Apixaban 5 Mg Tablet PO Q12HR VALERIE Atorvastatin Calcium 10 mg 02/13/25 18:00 02/15/25 17:03 Atorvastatin 10 Mg Tablet PO 10 mg QPM VALERIE Administration Cyanocobalamin 1,000 mcg 02/13/25 09:00 02/15/25 08:59 Cyanocobalamin 1,000 Mcg Tablet PO 1,000 mcg DAILY VALERIE Administration Diclofenac Sodium 1 applic 02/13/25 13:00 02/15/25 20:27 Diclofenac Sodium 1% 100 Gm Gel (*Bkc) TOPICAL 1 applic QID VALERIE Administration Furosemide 80 mg 02/16/25 09:00 Furosemide 80 Mg Tablet PO DAILY VALERIE Guaifenesin/Dextromethorphan 1 tab 02/15/25 13:15 02/15/25 20:27 Guaifenesin 600 Mg/Dextromethorphan 30 Mg Sr Tab 12 Hr PO 1 tab Q12HR VALERIE Administration Lidocaine 1 patch 02/13/25 12:20 02/16/25 08:46 Lidocaine 5% Patch TRANSDERM 1 patch DAILY VALERIE Administration Ondansetron HCl 4 mg 02/13/25 05:14 Ondansetron Inj 4 Mg/2 Ml Vial IV PUSH Q4H PRN Nausea Pantoprazole Sodium 40 mg 02/15/25 09:00 02/15/25 08:59 Pantoprazole 40 Mg Tablet PO 40 mg QAM VALERIE Administration Polyethylene Glycol 17 gm 02/15/25 09:00 02/16/25 08:46 Polyethylene Glycol 3350 17 Gm Powd.Pack PO 17 gm DAILY VALERIE Administration Radiology Results: ITS Impressions Venous Doppler Study 02/14/25 09:45 Impression: 1. Limited study. Right-sided DVT Renal Ultrasound 02/14/25 10:34 Impression: No acute abnormality. Chest X-Ray 02/15/25 10:57 IMPRESSION: 1. Recommend CT chest to exclude right basilar nodule. 2. Minimal if any interstitial pulmonary edema. Labs Labs: Laboratory Results - last 24 hr 02/16/25 04:50 WBC 6.2 RBC 3.63 L Hgb 11.4 L Hct 34.9 L MCV 96.1 MCH 31.4 MCHC 32.7 RDW 12.0 Plt Count 202 MPV 12.6 H Sodium 136 L Potassium 5.9 H Chloride 100 Carbon Dioxide 30 Anion Gap 6 BUN 98 H Creatinine 1.97 H Estim Creat Clear Calc 22 Estimated GFR 24 L Glucose 102 Calcium 9.5 Phosphorus 3.5 Total Bilirubin 0.5 AST 29 ALT 19 Alkaline Phosphatase 62 Total Protein 7.3 Albumin 4.2
--- NOTE | 2025-02-16 10:28 | PC.NURSE ---
Lokelma given at approximately 0845 AM, oral medications to be administered when pt available at 1045AM. Patient currently in CT scan
[2025-02-16] MEDS: guaiFENesin 600 MG/DEXTROMETHORPHAN 30 MG SR TAB 12 HR 1 TAB PO ×2 (10:46→20:38)
[2025-02-16] MEDS: FUROSEMIDE 80 MG TABLET PO (10:46)
[2025-02-16] MEDS: CYANOCOBALAMIN 1,000 MCG TABLET 1000 MCG PO (10:46)
[2025-02-16] MEDS: APIXABAN 5 MG TABLET 10 MG PO ×2 (10:46→20:38)
[2025-02-16] MEDS: PANTOPRAZOLE 40 MG TABLET PO (10:47)
[2025-02-16 13:51] LABS: Potassium 5.7 mmol/L (3.4-5.0)
[2025-02-16] MEDS: ATORVASTATIN 10 MG TABLET PO (17:36)
[2025-02-17] VITALS: PULSE 74
[2025-02-17 03:33] VITALS: BP 142/57; PULSE 96; RESP 20; TEMP 36.4; O2SAT 95
[2025-02-17 04:00] VITALS: PULSE 84
[2025-02-17 04:50] LABS: Hematocrit 36.2 % (37.0-47.0); Hemoglobin 11.6 g/dL (12.0-15.0); Mean Corpuscular HGB Conc 32.0 g/dl (32-36); Mean Corpuscular Hemoglobin 30.9 pg (26-34); Mean Corpuscular Volume 96.5 fl (80-100); Platelet Count Result 193 k/mm3 (150-375); Red Blood Count 3.75 M/mm3 (4.2-5.4); White Blood Count 5.8 K/mm3 (4.5-10.0)
[2025-02-17 05:17] LABS: Alanine Aminotransferase 25 U/L (6-35); Albumin Level 4.1 g/dL (3.5-5.1); Alkaline Phosphatase 56 U/L (38-126); Anion Gap 6 mmol/L (4-12); Aspartate Amino Transferase 34 U/L (14-36); Bilirubin,Total 0.6 mg/dL (0.2-1.3); Blood Urea Nitrogen 88 mg/dL (7-17); Calcium 9.5 mg/dL (8.4-10.2); Carbon Dioxide 30 mmol/L (22-30); Chloride 100 mmol/L (98-107); Estimated CRCL calculation 25 ml/min; Estimated Glomerular Filt Rate 28; Glucose 130 mg/dL (65-110); Potassium 4.8 mmol/L (3.4-5.0); Sodium 136 mmol/L (137-145); Total Protein 7.3 g/dL (6.3-8.2)
[2025-02-17 08:00] VITALS: PULSE 93; O2SAT 95
[2025-02-17] MEDS: DICLOFENAC SODIUM 1% 100 GM GEL (*BKC) 1 APPLIC TOPICAL ×2 (08:33→14:02)
[2025-02-17] MEDS: APIXABAN 5 MG TABLET 10 MG PO (08:33)
[2025-02-17] MEDS: FUROSEMIDE 80 MG TABLET PO (08:33)
[2025-02-17] MEDS: CYANOCOBALAMIN 1,000 MCG TABLET 1000 MCG PO (08:33)
[2025-02-17] MEDS: PANTOPRAZOLE 40 MG TABLET PO (08:34)
[2025-02-17] MEDS: LIDOCAINE 5% PATCH 1 PATCH TRANSDERM (08:34)
[2025-02-17] MEDS: guaiFENesin 600 MG/DEXTROMETHORPHAN 30 MG SR TAB 12 HR 1 TAB PO (08:34)
--- NOTE | 2025-02-17 10:18 | PM.PNNEP ---
Subjective Date/time seen: 02/17/25 10:18 Interval history: Follow-up for acute kidney injury/acute renal failure on chronic kidney disease. Objective Data Vital Signs Vital Signs: Vital Signs Temp Pulse Resp BP Pulse Ox O2 Del Method O2 Flow Rate 02/17/25 08:00 93 02/17/25 08:00 95 Nasal Cannula 2 02/17/25 04:00 84 02/17/25 03:33 97.6 F 96 20 142/57 H 95 02/17/25 00:00 74 02/16/25 20:00 73 02/16/25 20:00 98 Nasal Cannula 2 02/16/25 19:24 97.6 F 80 20 114/51 L 95 Intake/Output Intake/Output: Intake & Output 02/14/25 02/15/25 02/16/25 02/17/25 23:59 23:59 23:59 23:59 Intake Total 1500 2690 1040 1130 Output Total 300 400 100 Balance 1200 2290 1040 1030 Meds/Results Medications: Active Medications Generic Name Dose Route Start Last Admin Trade Name Freq PRN Reason Stop Dose Admin Acetaminophen 650 mg 02/13/25 05:14 02/17/25 11:59 Acetaminophen 325 Mg Tablet PO 650 mg Q4H PRN Administration Mild Pain (1-3) or Fever Albuterol/Ipratropium 3 ml 02/13/25 07:15 Ipratropium 0.5 Mg/Albuterol Sulfate 2.5 Mg (Base) Ampul.Neb 3 Ml INHALATION Q6HRT PRN Shortness Of Breath Amlodipine Besylate 5 mg 02/15/25 09:00 02/17/25 08:32 Amlodipine Besylate 5 Mg Tablet PO 5 mg DAILY VALERIE Administration Apixaban 10 mg 02/14/25 21:00 02/17/25 08:33 Apixaban 5 Mg Tablet PO 02/21/25 09:01 10 mg Q12HR VALERIE Administration Apixaban 5 mg 02/21/25 21:00 Apixaban 5 Mg Tablet PO Q12HR VALERIE Atorvastatin Calcium 10 mg 02/13/25 18:00 02/17/25 17:01 Atorvastatin 10 Mg Tablet PO 10 mg QPM VALERIE Administration Cyanocobalamin 1,000 mcg 02/13/25 09:00 02/17/25 08:33 Cyanocobalamin 1,000 Mcg Tablet PO 1,000 mcg DAILY VALERIE Administration Diclofenac Sodium 1 applic 02/13/25 13:00 02/17/25 17:01 Diclofenac Sodium 1% 100 Gm Gel (*Bkc) TOPICAL Not Given QID VALERIE Furosemide 80 mg 02/16/25 09:00 02/17/25 08:33 Furosemide 80 Mg Tablet PO 80 mg DAILY VALERIE Administration Guaifenesin/Dextromethorphan 1 tab 02/15/25 13:15 02/17/25 08:34 Guaifenesin 600 Mg/Dextromethorphan 30 Mg Sr Tab 12 Hr PO 1 tab Q12HR VALERIE Administration Lidocaine 1 patch 02/13/25 12:20 02/17/25 08:34 Lidocaine 5% Patch TRANSDERM 1 patch DAILY VALERIE Administration Ondansetron HCl 4 mg 02/13/25 05:14 Ondansetron Inj 4 Mg/2 Ml Vial IV PUSH Q4H PRN Nausea Pantoprazole Sodium 40 mg 02/15/25 09:00 02/17/25 08:34 Pantoprazole 40 Mg Tablet PO 40 mg QAM VALERIE Administration Polyethylene Glycol 17 gm 02/15/25 09:00 02/17/25 08:35 Polyethylene Glycol 3350 17 Gm Powd.Pack PO Not Given DAILY VALERIE Radiology Results: ITS Impressions Venous Doppler Study 02/14/25 09:45 Impression: 1. Limited study. Right-sided DVT Renal Ultrasound 02/14/25 10:34 Impression: No acute abnormality. Chest X-Ray 02/15/25 10:57 IMPRESSION: 1. Recommend CT chest to exclude right basilar nodule. 2. Minimal if any interstitial pulmonary edema. Abdomen/Pelvis CT 02/16/25 16:15 IMPRESSION: 1. Tree-in-bud opacities in right lung lower lobe, consistent with mild inflammation/infection. Labs Labs: Laboratory Tests 02/17/25 04:25 02/17/25 04:25 Calcium 9.5 Phosphorus 4.0 Total Bilirubin 0.6 AST 34 ALT 25 Alkaline Phosphatase 56 Total Protein 7.3 Albumin 4.1
--- NOTE | 2025-02-17 11:44 | P.DS_ITS ---
DS: Admitting Diagnosis Discharge Date 02/17/25 Admitting Diagnosis CHF exacerbation, DVT DS: Discharge Diagnosis Discharge Diagnosis (1) Acute exacerbation of CHF (congestive heart failure): Code(s): I50.9 - Heart failure, unspecified Status: Acute (2) Deep venous thrombosis: Code(s): I82.409 - Acute embolism and thrombosis of unspecified deep veins of unspecified lower extremity Status: Acute (3) Acute kidney injury: Code(s): N17.9 - Acute kidney failure, unspecified Status: Acute (4) Essential (primary) hypertension: Code(s): I10 - Essential (primary) hypertension Status: Chronic (5) Elevated lipase: Code(s): R74.8 - Abnormal levels of other serum enzymes Status: Resolved (6) Hyperkalemia: Code(s): E87.5 - Hyperkalemia Status: Acute DS: Summary Hospital Course Hospital Course: 79 year old female with past medical history of hypertension and congestive heart failure and baseline 2 L nasal cannula oxygen requirement who [facility] for shortness of breath and lower extremity edema. Patient states that shortness of breath has been ongoing for several weeks, denies associated cough, fever or being around sick contacts. She states she has been unable lie flat for several days due to increased shortness of breath and has been having worsening shortness of breath with any exertion. She has not had to adjust her oxygen supplementation. She then started to develop worsening lower extremity swelling the last few days with associated pain to the bilateral calves. She denies any recent injury or trauma. She states she has still been able to ambulate without assistive devices at her facility. 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 She states that her doctor was called and they had increased her lasix dosage to 80 mg PO, although had not started the new dose. While hospitalized she was put on Lasix 40 mg b.i.d.. Her BNP was unremarkable 0. Her chest x-ray showed minimal pulmonary edema and right basilar nodule which had been baseline from 2022. She had echocardiogram done that showed ejection fraction of 60 65% with a grade 1 diastolic dysfunction. This is baseline from 2022. Shortness of breath improved with Lasix use. She did have some elevated potassium. It was able to be lowered with Lasix and a 1 time dose of Lokelma. Potassium now back within normal range. She had her lisinopril on hold while in the hospital due to JAZZY and low blood pressures. Would recommend continuing to hold at discharge. If blood pressure increases after she has been discharged. She can follow-up with her PCP to resume. Patient doing well. Shortness of breath has resolved. She was found to have a DVT and the right popliteal vein with diminished flow. She was started on Eliquis. She will be discharged back to her nursing facility on Eliquis. PT and OT worked with her while hospitalized. She is back to baseline. Time Spent with Patient Time attestation: Total time spent providing and/or coordinating discharge services: Exam Narrative: GENERAL: Comfortable, no acute distress HENMT: moist mucous membranes EYES: EOM intact b/l RESPIRATORY: clear to auscultation, although distant CARDIO: Regular rate and rhythm GI: soft, nontender, bowel sounds present SKIN/EXTREMITIES: no rashes, no edema, no redness or tenderness DS: Data Data Completed and Pending Labs on day of discharge: Labs from last 24 hours 02/17/25 02/16/25 04:25 13:14 WBC 5.8 RBC 3.75 L Hgb 11.6 L Hct 36.2 L MCV 96.5 MCH 30.9 MCHC 32.0 RDW 12.0 Plt Count 193 MPV 12.4 H Sodium 136 L Potassium 4.8 5.7 H Chloride 100 Carbon Dioxide 30 Anion Gap 6 BUN 88 H D Creatinine 1.75 H Estim Creat Clear Calc 25 Estimated GFR 28 L Glucose 130 H Calcium 9.5 Phosphorus 4.0 Total Bilirubin 0.6 AST 34 ALT 25 Alkaline Phosphatase 56 Total Protein 7.3 Albumin 4.1 Discharge Plan Discharge Consulting providers: Michelle Marsh; Tera Taylor Discharging Clinician: Savannah Valerio Patient Disposition: NH Correction/Asst Living Activity: as tolerated Diet: heart healthy Discharge Instructions: Discharge disposition: New medications include Eliquis 10 mg twice a day through 02/21/2025. Start Eliquis 5 mg twice a day on 02/22/2025. Discontinue lisinopril for now. Discontinue due to low kidney function. If blood pressures start to elevate recommend following up with PCP to restart the lisinopril. Take medications as prescribed Monitor blood pressures Encouraged to continue with yearly vaccinations Return to the emergency department if he developed sudden shortness of breath, chest pain, nausea, vomiting, upset stomach or intractable diarrhea Return to the emergency department if you develop fever greater than 100.4 Follow-up with the primary care physician within 1-2 weeks Thank you for [facility] for your healthcare needs Patient Instructions: Antibiotic Form, Apixaban (By mouth), Heart Failure (GEN) Patient Language: Frisian Stand Alone Forms: General Discharge Information, Assisted Discharge Discharge Medications: New Eliquis 5 mg Tablet 5 mg PO Q12HR Qty: 60 0RF Eliquis 5 mg Tablet 10 mg PO Q12HR Qty: 9 0RF Continued esomeprazole magnesium 40 mg capsule,delayed release(DR/EC) 40 mg PO DAILY polyethylene glycol 3350 17 gram/dose powder 17 g PO DAILY benzonatate 200 mg capsule 200 mg PO TID PRN (Reason: cough) Qty: 15 0RF acetaminophen 325 mg Tablet 650 mg PO Q6HR Qty: 30 0RF sennosides-docusate sodium [Senokot-S] 8.6-50 mg Tablet 2 tab PO BID Qty: 30 0RF ipratropium-albuterol 0.5 mg-3 mg(2.5 mg base)/3 mL solution for nebulization 3 ml INHALATION Q6H PRN (Reason: shortness of breath) atorvastatin 10 mg tablet 10 mg PO QPM amlodipine 10 mg tablet 5 mg PO DAILY furosemide 80 mg tablet 80 mg PO DAILY cyanocobalamin (vitamin B-12) 1,000 mcg capsule 1,000 mcg PO DAILY ergocalciferol (vitamin D2) 50,000 unit tablet 50,000 unit PO DAILY Held lisinopril 40 mg tablet 40 mg PO DAILY Qty: 90 0RF Hold Instructions: Hold medication. Can be discontinued by PCP if blood pressures remain under control. Date of admission: 02/14/25 10:21 Primary Care Provider: SiennaShon Admitting Provider: Myrna Angela Attending physician on admission: Myrna Angela Condition: Stable Hospitalist MIPS Heart Failure (Exclusion) Patient has history of Heart Transplant or Left Ventricular Assistive Device?: No IF YES, STOP HERE Heart Failure (Qualifier) Patient has current or prior documentation of LVEF less than or equal to 40%, or mod/servere depressed LVSF?: No IF NO, STOP HERE If Yes, Heart Failure (Qualifier) Patient was prescribed or already taking an Angiotensin-Converting Enzyme (NORA) Inhibitor, or Antiotensin Receptor Juliana (ARB): Yes Patient was prescribed or already taking bisoprolol, carvedilol, or sustained release metoprolol succinate: No If Medications not prescribed/taking Reason patient not prescribed/taking bisoprolol, carvedilol, or sustained lissette lease metoprolol succinate: Patient reasons: pt declined or other pt reason
[2025-02-17] MEDS: ACETAMINOPHEN 325 MG TABLET 650 MG PO (11:59)
[2025-02-17 12:00] VITALS: PULSE 88
[2025-02-17 14:00] VITALS: BP 93/46; PULSE 66; RESP 16; TEMP 36.1; O2SAT 93
[2025-02-17] MEDS: ATORVASTATIN 10 MG TABLET PO (17:01)
== END 2025-02-17 17:25 | DRG 291 ==
LOC: ANHED 04:43 → ANH2MED 05:43
PROVIDERS: Internal Medicine Nephrology; Nurse Practitioner; Student in an Organized Health Care Education/Training Program; Admitting Provider Internal Medicine; Emergency Provider Student in an Organized Health Care Education/Training Program; Visit Provider Internal Medicine Critical Care Medicine
DX: I13.0 Hypertensive heart and chronic kidney disease with heart failure and stage 1 through stage 4 chronic kidney disease, or unspecified chronic kidney disease (principal); I50.33 Acute on chronic diastolic (congestive) heart failure; I82.431 Acute embolism and thrombosis of right popliteal vein; N17.9 Acute kidney failure, unspecified; N18.30 Chronic kidney disease, stage 3 unspecified; E87.5 Hyperkalemia; Z96.611 Presence of right artificial shoulder joint
CPT/HCPCS: 36415; 71045; 74176; 76770; 80053; 81001; 82570; 82948; 83690; 83880; 84100; 84132; 84156; 84300; 84484; 84540; 85025; 85027; 85610; 85730; 85999; 93005; 93970; 94667; 96372; 96374; 97110; 97161; 97165; 97530; 97535; 99285; A9270; C8929; G0378; J1650; J1938; Q9957